=== PATIENT | female | born 1990 | race Caucasian/White ===

== ENCOUNTER 2020-01-17 14:32 | Outpatient (REF) | payer MEDICARE, MEDICAID, SELFPAY ==
[2020-01-18 09:10] LABS: CT PCR NOT DETECTED (Not Detect.); NG PCR NOT DETECTED (Not Detect.)
[2020-01-18 10:31] LABS: BV Int Neg Control Negative (Negative); BV Int Pos Control Positive (Positive)
== END 2020-01-17 14:33 | disposition home or self-care (01) ==
LOC: HO.LAB 14:32
PROVIDERS: PCP Internal Medicine; Visit Provider Obstetrics & Gynecology
DX: N91.2 Amenorrhea, unspecified (principal); N94.10 Unspecified dyspareunia
CPT/HCPCS: 87480; 87491; 87510; 87591; 87660; 99212

== ENCOUNTER → 2020-02-09 11:55 | Outpatient (BNVA) | payer MEDICARE, MEDICAID, SELFPAY | PROVIDERS: Visit Provider Obstetrics & Gynecology | DX: Z13.89 Encounter for screening for other disorder (principal) | CPT/HCPCS: 81025; 99212 ==

== ENCOUNTER 2020-09-21 13:05 | Outpatient (REF) | payer MEDICARE, MEDICAID, SELFPAY ==
[2020-09-21 14:06] LABS: MANUAL DIFF FLAG NO
[2020-09-21 14:11] LABS: Basophils Percent Auto 0.6 % (0-2); Eosinophils Absolute Auto 0.1 X10*3/uL (0.0-0.4); Eosinophils Percent Auto 1.9 % (0-4); Hematocrit 42.7 % (37-47); Hemoglobin 14.6 g/dl (12.0-16.0); Imm Gran Abs Auto 0.03 X10*3/uL (0.00-0.03); Imm Gran Pct Auto 0.4 % (0.0-0.4); Lymphocytes Absolute Auto 1.7 X10*3/uL (1.2-4.9); Lymphocytes Percent Auto 24.9 % (20-40); Mean Corpuscular HGB Conc 34.2 g/dl (31.0-35.0); Mean Corpuscular Volume 84.9 fL (80-98); Monocytes Absolute Auto 0.6 X10*3/uL (0.1-1.2); Neutrophils Absolute Auto 4.3 X10*3/uL (2.0-8.3); Neutrophils Percent Auto 63.2 % (45-73); Platelet Count 189 X10*3/uL (160-400); Red Blood Count 5.03 X10*6/uL (4.20-5.50); Red Cell Distribution Width 13.2 % (11.0-16.0); White Blood Count 6.8 X10*3/uL (4.8-10.8)
[2020-09-21 14:17] LABS: Glucose Urine UA NEG (NEG); Leukocyte Esterase Urine NEG (NEG); Nitrite Urine NEG (NEG); Specific Gravity - Urine >= 1.030 (1.005-1.025); Urine Blood NEG (NEG); Urine Ketones NEG (NEG); Urine Protein TRACE MG/DL (NEG-TRACE)
[2020-09-21 14:19] LABS: Appearance Urine HAZY; Color Urine YELLOW
[2020-09-21 14:33] LABS: Creatinine Urine 232.43 mg/dL; Microalbum/Creatinine Ratio Ur 13.3 ug/mg cr
[2020-09-21 14:37] LABS: Alanine Aminotransferase 19 U/L (0-31); Albumin Level 4.3 g/dL (3.5-5.0); Alkaline Phosphatase 93 U/L (39-117); Anion Gap 13 (12-20); Aspartate Amino Transferase 25 U/L (5-31); Bilirubin Total 1.1 mg/dL (0.0-1.0); Blood Urea Nitrogen 18 mg/dL (9-16); Calcium 9.6 mg/dL (8.4-10.2); Carbon Dioxide 25 mmol/L (22-29); Chloride 103 mmol/L (96-108); Estimated Glomerular Filt Rate > 60; Glucose Random 120 mg/dL (60-115); Iron 139 mcg/dL (30-160); Magnesium 1.8 mg/dL (1.6-2.6); Percent Iron Saturation 45 % (15-50); Potassium 4.2 mmol/L (3.3-5.1); Sodium 137 mmol/L (135-145); Total Iron Binding Capacity 310 mcg/dL (228-428); Unsaturated Iron Binding 171 ug/dL
[2020-09-21 14:52] LABS: Ferritin 176 ng/mL (10-122); Vitamin D 25-OH Total 36.4 ng/mL (>30)
[2020-09-22 08:29] LABS: HIV AB/AG Nonreactive (Nonreactive); HIV Num 1 0.11 S/CO (0.00-0.99)
== END 2020-09-21 13:06 | disposition home or self-care (01) ==
LOC: HO.LAB 13:05
PROVIDERS: PCP Internal Medicine; Referring Provider Internal Medicine; Visit Provider Internal Medicine
DX: Z00.00 Encounter for general adult medical examination without abnormal findings (principal); Z11.4 Encounter for screening for human immunodeficiency virus [HIV]
CPT/HCPCS: 36415; 80053; 81003; 82043; 82306; 82728; 83540; 83735; 84100; 85025; 87389

== ENCOUNTER 2021-01-18 15:32 | Outpatient (REF) | payer MEDICARE, MEDICAID, SELFPAY ==
[2021-01-20 13:13] LABS: CT PCR NOT DETECTED (Not Detect.); NG PCR NOT DETECTED (Not Detect.)
[2021-01-21 10:50] LABS: BV Int Neg Control Negative (Negative); BV Int Pos Control Positive (Positive)
[2021-01-25 10:01] LABS: HPV mRNA E6/E7 rflx Not Detected (Not Detected)
== END 2021-01-18 15:33 | disposition home or self-care (01) ==
LOC: HO.LAB 15:32
PROVIDERS: PCP Internal Medicine; Visit Provider Advanced Practice Midwife
DX: Z01.411 Encounter for gynecological examination (general) (routine) with abnormal findings (principal); Z11.3 Encounter for screening for infections with a predominantly sexual mode of transmission; N89.8 Other specified noninflammatory disorders of vagina; Z20.2 Contact with and (suspected) exposure to infections with a predominantly sexual mode of transmission
CPT/HCPCS: 87480; 87491; 87510; 87591; 87624; 87660; 88142; 99212

== ENCOUNTER 2021-11-13 17:15 | Outpatient (REF) | payer MEDICARE, MEDICAID, SELFPAY ==
--- NOTE | ~2021-11-13 | XR_ITS ---
EXAMINATION: XR CHEST CLINICAL INFORMATION: Shortness of breath. COMPARISON: None TECHNIQUE: 2 views of the chest were obtained. FINDINGS: Sternal wires and fixation plates are noted. Cardiac valve prosthesis seen. Abandoned pacer leads noted. Surgical clips project over the left lower lobe. Normal size of the cardiomediastinal silhouette for this limited technique. No focal airspace opacity, pleural effusion or pneumothorax. No acute osseous abnormalities. The imaged upper abdomen is within normal limits. XR/XR chest 2V IMPRESSION: No acute cardiopulmonary findings.
== END 2021-11-13 17:16 | disposition home or self-care (01) ==
LOC: HO.XRAY 17:15
PROVIDERS: PCP Internal Medicine; Visit Provider Internal Medicine
DX: J45.40 Moderate persistent asthma, uncomplicated (principal)
CPT/HCPCS: 71046

== ENCOUNTER 2023-02-28 09:51 | Emergency (ER) | payer MEDICARE, MEDICAID, SELFPAY ==
[2023-02-28 10:17] VITALS: BP 106/66; BP 134/86; PULSE 75; PULSE 76; RESP 16; TEMP 36.8; O2SAT 96; O2SAT 98; BMI 28.0
--- NOTE | 2023-02-28 10:33 | ED.GENADULT ---
HPI - General Adult General Chief complaint: General Medical Stated complaint: FOUND ASLEEP AT WHEEL Time Seen by Provider: 02/28/23 10:18 Source: patient Mode of arrival: ambulatory Limitations: no limitations History of Present Illness HPI narrative: 32-year-old female history of IV drug abuse, factor 5 Leiden, on apixaban presenting to the emergency department after being found dozing off in her car while parked, she was found by police who made her come into the emergency department for evaluation. She was not given Narcan. She reports she use drugs this morning however unwilling to disclose how much. She reports she was recently hospitalized and septic, and has had a wound ever since her hospitalization that seems to be getting worse and now draining yellow fluid. Patient did not want to come to the hospital but states she was forced to come in. Denies suicidal or homicidal ideation. Denies fevers, chills, chest pain, shortness of breath, nausea, vomiting, abdominal pain Related Data Home Medications Medication Instructions Recorded Confirmed dextroamphetamine-amphetamine 15 15 mg PO BID 01/17/20 mg tablet (Adderall) apixaban 5 mg tablet (Eliquis) 5 mg PO BID 01/18/21 methadone 10 mg/5 mL oral solution 80 mg PO DAILY 01/18/21 Previous Rx's Medication Instructions Recorded cephalexin 500 mg tablet 500 mg PO Q6H 10 days #40 tabs 02/28/23 doxycycline hyclate 100 mg capsule 100 mg PO BID 10 days #20 caps 02/28/23 Allergies Allergy/AdvReac Type Severity Reaction Status Date / Time No Known Allergies Allergy Verified 01/18/21 15:45 Review of Systems Review of Systems: Constitutional : No Weight loss, No Fever, No Chills, No Fatigue, No Malaise ENT/Mouth : No sore throat, No Rhinorrhea Eyes: No Eye Pain, No Swelling, No Redness Cardiovascular : No Chest Pain, No SOB, No Dyspnea on Exertion, No Orthopnea, No Edema, No Palpitations Respiratory : No Cough, No Sputum, No Wheezing Gastrointestinal : No Nausea, No Vomiting, No Diarrhea, No Constipation, No abdominal Pain, No Hematochezia, No Melena Genitourinary : No Dysuria, No Urinary Frequency, No Hematuria, Musculoskeletal : No joint pain, No Myalgias, No Joint Swelling Skin : No Skin Lesions, No rash, + wound Neuro : No Weakness, No Numbness, No Dizziness, No Headache Psych : No Anxiety/Panic, No Depression All other systems reviewed and are negative Yes all other systems are reviewed and are negative COUNT INCLUDES [facility] Past Medical History Attestation statement: The following information was validated with the patient. Source: old records reviewed and nursing notes reviewed Medical History IV drug abuse Factor V Leiden History of pulmonary embolism History of ADHD Surgical History History of loop electrical excision procedure (LEEP) Hx of heart surgery Hx of cholecystectomy Hx of tonsillectomy Family History Family History Mother Skin cancer Social History Social History Alcohol intake: never Cigarettes Per Day: 20 Years Smoked: 10 Advance Directives: No Advance Directives Information Provided: No Sexual orientation: Straight/Heterosexual Gender identity: Female Physical Exam ED Vital Signs: Vital Signs - 24 hr 02/28/23 10:17 Temperature 98.3 F Pulse Rate 75 Respiratory Rate 16 Blood Pressure 106/66 Pulse Oximetry 96 Oxygen Delivery Method Room Air BMI result Body Mass Index 28.0 vss Appearance: Alert.? Oriented X3.? No acute distress.? Head: Normocephalic, atraumatic, no step-offs or deformities Eyes: Pupils equal, round and reactive to light.? ENT: Pharynx normal.? Neck: Normal inspection.? Neck supple.? CVS: Normal heart rate and rhythm.? Pulses normal.? Respiratory: No respiratory distress.? Breath sounds normal.? Abdomen: Soft and nontender.? Skin: Skin warm and dry.? Normal skin color.? Normal skin turgor.? + there is a small 2 cm wound w/ dehisence with overlying erythema, warmth and purulence yellow/ green. No palpable fluctuance. This appears to be overlying the site where pacemaker was inserted Extremities: No lower extremity edema.? No calf ttp. 5/5 strength to bilateral upper and lower extremities Neuro: Oriented X 3.? No motor deficit.? No sensory deficit. CN 2-12 intact Course Reevaluation(s) Reevaluation #1: Patient does not want labs drawn she says she does not want to be here. Does not want to be seen by the care team or recovery. Patient requesting to leave she is awake alert and oriented denying suicidal and homicidal ideation. Will treat patient for cellulitis of wound to left anterior chest wall. Educated patient on diagnosis and treatment plan, answered all question, patient verbalizes understanding. At this time patient will be discharged home, advised to return with new or worsening symptoms. Educated on worrisome signs and symptoms and when to return. At this time I feel comfortable discharge home. Time: 10:40 Reevaluation #2: Patient did not sign form AMA however she verbally understood risks of leaving against medical advice with nazia present at bedside as keven Time: 11:54 Medical Decision Making Medical Decision Making [facility] Narrative: 32-year-old female presents status post suspected opiate overdose. Also complaining of wound to left anterior chest wall Physical exam significant for + there is a small 2 cm wound w/ dehisence with overlying erythema, warmth and purulence yellow/ green. No palpable fluctuance. This appears to be overlying the site where pacemaker was inserted This was likely opiate overdose versus opiate abuse. Unlikely suicidal ideation/intent. No associated trauma therefore unlikely traumatic injury to head, neck, chest, abdomen or pelvis NIH stroke scale 0, GCS 15. I do not suspect metabolic derangements. Wound concerning for infection/cellulitis with dehiscence unlikely systemic al illness/infection. Plan at this time patient requesting to leave states her mother will come get her. Does not want to speak to recovery or care team. Not suicidal or homicidal no indication for Section 12 I explained to her that she should be admitted for her wound however she is adamantly refusing. Refusing labs. Differential Diagnosis Differential Diagnoses: The differential diagnosis associated with the presentation includes This was likely opiate overdose versus opiate abuse. Unlikely suicidal ideation/intent. No associated trauma therefore unlikely traumatic injury to head, neck, chest, abdomen or pelvis NIH stroke scale 0, GCS 15. I do not suspect metabolic derangements. Wound concerning for infection/cellulitis unlikely systemic al illness/infection. Admission/Observation Consideration of admission/observation: Escalation of care including admission/observation considered Unlikely Lab Data Labs: Patient refusing lab Independent Historian Clinical information obtained from an independent historian. History obtained from or confirmed by: Parent (Mother) Prescription Management I considered prescription management with: Antibiotic and Other (Narcan) Chronic Conditions Patient?s care impacted by: Other (IV drug abuse) Discharge Plan Discharge Clinical Impression: Opiate overdose, Wound dehiscence, Left against medical advice Patient Disposition: Home, Self-Care Instructions: Against Medical Advice (ED) Additional Instructions: Take your medications as prescribed. If you were prescribed antibiotics today, it is important that you take your medication to their entirety, do not skip any doses, do not finish them early. Follow-up with your primary care provider this week. Return to the emergency department with new or worsening symptoms. Such as fevers, chills, chest pain, shortness of breath, nausea, vomiting, dizziness, headache, vision changes, lethargy In case of emergency call 911 You decided to leave against medical advice, I recommended staying in the hospital for IV antibiotics due to the wound under chest wall, your refusing. Refusing labs. Refusing to stand hospital. This could lead to worsening infection, systemic illness, , sepsis. Prescriptions: New doxycycline hyclate 100 mg capsule 100 mg PO BID 10 Days Qty: 20 0RF cephalexin 500 mg tablet 500 mg PO Q6H 10 Days Qty: 40 0RF No Action dextroamphetamine-amphetamine [Adderall] 15 mg tablet 15 mg PO BID Rx Instructions: administer doses at least 4-6 hours apart methadone 10 mg/5 mL solution 80 mg PO DAILY Eliquis 5 mg tablet 5 mg PO BID Referrals: ED Physician,Generic [Physician] - 2 days Interventions: ED Discharge Assessment Last Done: 02/28/23 11:11 Discharge Date/Time: 02/28/23 11:12
--- NOTE | 2023-02-28 10:42 | MHC.EDTECH ---
pt refusing labs, RN and PA made aware.
--- OUTSIDE RECORDS SUMMARY | 2023-02-28 10:46 | XMS_ITS | Continuity of Care Document ---
Author Name Unknown Organization [facility] Address [address] [place] [id number] Care Team Providers Care Produce Department Manager Name Role Phone Maddy PERALTA, Daniella Primary Care Physician Encounter [facility] [place] Date(s): 04/07/20 - 05/07/20 [facility] [address] [place] [id number] Attending Physician: Jocelynn Liang Admitting Physician: Jocelynn Liang Referring Physician: Jocelynn Liang Allergies, Adverse Reactions, Alerts Substance Reaction Severity Status NKA Active Immunizations Not Given Vaccine Date Status Refusal Reason pneumococcal 23-valent vaccine 10/16/19 Not Given Patient Refuses pneumococcal 23-valent vaccine 01/08/18 Not Given Patient Refuses pneumococcal 23-valent vaccine 12/09/16 Not Given Patient Refuses influenza virus vaccine, inactivated 01/08/18 Not Given Patient Refuses Medications acetaminophen 325 mg oral tablet 975 mg, 3, tablet, By Mouth, Every 6 hours, PRN, Refills 0, Maintenance, Pain , Mild, 10/27/19 9:20:00 EDT Start Date: 10/27/19 Status: Ordered apixaban = 5 mg, By Mouth, 2 times a day, 0 Refills, Maintenance, 03/28/20 14:42:00 EST, Tablet, Partial fill upon patient request if the prescription is for a schedule II opioid drug. Start Date: 03/28/20 Status: Ordered cephalexin monohydrate 500 mg oral capsule 1 capsule = 500 mg, By Mouth, Every 8 hours, for 4 week(s), # 84 capsule, 0 Refills, Acute 05/26/2114:16:00 EST, 04/28/20 15:16:00 EST, [id number], Partial fill upon patient requestif the prescription is for a schedule II opioid thea... Start Date: 04/28/20 Stop Date: 05/26/20 Status: Ordered gabapentin 100 mg oral capsule 100 mg, 1, capsule, By Mouth, 3 times a day, Refills 0, Maintenance, 03/28/20 14:41:00 EST, Partialfill upon patient request if the prescription is for a schedule II opioid drug. Start Date: 03/28/20 Status: Ordered methadone 10 mg oral tablet = 80 mg, By Mouth, Daily in AM, 0 Refills, Maintenance, 03/28/20 16:41:00 EST, Tablet, Partial fillupon patient request if the prescription is for a schedule II opioid drug. Start Date: 03/28/20 Status: Ordered Multivit Therapeutic/Minerals Tablet 1 tablet, By Mouth, Daily, 0 Refills, Maintenance, 03/28/20 14:41:00 EST, Tablet, Partial fill uponpatient request if the prescription is for a schedule II opioid drug. Start Date: 03/28/20 Status: Ordered oxyCODONE 5 mg oral tablet 5 mg, 1, tablet, By Mouth, Every 6 hours, PRN, Refills 0, Tot. Refills 0, Maintenance, Pain , Severe, 03/28/20 14:41:00 EST, Partial fill upon patient request if the prescription is for a schedule IIopioid drug. 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
--- OUTSIDE RECORDS SUMMARY | 2023-02-28 10:46 | XMS_ITS | Continuity of Care Document ---
Author Name Unknown Organization [facility] ter Address [address] [place] [id number]- Care Team Providers Care Car Wash Attendant Name Role Phone Daniella Castañeda MD Primary Care Physician Encounter [facility] [place] Date(s): 12/24/22 - 01/02/[address] [address]- Encounter Diagnosis Septic shock(Final) - 12/25/22 Pulmonary embolus(Final) - 12/25/22 Enterocolitis(Final) - 12/25/22 Discharge Disposition: A-D/C Home Attending Physician: Ayan Russell MD Admitting Physician: Tobias Carvalho MD Referring Physician: Not on Staff, Referring MD Allergies, Adverse Reactions, Alerts No Known Allergies Medications amoxicillin 500 mg oral tablet 2 tablet = 1,000 mg, By Mouth, 3 times a day, for 6 week(s), # 252 tablet, 0 Refills, Acute 02/13/23 11:49:00 EST, 01/02/23 11:49:00 EDT, Tablet, [facility], Partial fill upon patient request if the prescription is for a schedule II opio... Start Date: 01/02/23 Stop Date: 02/13/23 Status: Ordered apixaban 5 mg oral tablet = 5 mg, By Mouth, 2 times a day, # 60 tablet, 1 Refills, Maintenance, 01/02/23 11:46:00 EDT, Tablet, [facility], Partial fill upon patient request if the prescription is for a schedule II opioid drug., 162, cm, 01/02/23 3:30:00 EDT, Heig... Start Date: 01/02/23 Status: Ordered erythromycin 0.5% ophthalmic ointment 1 applicator, Eye, Left, Every 4 hours, # 3.5 Gm, 1 Refills, Maintenance, 01/02/23 11:47:00 EDT, Ophth Ointment, [facility], Partial fill upon patient request if the prescription is fora schedule II opioid drug., 1 applicator Eye, Left... Start Date: 01/02/23 Status: Ordered Methadone Tablet 90 mg, Tablet, By Mouth, 01/02/23 9:00:00 EDT Start Date: 01/02/23 Stop Date: 01/02/23 Status: Completed ofloxacin 0.3% ophthalmic solution See Instructions, 1 drop left eye every hour while awake for 1 week. Please follow up with ophthalmology, # 5 mL, 0 Refills, Acute, 01/02/23 12:45:00 EDT, [facility], Partial fill upon patient request if the prescription is for a schedu... Start Date: 01/02/23 Status: Ordered oxyCODONE 5 mg oral tablet 5 mg, Tablet, By Mouth, Every 6 hours, PRN for Pain , Severe, CRESENCIO, 12/27/22 14:06:00 EDT Start Date: 12/27/22 Stop Date: 01/02/23 Status: Discontinued Problem List Condition Confirmation Course Effective Dates Status H ealth Status Informant ARF - Acute renal failure Confirmed Active Pacemaker Confirmed Active Cholecystitis Confirmed Active Depression Confirmed Active Empyema Confirmed Active Factor 5 Leiden mutation Confirmed Active Tricuspid valve replaced Confirmed Active Hepatitis C antibody test positive Confirmed Active History of opioid abuse, currently on methadone Confirmed Active Infective endocarditis of tricuspid valve Confirmed Active Sacroiliitis Confirmed Active Opioid abuse Confirmed Active Opioid use disorder, severe, dependence Confirmed Active Pulmonary embolism Confirmed Active Results Orders for Microbiology Reports Name Date Blood Culture 12/31/22 Blood Culture #2 12/31/22 Blood Culture 12/24/22 Blood Culture 12/24/22 Blood Culture #2 12/24/22 Microbiology Reports TEST:Blood Culture STATUS:Unauthenticated BODY SITE: SOURCE:Blood COLLECTED DATE/TIME:12/31/22 1:50 PM Blood Culture SPECIMEN DESCRIPTION : BLOOD NO SITE SPECIAL REQUESTS : NONE CULTURE : NO GROWTH AFTER 48 HOURS REPORT STATUS : PRELIMINARY REPORT TEST:Blood Culture, Second Order STATUS:Unauthenticated BODY SITE: SOURCE:Blood COLLECTED DATE/TIME:12/31/22 1:50 PM Blood Culture, Second Order SPECIMEN DESCRIPTION : BLOOD NO SITE SPECIAL REQUESTS : NONE CULTURE : NO GROWTH AFTER 48 HOURS REPORT STATUS : PRELIMINARY REPORT TEST:Blood Culture STATUS:Auth (Verified) BODY SITE: SOURCE:Blood COLLECTED DATE/TIME:12/24/22 2:51 PM Blood Culture SPECIMEN DESCRIPTION : BLOOD NO SITE SPECIAL REQUESTS : NONE CULTURE : STREPTOCOCCUS PYOGENES Result reported to the [facility]. This isolate was identified using Maldi-TOF system FOR SUSCEPTIBILITY RESULT REFER TO BLOOD CULTURE CULTURE RESULTS PHONED TO: [facility] 12/26/22 1210 BY [employer] REPORT STATUS : FINAL 12/27/2022 TEST:Blood Culture, Second Order STATUS:Auth (Verified) BODY SITE: SOURCE:Blood COLLECTED DATE/TIME:12/24/22 2:51 PM Blood Culture, Second Order SPECIMEN DESCRIPTION : BLOOD NO SITE SPECIAL REQUESTS : NONE CULTURE : STREPTOCOCCUS PYOGENES Result reported to the [facility]. This isolate was identified using Maldi-TOF system FOR SUSCEPTIBILITY RESULT REFER TO BLOOD CULTURE CULTURE RESULTS PHONED TO: [facility] 12/26/22 1210 BY [employer] REPORT STATUS : FINAL 12/27/2022 TEST:Blood Culture STATUS:Auth (Verified) BODY SITE: SOURCE:Blood COLLECTED DATE/TIME:12/24/22 2:51 PM Blood Culture SPECIMEN DESCRIPTION : BLOOD NO SITE SPECIAL REQUESTS : CRITICAL VALUE CALLED AND VERIFIED BY READBACK FOR: GRAM POSITIVE COCCI AND PCR RESULT TO EVELYN GARCIA, 12/25/22 0230, BY TECH [id number] CULTURE : STREPTOCOCCUS PYOGENES Result reported to the [facility]. This isolate was identified using Maldi-TOF system These AST results were performed on the Pho[employer]entcan ID and AST system Group A beta Hemolytic Strep was identified by multiplex PCR. CULTURE RESULTS PHONED TO: [facility] 12/26/22 1210 BY [id number] REPORT STATUS : FINAL 12/27/2022 ORGANISM STREPTOCOCCUS PYOGENES Result reported to the [facility]. This isolate was identified using Maldi-TOF system These AST results were performed on the Microscan ID and AST system METHOD MIN. INHIB. CONC. (MCG/ML) ERYTHROMYCIN RESISTANT PENICILLIN SUSCEPTIBLE VANCOMYCIN SUSCEPTIBLE Radiology Reports * Exam Date Time Procedure Performing Provider Status 12/27/22 10:[address] Chest W/ Contrast Kristin Little; Auth (Verified) Notes: (CT Chest W/ Contrast) Reason For Exam: Assess for Abscess;Other: RESULT: CT Chest W/ Contrast CT Chest W/ Contrast INDICATION: Reason: Other:; Assess for Abscess; Clinical Question(s): Abscess Empyema; Order Comment: TECHNIQUE: Helical CT scan of the chest with IV contrast, formatted in 3 planes. 75 cc of [id number] was administered intravenously. Weight-based protocol was performed using automatic exposure control. CTDIvol Body: 5.80 mGy, DLP Body: 226 mGy*cm. COMPARISON: 12/24/2022. FINDINGS: Reservations Manager view findings, lines and tubes: Percutaneous pacer wires remain in place. Trachea and airways: Patent without evidence of tracheal or endobronchial lesion. Lungs and pleura: In addition to persistent pre-existing patchy opacities, there are new confluent airspace opacities bilaterally, most significant in the right upper lobe. There is interlobular septal thickening predominantly in the lower lung chatman. No effusion or pneumothorax. Mediastinum and loulou: There is fat stranding in the anterior mediastinum, likely postsurgical. No fluid collection is seen to suggest an abscess. Mildly prominent mediastinal and bilateral hilar lymph nodes with the largest measuring 1.1 cm in short axis, likely reactive. No esophageal abnormality. Heart: Heart is normal in size with mild right atrial enlargement. No pericardial effusion. Status post mitral valve replacement. Aorta: No aortic aneurysm. Pulmonary arteries: Redemonstration of a thrombus in right lower lobe segmental pulmonary arteries (image 45, series 201). There is a filling defect in left upper lobe lobar artery and possible subsegmental pulmonary emboli in left lower lobe. Comparison to the recent CT for these emboli is limiteddue to nonangiographic technique on both studies but these are likely unchanged. Main pulmonary artery is dilated with caliber measuring 3.6 cm, suggestive of pulmonary hypertension. Chest wall soft tissues: Diffuse subcutaneous edema. No fluid collection is seen. Diaphragm: Intact. Upper abdomen: Unchanged 2.5 cm left adrenal adenoma. Partially imaged spleen is enlarged measuringat least 13.2 cm AP. The liver is partially imaged but appears enlarged. Bones: No acute abnormality. Status post median sternotomy with no evidence of dehiscence. IMPRESSION: 1. Persistent pre-existing patchy opacities and new confluent airspace opacities throughout both lungs, suggestive of worsening multifocal pneumonia. 2. Persistent pulmonary embolism in right lower lobe segmental branches and pulmonary embolism in left upper lobar and left lower lobe subsegmental pulmonary artery branches, most likely present on recent CT. 3. Mild pulmonary edema and diffuse subcutaneous edema. Hepatosplenomegaly. An actionable message ([place]) has been communicated via the [employer] system on 12/27/2022 10:41 PM, Message ID [id number]. WSN: [id number] Ordering Physician: Shay De La Cruz Dictated By: Joce Rush MD Dictated Date/Time: 12/27/22 10:44 p Reviewed By: Joce Rush MD Signed By: Joce Rush MD Signed Date/Time: 12/27/22 10:44 pm Transcribed By: DANILO Transcribed Date/Time: 12/27/22 10:32 pm * Exam Date Time Procedure Performing Provider Status 12/27/22 9:59 AM Shoulder Min 2 Views Left Paige Taylor; Auth (Verified) Notes: (Shoulder Min 2 Views Left) Reason For Exam: Pain RESULT: Shoulder Min 2 Views Left Left shoulder, 2 views Reason: Pain; Clinical Question(s): osteomyelitis COMPARISON: None. FINDINGS: No fracture or dislocation. No arthritic change of the glenohumeral joint. Normal AC joint and portions of the clavicle included on the exam. No calcification of the rotator cuff. IMPRESSION: Normal. WSN: [id number] Ordering Physician: Sid Doan Dictated By: Josias Buchanan MD Dictated Date/Time: 12/27/22 10:16 a Reviewed By: Josias Buchanan MD Signed By: Josias Buchanan MD Signed Date/Time: 12/27/22 10:16 am Transcribed By: DANILO Transcribed Date/Time: 12/27/22 10:16 am * Exam Date Time Procedure Performing Provider Status 12/24/22 8:[address] Abd/Pelvis W/ IV Contrast Only Rosette Hatfield; Auth (Verified) Notes: (CT Abd/Pelvis W/ IV Contrast Only) Reason For Exam: AMS fever diarrhea;Other: RESULT: CT Abd/Pelvis W/ IV Contrast Only CT Chest W/ Contrast, CT Abd/Pelvis W/ IV Contrast Only INDICATION: pt NVD x2 days, lethargic, agressive to EMS when roused. Pt was recently admitted for abbess behind pacemaker and PE, left AMA.; Reason: Pulmonary Lesion; Clinical Question(s): Interstitial Alveolar Infiltration TECHNIQUE: Helical CT scan of the chest, abdomen, and pelvis with IV contrast, formatted in 3 planes. 100 cc of Omnipaque 300 was administered intravenously. This study was performed without oral contrast. Weight-based protocol was performed using automatic exposure control. CTDIvol Body: 8.20 mGy, DLP Body: 601 mGy*cm. COMPARISON: 12/18/2022 FINDINGS: Reservations Manager view findings, lines and tubes: None. Trachea and airways: Patent without evidence of tracheal or endobronchial lesion. Lungs and pleura: Persistent residual airspace opacities in the superior segment of the right lowerlobe (series 205; image 34). Hazy groundglass opacities in the perihilar and infrahilar regions with mild interlobular septal thickening. Mild dependent atelectasis. Areas of nodular scarring within the left upper lobe. Surgical clips are again seen in the left lower lobe. No effusion or pneumothora x. Mediastinum and loulou: No mass or hematoma. Unchanged 0.9 cm right lower paratracheal lymph node. Noesophageal abnormality. Partially imaged thyroid is unremarkable. Heart: Heart is normal in size. No pericardial effusion. Status post valve replacement. Aorta: No aortic aneurysm. Pulmonary arteries: Normal caliber. Again seen is a persistent embolus within the right lower lobe pulmonary artery branches (series 201 cm image 43), although, this study performed without angiographic technique. Chest wall soft tissues: Again seen is a battery pack in the left chest wall associated with surrounding streak artifact, limiting evaluation. Diaphragm: Intact. Liver: Heterogeneous appearance of the liver, likely secondary to streak artifact from the arms. The liver is enlarged measuring 20.8 cm. No focal lesion. Gallbladder: Absent consistent with prior cholecystectomy. Bile ducts: No biliary ductal dilation. Spleen: Splenomegaly measuring 17 cm. Pancreas: No suspicious lesion or ductal dilatation. Adrenal glands: No nodule. Kidneys and ureters: No hydronephrosis, stone, or suspicious lesion. Bladder: No wall thickening or surrounding stranding. Reproductive organs: Unremarkable. Stomach, small bowel, and large bowel: Stomach appears distended with an air- fluid level. Gastric diverticulum, unchanged (series 201; image 79). Normal caliber fluid-filled bowel loops. Liquid stoolwithin the rectum with small amount of inflammatory fat stranding in the descending and rectosigmoid colon. No evidence of acute obstruction. Appendix: No evidence of acute appendicitis. Peritoneum and retroperitoneum: No ascites or pneumoperitoneum. No omental or mesenteric lesions. Lymph nodes: A few scattered prominent left para-aortic lymph nodes measuring up to 0.6 cm (series 201 cm image 113), nonspecific. Blood vessels: No vascular calcifications or aneurysm. No evidence of venous thrombosis. Abdominal and pelvic wall soft tissues: No acute abnormality. Bones: No acute abnormality. IMPRESSION: 1. Persistent residual airspace opacities in the right lower lobe, likely related to resolving infectious/inflammatory etiology. 2. New hazy lung opacities in the bilateral perihilar and infrahilar lungs, with interlobular septal thickening. Findings may indicate mild pulmonary vascular congestion without overt interstitial edema. 3. Persistent embolus within the right lower lobe pulmonary artery. 4. Fluid-filled bowel loops with small amount of inflammatory fat stranding, suggestive of enterocolitis. 5. Hepatosplenomegaly. I have personally reviewed the images and I agree with this report. WSN: [id number] Ordering Physician: Marlen Jones Dictated By: Tawana Rhoades MD Dictated Date/Time: 12/24/22 9:03 pm Reviewed By: Arley Burgos MD Signed By: Arley Burgos MD Signed Date/Time: 12/24/22 9:08 pm Transcribed By: DANILO Transcribed Date/Time: 12/24/22 8:52 pm * Exam Date Time Procedure Performing Provider Status 12/24/22 8:[address] Chest W/ Contrast Krysta Hatfield; Auth (Verified) Notes: (CT Chest W/ Contrast) Reason For Exam: Pulmonary Lesion;Other: RESULT: CT Chest W/ Contrast CT Chest W/ Contrast, CT Abd/Pelvis W/ IV Contrast Only INDICATION: pt NVD x2 days, lethargic, agressive to EMS when roused. Pt was recently admitted for abbess behind pacemaker and PE, left AMA.; Reason: Pulmonary Lesion; Clinical Question(s): Interstitial Alveolar Infiltration TECHNIQUE: Helical CT scan of the chest, abdomen, and pelvis with IV contrast, formatted in 3 planes. 100 cc of Omnipaque 300 was administered intravenously. This study was performed without oral contrast. Weight-based protocol was performed using automatic exposure control. CTDIvol Body: 8.20 mGy, DLP Body: 601 mGy*cm. COMPARISON: 12/18/2022 FINDINGS: Reservations Manager view findings, lines and tubes: None. Trachea and airways: Patent without evidence of tracheal or endobronchial lesion. Lungs and pleura: Persistent residual airspace opacities in the superior segment of the right lowerlobe (series 205; image 34). Hazy groundglass opacities in the perihilar and infrahilar regions with mild interlobular septal thickening. Mild dependent atelectasis. Areas of nodular scarring within the left upper lobe. Surgical clips are again seen in the left lower lobe. No effusion or pneumothora x. Mediastinum and loulou: No mass or hematoma. Unchanged 0.9 cm right lower paratracheal lymph node. Noesophageal abnormality. Partially imaged thyroid is unremarkable. Heart: Heart is normal in size. No pericardial effusion. Status post valve replacement. Aorta: No aortic aneurysm. Pulmonary arteries: Normal caliber. Again seen is a persistent embolus within the right lower lobe pulmonary artery branches (series 201 cm image 43), although, this study performed without angiographic technique. Chest wall soft tissues: Again seen is a battery pack in the left chest wall associated with surrounding streak artifact, limiting evaluation. Diaphragm: Intact. Liver: Heterogeneous appearance of the liver, likely secondary to streak artifact from the arms. The liver is enlarged measuring 20.8 cm. No focal lesion. Gallbladder: Absent consistent with prior cholecystectomy. Bile ducts: No biliary ductal dilation. Spleen: Splenomegaly measuring 17 cm. Pancreas: No suspicious lesion or ductal dilatation. Adrenal glands: No nodule. Kidneys and ureters: No hydronephrosis, stone, or suspicious lesion. Bladder: No wall thickening or surrounding stranding. Reproductive organs: Unremarkable. Stomach, small bowel, and large bowel: Stomach appears distended with an air- fluid level. Gastric diverticulum, unchanged (series 201; image 79). Normal caliber fluid-filled bowel loops. Liquid stoolwithin the rectum with small amount of inflammatory fat stranding in the descending and rectosigmoid colon. No evidence of acute obstruction. Appendix: No evidence of acute appendicitis. Peritoneum and retroperitoneum: No ascites or pneumoperitoneum. No omental or mesenteric lesions. Lymph nodes: A few scattered prominent left para-aortic lymph nodes measuring up to 0.6 cm (series 201 cm image 113), nonspecific. Blood vessels: No vascular calcifications or aneurysm. No evidence of venous thrombosis. Abdominal and pelvic wall soft tissues: No acute abnormality. Bones: No acute abnormality. IMPRESSION: 1. Persistent residual airspace opacities in the right lower lobe, likely related to resolving infectious/inflammatory etiology. 2. New hazy lung opacities in the bilateral perihilar and infrahilar lungs, with interlobular septal thickening. Findings may indicate mild pulmonary vascular congestion without overt interstitial edema. 3. Persistent embolus within the right lower lobe pulmonary artery. 4. Fluid-filled bowel loops with small amount of inflammatory fat stranding, suggestive of enterocolitis. 5. Hepatosplenomegaly. I have personally reviewed the images and I agree with this report. WSN: [id number] Ordering Physician: Marlen Jones Dictated By: Tawana Rhoades MD Dictated Date/Time: 12/24/22 9:03 pm Reviewed By: Arley Burgos MD Signed By: Arley Burgos MD Signed Date/Time: 12/24/22 9:08 pm Transcribed By: DANILO Transcribed Date/Time: 12/24/22 8:52 pm * Exam Date Time Procedure Performing Provider Status 12/24/22 8:[address] Head/Brain W/O Contrast Rosette Hatfield; Auth (Verified) Notes: (CT Head/Brain W/O Contrast) Reason For Exam: ams;Other: RESULT: CT Head/Brain W/O Contrast CT Head/Brain W/O Contrast INDICATION: Hx of Present Illness: pt NVD x2 days, lethargic, agressive to EMS when roused. pt was recently admitted for abcess behind pacemaker and PE, left AMA.; Reason: Other:; ams; Clinical Question(s): Infection Abscess TECHNIQUE: Noncontrast head CT using axial technique and reconstructed in axial and coronal planes.Iterative reconstruction techniques are used to optimize dose and image quality. CTDIvol Head: 46.90 mGy, DLP Head: 773 mGy*cm. COMPARISON: March 14, 2020 FINDINGS: Reservations Manager view findings, lines and tubes: None. BRAIN AND EXTRA-AXIAL SPACES: No parenchymal hemorrhage, midline shift, or mass effect. Molina-white matter differentiation is wellpreserved. No acute infarct. Ventricles, sulci, and basilar cisterns are normal. No white matter lesions. No subarachnoid hemorrhage. No subdural or epidural collection. CALVARIUM, SKULL BASE, AND SOFT TISSUES: No fractures or suspicious bony lesions. The paranasal sinuses and mastoid air cells are clear. Visualized orbits and globes are intact. The extracranial soft tissues are unremarkable. IMPRESSION: No acute intracranial pathology. WSN: [id number] Ordering Physician: Marlen Jones Dictated By: Zachariah Infante MD Dictated Date/Time: 12/24/22 8:31 pm Reviewed By: Zachariah Infante MD Signed By: Zachariah Infante MD Signed Date/Time: 12/24/22 8:31 pm Transcribed By: DANILO Transcribed Date/Time: 12/24/22 8:29 pm * Exam Date Time Procedure Performing Provider Status 12/24/22 3:54 PM Chest Portable Forte , Freddy; Auth (Ve rified) Notes: (Chest Portable) Reason For Exam: Cough RESULT: Chest Portable Chest Portable INDICATION/CLINICAL QUESTION: Reason: Cough; Clinical Question(s): Pneumonia / prior cardiac surgery. TECHNIQUE: AP chest 1524 hours 12/24/2022.. COMPARISON: 10/30/2022.. FINDINGS: LINES AND TUBES: Absent. LUNGS AND PLEURA: RIGHT CHEST: The lung is clear and there is no effusion.. LEFT CHEST: The lung is clear and there is no effusion.. HEART AND MEDIASTINAL CONTOURS: Normal. BONES AND SOFT TISSUES: No acute abnormality.. IMPRESSION: 1. No active disease in chest. WSN: [id number] Ordering Physician: Marlen Jones Dictated By: Abdelrahman Knight MD Dictated Date/Time: 12/24/22 3:59 pm Reviewed By: Abdelrahman Knight MD Signed By: Abdelrahman Knight MD Signed Date/Time: 12/24/22 3:59 pm Transcribed By: DANILO Transcribed Date/Time: 12/24/22 3:58 pm Vital Signs Most recent to oldest [Reference Range]: 1 2 3 Height 162 cm (01/02/23 3:30 AM) 162 cm (01/01/23 3:27 PM) 162 cm (01/01/23 8:38 AM) Weight 62.7 kg (12/25/22 12:46 AM) Oxygen Saturation [94-100 %] 97 % (01/02/23 3:30 AM) 97 % (01/01/23 3:27 PM) 96 % (01/01/23 8:38 AM) Pulse Rate [55-90 bpm] 87 bpm (01/02/23 3:30 AM) 81 bpm (01/01/23 3:27 PM) 109 bpm *H* (01/01/23 8:38 AM) Body Mass Index [18.5-24.99 kg/m2] 23.89 kg/m2 (12/25/22 12:46 AM) Blood Pressure [90-138/55-84 mm Hg] 90/50mm Hg (01/02/23 3:30 AM) 95/55mm Hg (01/01/23 3: PM) 110/46mm Hg (01/01/23 8:38 AM) Respiratory Rate [16-30 br/min] 18 br/min (01/02/23 11:31 AM) 18 br/min (01/02/23 8:05 AM) 17 br/min (01/02/23 5:42 AM) Temperature [96.8-100.4 DegF] 98.5 DegF (01/02/23 3:30 AM) 98.0 DegF (01/01/23 3:27 PM) 98.0 DegF (01/01/23 8:38 AM) Liters per Minute 2 L/min (12/26/22 8:00 AM) 2 L/min (12/26/22 7:00 AM) 2 L/min (12/26/22 6:00 AM) Mode of Delivery (Oxygen) Room air (01/02/23 3:30 AM) Room air (01/01/23 3:27 PM) Room air (01/01/23 8:38 AM) Blood pressure sites Leg, left (01/02/23 3:30 AM) Leg, right (01/01/23 3:27 PM) Leg, right (01/01/23 8:38 AM) Temperature Route Oral (01/02/23 3:30 AM) Oral (01/01/23 3:27 PM) Oral (01/01/23 8:38 AM) Dry Weight 62.7 kg (12/25/22 12:46 AM) Social History Social History Type Response Smoking Status 10 or more cigarette s (1/2 pack or more)/day in last 30 days entered on: 07/12/18 Sex Admission evaluation note * Delores Leon MD: MODIFY, PERFORM, MODIFY, MODIFY, MODIFY, MODIFY Event Display: Admission Note Authored Date: [id number] Patient: ??BEBA BARNES ? Age:??32 Years?Sex:??Female?:??1990?? Chief Complaint/Reason for Consultation Pt having NVD x2 days, per EMS agressive and only answers some questions. History of Present Illness 32-year-old female patient??with a past medical history significant for??substance use disorder and, complex history of infective endocarditis status post tricuspid valve replacement,??bypass??ventricular??epicardial lead placement,??septic pulmonary embolism, factor V Leiden mutation (to be on eliq uis) presented to the ED due to altered mental status. ?? HPI: Limited HPI as patient??does not answer many questions. ??She??endorses she has not been??taking any medications since??his last hospital admission. The time of my evaluation patient is on??0.04 Levophed with blood pressure 137/78, satting??within normal limits on room air. ? ED Course: Patient was febrile to 104.5, HR of 130's, 107/79 with peripheral mottling with waxing status between agitation and lethargy. She got 5mg of versed and 5mg of haldol to facilate medical work-up. Got 3.5L of LR, vancomycin and zosyn, and was eventually started on levophed given persistent hypotension. ??Right IJ central line placed to facilitate this. ??Patient restarted on Lovenox 70 mg twice daily for her persistent PE. Her blood work this time was remarkable for leukocytosis to 18.2, hemoglobin of 17.2, hematocrit of54.7, with 12.4% bands and 16.2 metamyelocytes, creatinine 1.1 with BUN of 28, electrolytes within normal limits, does have chloride of 92 with bicarbonate of 21 and anion gap of 20 total bilirubin elevated 2.8 with lactate of 4, proBNP elevated 1200, high-sensitivity troponin normal at 13.?? TSH within normal limits, negative, blood culture obtained which is currently no growth, UA with 3+ hemoglobin and 182 red blood cells but no evidence of infection. ? Background History: Patient has history of??infective??endocarditis in September 2019 complicated with??renal failure requiring temporary??dialysis,??septic embolism causing empyema, septic arthritis and pulmonary embolism,??and tricuspid regurgitation. She ultimately underwent??tricuspid valve replacement, biventricular??epicardial lead placement, and evacuation of the left??hemothorax. ??Since??that time??she has multiple??counts of infective endocarditis??in the setting of??IV drug use.?? In August 2022 she was admitted to the hospital with??another episode of MSSA endocarditis??and large??tricuspid valve??vegetation??where she underwent AngioVac extraction of the??vegetation. ??She was discharged on September 17??with a plan to complete??course of oxacillin, ertapenem and rifampin. However she was admitted??to [facility]from 09/30-10/13 with CoNS bacteremia resistant to oxacillin and was started on vancomycin. Shewas discharged to rehab to continue course of vancomycin but was sent??later to the ED for evaluation of non- functioning PICC line and was found to have left anterior chest wall swelling suspicious for infected??pacemaker.??She was transferred to [facility] [place] and was evaluated by cardiac surgery who??did not think this was an active infection. She ended up leaving AMA and PICC line was removed prior to discharge??(did not complete course of antibiotics at the time), blood culture were negative that admission in October. Later she was seen by ID in the clinic who thought she has received enough course of antibiotic. She then presented on 12/18/22 due to swelling and pain around pacemaker area that had started 2 weeks prior, her CT chest showed pulmonary embolism within the lobar and segmental branch of the right lower lobe. She was also was found to have positive fluorescein uptake on eye exam suggestive of corneal ulcer. US of chest at that time showed heterogeneous collection surrounding the cardiac electrodes in the left chest wall measuring 4.6 x 2.1 x 4.0 cm is suspicious for abscess formation. Cardiac surgery evaluated patient and determined she was not a surgical candidate however wereconsidering options for I&D of pacemaker pocket and cutting leads. That same day on 12/20 unfortunately patient left AMA, it does not appear she was not discharge on antibiotics. Review of Systems Limited given patient's cooperation Objective ? Vital Signs?? Temperature:??102.1 DegF??High (12/24/22 18:48:00) Temperature Route: Rectal (12/24/22 18:48:00) Pulse Rate:??103 bpm??High (12/24/22 22:16:00) Respiratory Rate: 18 br/min (12/24/22 22:16:00) Systolic Blood Pressure: 108 mm Hg (12/24/22 22:16:00) Diastolic Blood Pressure: 68 mm Hg (12/24/22 22:16:00) Blood pressure sites: Arm, right (12/24/22 18:48:00) Mean Arterial Pressure: 78 mm Hg (12/24/22 18:48:00) Pulse Pressure: 44 mm Hg (12/24/22 18:48:00) Oxygen Saturation: 98 % (12/24/22 22:16:00) Mode of Delivery (Oxygen): Room air (12/24/22 18:48:00) End Tidal CO2: 20 mm Hg (12/24/22 18:17:00) ? Physical Exam General: covered her head under blankets HENT: unable to asses Respiratory: unable to assess Cardiovascular: Unable to assess GI: unable to assess Neuro: Does not answer questions, is seen curled up in bed moving?? Skin: Skin appears mottled Psych: Does not engage with examiner, does not answer questions,??does not allow examiner to examine ?? Assessment/Plan 32-year-old female patient??with a past medical history significant for??substance use disorder and, complex history of infective endocarditis status post tricuspid valve replacement,??bypass??ventricular??epicardial lead placement,??septic pulmonary embolism, factor V Leiden mutation (to be on Eliq uis) presented to the ED due to altered mental status, admitted to the ICU for management??of presumed septic shock in setting of known pacemaker abscess collection. ?? Neuro History of substance use Patient agitated and uncooperative on admission.? Patient has history of??opioid use disorder. Patient was last seen by addiction medicine service on09/09/2022 at that time she was on 20 mg twice daily.?? Patient at this time does not offer any information about methadone therefore I am unable to start however per progress note on 12/19 patient to be on methadone 70mg daily. ?? Plan -Can confirm methadone dose in AM - if patient able to provide information -Follow Utox? [facility] Septic shock Tricuspid Stenosis Pulmonary embolism of R lower lobe artery Patient??presented with blood pressure systolic in the 100??however??this worsened requiring 3.5 L of fluids to be administered, Levophed??had to be started given lack of improvement. Last ECHO on 12/2022 showed EF 55 to 60%,??functional tricuspid stenosis with severely elevated valve gradient of 10 mm??meters of mercury??with thickened bioprosthetic leaflet tissue. ?? Plan -Continue Levophed to maintain MAP over 65 -Obtain formal echo -Consider repeat cardiac surgery consultation for question of incision and drainage of??abscess??within??pacemaker leads ?? Pulmonary?? Multifocal airspace consolidation Patient has had multifocal airspace consolidations throughout the lungs for several months, much more improved on CT chest on this admission only showing in??the right lower lobe. Likely from healing??infarction. ? Plan -Continue to monitor oxygen saturation on room air ?? Renal KERI vs. CKD KERI Cr of 1.1 which may be new baseline vs. KERI??from 0.8 on September of this year. ?? Plan -Continue to monitor intake/output -Consider urine studies if worsening ?? GI Enterocolitis On admission patient noted to have dark green liquid/soft stool. CT A/P showing Fluid-filled bowel loops with small amount of inflammatory fat stranding, suggestive of enterocolitis. Likely viral however cannot rule out bacterial at this time. ?? Plan -Follow stool PCR -Monitor stool output ?? ID Septic shock History of IE Abscess of pacemaker leads Complicated history of IE, last had MSSA bacteremia on 09/04/22 with large??tricuspid valve??vegetation??where she underwent AngioVac extraction of the??vegetation which per ID note on 11/15/2022 has already been adequately treated. She then re-presented on 12/18 and at that time US of chest at that time showed heterogeneous collection surrounding the cardiac electrodes in the left chest wall measuring 4.6 x 2.1 x 4.0 cm is suspicious for abscess formation. Cardiac surgery evaluated patient and determined she was not a surgicalcandidate however were considering options for I&D of pacemaker pocket and cutting leads. That s indigo day on 12/20 unfortunately patient left AMA, it does not appear she was not discharge on antibiotics. ?? Plan -Continue vancomycin -Continue Zosyn -F/u 2 sets of blood cultures from ED -ECHO as above -Consider ID consult ?? Heme Pulmonary embolism of R lower lobe artery Factor V Leiden Pulmonary embolism within the lobar and segmental branches of the right lower lobe was visualized on 12/18/2022, repeat CT chest on admission showed persistent embolus within the right lower lobe pulmonary artery. ?? Plan -Patient was started on Lovenox therapeutically??during his presentation on 12/18 due to PE as??above. Since patient?is non-compliant on Eliquis therefore do not believe this represents true Eliquis failure. Can start Eliquis 10mg BID for 7 days then 5mg BID. -Monitor for signs of bleeding? Optho Corneal abrasion Patient diagnosed with corneal abrasion on 12/18, unable to assess today. However patient did not complete treatment as she left on 12/20. ?? Plan -Continue cipro drops to left eye for 5 days ?? ICU Quality Measures Feeding:??NPO pending improvement in mental status/shock ?? Analgesia:??N/a Sedation:??N/a Thrombo ppx:??On eliquis Ulcer ppx:??N/a Glycemic control:??N/a Spont breathing trial / wean O2:?? None Bowel: ICU bowel regimen PRN De-escalate antibiotics:?? Pending cultures Code status: ??Presumed full, patient did not confirm ?? Medication reconciliation documented as per patient input, patient endorses non-compliance with medications. Discussed with Dr. Carvalho ? Histories Allergies Allergies ?(Active and Proposed Allergies Only) NKA? (Severity: Unknown severity, Onset: Unknown) ? Past Medical History/Problem List Active Problems??(13) ARF - Acute renal failure Cholecystitis Depression Empyema Factor 5 Leiden mutation Hepatitis C antibody test positive History of opioid abuse, currently on methadone History of tubo-ovarian abscess Infective endocarditis of tricuspid valve Opioid abuse Pulmonary embolism Sacroiliitis Tricuspid valve replaced ? Past Surgical History Laparoscopic cholecystectomy ? Social History Alcohol Details:??Use: Current. ??Frequency: 1-2 times per month. Employment/School Details:??Status: Disabled. Exercise Details:??Self assessment: Fair condition. ??Regular exercise: Yes. Home/Environment Details:??Living situation: Home/Independent. Nutrition/Health Details:??Diet: Regular. Substance Abuse Details:??Use: Past. Tobacco Details:??Use: 10 or more cigarettes (1/2 pack or more)/day in last 30 days. Electronic Cigarette/Vaping Details:??Electronic Cigarette Use: Never. ? Family History No family history recorded. ? Medications Home Medications apixaban (apixaban 5 mg oral tablet)?5?Milligram?By Mouth?2 times a day Clonidine (cloNIDine 0.1 mg oral tablet)?0.1?Milligram?1?tablet?By Mouth?2 times a day?as needed?Anxiety ? Inpatient Medications Medications (3) Active SCHEDULED: (1) Enoxaparin 80 mg Inj (Enoxaparin Inj) ??70 mg 0.7 mL, Subcutaneous Injection, Every 12 hours CONTINUOUS: (1) NORepinephrine 4mg / 250mL D5W 4 mg (Levophed 4 mg / D5W 250 mL 4 mg) ??4 mg 250 mL, IV Infusion PRN: (1) Docusate Sodium 10 mg/mL Liquid UD (Colace Liquid) ??100 mg 10 mL, By Mouth, 2 times a day ? Results Recent Labs BLOOD COUNT & DIFF WBC 18.2 k/mm3 (High)?? 12/24/2022 14:51 RBC 6.67 m/mm3 (High)?? 12/24/2022 14:51 Hgb 17.2 Gm/dL (High)?? 12/24/2022 14:51 Hct 54.7 % (High)?? 12/24/2022 14:51 MCV 82.0 femtoliters ()?? 12/24/2022 14:51 MCH 25.8 pg (Low)?? 12/24/2022 14:51 MCHC 31.4 g/dL (Low)?? 12/24/2022 14:51 Platelet Count RESULT CANNOT BE REPORTED DUE TO PLATELET CLUMPING.SUGGEST REDRAW FOR k/mm3 ()?? 12/24/2022 14:51 RDW-SD 45.7 femtoliters ()?? 12/24/2022 14:51 MPV NOT MEASURED femtoliters ()?? 12/24/2022 14:51 Nucleated RBC (Automated) 0.0 #/100 WBC'S ()?? 12/24/2022 14:51 Abs. NRBC 0.0 k/mm3 ()?? 12/24/2022 14:51 Abs. Neut 14.5 k/mm3 (High)?? 12/24/2022 14:51 Abs. Lymph 0.2 k/mm3 (Low)?? 12/24/2022 14:51 Abs. Attala 0.0 k/mm3 (Low)?? 12/24/2022 14:51 Abs. Eo 0.0 k/mm3 ()?? 12/24/2022 14:51 Abs. Baso 0.0 k/mm3 ()?? 12/24/2022 14:51 Neut % 67.5 % ()?? 12/24/2022 14:51 Lymph % 1.0 % (Low)?? 12/24/2022 14:51 Attala % 0.0 % (Low)?? 12/24/2022 14:51 Eos % 0.0 % ()?? 12/24/2022 14:51 Baso % 0.0 % ()?? 12/24/2022 14:51 Myelocytes % 2.9 % ()?? 12/24/2022 14:51 Metamyelocyte % 16.2 % (High)?? 12/24/2022 14:51 Band % 12.4 % (High)?? 12/24/2022 14:51 Hemoglobin (POC) POC Cartridge 18.4 Gm/dL (High)?? 12/24/2022 14:57 Hematocrit (POC) POC Cartridge 54 % (High)?? 12/24/2022 14:57 ?? BLOOD GAS pH Venous (POC) POC Cartridge 7.43 ()?? 12/24/2022 14:57 pCO2 Venous (POC) POC Cartridge 39.5 mm Hg (Low)?? 12/24/2022 14:57 pO2 Venous (POC) POC Cartridge 21 mm Hg (Low)?? 12/24/2022 14:57 Est Bicarbonate (POC) POC Cartridge 25.9 mmol/L ()?? 12/24/2022 14:57 % O2 Sat Venous (POC) POC Cartridge 35 ()?? 12/24/2022 14:57 Base Excess (POC) POC Cartridge 2 ()?? 12/24/2022 14:57 pH 7.52 (High)?? 12/24/2022 14:48 pCO2 26 mm Hg (Low)?? 12/24/2022 14:48 pO2 72 mm Hg (Low)?? 12/24/2022 14:48 Bicarbonate, Estimated 22 mmol/L ()?? 12/24/2022 14:48 Specimen Type - Blood Gas VENOUS ()?? 12/24/2022 14:57 Percent O2 (FIO2) 21 ()?? 12/24/2022 14:48 ?? CARDIAC Nt-Probnp 35040 pg/mL (High)?? 12/24/2022 14:51 High Sensitivity Troponin (HSTnT) 11 ng/L ()?? 12/24/2022 18:20 ?? CHEM GENERAL Sodium 133 mmol/L ()?? 12/24/2022 14:51 Potassium 3.9 mmol/L ()?? 12/24/2022 14:51 Chloride 92 mmol/L (Low)?? 12/24/2022 14:51 Bicarbonate Level 21 mmol/L (Low)?? 12/24/2022 14:51 Anion Gap 20 (High)?? 12/24/2022 14:51 Sodium (POC) POC Cartridge 135 mmol/L ()?? 12/24/2022 14:57 Potassium (POC) POC Cartridge 3.9 mmol/L ()?? 12/24/2022 14:57 Glucose Level 109 mg/dL (High)?? 12/24/2022 14:51 Glucose (POC) POC Cartridge 113 (High)?? 12/24/2022 14:57 BUN 28 mg/dL (High)?? 12/24/2022 14:51 Creatinine-Blood 1.1 mg/dL (High)?? 12/24/2022 14:51 Estimated GFR Creatinine 68 ML/MIN/1.73 M2 ()?? 12/24/2022 14:51 Calcium 10.4 mg/dL ()?? 12/24/2022 14:51 Ionized Calcium (POC) POC Cartridge 1.15 mmol/L ()?? 12/24/2022 14:57 Magnesium 1.3 mg/dL (Low)?? 12/24/2022 14:51 Protein, Total 10.0 Gm/dL (High)?? 12/24/2022 14:51 Albumin 4.4 Gm/dL ()?? 12/24/2022 14:51 AG Ratio 0.8 ()?? 12/24/2022 14:51 Alkaline Phosphatase 120 units/L (High)?? 12/24/2022 14:51 Lipase 7 units/L (Low)?? 12/24/2022 14:51 AST (SGOT) 44 units/L (High)?? 12/24/2022 14:51 ALT (SGPT) 19 units/L ()?? 12/24/2022 14:51 Bilirubin, Total 2.8 mg/dL (High)?? 12/24/2022 14:51 Lactate 2.8 mmol/L (High)?? 12/24/2022 17:23 ?? ENDOCRINE/TUMOR MARKER TSH 0.99 uIU/mL ()?? 12/24/2022 14:51 Serum Qual NEGATIVE mIU/mL ()?? 12/24/2022 14:51 ?? HEME OTHER Hold Blue Top SPECIMEN DISCARDED AFTER 4 HOURS. ()?? 12/24/2022 14:51 ?? UA/URINALYSIS Appear/Color, Urine YELLOW ()?? 12/24/2022 17:04 Specific Echo, Urine 1.034 (High)?? 12/24/2022 17:04 pH, Urine 6.5 ()?? 12/24/2022 17:04 Albumin, Urine 2+ (Abnormal)?? 12/24/2022 17:04 Glucose, Urine NEGATIVE ()?? 12/24/2022 17:04 Ketones, Urine TRACE (Abnormal)?? 12/24/2022 17:04 Bilirubin, Urine NEGATIVE ()?? 12/24/2022 17:04 Hemoglobin, Urine 3+ (Abnormal)?? 12/24/2022 17:04 Nitrite, Urine NEGATIVE ()?? 12/24/2022 17:04 Leukocyte, Urine NEGATIVE ()?? 12/24/2022 17:04 Urobilinogen NORMAL mg/dL ()?? 12/24/2022 17:04 WBC's, Urine 1 /HPF ()?? 12/24/2022 17:04 RBC's, Urine >182 /HPF (High)?? 12/24/2022 17:04 Mucus SLIGHT /LPF ()?? 12/24/2022 17:04 Hold Urine Culture Testing available 48 hours from time of collection. ()?? 12/24/2022 17:04 ?? VIROLOGY COVID-19 by RT-PCR NEGATIVE ()?? 12/24/2022 15:19 ? CBC, CBC w/Diff?? CBC?? Differential?? WBC:??18.2 k/mm3??High (14:51) Abs. Neut:??14.5 k/mm3??High (14:51) RBC:??6.67 m/mm3??High (14:51) Abs. Lymph:??0.2 k/mm3??Low (14:51) Hct:??54.7 %??High (14:51) Abs. Attala:??0 k/mm3??Low (14:51) RDW-SD: 45.7 femtoliters (14:51) Abs. Eo: 0 k/mm3 (14:51) Nucleated RBC (Automated): 0 #/100 WBC'S (14:51) Abs. Baso: 0 k/mm3 (14:51) Abs. NRBC: 0 k/mm3 (14:51) Neut %: 67.5 % (14:51) ?? Lymph %:??1 %??Low (14:51) ?? Attala %:??0 %??Low (14:51) ?? Eos %: 0 % (14:51) ?? Baso %: 0 % (14:51) ?? Myelocytes %: 2.9 % (14:51) ?? Metamyelocyte %:??16.2 %??High (14:51) ?? Band %:??12.4 %??High (14:51) ?? Hemoglobin (POC) POC Cartridge:??18.4 Gm/dL??High (14:57) ?? Hematocrit (POC) POC Cartridge:??54 %??High (14:57) ? Coagulation Profile?? No qualifying data available. ?? Urinalysis Albumin, Urine: 2+ Abnormal (17:04) Appear/Color, Urine: YELLOW (17:04) Bilirubin, Urine: NEGATIVE (17:04) Glucose, Urine: NEGATIVE (17:04) Hemoglobin, Urine: 3+ Abnormal (17:04) Hold Urine Culture: Testing available 48 hours from time of collection. (17:04) Ketones, Urine: TRACE Abnormal (17:04) Leukocyte, Urine: NEGATIVE (17:04) Mucus: SLIGHT (17:04) Nitrite, Urine: NEGATIVE (17:04) pH, Urine: 6.5 (17:04) RBC's, Urine:??>182??High (17:04) Specific Echo, Urine:??1.034??High (17:04) Urobilinogen: NORMAL (17:04) WBC's, Urine: 1 /HPF (17:04) ?? Microbiology ?? COVID-19 (Novel Coronavirus), Rapid PCR?? Completed?? Source: Nasal Body Site: Nose Collected Dt/Tm: 12/24/2022 14:05 Last Updated Dt/Tm: 12/24/2022 16:15 ? * Tobias Carvalho MD: PERFORM Event Display: Admission Note Authored Date: [id number] MICU Attending Attestation: Patient seen, examined, investigative data reviewed, and plan of care discussed with ICU team.? Impression: Critically ill,?? 1. Septic shock 2. Epicardial lead pocket infection in chest wall 3. RLL PE, thromboembolic vs septic 4.??Tricuspid valve endocarditis??related to IVDU s/p bioprosthetic TVR in 2019 followed by repeat endocarditis of same valve in September 2022 s/p angiovac extraction and antibiotic treatment 5. IVDU 6. Tricuspid??valve stenosis 7. Agitation 8. Enterocolitis 9. Acute kidney injury on CKD ? Plan: 1. Continue levophed, goal MAP more than 65 2. Continue Vancomycin and Zosyn pending blood culture results 3.??Check echocardiogram 4. ID consult 5. Continue Lovenox??sc for now 6.??Restart methadone once dose confirmed ?? Patient seen and evaluated,??critical care interventions provided include??managment of septic shock. ?? At the time of service, this patient is critically ill due to the acute impairment of 1 or more vital organ systems such that there is a??probability of??life-threatening deterioration in the patient???s condition. ?? Critical Care Time: 40 minutes (This represents the total time I personally spent evaluating, managing, and providing critical??care exclusive of time spent for separately billable procedures.) Date of service: 12/25/2022 EKG study * Event Display: ECG 12-Lead Authored Date: Please click on pdf link to open report * Event Display: ECG 12-Lead Authored Date: [id number] Ventricular Rate: 81 BPM Atrial Rate: 81 BPM P-R Interval: 150 ms QRS Duration: 100 ms Q-T Interval: 414 ms QTC Calculation(Bazett): 480 ms P Clayton: 37 degrees R Clayton: 82 degrees T Clayton: 37 degrees Normal sinus rhythm Possible Left atrial enlargement Incomplete right bundle branch block Prolonged QT Abnormal ECG When compared with ECG of 30-DEC-2022 09:09, No significant change was found Confirmed by JASPAL MERIDA MD ([id number]) on 12/31/2022 9:50:08 AM [place]: JASPAL MERIDA MD * Event Display: ECG 12-Lead Authored Date: [id number] Please click on pdf link to open report * Event Display: ECG 12-Lead Authored Date: [id number] Ventricular Rate: 84 BPM Atrial Rate: 84 BPM P-R Interval: 150 ms QRS Duration: 96 ms Q-T Interval: 396 ms QTC Calculation(Bazett): 467 ms P Clayton: 28 degrees R Clayton: 97 degrees T Clayton: 24 degrees Normal sinus rhythm Possible Left atrial enlargement Rightward axis Incomplete right bundle branch block Borderline ECG When compared with ECG of 29-DEC-2022 09:14, Incomplete right bundle branch block is now Present Confirmed by JASPAL MERIDA MD () on 12/30/2022 12:44:54 PM [place]: JASPAL MERIDA MD * Event Display: ECG 12-Lead Authored Date: [id number] Please click on pdf link to open report * Event Display: ECG 12-Lead Authored Date: [id number] Ventricular Rate: 78 BPM Atrial Rate: 78 BPM P-R Interval: 156 ms QRS Duration: 102 ms Q-T Interval: 420 ms QTC Calculation(Bazett): 478 ms P Clayton: 28 degrees R Clayton: 96 degrees T Clayton: 36 degrees Normal sinus rhythm Rightward axis Poor R wave progression Abnormal ECG When compared with ECG of 28-DEC-2022 08:24, No significant change was found Confirmed by JASPAL MERIDA MD ([id number]) on 12/29/2022 2:50:45 PM [place]: JASPAL MERIDA MD * Event Display: EKG Authored Date: [id number] Heart * Event Display: Echocardiogram - Complete Authored Date: [id number] Transthoracic Echocardiography Report (TTE) Patient Demographics Patient Name BEBA BARNES Date of Study 12/25/2022 Corporate Gender Female Facility Race Ethnicity Date of 1990 Height: 63.78 inches Age 32 year(s) Weight: 136.7 pounds Accession Number [id number] BSA: 1.66 m2 Room Number D422 BMI: 23.63 kg/m2 Referring Physician Edward Estrella MD Interpreting Bennett Juarez MD Physician Cylinder Dyer Angie Hoover RCS Indications Endocarditis. Clinical History Infective endocarditis Hep C Previous tricuspid valve replacement, repair (33 mm Magna Ease Bioprosthetic Valve) IVDU Pulmonary embolus. Biventricular epicardial lead placement ARF Study Data Type of Study TTE procedure:Echo Complete-Doppler, Colorflow, M-Mode. Procedure Information:F/U history of IE Study Date12/25/2022 Start Time: 06:02 AM Study Location: [facility] [place] Adult Echo Study Status: ICU/CCU Patient Status: Routine Technical Quality: Adequate Blood Pressure:114/68 mmHg EKG: Sinus tachycardia HR: 114 bpm Allergies - No known allergies. 2D Measurements LV Diastolic Dimension: 4.5 cm LV Systolic Dimension: 2.9 cm LV Septum Diastolic: 1.3 cm LV PW Diastolic: 1 cm AO Root Dimension: 2.4 cm LA Dimension: 3.4 cm LVOT Stroke Volume: 28.99 ml LVOT: 1.8 cm Stroke Volume Index17.46 ml/m2 Ascending Aorta:2.2 cm Cardiac Index:1.99 l/min/m2 Doppler Measurements AV Peak Velocity: 94.1 cm/s MV Peak E-Wave: 45.5 cm/s AV Peak Gradient: 3.54 mmHg MV Peak A-Wave: 48.3 cm/s MV E/A Ratio: 0.94 LVOT Peak Velocity: 87.1 cm/s MV P1/2t: 46 msec LVOT VTI11.4 cm MV Deceleration Time: 158 msec TR Velocity:204 cm/s MV Area (PHT): 4.78 cm2 TR Gradient:16.65 mmHg PV Peak Velocity: 78.4 cm/s E' Septal Velocity: 4.46 cm/s PV Peak Gradient: 2.46 mmHg E' Lateral Velocity: 7.07 cm/s E/Med E':10.47005 E/Lat E':6.249960 Cardiac Anatomy Left Ventricle/Interventricular Septum The left ventricular size is normal. The LV systolic function is normal . The left ventricular ejection fraction is 60-65 %. No obvious wall motion abnormalities seen on limited views. Left Atrium/Interatrial Septum The left atrium is normal in size. Right to left shift of the interatrial septum noted. Aortic Valve The aortic valve is poorly visualized. The aortic valve leaflet opening is normal . There is no significant aortic regurgitation. Mitral Valve The mitral valve is grossly normal. There is trace mitral regurgitation. Aorta The aortic root is normal in size. Right Ventricle The right ventricle is dilated. Right ventricular systolic function is reduced. Right Atrium The right atrium is dilated. Right to left shift of the interatrial septum noted. Tricuspid Valve The tricuspid valve is not ideally visualized. There is a bioprosthetic valve in the tricuspid position. Thickening of the bioprosthetic valve leaflets suggestive of overlying vegetations. Functional prosthetic valve stenosis with a mean gradient across the valve of 11 mm Hg. Pericardium/Extracardiac There is no significant pericardial effusion. Summary Patient terminated exam. Only parasternal and partial apical views obtained. The left ventricular size is normal. The LV systolic function is normal . The left ventricular ejection fraction is 60-65 %. No obvious wall motion abnormalities seen on limited views. The right ventricle is dilated. Right ventricular systolic function is reduced. The right atrium is dilated. Right to left shift of the interatrial septum noted. The tricuspid valve is not ideally visualized. There is a bioprosthetic valve in the tricuspid position. Thickening of the bioprosthetic valve leaflets suggestive of overlying vegetations. Functional prosthetic valve stenosis with a mean gradient across the valve of 11 mm Hg. Comparison Comparison is made to the study of December 19, 2022. There is no significant change. Signature * Event Display: Echocardiogram - Complete Authored Date: Cardiology * Event Display: Cardiac Rhythm Strips Authored Date: * Event Display: Cardiac Rhythm Strips Authored Date: Hospital Progress note * Mak Baumann MD: PERFORM, MODIFY Event Display: Progress Note Hospital Authored Date: [id number] Patient: ??BEBA BARNES ? Age:??32 Years?Sex:??Female?:??1990?? Subjective ??? Afebrile and hemodynamically stable overnight ??? Repeat blood cultures from 12/31 with no growth to date. ??? Remains on penicillin G??IV, although with some intermittent missed dosages.?? No recent labs otherwise ??? Reports??left shoulder pain significantly improved since yesterday, although not yet fully resolved.?? Wishes to be discharged with oral antibiotics. Review of Systems GENERAL: No weight loss, fevers, chills, or malaise HEENT: No??double vision, or difficulty hearing NECK: No neck pain or tenderness, no cervical lymphadenopathy RESPIRATORY: No cough, wheezing, or shortness of breath CARDIOVASCULAR:??No chest pain, leg swelling??or palpitations GI: No abdominal discomfort, nausea, vomiting, diarrhea, constipation, blood in stools or black tarry stools : No dysuria, hematuria, urgency,??frequency, or incontinence MUSCULOSKELETAL: No joint??swelling, back pain or muscle pain SKIN: No lesions, rash, or itching PSYCH: No trouble sleeping or difficulties with mood HEMATOLOGY: No easy bruising or bleeding ENDOCRINOLOGY: No cold or heat intolerance, polyuria, polydipsia NEURO: No persistent headache, syncope, seizures, weakness, numbness, or tingling Objective Vitals & Measurements T:??98.5?F?? TMIN:??98.0?F?? TMAX:??98.5?F?? HR:??87??(Peripheral)?? RR:??18?? BP:??90/50?? SpO2:??97%?? Physical Exam APPEARANCE: Alert and in no acute distress HEENT:??atraumatic, normocephalic. EOMI, conjunctiva and sclera normal.??External ears normal. Nares normal.?? NECK: Neck supple HEART: RRR with normal S1 and S2, grade 3 systolic murmur LUNG: Bilateral lung chatman clear to auscultation throughout ABDOMEN: Soft, nontender, non-distended, normoactive bowel sounds noted throughout all four quadrants.?No hepatosplenomegaly, palpable masses, or bruits noted upon auscultation.?? BACK: No tenderness to palpation noted over cervical, thoracic, lumbar midline. No bony step-off topalpation; good spinal flexion and extension EXTREMITIES:??No obvious upper/lower extremity deformity. Bilateral upper/lower extremities warm and well perfused without edema. ??Now able to move??left shoulder moderately,??and only with pain with??extremes with range of motion. No shoulder erythema/swelling/warmth. NEURO: Awake, alert and oriented x 3. Moving bilateral upper/lower extremities independently.??Normal gait. SKIN: No rashes or lesions noted to areas of exposed skin. 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 She was admitted for septic shock and determined to have strep pyogenes bacteremia, with concern for recurrence of prosthetic??tricuspid valve endocarditis. ??There was initial concern for possible??pericardial??pacer lead abscess/fluid collection, although??repeat CT chest on 12/27??showed no fluid collection,??and cardiothoracic surgery reported low concern for epicardial lead infection. ?? Blood cultures positive for group A strep??on 12/24/2022, but repeat blood cultures not obtained until 12/31/2022 due to difficulties with??lab draws and??patient declining??lab work.?Ideally would use??penicillin G for 6 weeks ending on??02/10/2023??with transition to oral amoxicillin??for indefinite suppression given the prosthetic valve??endocarditis.?? Unfortunately,??outpatient parenteralantibiotics are not an option for this patient (see attending attestation from??01/01/2023).?? Would therefore treat with high-dose oral amoxicillin 1000 mg 3 times daily for 6 weeks from??12/31/2022through 02/10/2023 followed by??de-escalation of therapy to suppressive dosing??at 500 mg twice daily. ? #Strep Pyogenes Bacteremia #Hx of recurrent Prosthetic Valve Endocarditis suspected 2/2 MSSA #Hx of frequent MSSA bacteremia #Functional Tricuspid Valve Stenosis ? Thank you for the consultation. Infectious Disease will sign off at this time. Will arrange outpatient ID follow up. ??Ideally should have weekly??labs??with ESR/CRP, CBC with differential,??BMP, LFTs. Medications Inpatient Apixaban Tablet, 5 mg, By Mouth, 2 times a day cloNIDine 0.1 mg oral tablet, 0.1 mg, By Mouth, Every 8 hours, PRN Colace Liquid, 100 mg= 10 mL, By Mouth, 2 times a day, PRN Dextrose 50% Inj Syringe (25Gm), 12.5 Gm, IV Push Slowly, Every 20 minutes, PRN Dextrose 50% Inj Syringe (25Gm), 25 Gm, IV Push Slowly, Every 15 minutes, PRN erythromycin 0.5% ophthalmic ointment, 1 application, Eye, Left, Every 4 hours Flexeril 10 mg oral tablet, 10 mg, By Mouth, 3 times a day, PRN Glucagon Inj, 1 mg, Intramuscular, Once, PRN Glucose Gel, 15 Gm, By Mouth, Every 20 minutes, PRN Glucose Gel, 30 Gm, By Mouth, Every 20 minutes, PRN hydrOXYzine pamoate 25 mg oral capsule, 25 mg, By Mouth, Every 4 hours, PRN Methadone Tablet, 90 mg, By Mouth, Daily Methadone Tablet, 10 mg, By Mouth, Once Moxifloxacin 0.5% Ophth, 1 drops, Eye, Left, Every hour Multivit Therapeutic/Minerals Tablet, 1 tablet, By Mouth, Daily nalOXONE Inj, 0.2 mg= 0.5 mL, IV Push, Every 5 minutes, PRN oxyCODONE 5 mg oral tablet, 5 mg, By Mouth, Every 6 hours, PRN Penicillin G POT IVPB, 3 million_units= 50 mL, IVPB, Every 4 hours Tylenol 325 mg oral tablet, 650 mg, By Mouth, Every 4 hours, PRN Home amoxicillin 500 mg oral tablet, 1000 mg= 2 tablet, By Mouth, 3 times a day apixaban 5 mg oral tablet, 5 mg, By Mouth, 2 times a day, 1 refills erythromycin 0.5% ophthalmic ointment, 1 applicator, Eye, Left, Every 4 hours, 1 refills ofloxacin 0.3% ophthalmic solution, See Instructions * Emily Darling: PERFORM, SIGN, VERIFY Event Display: Progress Note Hospital Authored Date: [id number] Patient: BEBA BARNES Age: 32 years Sex: Female : 1990 Associated Diagnoses: None Author: Emily Darling Histories Pt received 90mg of methadone yesterday. Met with pt this morning. She does feel like the dose received yesterday still wore off prior to her going to sleep for the night. She would be agreeable to increasing, but says she is likely to leave today, and she would be fine with having her clinic continue dose adjustments. ROS: fatigue Assessment Mental Status Exam General appearance: casual. Eye contact: WNL. Musculoskeletal: muscle strength/tone normal, motor activity calm. Manner/behavior: cooperative. Speech: fluent, unimpaired. Mood: euthymic. Affect: congruent. Thought content: normal. Reliability: good historian. Judgment: intact. Insight: intact. Orientation: intact. Memory: intact. Attention: intact. Fund of knowledge: intact. Impression and Plan Opioid use disorder: Pt received 90mg of methadone yesterday, tolerated well. If pt does leave today - can remain on 90mg of methadone for now, will continue titration with clinic. If pt ends up staying til tomorrow - can increase dose to 100mg of methadone prior to d/c. Patient will need a last dose letter on discharge. This is typically a free text note printed with date of discharge and methadone dose received here. She should bring this + her D/C summary to her clinic ([facility] in [place]) the morning following d/c for ongoing dosing in the community. Sent update via??[facility] to Dr Russell. Addiction??Service will sign off at this time. Thank you for allowing us to participate in the careof this patient. Please contact me with any questions or concerns. * Sid Doan DO: PERFORM, MODIFY, MODIFY, MODIFY, MODIFY, MODIFY, MODIFY, MODIFY, MODIFY Event Display: Progress Note Hospital Authored Date: [id number] Patient: ??BEBA BARNES ? Age:??32 Years?Sex:??Female?:??1990?? Subjective No acute events overnight. Seen and examined at bedside in the morning. Patient denies nausea, vomiting, fever, chills, chest pain, shortness of breath, and abdominal pain. Patient??reports improved vision.?? Patient endorses left shoulder pain however she expresses that it is improving. ?? Discussion concerning antibiotic treatment and PICC line placement??is??below in the assessment andplan. Review of Systems Additional review of systems information:??All other systems reviewed and otherwise negative as mentioned above. Allergies Allergies ?(Active and Proposed Allergies Only) NKA? (Severity: Unknown severity, Onset: Unknown) ? Objective Vital Signs?? Temperature: 98 DegF (01/01/23 15:27:00) Temperature Route: Oral (01/01/23 15:27:00) Pulse Rate: 81 bpm (01/01/23 15:27:00) Respiratory Rate: 17 br/min (01/01/23 15:27:00) Systolic Blood Pressure: 95 mm Hg (01/01/23 15:27:00) Diastolic Blood Pressure: 55 mm Hg (01/01/23 15:27:00) Blood pressure sites: Leg, right (01/01/23 15:27:00) Mean Arterial Pressure: 68 mm Hg (01/01/23 15:27:00) Pulse Pressure: 40 mm Hg (01/01/23 15:27:00) Oxygen Saturation: 97 % (01/01/23 15:27:00) Mode of Delivery (Oxygen): Room air (01/01/23 15:27:00) Early Warning Score: 1 (01/01/23 16:57:27) ? Physical Exam General:??Young disheveled appearing female in no obvious distress HEENT:??EOMI, PERRLA,sclera anicteric??,??moist mucus membranes?? Respiratory:??Clear to auscultation bilaterally, no wheezes/crackles Cardiovascular:??regular rate,regular rhythm,??2/6 systolic murmur best heard left upper sternal border GI:??BS+, soft, non-distended, non-tender MSK:??warm extremities,??no lower extremity edema,??pulses 1+ and symmetric?? Neurologic:alert, follows commandsmoves all extremities?? Skin:??Warm and dry, cap refill < 2 seconds _ Inpatient Medications Medications (19) Active SCHEDULED: (7) Apixaban 5 mg Tablet (Apixaban Tablet) ??5 mg, By Mouth, 2 times a day Erythromycin 0.5% Ophthalmic Ointment (erythromycin 0.5% ophthalmic ointment) ??1 application, Eye,Left, Every 4 hours Methadone 10 mg Tablet (Methadone Tablet) ??90 mg, By Mouth, Daily Methadone 10 mg Tablet (Methadone Tablet) ??10 mg, By Mouth, Once Moxifloxacin 0.5% Ophthalmic Solution (3 mL) (Moxifloxacin 0.5% Ophth) ??1 drops, Eye, Left, Every hour Multivitamin Therapeutic / Minerals Tablet (Multivit Therapeutic/Minerals Tablet) ??1 tablet, By Mouth, Daily Penicillin G Potassium 3 Million Units / 50 mL D5%W (Penicillin G POT IVPB) ??3 million_units 50 mL, IVPB, Every 4 hours CONTINUOUS: (0) PRN: (12) Acetaminophen 325 mg Tablet (Tylenol 325 mg oral tablet) ??650 mg, By Mouth, Every 4 hours Clonidine 0.1 mg Tablet (cloNIDine 0.1 mg oral tablet) ??0.1 mg, By Mouth, Every 8 hours Cyclobenzaprine 10 mg Tablet (Flexeril 10 mg oral tablet) ??10 mg, By Mouth, 3 times a day Dextrose Inj Syringe (Dextrose 50% Inj Syringe (25Gm)) ??12.5 Gm, IV Push Slowly, Every 20 minutes Dextrose Inj Syringe (Dextrose 50% Inj Syringe (25Gm)) ??25 Gm, IV Push Slowly, Every 15 minutes Docusate Sodium 10 mg/mL Liquid UD (Colace Liquid) ??100 mg 10 mL, By Mouth, 2 times a day Glucagon 1 mg Inj (Glucagon Inj) ??1 mg, Intramuscular, Once Glucose 40% Gel (15 Gm) (Glucose Gel) ??15 Gm, By Mouth, Every 20 minutes Glucose 40% Gel (15 Gm) (Glucose Gel) ??30 Gm, By Mouth, Every 20 minutes HydrOXYzine Pamoate 25mg Capsule (hydrOXYzine pamoate 25 mg oral capsule) ??25 mg, By Mouth, Every 4 hours nalOXONE ??400mcg/mL Inj (nalOXONE Inj) ??0.2 mg 0.5 mL, IV Push, Every 5 minutes OxyCODONE 5 mg IR Tablet (oxyCODONE 5 mg oral tablet) ??5 mg, By Mouth, Every 6 hours ? Results Recent Labs No labs resulted between 12/31/2022 00:00 and 01/01/2023 18:55? Microbiology ?? COVID-19 (Novel Coronavirus), Rapid PCR?? Completed?? Source: Nasal Body Site: Nose Collected Dt/Tm: 12/24/2022 14:05 Last Updated Dt/Tm: 12/24/2022 16:15 Blood Culture?? Completed?? Source: Blood Body Site: ?? Collected Dt/Tm: 12/24/2022 14:05 Last Updated Dt/Tm: 12/24/2022 16:10 ?SPECIMEN DESCRIPTION : BLOOD ??NO SITESPECIAL REQUESTS : CRITICAL VALUE CALLED AND VERIFIED BY READBACK FOR: GRAM POSITIVE COCCI ? AND PCR RESULT TO [id number], 12/25/22 0230, BY [employer] 389CULTURE : STREPTOCOCCUS PYOGENES ??Result reported to the [facility]. ??This isolate was ?identified using Maldi-TOF system These AST results were performed on ? the Microscan ID and AST system ?Group A beta Hemolytic Strep was identified by multiplex PCR. ?CULTURE RESULTS PHONED TO: STATE WILDA ELENA 12/26/22 1210 BY [employer]armaREPORT STATUS : FINAL 12/27/2022ORGANISM ? STREPTOCOCCUS PYOGENES ??Result reported to the [facility]. ??This isolate was identified using Maldi-TOF system ?These AST results were performed on the Microscan ID and AST systemMETHOD ? MIN. INHIB. CONC. (MCG/ML)ERYTHROMYCIN ? RESISTANTPENICILLIN ? SUSCEPTIBLEVANCOMYCIN ? SUSCEPTIBLE Blood Culture #2?? Completed?? Source: Blood Body Site: ?? Collected Dt/Tm: 12/24/2022 14:05 Last Updated Dt/Tm: 12/24/2022 14:05 ?SPECIMEN DESCRIPTION : BLOOD NO SITESPECIAL REQUESTS : NONECULTURE : STREPTOCOCCUS PYOGENES ??Result reported to the [facility]. ??This isolate was ? identified using Maldi-TOF system FOR SUSCEPTIBILITY RESULT REFER TO ? BLOOD CULTURE ?CULTURE RESULTS PHONED TO: STATE WILDA ELENA 12/26/22 1210 BY [employer]armaREPORT STATUS : FINAL 12/27/2022 Blood Culture?? Completed?? Source: Blood Body Site: ?? Collected Dt/Tm: 12/24/2022 14:20 Last Updated Dt/Tm: 12/24/2022 14:20 ?SPECIMEN DESCRIPTION : BLOOD NO SITESPECIAL REQUESTS : NONECULTURE : STREPTOCOCCUS PYOGENES ??Result reported to the [facility]. ??This isolate was ? identified using Maldi-TOF system FOR SUSCEPTIBILITY RESULT REFER TO ? BLOOD CULTURE ?CULTURE RESULTS PHONED TO: STATE WILDA ELENA 12/26/22 1210 BY [employer]REPORT STATUS : FINAL 12/27/2022 ? Assessment/Plan 32-year-old female with history of polysubstance dependence, recurrent infective endocarditis with tricuspid valve regurgitation and bioprosthetic tricuspid valve replacement in 2019, pacemaker placement, factor V [place] with resultant pulmonary emboli, recurrent episodes of bacteremia in the setting of IV drug use who presented acutely in the setting of altered mental status, found to be in septic shock with group A strep bacteremia with concern for infective endocarditis versus pacemaker pocket infection. She has been evaluated by infectious disease, cardiac surgery, and addiction medicine.She was initially admitted to the MICU and has been triaged out of the ICU with course complicated by left corneal ulcer seen by ophthalmology. ?? 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 Patient has been intermittently refusing labs. Still waiting on blood culture to be obtained on 12/28. Cardiac surgery and infectious disease following, appreciate their input CT chest shows no signs of abscess Cardiac surgery are against repeat sternotomy and valve replacement due high mortality risk Therefore RADHA not warranted at this time Pt is also expressing hesitancy in obtaining PICC line. ??Blood cultures are pending to results. ?? Had further discussions with the patient today.?? Patient??refused antibiotics at 1 point this morning.?? Patient??does not want a PICC line placed. ??Patient does not want to be placed at rehab for this PICC line.?? Patient would??like to get the PICC line but go home.?? However unfortunately we are unable to??obtain VNA services/infusion team that would be able to accommodate??a patient with a P ICC line and??her??history of IV drug use.?? The only other option for IV antibiotic treatment would be??for her to stay??inpatient??for the duration of antibiotics.?? However patient would not like to stay in??the hospital for IV antibiotics.?? Patient does express??she would like to go home.?? Given this??she would likely be discharged tomorrow??with amoxicillin 1000 mg 3 times daily??for 6 weeks??and then??after 6 weeks of therapy will be??on amoxicillin 500 mg??twice daily.?? The 6 weeks will be from the date of 12/31 assuming those blood cultures return negative. ?? Plan: Continue penicillin 3,000,000 units every 4 hours Follow-up blood cultures, blood cultures obtained on 12/31 Follow-up infectious disease recommendations, appreciate their input No need for RADHA at this time ?? Left shoulder pain Patient does have history of osteomyelitis in the right clavicular/shoulder. Patient reports that her left shoulder pain is improving however there is low threshold??to obtain??imaging as patient does have history of osteomyelitis in the past. ?? Plan MRI??with and without contrast of the left shoulder. ?? Corneal ulcer of left eye (H16.002): Seen by ophthalmology the evening of 12/27 with recommendation changes as below. Left eye symptoms are improving ?? Plan: Start moxifloxacin drops every hour in the left eye Increase erythromycin ointment to left eye every 4 hours while awake and at night Ophthalmology follow-up outpatient ?? Opioid use disorder, severe, dependence (F11.20): Cocaine use disorder (F14.10): Polysubstance use disorder (F19.90): Addiction medicine has been following, she is on a stable dose of methadone at this time and seems to want help with sobriety after discharge. ?? Plan: Will Increase to methadone 90mg daily tomorrow in the AM Oxycodone and Tylenol as needed for pain Started clonidine, Flexeril, and hydralazine per addiction recommendations to help with symptom management ?? Factor 5 Leiden mutation (D68.51): Pulmonary embolism on right (I26.99): No hypoxia, not tachycardic or tachypneic likely no further pulmonary emboli at this time ?? Plan: Continue apixaban load then apixaban 5 mg twice a day ?? Quality Measures Code status: Full Resuscitation DVT prophylaxis: apixaban Diet: Regular Diet On Going medical necessity: IV antibiotics, clearance of bacteremia ? Pt seen and discussed with Attending Dr. Russell ?? Sid Doan, DO PGY-2 Internal Medicine Pager [phone]/ cortext * Ayan Russell MD: PERFORM Event Display: Progress Note Hospital Authored Date: [id number] 32-year-old woman with polysubstance use including IV opioids, factor V Leiden with recurrent pulmonary emboli, mutation, chronic hepatitis C, recurrent infective endocarditis of??tricuspid valve regurgitation status post bioprosthetic tricuspid valve replacement (2019) status post pacemaker placement who presented for altered mental status found to have of septic shock secondary to group A Streptococcus bacteremia and acute pulmonary embolism status post MICU course pending blood culture clearance.? Diagnoses: Group A streptococcus bacteremia Polysubstance use including opioids Factor V Leiden Metabolic encephalopathy Endocarditis of prosthetic tricuspid valve Left eye??corneal ulcer Methadone use Pulmonary embolism ?? Vitals reviewed and significant for Tachycardia (HR 81-109bpm) and otherwise unremarkable. I personally reviewed the Addiction and ID consult note with the recommendations summarized as follows: Repeat Blood??cultures, continue PCN, no RADHA, increase methadone to 90mg. ?? Assessment: Blood cultures drawn on 12/31 with no growth to date. ??She has been refusing penicillin through her peripheral IV. ?? Plan: ???Continue penicillin IV ?Continue to follow blood??cultures ?Blood cultures negative at 48 hours, can place PICC line ?Cannot be discharged with PICC line to home per VNA ?Methadone 90 mg ?MRI for shoulder pain but she declined further intervention if osteomyelitis is found ?? Ongoing Medical Necessity:?? IV antibiotics ?? Quality Measures: CODE STATUS: FULL CODE DVT Prophylaxis: Apixaban Disposition: Rehab ?? I evaluated the patient on date of service 01/01/2023. I saw and evaluated this patient with Dr. Doan and agree with the resident???s findings and plan of care as documented by the resident or edited by me. I spent 38 minutes on the following: preparing to see the patient (eg, review of tests), obtaining and/or reviewing separately obtained history, performing a medically appropriate examination and/or evaluation and counseling and educating the patient/family/caregiver ?? Level of Medical Decision Making (MDM):??Moderate Number and Complexity of Problems Addressed: 1 or more chronic illnesses with exacerbation, progression, or side effects of treatment Amount and/or Complexity of Data to be Reviewed and Analyzed Category 1: Tests and??documents Review of prior external note(s) from each unique source Review of the result(s) of each unique test ?I personally reviewed the external senior research consultant records. ?I personally reviewed the following tests: Blood culture Risk of??Complications and/or Morbidity or Mortality of Patient Management:??Moderate risk of morbidity from additional diagnostic testing or treatment Prescription drug management Consult note * Andrew Hutchison MD S: PERFORM Event Display: Consultation Note Authored Date: Reason for Visit: Follow-up corneal ulcer, left eye Subjective: Patient complains of improved pain and improved vision in the left eye. She has been getting her eye drops every hour while awakw as prescribed. The patient was alert and oriented x 3. Visual acuity at near for the right eye was 20/25 and for the left eye 20/100 with near card. Pupils were equal, round, and reactive 4 to 2 mm. Extraocular motions were full. The eyes were straight. Lids, lashes, and adnexa showed RUL scarring with lateral lash loss, trace conjunctival injection left eye, corneal epithelial defect 1.0 x 1.0 mm about 1 mm from the nasal limbus at 8:30 with associated mild stromal thickening and mild opacification on the left, anterior chambers were deep and quiet wihout hypopyon, irides were flat without rubeosis, there was 1+ NSC lens in the right eye and 1+ NSC lens in the left eye. Intraocular pressures were 11 mm Hg for the right eye and 8 mm Hg for the left eye by [facility]. Assessment: 1. mid-peripheral corneal ulcer, left eye, improved. 2. mild cataracts, not visually significant. Recommendations: 1. Continue moxifloxacin 0.5% 1 gtt q1hour while awake, left eye. 2. Continue erythromycin ophth ointment 0.5% 1 andrew [id number] while awake and QHS, left eye. 3. Follow-up in 1 week as an outpatient. 4. Call back for any additional questions or concerns. The patient was supposed to follow up with Dr. Marshall before she left [place] during her last hospital admission. She can follow-up with Dr. Marshall or myself in 1 week as an outpatient. She should call theappointment line below if she wishes to follow-up with me. Thank you for allowing me to participatein this very nice patient. Andrew Hutchison MD cell: [phone] appointments: [phone] office address: [address] , [place] [address]. * Kianna PERALTA, Andrew Lan: PERFORM, MODIFY, MODIFY Event Display: Consultation Note Authored Date: [id number] Reason for Consult: corneal ulcer, left eye History of Present Illness: 32-year-old female patient with a past medical history significant for substance use disorder and, complex history of infective endocarditis status post tricuspid valve replacement, bypass ventricular epicardial lead placement, septic pulmonary embolism, factor V Leiden mutation (to be on eliquis) presented to the ED due to altered mental status and left eye pain. The patient has a history of corneal ulcer left eye diaagnosed in the ED on 12/18/22 that has been managed with ciprofloxacin drops except for 12/20/22- 12/24/22 when patient signed out AMA and discontinued topical medications. The patient was readmitted on 12/24/22 with worsening sepsis and decreased vision, left eye. ED Course: Patient was febrile to 104.5, HR of 130's, 107/79 with peripheral mottling with waxing status between agitation and lethargy. She got 5mg of versed and 5mg of haldol to facilate medical work-up. Got 3.5L of LR, vancomycin and zosyn, and was eventually started on levophed given persistent hypotension. Right IJ central line placed to facilitate this. Patient restarted on Lovenox 70 mg twice daily for her persistent PE. Her blood work this time was remarkable for leukocytosis to 18.2, hemoglobin of 17.2, hematocrit of54.7, with 12.4% bands and 16.2 metamyelocytes, creatinine 1.1 with BUN of 28, electrolytes within normal limits, does have chloride of 92 with bicarbonate of 21 and anion gap of 20 total bilirubin elevated 2.8 with lactate of 4, proBNP elevated 1200, high-sensitivity troponin normal at 13. TSH within normal limits, negative, blood culture obtained which is currently no growth, UA with 3+ hemoglobin and 182 red blood cells but no evidence of infection. Background History: Patient has history of infective endocarditis in September 2019 complicated with renal failure requiringtemporary dialysis, septic embolism causing empyema, septic arthritis and pulmonary embolism, and tricuspid regurgitation. She ultimately underwent tricuspid valve replacement, biventricular epicardial lead placement, and evacuation of the left hemothorax. Since that time she has multiple counts ofinfective endocarditis in the setting of IV drug use. In August 2022 she was admitted to the hospitalwith another episode of MSSA endocarditis and large tricuspid valve vegetation where she underwent AngioVac extraction of the vegetation. She was discharged on September 17 with a plan to complete course of oxacillin, ertapenem and rifampin. However she was admitted to [facility] from 09/30-10/13 with CoNS bacteremia resistant to oxacillin and was started on vancomycin. She was discharged to rehab to continue course of vancomycin but was sent later to the ED for evaluation of non-functioning PICC lineand was found to have left anterior chest wall swelling suspicious for infected pacemaker. She was transferred to [facility] and was evaluated by cardiac surgery who did not think this was an active infection. She ended up leaving AMA and PICC line was removed prior to discharge (did not complete course of antibiotics at the time), blood culture were negative that admission in October. Later she was seenby ID in the clinic who thought she has received enough course of antibiotic. She then presented on12/18/22 due to swelling and pain around pacemaker area that had started 2 weeks prior, her CT chestshowed pulmonary embolism within the lobar and segmental branch of the right lower lobe. She was also was found to have positive fluorescein uptake on eye exam suggestive of corneal ulcer. US of chest at that time showed heterogeneous collection surrounding the cardiac electrodes in the left chest wall measuring 4.6 x 2.1 x 4.0 cm is suspicious for abscess formation. Cardiac surgery evaluated patient and determined she was not a surgical candidate however were considering options for I&D ofpacemaker pocket and cutting leads. That same day on 12/20 unfortunately patient left AMA, it does not appear she was not discharge on antibiotics. Past Medical History: substance use disorder and, complex history of infective endocarditis status post tricuspid valve replacement, bypass ventricular epicardial lead placement, septic pulmonary embolism, factor V Leiden mutation Family History: [place] Personal and Social History: N/C Recent changes to the patient's medications or medical status are found in the medical chart notes. Review of Systems: Except as otherwise noted, the patient reports no problems with other systems including constitutional; ears, nose, mouth, and throat; cardiovascular; respiratory; gastrointestinal; genitourinary; musculoskeletal; integumentary; neurologic; psychiatric; endocrine; hematologic and allergic. Major Findings: The patient was alert and oriented x 3. Visual acuity at near for the right eye was 20/20 and for the left eye 20/100 with near card. Pupils were equal, round, and reactive 4 to 2 mm. Extraocular motions were full. The eyes were straight. Lids, lashes, and adnexa showed RUL scarring with lateral lash loss, 1+ conjunctival injection left eye, corneal epithelial defect 2 x 3 mm about 1 mm from the nasal limbus at 9:00 with associated stromal thickening and opacification on the left, anterior chambers were deep and quiet, irides were flat without rubeosis, there was 1+ NSC lens in the right eye and 1+ NSC lens in the left eye. Intraocular pressures were 11 mm Hg for the right eye and 9 mm Hg for the left eye by [employer]. Pupils were dilated with one drop each of tropicamide 1% and phenylephrine 2.5% at 6:30 p.m. Pupillary dilation may last for more than 24 hours. Fundus examination showed sharp and healthy nerves with C:D 0.2 OU, Vessels were normal in course and caliber, Maculae were lat without edema or hemorrhage, and there was no retinal tear or detachment in the periphery. Vitreous was intact without PVD or significant floaters. Assessment: 1. mid-peripheral corneal ulcer, left eye, about 10 days duration treated intermittently with ciprofloxacin qid. 2. mild cataracts, not visually significant. Recommendations: 1. Switch ciprofloxacin to moxifloxacin 0.5% 1 gtt q1hour while awake, left eye. 2. Increase erythromycin ophth ointment 0.5% 1 andrew [id number] while awake and QHS, left eye. 3. Follow-up in 2 days. 4. Call back for any additional questions or concerns. Thank you for allowing me to participate in this very nice patient. Andrew Hutchison MD cell: [phone] appointments: [phone] office address: [address] [place], [place] [address] , [place] [address]. * Estevan PERALTA, Angela Moralez: PERFORM Event Display: Consultation Note Authored Date: Patient: ??BEBA BARNES ? Age:??32 Years?Sex:??Female?:??1990? Ms. Barnes is a 32 year old female who had: 1. 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 ??Biventricular epicardial lead placement (SN [id number] RV, ??[id number] LV),?3. ??Evacuation of left hemothorax and extensive application of hemostatic agents for raw surface bleeding on September 29, 2019. ?? Readmitted in February of the same year (2019) with recurrent drug use and endocarditis. (MSSA ON 02/29/2020).?? Pt had declined addictive services at that time. ?? RADHA back in February 2020 showed a RA thrombus? Readmitted 08/26/2022 after IVDA, endocarditis with fevers. ?? Barbiturate Screen, Urine?NONE DETECTED *? Cannabinoid Screen, Urine?NONE DETECTED *? Cocaine Metabolite Screen, Urine?POSITIVE * A? Methadone Screen, Urine?POSITIVE * A? Benzodiazepine Screen, Urine?NONE DETECTED *? Amphetamine Screen, Urine?NONE DETECTED *? Opiate Screen, Urine?NONE DETECTED *? Fentanyl Screen, Urine Result?POSITIVE * A? 09/04/22: blood cultures POSITIVE, GRAM + cocci ?? RADHA 09/05/2022 revealed: Large vegetation noted on prosthetic tricuspid valve. ??There is leaflet malcoaptation and severe tricuspid regurgitation. Also large (~5 cm) complex vegetation noted within the right ventricle, possibly attached to subvalvular apparatus.? Very high risk??redo sternotomy and surgical repair. ?? Her addiction isn't just about the need to get high, but quieting her anxiety. ?? She will need??addiction services/rehab/cessation from IVDA??in order to continue on a path withoutIV drugs and risking infecting another valve. I do??not think the solution is for a high-risk redo TVR given recurrent multiple readmissions due to recidivism. ?? Reoperation carries a very high mortality and morbidity (Risk of Mortality: 12.201%??Renal Failure:20.458% Permanent Stroke: 1.590% Prolonged Ventilation: 40.339% DSW Infection: 0.044% Reoperation: 6.725% Morbidity or Mortality: 55.949% Short Length of Stay: 6.802% Long Length of Stay: 46.592%)?in addition to placing stress on resources. ??Her underlying addiction and anxiety are barriga components in moving forward. ?? I reviewed??her recent findings at length and concerns about endocarditis of her prosthetic valve.?We discussed management options including the limitation of medical management, and given these findings the ultimate need for surgical intervention that would necessitate a??second time sternotomy, replacement of??tricuspid valve.?We reviewed the risks and benefits of an operation of this magnitude.? Ultimately underwent Angiovac extraction of TV vegetation on September 10, 2022, via bilateral femoral veins. Did well.? Returned December 18, 2022 with swollen/painful left pacer lead pocket.?? December 20, 2022: US of the pacer pocket: Heterogeneous collection surrounding the cardiac electrodes in the left chest wall measuring 4.6 x 2.1 x 4.0 cm is suspicious for abscess formation. She left AMA at that time. ?? Now comes back December 24, 2022: urine POSITIVE FOR COCAINE AND BENZOS ?? No leukocytosis, no fevers ?? CT chest does not reveal fluid collection over the wires.? Assessment/plan Factor V Leiden Endocarditis Severe tricuspid valve regurgitation history of Stage III Oliguric KERI in the setting of respiratory symptoms, fever, massive NSAID use,drug use (heroine and cocaine) MSSA sepsis. Tricuspid valve endocarditis with severe TR and enlarging vegetation history of Staph empyema with loculated effusion Septic Arthritis B/l ankles and R clavicle Hepatitis C prior IVDA; was on methadone apixaban 5 mg twice daily for nonvalvular thrombus ? pacer lead inflammation ?? PLAN: consult ID pacing leads are EPICARDIAL and cannot easily be removed; I doubt they are infected on the epicardium The lead pocket may need to opened and drained, possible wound VAC and we may need to just cut the wires at that level ?? For now, local pain control CT chest with contrast to assess for abscess consider aspiration of a collection if present and send for cultures blood cultures addiction medicine ?Angela Barreto MD ?[facility] Cardiac Surgery?[address], [address] ?[place] [address] ?Pager: [phone] ?Office: [phone] ? Note * Ayesha Mcmillan RN: PERFORM Event Display: Discharge/Transfer Note Hospital Authored Date: [id number] Nursing Discharge Note Entered On: 01/02/2023 12:53 EDT Performed On: 01/02/2023 12:51 EDT by Ayesha Mcmillan RN Nursing Discharge Note 2 Discharge Time : 01/02/2023 12:50 EDT Discharge Level of Care at Discharge : Home/Custodial/Foster Care Patient Left Unit Via : Ambulance Patient Accompanied Off Unit with : Significant other DC Instructions Provided & Signed by Pt : Yes Patient Understands D/C Instructions : Yes Patient Instructions Discharge Signed : Yes Did Pt have Specialty Bed or Wound Vac : No Ayesha Mcmillan RN - 01/02/2023 12:51 EDT * Sid Doan DO M: MODIFY, MODIFY, MODIFY, MODIFY, MODIFY, MODIFY, MODIFY, MODIFY, MODIFY, MODIFY, MODIFY, MODIFY, MODIFY, MODIFY, MODIFY, MODIFY, MODIFY, MODIFY, MODIFY, MODIFY, MODIFY, MODIFY, MODIFY, MODIFY, MODIFY, MODIFY, MODIFY, MODIFY, MODIFY, MODIFY, MODIFY, MODIFY, MODIFY, PERFORM, MODIFY, MODIFY, MODIFY, MODIFY, MODIFY, MODIFY, MODIFY, MODIFY, MODIFY, MODIFY, MODIFY, MODIFY, MODIFY, MODIFY, MODIFY, MODIFY, MODIFY, MODIFY, MODIFY, MODIFY, MODIFY, MODIFY, MODIFY, MODIFY, MODIFY, MODIFY, MODIFY, MODIFY Event Display: Discharge/Transfer Note Hospital Authored Date: [id number] Patient: ??BEBA BARNES ? Age:??32 Years?Sex:??Female?:??1990?? 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 _ Discharge Medications Amoxicillin (amoxicillin 500 mg oral tablet)?2?tab(s)?1,000?Milligram?By Mouth?3 times a day?for 6?week(s) apixaban (apixaban 5 mg oral tablet)?5?Milligram?By Mouth?2 times a day Erythromycin Ophthalmic (erythromycin 0.5% ophthalmic ointment)?1?applicator?Eye, Left?Every 4 hours moxifloxacin ophthalmic (moxifloxacin 0.5% ophthalmic solution)?1?Drops?Eye, Left?Everyhour ? Medications Started Amoxicillin (amoxicillin 500 mg oral tablet)?2?tab(s)?1,000?Milligram?By Mouth?3 times a day?for 6?week(s) apixaban (apixaban 5 mg oral tablet)?5?Milligram?By Mouth?2 times a day Erythromycin Ophthalmic (erythromycin 0.5% ophthalmic ointment)?1?applicator?Eye, Left?Every 4 hours moxifloxacin ophthalmic (moxifloxacin 0.5% ophthalmic solution)?1?Drops?Eye, Left?Everyhour Medications Discontinued none Doses Changed none Allergies Allergies ?(Active and Proposed Allergies Only) NKA? (Severity: Unknown severity, Onset: Unknown) ? PCP Follow-Up/Heads-Up - Since unable to obtain PICC line pt will be discharged on Amoxicillin 1000mg TID for 6 weeks (from 12/31(presuming BC are negative for 48 hours, they have been negative now for 24 hours) - after 6 weeks of Amoxicillin 1g she will need to be on lifelong suppressive therapy of Amoxicillin 500mg BID - Follow-up blood cultures, blood cultures obtained on 12/31 (negative for 24 hours now) - Follow-up outpatient with ID - follow up with PCP within 1 week - PCP follow up within 1 week for left shoulder pain, consider follow up with ortho outpatient - Started moxifloxacin drops every hour in the left eye and will continue outpatient - Increase erythromycin ointment to left eye every 4 hours while awake and at night - Ophthalmology follow-up outpatient in 1 week (call [phone]) - Last dose letter given to the patient - Pt was receiving Methadone 90mg daily, per addiction medicine can consider increasing to 100mg daily - Continue apixaban 5 mg twice a day upon??discharge unclear duration of treatment as pt has been on Eliquis in the past but non compliant. Also unclear if this was provoked vs unprovoked but this ismost likely a provoked PE. Hospital Course 32-year-old female with history of polysubstance dependence, recurrent infective endocarditis with tricuspid valve regurgitation and bioprosthetic tricuspid valve replacement in 2019, pacemaker placement, factor V Ley[place] with resultant pulmonary emboli, recurrent episodes of bacteremia in the setting of IV drug use who presented acutely in the setting of altered mental status, found to be in septic shock with group A strep bacteremia with concern for infective endocarditis versus pacemaker pocket infection and admitted to MICU. She has been evaluated by infectious disease, cardiac surgery, and addiction medicine. She was initially admitted to the MICU for septic shock and??and has been triag ed out of the ICU with course complicated by left corneal ulcer seen by ophthalmology. There was concern??for pocket infection??of the pacemaker vs infection of the pacemaker leads however CT??chest showed no signs of this. Therefore RADHA was not warranted and pt??is not a candidate??for repeat swift otomy and valve replacement due to high??risk??of mortality.??Goal was to place PICC line and discharge patient on IV penicillin and send to rehab however we have had further discussion with the patient throughout the hospitalization. Overall, pt will be discharged on amoxicillin 1000 mg 3 times daily??for 6 weeks (starting from jordin of 12/31)??and then??after 6 weeks of therapy will be??on amoxicillin 500 mg??twice daily for life long suppression.??This is assuming that the Blood cultures have been negative for 48 hours (they are negative for the past 24 hours). Pt will have outpatient f/u with ID. Pt will be discharged on PO abx although they are inadequate to treat the infection due to the fact that the patient refuses PICC line placement unless she goes home which not be able to be done as VNA/ infusion services will not accommodate. Also pt declines rehab placement with PICC line. The only option for adequate abx treatment was IV abx in the hospital however pt adamantly refuses this. Therefore only option at this time is discharge the patient with abx treatment as noted above. Course was also complicated by corneal ulcer for which Ophthalmology were consulted. Pt will be discharged on oxacillin eye drops and erythromycin ointment and pt will need to call for follow up with them outpatient. Course was also complicated by left shoulder pain. Due to bacteremia and history of right shoulder osteomyelitis there is concern for septic arthritis vs left shoulder osteomyelitis. Discussed the concern with the patient she stated that even if it does show concerns for infection she would not want a joint washout for this. MRI was ordered however not completed. Given this we willdischarge the patient without further imaging due to patient not wanting further treatment.On the day of discharge pt is hemodynamically stable and medically for discharge to home with no services. Objective Assessment and Plan ?? 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 Patient has been intermittently refusing labs. Cardiac surgery and infectious disease following, appreciate their input CT chest shows no signs of abscess in epicardial leads. Cardiac surgery are against repeat sternotomy and valve replacement due high mortality risk Therefore RADHA not warranted at this time as it would not post exchange manager. Echo on 12/25 showed Thickening of the bioprosthetic valve leaflets suggestive of overlying vegetations. ?? Had further discussions with the patient yesterday 01/01.??Patient??does not want a PICC line placed. ??Patient does not want to be placed at rehab for this PICC line.?? Patient would??like to get the PICC line but go home.?? However unfortunately we are unable to??obtain VNA services/infusion teamthat would be able to accommodate??a patient with a PICC line and??her??history of IV drug use.?? The only other option for IV antibiotic treatment would be??for her to stay??inpatient??for the duration of antibiotics.?? However patient would not like to stay in??the hospital for IV antibiotics.?? Patient does express??she would like to go home.?? Given the above, the only option??would be to discharge her home??with high??dose Amoxicillin for 6weeks of treatment starting from date of 12/31 presuming blood cultures are negative for??48 hours (they have been negative for 24 hours now).??These are per ID recommendations who will follow up with the patient??outpatient.??Pt is??aware that this may be adequate treatment to treat the??infectiveendocarditis and patient is aware that the most??effective treatment is IV abx. Therefore pt will be discharged??with amoxicillin 1000 mg 3 times daily??for 6 weeks (starting from jordin of 12/31)??and then??after 6 weeks of therapy will be??on amoxicillin 500 mg??twice daily for life long suppression.?? The 6 weeks will be from the date of 12/31 assuming those blood cultures return negative. ?? Recommendations - Since unable to obtain PICC line pt will be discharged on Amoxicillin 1000mg TID for 6 weeks (from 12/31(presuming BC are negative for 48 hours, they have been negative now for 24 hours) (Final date of Amoxicillin 1000mg TID to be determined by ID) - after 6 weeks of Amoxicillin 1g she will need to be on lifelong suppressive therapy of Amoxicillin 500mg BID - Follow-up blood cultures, blood cultures obtained on 12/31 (negative for 24 hours now) - Follow-up outpatient with ID - follow up with PCP within 1 week ?? Left shoulder pain Patient does have history of osteomyelitis in the right clavicular/shoulder. Patient reports that her left shoulder pain is improving however there is low threshold??to obtain??imaging as patient does have history of osteomyelitis in the past. MRI??with and without contrast of the left shoulder ordered however not completed given?? that patient would refuse treatment even if imaging shows signs of infection. ?? Recommendations - PCP follow up within 1 week, consider follow up with ortho outpatient ?? Corneal ulcer of left eye (H16.002): Seen by ophthalmology the evening of 12/27 with recommendation changes as below. Left eye symptoms are improving ?? Recommendations - Started moxifloxacin drops every hour in the left eye and will continue outpatient - Increase erythromycin ointment to left eye every 4 hours while awake and at night - Ophthalmology follow-up outpatient in 1 week (call [phone]) ?? Opioid use disorder, severe, dependence (F11.20): Cocaine use disorder (F14.10): Polysubstance use disorder (F19.90): Addiction medicine has been following, she is on a stable dose of methadone at this time and seems to want help with sobriety after discharge. Pt follows with [facility] in [place] ?? Recommendations - Last dose letter given to the patient - Pt was receiving Methadone 90mg daily, per addiction medicine can consider increasing to 100mg daily ?? Factor 5 Leiden mutation (D68.51): Pulmonary embolism on right (I26.99): No hypoxia, not tachycardic or tachypneic likely no further pulmonary emboli at this time PE seems to be in the setting of medication non compliance ?? Recommendations - Continue apixaban 5 mg twice a day upon??discharge unclear duration of treatment as pt has been on Eliquis in the past but non compliant. Also unclear if this was provoked vs unprovoked but this ismost likely a provoked PE. ?? Vital Signs?? Temperature: 98.5 DegF (01/02/23 03:30:00) Temperature Route: Oral (01/02/23 03:30:00) Pulse Rate: 87 bpm (01/02/23 03:30:00) Respiratory Rate: 18 br/min (01/02/23 08:05:00) Systolic Blood Pressure: 90 mm Hg (01/02/23 03:30:00) Diastolic Blood Pressure:??50 mm Hg??Low (01/02/23 03:30:00) Blood pressure sites: Leg, left (01/02/23 03:30:00) Mean Arterial Pressure: 63 mm Hg (01/02/23 03:30:00) Pulse Pressure: 40 mm Hg (01/02/23 03:30:00) Oxygen Saturation: 97 % (01/02/23 03:30:00) Mode of Delivery (Oxygen): Room air (01/02/23 03:30:00) Early Warning Score: 1 (01/02/23 08:09:23) ? . Physical Exam General: No acute distress HEENT: EOMI, mucous membranes moist,significant left eye redness, increased tear production CV: RRR S1 S2 present. No murmurs, gallops, rubs appreciated. No edema. Respiratory: All chatman clear to auscultation bilaterally. No wheezes, rales, rhonchi appreciated Abdominal: Soft, nontender. No rebound tenderness. Bowel sounds noted all four quadrants. : No suprapubic tenderness. Neuro: A&OX3. Moving upper and lower extremities. No gross neurological deficits Psych: Affect appropriate Skin: erythema above pacemaker, less tender to palpation on exam today, ??no drainage. Consultants Cardiac Surgery ID Addiction medicine MICU Pending Results Add On Lab Order ordered on 12/27/2022 BUN ordered on 12/29/2022 Basic Metabolic Panel ordered on 12/28/2022 Blood Culture ordered on 12/31/2022 Blood Culture #2 ordered on 12/31/2022 Blood Gas Arterial ordered on 12/24/2022 CBC ordered on 12/29/2022 Creatinine ordered on 12/29/2022 Electrolytes ordered on 12/29/2022 MRI Ext Upper W+W/O Contrast Left ordered on 01/01/2023 TSH with T4 Reflex (Adults Only) ordered on 12/31/2022 Patient Education Titles Discharge Instructions for??Infective Endocarditis (IE)?? Treatment for Infective Endocarditis?? Understanding Infective Endocarditis?? Follow-Up Appointments Added Follow Up ?Time Frame ?Comments Maddy PERALTA , Daniella?1-2 day: call to discuss follow up visit Patient Instructions You came to the hospital due to altered mental status you are found to have infective endocarditis which you already have history of.?? To the ICU and then transferred out of the ICU as your blood pressure was stable and your septic shock resolved.?? CAT scan reveals no abscess around the pacemakeror around the leads of the pacemaker. Your Echo is still concerning for infective endocarditis specifically an infection around your prosthetic tricuspid valve.??You will be discharged on [id number]??three times a day??for 6 weeks form 12/31 to 02/13 (final date will be determined by ID) and then 500mg twice a day for lifelong suppression. Infectious disease will set up outpatient follow up. You will be discharged with moxifloxacin eye drops for the left eye that should be used every hour when awake. We will also prescribe you erythromycin ointment??. You will need to call the eye doctor to set up a follow up appointment. Please bring your patient letter concerning??your last methadone dose to [facility] at [place]. We will also send you a prescription for Eliquis 5mg twice a day. Duration should likely be 3 to 6 months but this can be discussed with your PCP. Please follow up with your PCP within 1 week. Post Discharge Care Diet: ??Regular Diet ?? Code Status: ??Full Resuscitation ?? Condition: ??fair ?? Prognosis: ??Fair ?? Discharge ?01/02/23 11:55:00 EDT Discharge Prescriptions ?[facility], 01/02/23 11:55:00 EDT Results Discharge Labs BLOOD COUNT & DIFF WBC 6.9 k/mm3 ()?? 12/26/2022 03:58 RBC 4.34 m/mm3 ()?? 12/26/2022 03:58 Hgb 11.6 Gm/dL (Low)?? 12/26/2022 03:58 Hct 36.9 % ()?? 12/26/2022 03:58 MCV 85.0 femtoliters ()?? 12/26/2022 03:58 MCH 26.7 pg (Low)?? 12/26/2022 03:58 MCHC 31.4 g/dL (Low)?? 12/26/2022 03:58 Platelet Count RESULT CANNOT BE REPORTED DUE TO PLATELET CLUMPING.SUGGEST REDRAW FOR k/mm3 ()?? 12/26/2022 03:58 RDW-SD 48.1 femtoliters (High)?? 12/26/2022 03:58 MPV NOT MEASURED femtoliters ()?? 12/26/2022 03:58 Nucleated RBC (Automated) 0.0 #/100 WBC'S ()?? 12/26/2022 03:58 Abs. NRBC 0.0 k/mm3 ()?? 12/26/2022 03:58 Abs. Neut 14.5 k/mm3 (High)?? 12/24/2022 14:51 Abs. Lymph 0.2 k/mm3 (Low)?? 12/24/2022 14:51 Abs. [place] 0.0 k/mm3 (Low)?? 12/24/2022 14:51 Abs. Eo 0.0 k/mm3 ()?? 12/24/2022 14:51 Abs. Baso 0.0 k/mm3 ()?? 12/24/2022 14:51 Neut % 67.5 % ()?? 12/24/2022 14:51 Lymph % 1.0 % (Low)?? 12/24/2022 14:51 [place] % 0.0 % (Low)?? 12/24/2022 14:51 Eos % 0.0 % ()?? 12/24/2022 14:51 Baso % 0.0 % ()?? 12/24/2022 14:51 Myelocytes % 2.9 % ()?? 12/24/2022 14:51 Metamyelocyte % 16.2 % (High)?? 12/24/2022 14:51 Band % 12.4 % (High)?? 12/24/2022 14:51 Hemoglobin (POC) POC Cartridge 18.4 Gm/dL (High)?? 12/24/2022 14:57 Hematocrit (POC) POC Cartridge 54 % (High)?? 12/24/2022 14:57 ? BLOOD GAS pH Venous (POC) POC Cartridge 7.43 ()?? 12/24/2022 14:57 pCO2 Venous (POC) POC Cartridge 39.5 mm Hg (Low)?? 12/24/2022 14:57 pO2 Venous (POC) POC Cartridge 21 mm Hg (Low)?? 12/24/2022 14:57 Est Bicarbonate (POC) POC Cartridge 25.9 mmol/L ()?? 12/24/2022 14:57 % O2 Sat Venous (POC) POC Cartridge 35 ()?? 12/24/2022 14:57 Base Excess (POC) POC Cartridge 2 ()?? 12/24/2022 14:57 pH 7.52 (High)?? 12/24/2022 14:48 pCO2 26 mm Hg (Low)?? 12/24/2022 14:48 pO2 72 mm Hg (Low)?? 12/24/2022 14:48 Bicarbonate, Estimated 22 mmol/L ()?? 12/24/2022 14:48 Specimen Type - Blood Gas VENOUS ()?? 12/24/2022 14:57 Percent O2 (FIO2) 21 ()?? 12/24/2022 14:48 ?? CARDIAC Nt-Probnp 11689 pg/mL (High)?? 12/24/2022 14:51 High Sensitivity Troponin (HSTnT) 11 ng/L ()?? 12/24/2022 18:20 ?? CHEM GENERAL Sodium 136 mmol/L ()?? 12/26/2022 03:58 Potassium 4.4 mmol/L ()?? 12/26/2022 03:58 Chloride 104 mmol/L ()?? 12/26/2022 03:58 Bicarbonate Level 24 mmol/L ()?? 12/26/2022 03:58 Anion Gap 8 ()?? 12/26/2022 03:58 Sodium (POC) POC Cartridge 135 mmol/L ()?? 12/24/2022 14:57 Potassium (POC) POC Cartridge 3.9 mmol/L ()?? 12/24/2022 14:57 Glucose Level 95 mg/dL ()?? 12/26/2022 03:58 Glucose (POC) POC Cartridge 113 (High)?? 12/24/2022 14:57 Glucose, POC 140 mg/dL (High)?? 12/26/2022 00:45 BUN 25 mg/dL (High)?? 12/26/2022 03:58 Creatinine-Blood 0.8 mg/dL ()?? 12/26/2022 03:58 Estimated GFR Creatinine 99 ML/MIN/1.73 M2 ()?? 12/26/2022 03:58 Calcium 8.7 mg/dL ()?? 12/26/2022 03:58 Calcium, Ionized pH Corrected 1.24 mmol/L ()?? 12/26/2022 03:58 Ionized Calcium (POC) POC Cartridge 1.15 mmol/L ()?? 12/24/2022 14:57 Magnesium 2.0 mg/dL ()?? 12/26/2022 03:58 Protein, Total 7.0 Gm/dL ()?? 12/25/2022 03:22 Albumin 3.3 Gm/dL (Low)?? 12/25/2022 03:22 AG Ratio 0.9 ()?? 12/25/2022 03:22 Alkaline Phosphatase 77 units/L ()?? 12/25/2022 03:22 Lipase 7 units/L (Low)?? 12/24/2022 14:51 AST (SGOT) 26 units/L ()?? 12/25/2022 03:22 ALT (SGPT) 16 units/L ()?? 12/25/2022 03:22 Bilirubin, Total 1.5 mg/dL (High)?? 12/25/2022 03:22 Lactate 1.9 mmol/L ()?? 12/25/2022 03:22 ?? ENDOCRINE/TUMOR MARKER TSH 0.99 uIU/mL ()?? 12/24/2022 14:51 Serum Qual NEGATIVE mIU/mL ()?? 12/24/2022 14:51 ?? HEME OTHER Hold Blue Top SPECIMEN DISCARDED AFTER 4 HOURS. ()?? 12/24/2022 14:51 ? SEROLOGY INF DISEASE Hepatitis B Surface Antigen NEGATIVE (N)?? 12/26/2022 03:58 Hepatitis B Core Ab, Total NEGATIVE (N)?? 12/26/2022 03:58 Anti-HBS Quant 105.75 mIU/mL ()?? 12/26/2022 03:58 ? TOXICOLOGY/TDM Barbiturate Screen, Urine NONE DETECTED ()?? 12/25/2022 03:07 Cannabinoid Screen, Urine NONE DETECTED ()?? 12/25/2022 03:07 Cocaine Metabolite Screen, Urine POSITIVE (Abnormal)?? 12/25/2022 03:07 Benzodiazepine Screen, Urine POSITIVE (Abnormal)?? 12/25/2022 03:07 Amphetamine Screen, Urine NONE DETECTED ()?? 12/25/2022 03:07 Opiate Screen, Urine NONE DETECTED ()?? 12/25/2022 03:07 Buprenorphine, Urine Random NONE DETECTED ()?? 12/25/2022 03:07 ? UA/URINALYSIS Appear/Color, Urine YELLOW ()?? 12/24/2022 17:04 Specific Echo, Urine 1.034 (High)?? 12/24/2022 17:04 pH, Urine 6.5 ()?? 12/24/2022 17:04 Albumin, Urine 2+ (Abnormal)?? 12/24/2022 17:04 Glucose, Urine NEGATIVE ()?? 12/24/2022 17:04 Ketones, Urine TRACE (Abnormal)?? 12/24/2022 17:04 Bilirubin, Urine NEGATIVE ()?? 12/24/2022 17:04 Hemoglobin, Urine 3+ (Abnormal)?? 12/24/2022 17:04 Nitrite, Urine NEGATIVE ()?? 12/24/2022 17:04 Leukocyte, Urine NEGATIVE ()?? 12/24/2022 17:04 Urobilinogen NORMAL mg/dL ()?? 12/24/2022 17:04 WBC's, Urine 1 /HPF ()?? 12/24/2022 17:04 RBC's, Urine >182 /HPF (High)?? 12/24/2022 17:04 Mucus SLIGHT /LPF ()?? 12/24/2022 17:04 Hold Urine Culture Testing available 48 hours from time of collection. ()?? 12/24/2022 17:04 ? URINE OTHER Est Creatinine Clearance 86.37 mL/min ()?? 12/25/2022 04:08 ? VIROLOGY COVID-19 by RT-PCR NEGATIVE ()?? 12/24/2022 15:19 ? Microbiology ?? COVID-19 (Novel Coronavirus), Rapid PCR?? Completed?? Source: Nasal Body Site: Nose Collected Dt/Tm: 12/24/2022 14:05 Last Updated Dt/Tm: 12/24/2022 16:15 Blood Culture?? Completed?? Source: Blood Body Site: ?? Collected Dt/Tm: 12/24/2022 14:05 Last Updated Dt/Tm: 12/24/2022 16:10 ?SPECIMEN DESCRIPTION : BLOOD ??NO SITESPECIAL REQUESTS : CRITICAL VALUE CALLED AND VERIFIED BY READBACK FOR: GRAM POSITIVE COCCI ? AND PCR RESULT TO [address], 12/25/22 0230, BY TECH [id number] : STREPTOCOCCUS PYOGENES ??Result reported to the [facility]. ??This isolate was ?identified using Maldi-TOF system These AST results were performed on ? the Microscan ID and AST system ?Group A beta Hemolytic Strep was identified by multiplex PCR. ?CULTURE RESULTS PHONED TO: [facility] W[facility]LE[facility] 12/26/22 1210 BY TECH [id number] STATUS : FINAL 12/27/2022ORGANISM ? STREPTOCOCCUS PYOGENES ??Result reported to the [facility]. ??This isolate was identified using Maldi-TOF system ?These AST results were performed on the Microscan ID and AST systemMETHOD ? MIN. INHIB. CONC. (MCG/ML)ERYTHROMYCIN ? RESISTANTPENICILLIN ? SUSCEPTIBLEVANCOMYCIN ? SUSCEPTIBLE Blood Culture #2?? Completed?? Source: Blood Body Site: ?? Collected Dt/Tm: 12/24/2022 14:05 Last Updated Dt/Tm: 12/24/2022 14:05 ?SPECIMEN DESCRIPTION : BLOOD NO SITESPECIAL REQUESTS : NONECULTURE : STREPTOCOCCUS PYOGENES ??Result reported to the [facility]. ??This isolate was ? identified using Maldi-TOF system FOR SUSCEPTIBILITY RESULT REFER TO ? BLOOD CULTURE ?CULTURE RESULTS PHONED TO: [facility] 12/26/22 1210 BY [employer]REPORT STATUS : FINAL 12/27/2022 Blood Culture?? Completed?? Source: Blood Body Site: ?? Collected Dt/Tm: 12/24/2022 14:20 Last Updated Dt/Tm: 12/24/2022 14:20 ?SPECIMEN DESCRIPTION : BLOOD NO SITESPECIAL REQUESTS : NONECULTURE : STREPTOCOCCUS PYOGENES ??Result reported to the [facility]. ??This isolate was ? identified using Maldi-TOF system FOR SUSCEPTIBILITY RESULT REFER TO ? BLOOD CULTURE ?CULTURE RESULTS PHONED TO: [facility] 12/26/22 1210 BY [employer]armaREPORT STATUS : FINAL 12/27/2022 ? Imaging ? Reason For Exam Assess for Abscess;Other: ?? RESULT: CT Chest W/ Contrast CT Chest W/ Contrast? INDICATION: Reason: Other:; Assess for Abscess; Clinical Question(s): Abscess Empyema; Order Comment: ?? TECHNIQUE: Helical CT scan of the chest with IV contrast, formatted in 3 planes. 75 cc of [id number] was administered intravenously. Weight-based protocol was performed using automatic exposure control.? CTDIvol Body: 5.80 mGy, ??DLP Body: 226 mGy*cm. ? COMPARISON: 12/24/2022.? FINDINGS:? Reservations Manager view findings, lines and tubes: Percutaneous pacer wires remain in place.? Trachea and airways: Patent without evidence of tracheal or endobronchial lesion. ?? Lungs and pleura: ??In addition to persistent pre-existing patchy opacities, there are new confluent airspace opacities bilaterally, most significant in the right upper lobe. There is interlobular septal thickening predominantly in the lower lung chatman. No effusion or pneumothorax. ?? Mediastinum and loulou: There is fat stranding in the anterior mediastinum, likely postsurgical. No fluid collection is seen to suggest an abscess. ??Mildly prominent mediastinal and bilateral hilar lymph nodes with the largest measuring 1.1 cm in short axis, likely reactive. ??No esophageal abnormality. ?? Heart: Heart is normal in size with mild right atrial enlargement. No pericardial effusion. Status post mitral valve replacement. ?? Aorta: No aortic aneurysm. ?? Pulmonary arteries: Redemonstration of a thrombus in right lower lobe segmental pulmonary arteries (image 45, series 201). There is a filling defect in left upper lobe lobar artery and possible subsegmental pulmonary emboli in left lower lobe. Comparison to the recent CT for these emboli is limiteddue to nonangiographic technique on both studies but these are likely unchanged. Main pulmonary artery is dilated with caliber measuring 3.6 cm, suggestive of pulmonary hypertension. ? Chest wall soft tissues: Diffuse subcutaneous edema. No fluid collection is seen.? Diaphragm: Intact. ?? Upper abdomen: Unchanged 2.5 cm left adrenal adenoma. ??Partially imaged spleen is enlarged measuring at least 13.2 cm AP. The liver is partially imaged but appears enlarged. ?? Bones: No acute abnormality. Status post median sternotomy with no evidence of dehiscence. ?? IMPRESSION: 1. ??Persistent pre-existing patchy opacities and new confluent airspace opacities throughout both lungs, suggestive of worsening multifocal pneumonia. 2. ??Persistent pulmonary embolism in right lower lobe segmental branches and pulmonary embolism inleft upper lobar and left lower lobe subsegmental pulmonary artery branches, most likely present onrecent CT. 3. ??Mild pulmonary edema and diffuse subcutaneous edema. Hepatosplenomegaly. ? Reason For Exam Pain ?? RESULT: Shoulder Min 2 Views Left Left shoulder, 2 views ?? Reason: Pain; Clinical Question(s): osteomyelitis? COMPARISON: None. ?? FINDINGS: ?? No fracture or dislocation. ?? No arthritic change of the glenohumeral joint. ?? Normal AC joint and portions of the clavicle included on the exam. ?? No calcification of the rotator cuff. ?? IMPRESSION:? Normal.? Echo Complete-Doppler, Colorflow, M-Mode Transthoracic Echocardiography Report (TTE) ?Patient Demographics ?Patient Name ? SHEILA, BEBA ? Date of Study ? 12/25/2022 ?Corporate ? Gender ?Female ?Facility ? Race ?Ethnicity ?Date of ?1990 ?Height: ? 63.78 inches ?Age ?32 year(s) ?Weight: ? 136.7 pounds ?Accession Number ? [id number] ?BSA: ?1.66 m2 ?Room Number ?D422 ?BMI: ?23.63 kg/m2 ?Referring Physician ??Edward Estrella MD ??Interpreting ?Bennett Juarez MD ?Physician ?Cylinder Dyer ?Angie [facility]ien[facility] ?[facility] ?? Indications Endocarditis. ?? Clinical History Infective endocarditis Hep C Previous tricuspid valve replacement, repair (33 mm Magna Ease Bioprosthetic Valve) IVDU Pulmonary embolus. Biventricular epicardial lead placement ARF ?? Study Data ?? Type of Study ?TTE procedure:Echo Complete-Doppler, Colorflow, M-Mode. ?? Procedure Information:F/U history of IE ?? Study Date12/25/2022 Start Time: 06:02 AM Study Location: [facility] [place] [facility] Study Status: ICU/CCU Patient Status: Routine Technical Quality: Adequate Blood Pressure:114/68 mmHg EKG: Sinus tachycardia HR: 114 bpm ?? Allergies ?- No known allergies. ?? 2D Measurements ?LV Diastolic Dimension: 4.5 cm LV Systolic Dimension: 2.9 cm ??LV Septum Diastolic: 1.3 cm ??LV PW Diastolic: 1 cm ?AO Root Dimension: 2.4 cm ?LA Dimension: 3.4 cm ?LVOT Stroke Volume: 28.99 ml ?? LVOT: 1.8 cm ??Stroke Volume Index17.46 ml/m2 Ascending Aorta:2.2 cm ??Cardiac Index:1.99 l/min/m2 ?? Doppler Measurements ?AV Peak Velocity: 94.1 cm/s ?MV Peak E-Wave: 45.5 cm/s ??AV Peak Gradient: 3.54 mmHg ?MV Peak A-Wave: 48.3 cm/s ?MV E/A Ratio: 0.94 ??LVOT Peak Velocity: 87.1 cm/s ??MV P1/2t: 46 msec ??LVOT VTI11.4 cm ?MV Deceleration Time: 158 msec ??TR Velocity:204 cm/s ? MV Area (PHT): 4.78 cm2 ??TR Gradient:16.65 mmHg ?PV Peak Velocity: 78.4 cm/s ??E' Septal Velocity: 4.46 cm/s ??PV Peak Gradient: 2.46 mmHg ??E' Lateral Velocity: 7.07 cm/s ??E/Med E': ??E/Lat E':[id number] ?Cardiac Anatomy ?Left Ventricle/Interventricular Septum ??The left ventricular size is normal. The LV systolic function is normal . ??The left ventricular ejection fraction is 60-65 %. No obvious wall motion ??abnormalities seen on limited views. ?Left Atrium/Interatrial Septum ??The left atrium is normal in size. Right to left shift of the interatrial ??septum noted. ?Aortic Valve ??The aortic valve is poorly visualized. The aortic valve leaflet opening is ??normal . There is no significant aortic regurgitation. ?Mitral Valve ??The mitral valve is grossly normal. There is trace mitral regurgitation. ?Aorta ??The aortic root is normal in size. ?Right Ventricle ??The right ventricle is dilated. Right ventricular systolic function is ??reduced. ?Right Atrium ??The right atrium is dilated. Right to left shift of the interatrial septum ??noted. ?Tricuspid Valve ??The tricuspid valve is not ideally visualized. There is a bioprosthetic ??valve in the tricuspid position. Thickening of the bioprosthetic valve ??leaflets suggestive of overlying vegetations. 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 ?Pericardium/Extracardiac ??There is no significant pericardial effusion. ?Summary ??Patient terminated exam. Only parasternal and partial apical views obtained. ??The left ventricular size is normal. The LV systolic function is normal . ??The left ventricular ejection fraction is 60-65 %. No obvious wall motion ??abnormalities seen on limited views. ??The right ventricle is dilated. Right ventricular systolic function is ??reduced. ??The right atrium is dilated. Right to left shift of the interatrial septum ??noted. ??The tricuspid valve is not ideally visualized. There is a bioprosthetic ??valve in the tricuspid position. Thickening of the bioprosthetic valve ??leaflets suggestive of overlying vegetations. 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 ?Comparison ??Comparison is made to the study of December 19, 2022. ??There is no significant change. ?? Reason For Exam AMS fever diarrhea;Other: ?? RESULT: CT Abd/Pelvis W/ IV Contrast Only CT Chest W/ Contrast, CT Abd/Pelvis W/ IV Contrast Only? INDICATION: pt NVD x2 days, lethargic, agressive to EMS when roused. Pt was recently admitted for abbess behind pacemaker and PE, left AMA.; Reason: Pulmonary Lesion; Clinical Question(s): Interstitial Alveolar Infiltration ?? TECHNIQUE: Helical CT scan of the chest, abdomen, and pelvis with IV contrast, formatted in 3 planes. 100 cc of Omnipaque 300 was administered intravenously. This study was performed without oral contrast. Weight-based protocol was performed using automatic exposure control.? CTDIvol Body: 8.20 mGy, ??DLP Body: 601 mGy*cm. ? COMPARISON: 12/18/2022 ?? FINDINGS:? Reservations Manager view findings, lines and tubes: None. ?? Trachea and airways: Patent without evidence of tracheal or endobronchial lesion. ?? Lungs and pleura: Persistent residual airspace opacities in the superior segment of the right lowerlobe (series 205; image 34). Hazy groundglass opacities in the perihilar and infrahilar regions with mild interlobular septal thickening. Mild dependent atelectasis. Areas of nodular scarring within the left upper lobe. Surgical clips are again seen in the left lower lobe. No effusion or pneumothora x. ?? Mediastinum and loulou: No mass or hematoma. Unchanged 0.9 cm right lower paratracheal lymph node. Noesophageal abnormality. Partially imaged thyroid is unremarkable. ?? Heart: Heart is normal in size. No pericardial effusion. Status post valve replacement. ?? Aorta: No aortic aneurysm. ?? Pulmonary arteries: Normal caliber. Again seen is a persistent embolus within the right lower lobe pulmonary artery branches (series 201 cm image 43), although, this study performed without angiographic technique. ?? Chest wall soft tissues: Again seen is a battery pack in the left chest wall associated with surrounding streak artifact, limiting evaluation. ?? Diaphragm: Intact. ?? Liver: Heterogeneous appearance of the liver, likely secondary to streak artifact from the arms. The liver is enlarged measuring 20.8 cm. No focal lesion. ?? Gallbladder: Absent consistent with prior cholecystectomy. ?? Bile ducts: No biliary ductal dilation. ?? Spleen: Splenomegaly measuring 17 cm. ?? Pancreas: No suspicious lesion or ductal dilatation. ?? Adrenal glands: No nodule. ?? Kidneys and ureters: No hydronephrosis, stone, or suspicious lesion. ?? Bladder: No wall thickening or surrounding stranding. ?? Reproductive organs: Unremarkable. ?? Stomach, small bowel, and large bowel: Stomach appears distended with an air- fluid level. Gastric diverticulum, unchanged (series 201; image 79). Normal caliber fluid-filled bowel loops. Liquid stoolwithin the rectum with small amount of inflammatory fat stranding in the descending and rectosigmoid colon. No evidence of acute obstruction. ?? Appendix: No evidence of acute appendicitis. ?? Peritoneum and retroperitoneum: No ascites or pneumoperitoneum. No omental or mesenteric lesions. ?? Lymph nodes: A few scattered prominent left para-aortic lymph nodes measuring up to 0.6 cm (series 201 cm image 113), nonspecific. ?? Blood vessels: No vascular calcifications or aneurysm. No evidence of venous thrombosis. ?? Abdominal and pelvic wall soft tissues: No acute abnormality. ?? Bones: No acute abnormality. ?? IMPRESSION: ?? 1. ??Persistent residual airspace opacities in the right lower lobe, likely related to resolving infectious/inflammatory etiology. 2. ??New hazy lung opacities in the bilateral perihilar and infrahilar lungs, with interlobular septal thickening. Findings may indicate mild pulmonary vascular congestion without overt interstitial edema. 3. ??Persistent embolus within the right lower lobe pulmonary artery. 4. ??Fluid-filled bowel loops with small amount of inflammatory fat stranding, suggestive of enterocolitis. 5. ??Hepatosplenomegaly. ? Reason For Exam Pulmonary Lesion;Other: ?? RESULT: CT Chest W/ Contrast CT Chest W/ Contrast, CT Abd/Pelvis W/ IV Contrast Only? INDICATION: pt NVD x2 days, lethargic, agressive to EMS when roused. Pt was recently admitted for abbess behind pacemaker and PE, left AMA.; Reason: Pulmonary Lesion; Clinical Question(s): Interstitial Alveolar Infiltration ?? TECHNIQUE: Helical CT scan of the chest, abdomen, and pelvis with IV contrast, formatted in 3 planes. 100 cc of Omnipaque 300 was administered intravenously. This study was performed without oral contrast. Weight-based protocol was performed using automatic exposure control.? CTDIvol Body: 8.20 mGy, ??DLP Body: 601 mGy*cm. ? COMPARISON: 12/18/2022 ?? FINDINGS:? Reservations Manager view findings, lines and tubes: None. ?? Trachea and airways: Patent without evidence of tracheal or endobronchial lesion. ?? Lungs and pleura: Persistent residual airspace opacities in the superior segment of the right lowerlobe (series 205; image 34). Hazy groundglass opacities in the perihilar and infrahilar regions with mild interlobular septal thickening. Mild dependent atelectasis. Areas of nodular scarring within the left upper lobe. Surgical clips are again seen in the left lower lobe. No effusion or pneumothora x. ?? Mediastinum and loulou: No mass or hematoma. Unchanged 0.9 cm right lower paratracheal lymph node. Noesophageal abnormality. Partially imaged thyroid is unremarkable. ?? Heart: Heart is normal in size. No pericardial effusion. Status post valve replacement. ?? Aorta: No aortic aneurysm. ?? Pulmonary arteries: Normal caliber. Again seen is a persistent embolus within the right lower lobe pulmonary artery branches (series 201 cm image 43), although, this study performed without angiographic technique. ?? Chest wall soft tissues: Again seen is a battery pack in the left chest wall associated with surrounding streak artifact, limiting evaluation. ?? Diaphragm: Intact. ?? Liver: Heterogeneous appearance of the liver, likely secondary to streak artifact from the arms. The liver is enlarged measuring 20.8 cm. No focal lesion. ?? Gallbladder: Absent consistent with prior cholecystectomy. ?? Bile ducts: No biliary ductal dilation. ?? Spleen: Splenomegaly measuring 17 cm. ?? Pancreas: No suspicious lesion or ductal dilatation. ?? Adrenal glands: No nodule. ?? Kidneys and ureters: No hydronephrosis, stone, or suspicious lesion. ?? Bladder: No wall thickening or surrounding stranding. ?? Reproductive organs: Unremarkable. ?? Stomach, small bowel, and large bowel: Stomach appears distended with an air- fluid level. Gastric diverticulum, unchanged (series 201; image 79). Normal caliber fluid-filled bowel loops. Liquid stoolwithin the rectum with small amount of inflammatory fat stranding in the descending and rectosigmoid colon. No evidence of acute obstruction. ?? Appendix: No evidence of acute appendicitis. ?? Peritoneum and retroperitoneum: No ascites or pneumoperitoneum. No omental or mesenteric lesions. ?? Lymph nodes: A few scattered prominent left para-aortic lymph nodes measuring up to 0.6 cm (series 201 cm image 113), nonspecific. ?? Blood vessels: No vascular calcifications or aneurysm. No evidence of venous thrombosis. ?? Abdominal and pelvic wall soft tissues: No acute abnormality. ?? Bones: No acute abnormality. ?? IMPRESSION: ?? 1. ??Persistent residual airspace opacities in the right lower lobe, likely related to resolving infectious/inflammatory etiology. 2. ??New hazy lung opacities in the bilateral perihilar and infrahilar lungs, with interlobular septal thickening. Findings may indicate mild pulmonary vascular congestion without overt interstitial edema. 3. ??Persistent embolus within the right lower lobe pulmonary artery. 4. ??Fluid-filled bowel loops with small amount of inflammatory fat stranding, suggestive of enterocolitis. 5. ??Hepatosplenomegaly. ? Reason For Exam ams;Other: ?? RESULT: CT Head/Brain W/O Contrast CT Head/Brain W/O Contrast? INDICATION: Hx of Present Illness: pt NVD x2 days, lethargic, agressive to EMS when roused. pt was recently admitted for abcess behind pacemaker and PE, left AMA.; Reason: Other:; ams; Clinical Question(s): Infection Abscess ?? TECHNIQUE: Noncontrast head CT using axial technique and reconstructed in axial and coronal planes.Iterative reconstruction techniques are used to optimize dose and image quality.? CTDIvol Head: 46.90 mGy, DLP Head: 773 mGy*cm. ? COMPARISON: March 14, 2020 ?? FINDINGS:? Reservations Manager view findings, lines and tubes: None. ?? BRAIN AND EXTRA-AXIAL SPACES: No parenchymal hemorrhage, midline shift, or mass effect. Molina-white matter differentiation is wellpreserved. No acute infarct. ?? Ventricles, sulci, and basilar cisterns are normal.? No white matter lesions. ?? No subarachnoid hemorrhage. No subdural or epidural collection. ?? CALVARIUM, SKULL BASE, AND SOFT TISSUES: No fractures or suspicious bony lesions.? The paranasal sinuses and mastoid air cells are clear. ?? Visualized orbits and globes are intact.? The extracranial soft tissues are unremarkable. ?? IMPRESSION: ?? No acute intracranial pathology. ? Reason For Exam Cough ?? RESULT: Chest Portable Chest Portable ?? INDICATION/CLINICAL QUESTION: Reason: Cough; Clinical Question(s): Pneumonia / prior cardiac surgery.? TECHNIQUE: AP chest 1524 hours 12/24/2022.. ?? COMPARISON: 10/30/2022.. ?? FINDINGS: ?? LINES AND TUBES: Absent. ?? LUNGS AND PLEURA: ?? RIGHT CHEST: The lung is clear and there is no effusion.. ?? LEFT CHEST: The lung is clear and there is no effusion.. ?? HEART AND MEDIASTINAL CONTOURS: Normal. ?? BONES AND SOFT TISSUES:?? No acute abnormality.. ?? IMPRESSION: 1. No active disease in chest. ? Pt seen and discussed with Attending Dr. Russell ?? Sid Doan, DO PGY-2 Internal Medicine Pager [phone]/ cortext ?? 45??minutes spent on discharge * Ayesha Mcmillan RN: PERFORM Event Display: Patient Education/Instruction Authored Date: Inpatient Adult Discharge Instructions [address] [address] Name: BEBA BARNES : 1990 Visit: 12/24/2022 23:20:00 Current Date: 01/02/2023 12:00 Account: [id number] Inpatient Adult Discharge Instructions We would like to thank you for allowing us to assist you with your healthcare needs. The following includes patient education materials and information regarding your injury/illness. Our entire staffstrives to provide an excellent experience for our patients and their families. PLEASE ENSURE YOU FOLLOW-UP PER THE INSTRUCTIONS BELOW! ?? YOUR OPINION IS IMPORTANT TO US! Please complete the survey you may receive by mail or email. Your feedback will be used to make improvements to the healthcare experiences of our patients and their families. Surveys are administered by [employer]. ?? If further treatment with your primary care physician or another doctor is recommended, it is important for you to keep the appointment. Call your primary care physician or return to the Emergency Department immediately if your condition worsens, fails to improve, or new symptoms develop. If you need to find a doctor, you can call [facility] [employer] Link for a referral at [phone] or toll free at [phone] ([phone]) or log in to [email or web address].. ?? [facility], in keeping with [facility] guidance, no longer requires face masks for staff, patientsor visitors in most situations. Similiar to time spent indoors at other locations, there is the chance that you were exposed to repiratory viruses during your time with us (such as flu or COVID-19). If you develop symptoms concerning for a viral respiratory infection, please seek testing (and treatment if indicated) from your medical provider or home test kit. ?? You can view and manage your care through the patient portal or by using a health care andrew of your choosing. [employer] is a website that allows you to securely view your medical information including your hospital discharge summary, office visit summaries, medications and follow-up visits. You can also request appointments, renew medications, and request access to your medical information using a health care andrew of your choosing, or just ask a question. You can enroll at [email or web address] or register during your next office visit. You have been discharged from [facility], Patient Care Unit: W4. If you have any questions regarding these instructions after you leave, please call us and we will be happy to assist you. [facility] Your Care Team Attending Physician Drew PERALTA, Ayan Consulting Providers Sukhjinder PERALTA, Vivi Rodas; Pastor PERALTA, Mak Villanueva; Chuck Salinas; Kianna PERALTA, Andrew Lan; Jackie PERALTA, Demar Discharging Providers Sid Doan DO Reason for Admission Pt having NVD x2 days, per EMS agressive and only answers some questions. 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 You may have had other tests and procedures not included in this list. Please discuss all test results with your provider. Amphetamine Urine Screen ANTI HEP B CORE ANTI-HBS QUANT Barbiturate Urine Screen BASE EXCESS POC CARTRIDGE Benzodiazepine Urine Screen Blood Gas Arterial CALCIUM IONIZED POC CART Cannabinoid Urine Screen CBC w/ Differential Cocaine Urine Screen Comprehensive Metabolic Panel COVID-19 (Novel Coronavirus), Rapid PCR GLUCOSE POC GLUCOSE POC CARTRIDGE HEMATOCRIT POC CARTRIDGE HEMOGLOBIN POC CARTRIDGE HEP. B SURF. AG High??Sensitivity??Troponin T Hold Blue Top Tube Ionized Calcium Lactate Level Lactic Acid Level Lipase Magnesium Level Opiate Screen Urine POTASSIUM POC CARTRIDGE Serum Qualitative ProBNP SODIUM POC CARTRIDGE Urinalysis w/hold for Urine Culture Urine Buprenorphine VBG POC CARTRIDGE Chest CT W/ Contrast CT Abd/Pelvis W/ IV Contrast Only CT Chest W/ IV Contrast CT Head/Brain W/O Contrast CXR Portable Ext Upper MRI W+W/O Contrast Left?-- Results Pending -- XR Shoulder Min 2 Views Left You will be contacted within 72 hours with your results. Primary Care Provider Maddy PERALTA , Daniella Advance Directive Health Care Proxy on File Yes - Health Care Proxy Discharge Vitals Temperature: 98.5 DegF Height: 162 cm Pulse Rate: 87 bpm Weight: 62.7 kg Respiratory Rate: 18 br/min Body Mass Index: 23.89 kg/m2 Systolic Blood Pressure: 90 mm Hg Body surface area: 1.68 Diastolic Blood Pressure:??50 mm Hg??Low ?? Oxygen Saturation: 97 % ?? Studies Pending All tests and labs ordered during this hospital stay have been completed unless listed below. Please discuss all pending results with your provider listed above in these instructions. ?? Add On Lab Order BUN Basic Metabolic Panel Blood Culture Blood Culture #2 Blood Gas Arterial (ABG) CBC Creatinine Electrolytes MRI Ext Upper W+W/O Contrast Left (Ext Upper MRI W+W/O Contrast Left) TSH with T4 Reflex (Adults Only) What to do next Instructions From Your Doctor Discharge Orders Diet:??Regular Diet Code Status:?? Full Resuscitation Condition:??fair Prognosis:??Fair You Need to Schedule the Following Appointments Follow Up with??Maddy PERALTA , Daniella When:??Within 1-2 day: call to discuss follow up visit Where: [address] [place] [phone] Discharge Medications DOVBEBA ALVARADO :1990 Visit Date:12/24/2022 Medications: Please continue your medications until treatment is completed or stopped by your provider. Medications not listed below should be discontinued. Discuss any questions related to medications with your provider. What How Much When Instructions Next Dose New Amoxicillin (amoxicillin 500 mg oral tablet) 2 tab(s) Oral 3 times a day Duration: 6 week(s) Pickup at [facility] 3 Today 12pm New Erythromycin Ophthalmic (erythromycin 0.5% ophthalmic ointment) 1 applicator Left eye Every 4 hours Refills: 1 Pickup at [facility] 3 12pm New moxifloxacin ophthalmic (moxifloxacin 0.5% ophthalmic solution) 1 Drops Left eye Every hour Refills: 1 Pickup at [facility] 3 12pm Unchanged apixaban (apixaban 5 mg oral tablet) 5 Milligram Oral Twice a day Pickup at [facility] 3 Tonight 9pm Pharmacy Information [facility] 3: [address], [place] [phone] ?? What How Much When Comments Stop Taking Clonidine (cloNIDine 0.1 mg oral tablet) 1 tab(s) Oral Twice a day as needed for Anxiety Test Results Below is a partial list of the most recent Laboratory test results done prior to this discharge. You may have had other tests and procedures not included in this list. Please discuss all test resultswith your provider. Est Creatinine Clearance - 86.37 mL/min (12/25/2022) Amphetamine Urine Screen (12/25/2022) ???Amphetamine Screen, Urine - NONE DETECTED ANTI HEP B CORE (12/26/2022) ???Hepatitis B Core Ab, Total - NEGATIVE ANTI-HBS QUANT (12/26/2022) ???Anti-HBS Quant - 105.75 mIU/mL Barbiturate Urine Screen (12/25/2022) ???Barbiturate Screen, Urine - NONE DETECTED BASE EXCESS POC CARTRIDGE (12/24/2022) ???Base Excess (POC) POC Cartridge - 2 Benzodiazepine Urine Screen (12/25/2022) ???Benzodiazepine Screen, Urine - POSITIVE Blood Gas Arterial (12/24/2022) ???pH - 7.52???pCO2 - 26 mm Hg???pO2 - 72 mm Hg???Bicarbonate, Estimated - 22 mmol/L???Specimen Type - Blood Gas - ARTERIAL???Percent O2 (FIO2) - 21 CALCIUM IONIZED POC CART (12/24/2022) ???Ionized Calcium (POC) POC Cartridge - 1.15 mmol/L Cannabinoid Urine Screen (12/25/2022) ???Cannabinoid Screen, Urine - NONE DETECTED CBC w/ Differential (12/24/2022) ???WBC - 18.2 k/mm3???RBC - 6.67 m/mm3???Hgb - 17.2 Gm/dL???Hct - 54.7 %???MCV - 82.0 femtoliters???MCH - 25.8 pg???MCHC - 31.4 g/dL???Platelet Count - RESULT CANNOT BE REPORTED DUE TO PLATELET CLUMPING.SUGGEST REDRAW FOR???RDW-SD - 45.7 femtoliters???MPV - NOT MEASURED???Nucleated RBC (Automated) - 0.0 #/100 WBC'S???Abs. NRBC - 0.0 k/mm3???Abs. Neut - 14.5 k/mm3???Abs. Lymph - 0.2 k/mm3???Abs. [place] - 0.0 k/mm3???Abs. Eo - 0.0 k/mm3???Abs. Baso - 0.0 k/mm3???Neut % - 67.5 %???Lymph % - 1.0 %???[place] % - 0.0 %???Eos % - 0.0 %???Baso % - 0.0 %???Myelocytes % - 2.9 %???Metamyelocyte % - 16.2 %???Band % - 12.4 % Cocaine Urine Screen (12/25/2022) ???Cocaine Metabolite Screen, Urine - POSITIVE Comprehensive Metabolic Panel (12/25/2022) ???Sodium - 137 mmol/L???Potassium - 3.4 mmol/L???Chloride - 104 mmol/L???Bicarbonate Level - 23 mmol/L???Anion Gap - 10???Glucose Level - 141 mg/dL???BUN - 25 mg/dL???Creatinine-Blood - 0.8 mg/dL???Estimated GFR Creatinine - 96 ML/MIN/1.73 M2???Calcium - 8.5 mg/dL???Protein, Total - 7.0 Gm/dL???Albumin - 3.3 Gm/dL???AG Ratio - 0.9???Alkaline Phosphatase - 77 units/L???AST (SGOT) - 26 units/L???ALT (SGPT) - 16 units/L???Bilirubin, Total - 1.5 mg/dL COVID-19 (Novel Coronavirus), Rapid PCR (12/24/2022) ???COVID-19 by RT-PCR - NEGATIVE GLUCOSE POC (12/26/2022) ???Glucose, POC - 140 mg/dL GLUCOSE POC CARTRIDGE (12/24/2022) ???Glucose (POC) POC Cartridge - 113 HEMATOCRIT POC CARTRIDGE (12/24/2022) ???Hematocrit (POC) POC Cartridge - 54 % HEMOGLOBIN POC CARTRIDGE (12/24/2022) ???Hemoglobin (POC) POC Cartridge - 18.4 Gm/dL HEP. B SURF. AG (12/26/2022) ???Hepatitis B Surface Antigen - NEGATIVE High??Sensitivity??Troponin T (12/24/2022) ???High Sensitivity Troponin (HSTnT) - 11 ng/L Hold Blue Top Tube (12/24/2022) ???Hold Blue Top - SPECIMEN DISCARDED AFTER 4 HOURS. Ionized Calcium (12/26/2022) ???Calcium, Ionized pH Corrected - 1.24 mmol/L Lactate Level (12/25/2022) ???Lactate - 1.9 mmol/L Lactic Acid Level (12/24/2022) ???Lactate - 2.8 mmol/L Lipase (12/24/2022) ???Lipase - 7 units/L Magnesium Level (12/26/2022) ???Magnesium - 2.0 mg/dL Opiate Screen Urine (12/25/2022) ???Opiate Screen, Urine - NONE DETECTED POTASSIUM POC CARTRIDGE (12/24/2022) ???Potassium (POC) POC Cartridge - 3.9 mmol/L Serum Qualitative (12/24/2022) ??? Serum Qual - NEGATIVE ProBNP (12/24/2022) ???Nt-Probnp - 37664 pg/mL SODIUM POC CARTRIDGE (12/24/2022) ???Sodium (POC) POC Cartridge - 135 mmol/L Urinalysis w/hold for Urine Culture (12/24/2022) ???Appear/Color, Urine - YELLOW???Specific Echo, Urine - 1.034???pH, Urine - 6.5???Albumin, Urine - 2+???Glucose, Urine - NEGATIVE???Ketones, Urine - TRACE???Bilirubin, Urine - NEGATIVE???Hemoglobin, Urine - 3+???Nitrite, Urine - NEGATIVE???Leukocyte, Urine - NEGATIVE???Urobilinogen - NORMAL???WBC's, Urine - 1 /HPF? ?RBC's, Urine - >182 /HPF? ?Mucus - SLIGHT? ?Hold Urine Culture - Testing available 48 hours from time of collection. Urine Buprenorphine (12/25/2022) ???Buprenorphine, Urine Random - NONE DETECTED VBG POC CARTRIDGE (12/24/2022) ???pH Venous (POC) POC Cartridge - 7.43???pCO2 Venous (POC) POC Cartridge - 39.5 mm Hg???pO2 Venous(POC) POC Cartridge - 21 mm Hg???Est Bicarbonate (POC) POC Cartridge - 25.9 mmol/L???% O2 Sat Venous (POC) POC Cartridge - 35???Specimen Type - Blood Gas - VENOUS Allergies (NKA means No Known Allergies) NKA Problems Active Problems??(15) ARF - Acute renal failure?? Cholecystitis?? Depression?? Empyema?? Factor 5 Leiden mutation?? Hepatitis C antibody test positive?? History of opioid abuse, currently on methadone?? History of tubo-ovarian abscess?? Infective endocarditis of tricuspid valve?? Opioid abuse?? Opioid use disorder, severe, dependence?? Pacemaker?? Pulmonary embolism?? Sacroiliitis?? Tricuspid valve replaced?? Education Materials Below is the list of Educational Leaflet Providered with your Discharge Instructions. Discharge Instructions for??Infective Endocarditis (IE)?? Treatment for Infective Endocarditis?? Understanding Infective Endocarditis?? Valuables and Belongings I fully understand and agree that [facility] accepts no responsibility for all my personal property including clothing, toilet articles, radios, jewelry, dentures, hearing aids, rings, money, or any other property that is in my possession or is brought to me after admission. I understand certain valuables may be placed in a hospital safe for a short period of time. I understand that the hospital is not liable for loss or damage due to accident, fire, or other natural occurrence while said property is in the safe. I accept full responsibility for any personal property that I keep with me, and will not hold the hospital responsible in case of loss or disappearance. I acknowledge that i have been encouraged to send valuables and belongings home. ?? No Valuables/Belongings: No valuables/belongings present Review of Valuable and Belonging List: With patient Date for Pt to Sign Valuables/Belongings: 12/27/22 06:27:00 ?? Other Discharge Information ?? Wound Assessment?? Wound Assessment?? Wound Location I: Buttocks, Right Wound Type I: Skin Tear ? Pulmonary Rehab Status?? Pulmonary Rehab Discharge Status?? Respiratory Rate: 18 br/min ? Common Emergency Awareness Tips IS IT A STROKE? Act FAST and Check for these signs: FACE Does the face look uneven? ARM Does one arm drift down? SPEECH Does their speech sound strange? TIME Call at any sign of stroke ?? Heart Attack Signs Chest discomfort: Most heart attacks involve discomfort in the center of the chest and lasts more than a few minutes, or goes away and comes back. It can feel like uncomfortable pressure, squeezing, fullness or pain. Discomfort in upper body: Symptoms can include pain or discomfort in one or both arms, back, neck, jaw or stomach. Shortness of breath: With or without discomfort. Other signs: Breaking out in a cold sweat, nausea, or lightheaded. Remember, MINUTES DO MATTER. If you experience any of these heart attack warning signs, call to get immediate medical attention! ?? Smoking can increase your chances of developing chronic health problems and can cause harmful effects to other family members in your house. If you smoke, you are strongly encouraged to quit. Please call [facility] [employer] Link at [phone] or [phone] ([phone]) or log in to [email or web address] for referrals to smoking cessation programs. ?? 873 Suicide & Crisis Lifeline is available 07/10 if you or someone you know needs to find a reason to keep living. By calling 775 you'll be connected to a skilled, trained counselor at a crisis center in your area. INPATIENT DISCHARGE INSTRUCTIONS SIGNATURE PAGE BEBA BARNES Location:[facility] Registration Date and Time:12/24/2022 23:20 EDT Primary Care Physician: Maddy PERALTA , Daniella, Attending Physician: Ayan Russell MD, Jessica BEBA BARNES, have received the above patient education materials/instructions and have verbalized understanding. If ambulance or transport services are being used I further acknowledge being given a choice of service. ?? If you need to contact me, please call me at this number: . Patient/Sound Engineer Name: Patient/Sound Engineer Signature: Relationship to Patient: Witness Name/Signature: Date: * Sid Doan DO: PERFORM Event Display: Patient Education Leaflets Authored Date: [id number] Discharge Instructions for??Infective Endocarditis (IE) ?? [address] Discharge Instructions for??Infective Endocarditis (IE) You have been diagnosed with infective endocarditis (IE). This is an infection of the lining of theheart or of the heart valves.??It happens??when bacteria or other germs enter the bloodstream and go to the heart. The germs then cause infection in the heart. The germs can enter your bloodstream concepción number of ways. It may happen during a dental procedure. It can happen through a cut. Or the germs can come from an infection elsewhere in the body. Your infection was treated in the hospital with strong antibiotics or other medicines through an IV (intravenous) line. This is a very serious infection and can be life-threatening if not properly managed and cared for. At home ??? You may need to continue IV therapy for up to 6 weeks at home. A long-term IV line is often put in before you leave the hospital. You will be given more instructions before you leave the hospital. Make sure to ask any questions you have. Your healthcare team will determine how long you should be on antibiotics (or other medicines) and how often you should have follow-up testing. ??? Take the antibiotics until they are all gone. Take them even if you feel better. They treat the infection and prevent it from returning. ??? Don't drive until your healthcare provider says it???s OK. ??? Take good care of your teeth and mouth. [place] your teeth after meals. Floss as directed. ??? Visit your dentist every?? 6??months. Dental infection is a risk factor for bacterial endocarditis. See your dentist immediately if you have a toothache or abscess. ??? You might need to take an antibiotic before dental visits. Ask your healthcare provider for more information. ??? Tell your healthcare provider about all infections you have, even small ones. ??? Take good care of yourself. Get regularexercise and eat a healthy diet. Ask your healthcare provider for help as needed. ??? Stop smoking.??? If you use IV drugs, stop using them right away and tell your provider. ??? Be careful to get correct treatment of any open cuts that develop. ?? Follow-up care Make a follow-up appointment as directed. You will need to follow up with an infectious disease doctor as well as a overhead cleaner and possibly a heart surgeon. ?? When to call your healthcare provider Call your healthcare provider right away if you have any of the following: ??? Fever of?? 100.4??F ( 38.0??C) or higher, or as directed by your provider ??? Sweats ??? Bloody urine? Return of symptoms such as loss of appetite, weight loss, paleness, headache, or weakness ??? Lightheadedness that comes back again and again ??? Spots on your fingernails, fingertips, whites of the eyes, or other parts of your skin ?? Call 911 Call 911 if you have: ??? Chest pain or shortness of breath ??? Severe belly (abdominal) or side pain ??? Fainting ??? Fluttering heartbeat (palpitations) ??? Symptoms of a stroke, such as trouble speaking or the inability to move one side of your body or your face ?? Last Reviewed Date: 2021 ?? [employer]. All rights reserved. This information is not intended as a substitute for professional medical care. Always follow your healthcare professional's instructions. ?? * Sid Doan DO: PERFORM Event Display: Patient Education Leaflets Authored Date: [id number] Treatment for Infective Endocarditis ?? 91494 Treatment for Infective Endocarditis Infective endocarditis is an infection of the lining of the heart (endocardium) or the valves of the heart. The infection is most often from some type of bacteria. But other germs can also cause it. It???s most common in men over age 60 who have heart problems. Types of treatment You may be treated by a specialist, such as: ??? A heart doctor (overhead cleaner) ??? A heart surgeon (cardiovascular or thoracic surgeon) ??? An infectious disease specialist Treatment may include: ??? A hospital stay. You may be in the hospital for a week or more. You willget IV (intravenous) medicine and other care as needed. ??? Antibiotic medicine. This is given in avein. It's used to treat an infection caused by bacteria. You may need to get IV antibiotic medicine at home since treatment may last from 2 to 6 weeks. The length of the antibiotic course will depend on how your body responds to the treatment and will be determined by your healthcare team. ??? Other medicines. Other medicines may be used for an infection from a virus, fungus, or other germs. ???Surgery. Infected tissue may need to be removed. Or a damaged heart valve may need to be replaced. ?? Possible complications of infective endocarditis Infective endocarditis is very serious. It can lead to many problems and even . Possible complications include: ??? Heart valve damage ??? Inability of the heart to pump well (heart failure) ??? Kidney failure ??? Spreading of the infection to other areas of the heart, or other parts of the body such as the lungs or brain Blood vessel blockages from pieces of abnormal tissue growth (vegetation) may travel to other areasof the body. These blockages are called emboli. They can cause serious problems wherever they travel. For example: ??? In the brain, they cause a stroke. ??? In the lungs, they cause pulmonary embolism. ??? In the arteries of the heart, they cause a heart attack. They can also travel to the spleen, bowel, arms, or legs and cause severe problems. ?? Preventing infective endocarditis Infective endocarditis can???t always be prevented. But there are some things you can do to lessen your risk. These include: ??? Take very good care of your teeth and gums. ??? See your dentist often for checkups and cleanings. ??? Don't use IV drugs. ??? Practice good body hygiene. ??? Take all antibiotics as prescribed for strep throat or other infections. You may need to take antibiotic medicine before some medical and dental procedures. This is to helpprevent endocarditis if you have: ??? An artificial heart valve ??? A congenital heart defect ??? Had infectious endocarditis in the past Make sure to tell all of your healthcare providers and dentists about your heart health history. ?? When to call your healthcare provider Call your healthcare provider right away if you have any of these: ??? Fever of 100.4??F (38??C) orhigher, or as advised by your provider ??? Night sweats or chills ??? Unexplained weight loss ??? Swelling of your feet, legs, or belly (abdomen) ??? Skin changes ?? Call 911 Call 911 if any of these occur: ??? Trouble breathing ??? Fast, slow, or irregular heart rate ??? Chest pain or pressure, nausea orvomiting, profuse sweating, dizziness, or fainting ??? Sudden numbness or weakness in arms, legs, or face, or difficulty speaking ?? Last Reviewed Date: 2021 ?? 9270-0621 [employer]. All rights reserved. This information is not intended as a substitute for professional medical care. Always follow your healthcare professional's instructions. ?? * Sid Doan DO: PERFORM Event Display: Patient Education Leaflets Authored Date: [id number] Understanding Infective Endocarditis ?? 80099 Understanding Infective Endocarditis Infective endocarditis is an infection of the lining of the heart (endocardium) or the valves of the heart. The infection is most often from some type of bacteria. But other germs such as fungi can also cause it. Viruses are not known to cause endocarditis. How does infective endocarditis cause problems? Infective endocarditis starts when bacteria or another type of germ is introduced into the bloodstream. As the bacteria circulate in the bloodstream, structures within the heart are exposed. There are 4 valves in your heart. These valves keep blood flowing through the heart in the right direction. Bacteria have a tendency to attach to these valves or their surrounding support structure and cause damage. This may lead to valve failure and heart failure. Furthermore, as the bacteria continues to grow within the heart, they may become large enough to form clumps of bacteria called vegetations. These serve as a reservoir of bacteria and can continue to release bacteria into the bloodstream. Sometimes these vegetations may break off and travel to another part of the body. This can block blood flow and seed another body part with bacteria. ?? What causes infective endocarditis? Bacteria normally live on and in your body. For example, they live on your skin or in your mouth. But sometimes the bacteria can get into your bloodstream. This can happen after a medical or dental test or procedure. The bacteria may travel to your heart. They may settle in the lining of the heart or on the valves. This occurs more often in people who have certain heart or heart valve problems. It rarely occurs in people who don't have heart problems. You are more likely to be at risk for infective endocarditis if you have or had any of these: ??? Heart defects such as those present at (congenital) ??? Valve disease such as mitral valve prolapse, or damage from an infection (rheumatic heart disease) ??? Surgery to replace a damaged heart valve ??? History of endocarditis ??? IV (intravenous) drug use ??? Problems with teeth or mouth infections ??? Hemodialysis for kidney failure ??? Catheter in a vein (IV) or blood vessel (intravascular) for a medical procedure ??? Weak immune system due to HIV or chemotherapy for example ?? Symptoms of infective endocarditis The infection can start suddenly with severe symptoms (acute endocarditis). Or it can start more slowly and be less severe (subacute endocarditis). Symptoms may include: ??? Flu-like symptoms, such as fever, chills, night sweats, tiredness, muscle and joint aches, and headache ??? Chronic fatigue ??? Weight loss ??? Loss of appetite ??? Trouble breathing ??? Cough ??? Nausea and vomiting ??? Skinchanges such as paleness and sores on the fingers or toes ??? Tiny red spots on the skin, under thefingernails, in the whites of the eyes, and inside the mouth ??? Blood in the urine ??? Swelling ofthe feet, legs, or belly (abdomen) ??? A fever of 100.4??F (38??C) or higher ?? Diagnosing infective endocarditis Your healthcare provider will review your symptoms and your health history. They will give you a physical exam. They e will listen to your heart and may hear an abnormal sound (heart murmur). You mayalso have the tests such as: ??? Blood or urine cultures. This test checks for infection in samplesof blood or urine. ??? Other blood tests. Many other blood tests may be done. For example, you may have a complete blood count (CBC). ??? Echocardiography (echo). This test uses ultrasound waves to see your heart valves and blood moving through your heart. This can be done by either using a probe that is pressed against the chest wall or by inserting the probe through the mouth into the esophagus. ??? Electrocardiography (ECG). This test checks your heart rhythm. ??? Chest X-ray. This is done to look for problems in your lungs. ?? Last Reviewed Date: 2021 ?? [id number] [employer]. All rights reserved. This information is not intended as a substitute for professional medical care. Always follow your healthcare professional's instructions. ?? Patient Care team information Care Team Personnel Name: Rula Patel RN Position: [facility] RN Member Role: Primary Care Nurse Name: Daniella Castañeda MD Position: [facility] Outreach Member Role: PCP Address: Address: [address] [place] [id number] Name: Lori Smiley RN Position: S RN Member Role: Primary Care Nurse Name: Miri Altman RN Position: S RN Member Role: Primary Care Nurse Name: Rajani Dowell RN Position: S RN Member Role: Primary Care Nurse Name: Karina Rodriguez RN Position: [facility] RN Supv Member Role: Primary Care Nurse Name: Rula Nunez RN Position: S RN Member Role: Primary Care Nurse Name: Roxane Jang RN Position: [facility] RN Member Role: Primary Care Nurse Name: Jordi Garcia RN Position: [facility] RN Member Role: Primary Care Nurse Name: Sylvain Sherwood Position: [facility] RN Member Role: Primary Care Nurse Name: Emily Mack RN Position: [facility] RN Member Role: Primary Care Nurse Name: Ayesha Cannon RN Position: [facility] RN Member Role: Primary Care Nurse Name: Carlene Gastelum RN Position: [facility] RN Member Role: Primary Care Nurse Name: Olivia Hannon RN Position: [facility] RN Member Role: Primary Care Nurse Name: Kathia Moe RN Position: [facility] RN Member Role: Primary Care Nurse Name: Rohith Skinner RN Position: [facility] RN Member Role: Primary Care Nurse Name: Helena De La Paz RN Position: [facility] RN Member Role: Primary Care Nurse Name: Cheryl Rob RN Position: [facility] RN Member Role: Primary Care Nurse Name: Tyler Oliveros Jr, RN Position: [facility] RN Member Role: Primary Care Nurse Name: Kelley Velazquez RN Position: [facility] RN Member Role: Primary Care Nurse Name: Re Mckeon RN Position: [facility] RN Member Role: Primary Care Nurse Name: Paddy Rowe RN Position: [facility] RN Member Role: Primary Care Nurse Name: Shweta Ahmadi NP Position: [facility] Associate Professional Member Role: Lifetime Consulting Provider Address: Address: [address] [place], [place] [address] [address] Name: Reece William MD Position: [facility] Renal MD Member Role: Lifetime Consulting Physician Address: Address: [address] [place], [place] [address] [address] Name: Courtney Clemente RN Position: [facility] RN Member Role: Primary Care Nurse Name: Tiffany Macias RN Position: [facility] RN Member Role: Primary Care Nurse Name: Hever Jones DO Position: [facility] Renal MD Member Role: Lifetime Consulting Physician Address: Address: [address] [place] [address] [address] [facility] [address] Name: Dary Sewell RN Position: [facility] RN Member Role: Primary Care Nurse Name: Miri Do RN Position: [facility] RN Member Role: Primary Care Nurse Name: Tiffany Chen Position: [facility] RN Member Role: Primary Care Nurse Name: Brandon Johnson RN Position: [facility] RN Member Role: Primary Care Nurse Name: Shruthi Zhou RN Position: [facility] RN Member Role: Primary Care Nurse Name: Angie Sahu RN Position: [facility] RN Supv Member Role: Primary Care Nurse Name: Jessica Gonzales RN Position: [facility] RN Member Role: Primary Care Nurse Name: Abdias Jo RN Position: [facility] RN Member Role: Primary Care Nurse Name: Delma Hall RN Position: [facility] RN Member Role: Primary Care Nurse Name: Jazmin Hercules RN Position: [facility] RN Member Role: Primary Care Nurse Name: Caprice Robles Position: [facility] AMB Nurse Member Role: Primary Care Nurse Name: Nadia White RN Position: [facility] RN Member Role: Primary Care Nurse Name: Lavinia Anderson RN Position: [facility] RN Member Role: Primary Care Nurse Name: Minal Gonzalez RN Position: [facility] RN Member Role: Primary Care Nurse Name: Rosa Gardner RN Position: [facility] RN Member Role: Primary Care Nurse Name: Courtney Son RN Position: [facility] RN Member Role: Primary Care Nurse Name: Beba Cornejo RN Position: [facility] RN Member Role: Primary Care Nurse Name: Sangita Richardson RN Position: [facility] SN RN Member Role: Primary Care Nurse Name: Velma Thorpe RN Position: [facility] RN Member Role: Primary Care Nurse Name: Cheryl Gordillo NP Position: [facility] Associate Professional Member Role: Primary Care Nurse Address: Address: [address] [place] [address] [facility] [place], [place] [address] Name: Shelbie Lopez RN Position: [facility] RN Member Role: Primary Care Nurse Name: Shanell Pierce RN Position: [facility] RN Member Role: Primary Care Nurse Name: Chayito Mcdnoough LPN Position: [facility] RN Member Role: Primary Care Nurse Name: Rhona Barron RN Position: [facility] RN Member Role: Primary Care Nurse Name: Amber Garcia RN Position: [facility] RN Member Role: Primary Care Nurse Name: Jessica Aleman RN Position: [facility] RN Member Role: Primary Care Nurse Name: Raquel DUQUE, Romi Ham Position: [facility] Onco RN Member Role: Primary Care Nurse Name: Laverne MONGE Attending Position: [facility] ED Medicine MD Name: Allison Jones Position: [facility] ED OA Charge Member Role: ED Associate Name: Mika Romero DO Position: [facility] Resident Member Role: ED Resident Address: Address: [address] [place] [address] Emergency Medicine [place], [place] [address] Name: Mickey Rooney RN Position: [facility] ED RN W/OE and Tasks Member Role: Patient Care Provider Name: Frances Mcbride Position: [facility] ED TA [facility] Member Role: Watch And Clock Repairer Care Team Related Persons Name: DARYL FAIR Address: home [address] [place] [address] Name: CECE BARNES Address: [place] [address] Name: CECE BARNES Address: home [address] [address]
--- OUTSIDE RECORDS SUMMARY | 2023-02-28 10:46 | XMS_ITS | Continuity of Care Document ---
Author Name Unknown Organization [facility] Address [address] [address]- Care Team Providers Care [employer] Director Name Role Phone Maddy PERALTA, Daniella Primary Care Physician [phone] Encounter [facility] [place] Date(s): 11/05/19 - 12/05/19 [facility] [address] [address]- [facility] Allergies, Adverse Reactions, Alerts Substance Reaction Severity [...] 9:20:00 EDT Start Date: 10/27/19 Status: Ordered amphetamine-dextroamphetamine 15 mg oral tablet 1 tablet = 15 mg, By Mouth, 2 times a day, 0 Refills, Maintenance, 09/14/19 10:56:00 EDT, Tablet Start Date: 09/14/19 Status: Ordered aspirin 81 mg oral tablet, chewable 81 mg, 1, tablet, By Mouth, Daily, # 90 tablet, Refills 3, Tot. Refills 3, Maintenance, 11/24/19 15:28:00 EDT, Route to Pharmacy Electronically, [email or web address] #[id number], 165, cm, 11/16/19 9:48:00EDT, Height, 82.9, kg, 09/30/19 16:29:00 EDT, Dry W... Start Date: 11/24/19 Status: Ordered cloNIDine 0.1 mg oral tablet 0.1 mg, 1, tablet, By Mouth, Daily, # 60 tablet, Refills 0, Tot. Refills 0, Maintenance, 10/27/19 9:20:00 EDT, Route to Pharmacy Electronically, [facility] #[id number], 165, cm, 10/27/19 4:15:00EDT, Height, 82.9, kg, 09/30/19 16:29:00 EDT, Dry W... Start Date: 10/27/19 Status: Ordered furosemide 80 mg oral tablet 1, tablet, By Mouth, Daily, # 90 tablet, Refills 0, Tot. Refills 0, Maintenance, 11/11/19 16:29:00 EDT, Route to Pharmacy Electronically, [facility] #[id number], 165, cm, 11/08/19 8:55:00 EDT, Height, 82.9, kg, 09/30/19 16:29:00 EDT, Dry Weight Start Date: 11/11/19 Status: Ordered methadone 10 mg oral tablet = 60 mg, By Mouth, Daily in AM, 0 Refills, Maintenance, 07/11/18 20:50:25 EDT Start Date: 07/11/18 Status: Ordered metoprolol 25 mg oral tablet 25 mg, 1, tablet, By Mouth, Every 12 hours, # 60 tablet, Refills 0, Tot. Refills 0, Maintenance, 10/27/19 9:24:00 EDT, Route to Pharmacy Electronically, [email or web address] #[id number], 165, cm, :15:00 EDT, Height, 82.9, kg, 09/30/19 16:29:00 ED... Start Date: 10/27/19 Status: Ordered SEROquel 25 mg oral tablet 25 mg, 1, tablet, By Mouth, Daily at bedtime, DO NOT TAKE TRAZODONE, # 30 tablet, Refills 0, Tot. Refills 0, Maintenance, 10/28/19 15:46:00 EDT, Route to Pharmacy Electronically, [facility]#[id number], 165, cm, 10/27/19 9:31:00 EDT, Height, 82.9... Start Date: 10/28/19 Status: Ordered Problem List Condition Effective Dates Status Health Status Inform ant Cholecystitis(Confirmed) Active History of opioid abuse, cur rently on methadone(Confirmed) Active Opioid abuse(Confirmed) Active Social History Social History Type Response Smoking Status 10 or more cigarette s (1/2 pack or more)/day in last 30 days entered on: 07/12/18 Sex
--- OUTSIDE RECORDS SUMMARY | 2023-02-28 10:46 | XMS_ITS | Continuity of Care Document ---
Author Name Unknown Organization [facility] Address [address] [place] [address]- Care Team Providers Care [employer] Teacher Name Role Phone Daniella Castañeda MD Primary Care Physician [phone] Encounter [facility] [place] Date(s): 10/14/22 - 11/13/22 [facility] [address] [place] [address]- Allergies, Adverse Reactions, Alerts No Known Allergies Medications apixaban 5 mg oral tablet = 5 mg, By Mouth, 2 times a day, # 60 tablet, 0 Refills, Maintenance, 11/02/22 9:44:00 EDT, Tablet,[facility] #[id number], Partial fill upon patient request if the prescription is for a schedule II opioid drug., 168, cm, 11/01/22 16:56:00 EDT, H... 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 Sacroiliitis Confirmed Active Opioid abuse Confirmed Active Pulmonary embolism Confirmed Active Social History Social History Type Response Smoking Status 10 or more cigarette s (1/2 pack or more)/day in last 30 days entered on: 07/12/18 Sex Patient Care team information Care Team Personnel Name: Rula Patel RN Position: S RN Member Role: Primary Care Nurse Name: Daniella Castañeda MD Position: S Outreach Member Role: PCP Address: Address: [address] [place] [address]- Name: Lori Smiley RN Position: [facility] RN Member Role: Primary Care Nurse Name: Karina Rodriguez RN Position: [facility] RN Robert Member Role: Primary Care Nurse Name: Jordi Garcia RN Position: [facility] RN Member Role: Primary Care Nurse Name: Ayesha Cannon RN Position: [facility] RN Member Role: Primary Care Nurse Name: Olivia Hannon RN Position: [facility] RN Member Role: Primary Care Nurse Name: Kathia Moe RN Position: [facility] RN Member Role: Primary Care Nurse Name: Rohith Skinner RN Position: [facility] RN Member Role: Primary Care Nurse Name: Helena De La Paz RN Position: [facility] RN Member Role: Primary Care Nurse Name: Cheryl Rob RN Position: [facility] RN Member Role: Primary Care Nurse Name: Kelley Velazquez RN Position: [facility] RN Member Role: Primary Care Nurse Name: Re Mckeon RN Position: [facility] RN Member Role: Primary Care Nurse Name: Paddy Rowe RN Position: [facility] RN Member Role: Primary Care Nurse Name: Shweta Ahmadi NP Position: [facility] Associate Professional Member Role: Lifetime Consulting Provider Address: Address: [facility] [place] [place] [address]- Name: Reece William MD Position: [facility] Renal MD Member Role: Lifetime Consulting Physician Address: Address: [facility] [place] [address]- Name: Courtney Clemente RN Position: [facility] RN Member Role: Primary Care Nurse Name: Tiffany Macias RN Position: [facility] RN Member Role: Primary Care Nurse Name: Hever Jones DO Position: [facility] Renal MD Member Role: Lifetime Consulting Physician Address: Address: [facility] [place] [address]- Name: Leana Rivera RN Position: [facility] RN Member Role: Primary Care Nurse Name: Dary Sewell RN Position: [facility] RN Member Role: Primary Care Nurse Name: Miri Do RN Position: [facility] RN Member Role: Primary Care Nurse Name: Tiffany Chen Position: [facility] RN Member Role: Primary Care Nurse Name: Brandon Johnson RN Position: [facility] RN Member Role: Primary Care Nurse Name: Shruthi Zhou RN Position: [facility] RN Member Role: Primary Care Nurse Name: Angie Sahu RN Position: [facility] RN Robert Member Role: Primary Care Nurse Name: Jessica Gonzales RN Position: [facility] RN Member Role: Primary Care Nurse Name: Miri Gutiérrez RN Position: [facility] RN Member Role: Primary Care Nurse Name: Caprice Robles Position: [facility] AMB Nurse Member Role: Primary Care Nurse Name: Nadia White RN Position: [facility] RN Member Role: Primary Care Nurse Name: Lavinia Anderson RN Position: [facility] RN Member Role: Primary Care Nurse Name: Minal Gonzalez RN Position: [facility] RN Member Role: Primary Care Nurse Name: Lizzy Cornejo RN Position: [facility] RN Member Role: Primary Care Nurse Name: Sangita Richardson RN Position: [facility] SN RN Member Role: Primary Care Nurse Name: Cheryl Gordillo NP Position: [facility] Associate Professional Member Role: Primary Care Nurse Address: Address: [address] [place] [address] Trauma and Surgery [place], [place] [address] Name: Shelbie Lopez RN Position: [facility] RN Member Role: Primary Care Nurse Name: Shanell Pierce RN Position: [facility] RN Member Role: Primary Care Nurse Name: Rhona Barron RN Position: [facility] RN Member Role: Primary Care Nurse Name: Amber Garcia RN Position: [facility] RN Member Role: Primary Care Nurse Name: Jessica Aleman RN Position: [facility] RN Member Role: Primary Care Nurse Name: Romi García RN Position: [facility] Onco RN Member Role: Primary Care Nurse Care Team Related Persons Name: MANJULA DARYL Address: home [address] [place] [address] Name: DOVCECE ALVARADO Address: [place] [address] Name: CECE SOSA Address: home [address] [place] [address] [address] [place] [address]
--- OUTSIDE RECORDS SUMMARY | 2023-02-28 10:46 | XMS_ITS | Continuity of Care Document ---
Author Name Unknown Organization [facility] ter Address [address] [place] [address]- Care Team Providers Care Biologist Name Role Phone Maddy PERALTA, Daniella Primary Care Physician [place] [facility] [place]11/20 - 05/20/[address] [address]- Attending Physician: Arnulfo Galarza MD Admitting Physician: Arnulfo Galarza MD Referring Physician: Dominic Galarza DO Allergies, Adverse Reactions, Alerts Substance Reaction Severity [...] Refills, Acute 05/26/2114:16:00 EST, 04/28/20 15:16:00 EST, [facility] #[id number], Partial fill upon patient requestif the prescription [...]
--- OUTSIDE RECORDS SUMMARY | 2023-02-28 10:46 | XMS_ITS | Continuity of Care Document ---
Author Name Unknown Organization [facility] Address [address] [place] [address] [address], [address] [place] [address]- Care Team Providers Care Button Riveter Name Role Phone Maddy PERALTA, Daniella Primary Care Physician [phone] Encounter [facility] [place] [facility] R [id number] Date(s): 02/11/20 - 04/22/20 [facility] Thoracic Surgery [address] [place] [address] Drive, [address] [place] [address]- Attending Physician: Carlene Bueno NP Allergies, Adverse Reactions, Alerts Substance Reaction Severity [...] opioid drug. Start Date: 03/28/20 Status: Ordered gabapentin 100 mg oral capsule [...]
--- OUTSIDE RECORDS SUMMARY | 2023-02-28 10:46 | XMS_ITS | Continuity of Care Document ---
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 Refills 0, Maintenance, 10/27/19 9:20:00 EDT, Route to Pharmacy Electronically, [facility] #[id number], 165, cm, 10/27/19 4:15:00 EDT, Height, 82.9, kg, 09/30/19 16:29:00 EDT, Dry We... Start Date: 10/27/19 Status: Ordered cloNIDine 0.1 mg oral tablet 0.1 mg, 1, tablet, By Mouth, 2 times a day, # 60 tablet, Refills 0, Tot. Refills 0, Maintenance, 10/27/19 9:20:00 EDT, Route to Pharmacy Electronically, [facility] #[id number], 165, cm, 204:15:00 EDT, Height, 82.9, kg, 09/30/19 16:29:00 ED... Start Date: 10/27/19 Status: Ordered furosemide 80 mg oral tablet 80 mg, 1, tablet, By Mouth, Daily, # 14 tablet, Refills 0, Tot. Refills 0, Maintenance, 10/27/19 9:23:00 EDT, Route to Pharmacy Electronically, [facility] #[id number], 165, cm, 10/27/19 4:15:00 EDT, Height, 82.9, kg, 09/30/19 16:29:00 EDT, Dry We... Start Date: 10/27/19 Stop Date: 11/10/19 Status: Ordered magnesium oxide 400 mg (240 mg elemental magnesium) oral tablet 1 tablet = 400 mg, By Mouth, 2 times a day, for 14 days, # 28 tablet, 0 Refills, Acute 11/10/19 9:23:00 EDT, 10/27/19 9:23:00 EDT, Tablet, [facility] #[id number], 1 tablet By Mouth 2 times a day,x14 days, 165, cm, 10/27/19 4:15:00 EDT, Height, 82... Start Date: 10/27/19 Stop Date: 11/10/19 Status: Ordered Melatonin 3 mg oral tablet TK 1 - 2 TS PO QHS Start Date: 09/14/19 Status: Ordered methadone 10 mg oral tablet = 60 mg, By Mouth, Daily in AM, 0 Refills, Maintenance, 07/11/18 20:50:25 EDT Start Date: 07/11/18 Status: Ordered metoprolol 25 mg oral tablet 25 mg, 1, tablet, By Mouth, Every 12 hours, # 60 tablet, Refills 0, Tot. Refills 0, Maintenance, 10/27/19 9:24:00 EDT, [id number], 165, cm, :15:00 EDT, Height, 82.9, kg, 09/30/19 16:29:00 ED... Start Date: 10/27/19 Status: Ordered traZODone 50 mg oral tablet 50 mg, 1, tablet, By Mouth, Daily at bedtime, # 30 tablet, Refills 0, Maintenance, 09/14/19 10:56:00 EDT Start Date: 09/14/19 Status: Ordered Problem List Condition Effective Dates Status Health Status Inform ant Cholecystitis(Confirmed) Active History of opioid abuse, cur rently on methadone(Confirmed) Active Opioid abuse(Confirmed) Active Results Orders for Microbiology Reports Name Date Sputum Culture w/ Gram Smear 10/01/19 AFB Culture w/ AFB Smear, Nonrespiratory (ACID FAST CULT,NON-RESP) 09/29/19 Anaerobic Culture (ANAEROBIC CULTURE) Fungal Culture, Nonrespiratory (FUNGAL C ULT,NON-RESPIRATORY) 09/29/19 Tissue Culture w/ Gram Smear (TISSUE/BIO PSY CULT.) 09/29/19 Anaerobic Culture (Culture Anaerobic) 02/03 Anaerobic Culture (Culture Anaerobic) 02/03 Sterile Body Fluid Culture W / Gram Smear (Culture Sterile Body Fluid w/ Gram Smear) 09/25/19 Sterile Body Fluid Culture W / Gram Smear (Culture Sterile Body Fluid w/ Gram Smear) 09/25/19 Sterile Body Fluid Culture W / Gram Smear (Culture Sterile Body Fluid w/ Gram Smear) 09/25/19 Microbiology Reports (Most Recent Ten) TEST:Sputum Culture STATUS:Auth (Verified) BODY SITE: SOURCE:AICHATIO COLLECTED DATE/TIME:10/01/19 11:15 AM Sputum Culture SPECIMEN DESCRIPTION : SUCTIONED SPUTUM SPECIAL REQUESTS : NONE GRAM STAIN : 2+ POLYMORPHONUCLEAR LEUKOCYTES NO ORGANISMS SEEN CULTURE : NO GROWTH 2 DAYS REPORT STATUS : FINAL 10/03/2019 TEST:Anaerobic Culture STATUS:Auth (Verified) BODY SITE: SOURCE:OTHER COLLECTED DATE/TIME:09/29/19 5:45 PM Anaerobic Culture SPECIMEN DESCRIPTION : OTHER TRILUSPID VALVE SPECIAL REQUESTS : NONE CULTURE : NO ANAEROBES ISOLATED REPORT STATUS : FINAL 10/04/2019 TEST:AFB Culture w/AFB Smear, Non-Respiratory STATUS:Unauthenticated BODY SITE: SOURCE:OTHER COLLECTED DATE/TIME:09/29/19 5:45 PM AFB Culture w/AFB Smear, Non-Respiratory SPECIMEN DESCRIPTION : OTHER TRILUSPID VALVE SPECIAL REQUESTS : NONE DIRECT EXAM : NO ACID FAST BACILLI SEEN ON DIRECT SMEAR, TEST PERFORMED AT [facility] No acid fast bacilli seen on concentrated smear. Per [facility] protocol, this specimen was concentrated prior to smear preparation. [facility], [address] [place] [id number]. CULTURE : SPECIMEN SENT TO DEPT OF PUBLIC HEALTH, [place], [place] REPORT STATUS : PRELIMINARY REPORT TEST:Fungal Culture, Non-Respiratory STATUS:Unauthenticated BODY SITE: SOURCE:OTHER COLLECTED DATE/TIME:09/29/19 5:45 PM Fungal Culture, Non-Respiratory SPECIMEN DESCRIPTION : OTHER TRILUSPID VALVE SPECIAL REQUESTS : NONE DIRECT EXAM : NO FUNGAL ELEMENTS OBSERVED CULTURE : NO FUNGI ISOLATED AFTER 26 DAYS REPORT STATUS : PRELIMINARY REPORT TEST:Tissue/Biopsy Culture STATUS:Auth (Verified) BODY SITE: SOURCE:OTHER COLLECTED DATE/TIME:09/29/19 5:45 PM Tissue/Biopsy Culture SPECIMEN DESCRIPTION : OTHER TRILUSPID VALVE SPECIAL REQUESTS : NONE GRAM STAIN : NO CELLS OR ORGANISMS SEEN CULTURE : NO GROWTH 2 DAYS REPORT STATUS : FINAL 10/02/2019 TEST:Anaerobic Culture STATUS:Auth (Verified) BODY SITE: SOURCE:JOINT COLLECTED DATE/TIME:09/25/19 4:15 PM Anaerobic Culture SPECIMEN DESCRIPTION : JOINT FLUID LEFT ANKLE SPECIAL REQUESTS : LIMVOL CULTURE : NO ANAEROBES ISOLATED AFTER 14 DAYS REPORT STATUS : FINAL 10/09/2019 TEST:Sterile Fluid Culture STATUS:Auth (Verified) BODY SITE: SOURCE:JOINT COLLECTED DATE/TIME:09/25/19 4:15 PM Sterile Fluid Culture SPECIMEN DESCRIPTION : JOINT FLUID RT ANKLE SPECIAL REQUESTS : LIMVOL GRAM STAIN : NO CELLS OR ORGANISMS SEEN CULTURE : NO GROWTH 2 DAYS REPORT STATUS : FINAL 09/28/2019 TEST:Sterile Fluid Culture STATUS:Auth (Verified) BODY SITE: SOURCE:JOINT COLLECTED DATE/TIME:09/25/19 4:15 PM Sterile Fluid Culture SPECIMEN DESCRIPTION : JOINT FLUID AC RIGHT SHOULDER SPECIAL REQUESTS : LIMVOL GRAM STAIN : 2+ POLYMORPHONUCLEAR LEUKOCYTES 3+ RBC'S NO ORGANISMS SEEN CULTURE : NO GROWTH 2 DAYS REPORT STATUS : FINAL 09/28/2019 TEST:Sterile Fluid Culture STATUS:Auth (Verified) BODY SITE: SOURCE:JOINT COLLECTED DATE/TIME:09/25/19 4:15 PM Sterile Fluid Culture SPECIMEN DESCRIPTION : JOINT FLUID L ANKLE SPECIAL REQUESTS : LIMVOL GRAM STAIN : 2+ POLYMORPHONUCLEAR LEUKOCYTES NO ORGANISMS SEEN CULTURE : NO GROWTH 2 DAYS REPORT STATUS : FINAL 09/28/2019 TEST:Anaerobic Culture STATUS:Auth (Verified) BODY SITE: SOURCE:JOINT COLLECTED DATE/TIME:09/25/19 4:15 PM Anaerobic Culture SPECIMEN DESCRIPTION : JOINT FLUID R ANKLE SPECIAL REQUESTS : LIMVOL CULTURE : NO ANAEROBES ISOLATED AFTER 14 DAYS REPORT STATUS : FINAL 10/09/2019 Radiology Reports (Most Recent Ten) * Exam Date Time Procedure Performing Provider Status 10/19/19 1:35 PM Chest 2 Views Frontal and Lat Cynthia Calvin; Auth (Verified) Notes: (Chest 2 Views Frontal and Lat) Reason For Exam: Follow-Up Pleural Effusion RESULT: Chest 2 Views Frontal and Lat Chest 2 Views Frontal and Lat Reason: Follow-Up Pleural Effusion; Clinical Question(s): Pleural Effusion; COMPARISON: Multiple prior examinations, the most recent 10/18/2019. FINDINGS: LINES AND TUBES: Right IJ tunneled dialysis catheter. Median sternal wires intact. Monitoring leads over the lower chest. Coiled lead of the left mid chest. Tricuspid valve replacement. LUNGS AND PLEURA: No significant change in large, consolidative airspace opacity in the left upper and lateral lung. Possibly small air-fluid level in the central portion of this opacity. Unchanged patchy opacities inthe left lung base and to a lesser extent the right lung base. The right upper lung remains relatively clear. No definitive pleural effusion. No pneumothorax. HEART, MEDIASTINUM AND REJI: The cardiac silhouette is partially obscured, but grossly unchanged. Mediastinal contours unchanged. BONES AND SOFT TISSUES: No acute abnormality. IMPRESSION: No significant change from yesterday's examination. WSN: [id number] Ordering Physician: Madelin Santana Dictated By: Andrew Carrasquillo MD Dictated Date/Time: 10/19/19 2:02 pm Reviewed By: Andrew Carrasquillo MD Signed By: Andrew Carrasquillo MD Signed Date/Time: 10/19/19 2:02 pm Transcribed By: DANILO Transcribed Date/Time: 10/19/19 1:54 pm * Exam Date Time Procedure Performing Provider Status 10/18/19 10:49 PM Chest Portable Terra Zhu; Auth (Verified) Notes: (Chest Portable) Reason For Exam: post pull at 2200;Other: RESULT: Chest Portable Chest Portable AP upright at 2146 hours Reason: Other:; post pull at 2200; Clinical Question(s): Pneumothorax; Hx of Present Illness: ACTIVELY USING HEROIN THE DAY BEFORE CAME IN WITH [facility] SEPSIS COMPARISON: 10/18/2019 at 0519 hours FINDINGS: LINES AND TUBES: Left chest tube has been removed. Unchanged position of right permacath. Unchanged abandoned leads in the left hemithorax. LUNGS AND PLEURA: No change in the hazy and patchy opacities of the right mid to lower lung. No change in consolidation in the left upper hemithorax with patchy airspace opacity throughout theleft lower hemithorax. No left-sided pneumothorax identified. HEART, MEDIASTINUM AND REJI: Moderate prominence of the cardiac silhouette, unchanged. Status post valvular repair and median sternotomy. BONES AND SOFT TISSUES: No acute abnormality. IMPRESSION: 1. No pneumothorax identified status post chest tube removal. 2. Otherwise no significant change. WSN: [id number] Ordering Physician: Madelin Santana Dictated By: Angelito Dyer DO Dictated Date/Time: 10/18/19 11:51 p Reviewed By: Angelito Dyer DO Signed By: Angelito Dyer DO Signed Date/Time: 10/18/19 11:51 pm Transcribed By: DANILO Transcribed Date/Time: 10/18/19 11:49 pm * Exam Date Time Procedure Performing Provider Status 10/18/19 5:42 AM Chest Portable Rich Gonzalez; Auth (Verified) Notes: (Chest Portable) Reason For Exam: Postop RESULT: Chest Portable Chest Portable Reason: Postop; Clinical Question(s): Pleural Effusion; Hx of Present Illness: ACTIVELY USING HEROIN THE DAY GURJIT CAME IN WITH MSSA SEPSIS COMPARISON: 10/17/2019 FINDINGS: LINES AND TUBES: Right-sided central venous line terminates in the right atrium. Left apical chest tube is present. Epicardial pacer leads are present. Tricuspid valve replacement. LUNGS AND PLEURA: Scattered areas of consolidation in both lungs, similar to prior. Loculated left effusion is unchanged in size. Trace layering effusions. No apical pneumothorax is appreciated. HEART, MEDIASTINUM AND REJI: Heart appears enlarged but this is likely exaggerated by technique. Normal mediastinal and hilar contour. BONES AND SOFT TISSUES: Midline sternotomy IMPRESSION: No change. WSN: [id number] Ordering Physician: Yvon Steen Dictated By: Inessa Traore MD Dictated Date/Time: 10/18/19 8:50 am Reviewed By: Inessa Traore MD Signed By: Inessa Traore MD Signed Date/Time: 10/18/19 8:50 am Transcribed By: DANILO Transcribed Date/Time: 10/18/19 8:44 am * Exam Date Time Procedure Performing Provider Status 10/17/19 6:20 AM Chest Portable Starla Gonzalez (Verified) Notes: (Chest Portable) Reason For Exam: Tube Placement RESULT: Chest Portable AP upright portable chest dated October 17, 2019 at 0532 hours. Comparison films are from October 15 and October 14, 2019. HISTORY: Tube placement. FINDINGS: The cardiac silhouette is at the upper limits of normal for size. A central venous line is noted from the right. Using a jugular approach, the tip of the catheter overlies right atrium. A left-sided chest tube is present coursing superiorly with its tip just inferior to the apex. Cardiac pacing leads are noted overlying the heart. The patient is status post median sternotomy and valvular replacement. There are stable pleural and to a lesser extent parenchymal infiltrates left much greater than right. IMPRESSION: No significant interval change. Examination [id number]. Thank you for allowing me to participate in the care of this patient. WSN: [id number] Ordering Physician: William (Surgery)Doris Dictated By: Garry Saldana MD Dictated Date/Time: 10/17/19 9:37 am Reviewed By: Garry Saldana MD Signed By: Garry Saldana MD Signed Date/Time: 10/17/19 9:37 am Transcribed By: DANILO Transcribed Date/Time: 10/17/19 9:37 am * Exam Date Time Procedure Performing Provider Status 10/16/19 6:30 AM Chest Portable Starla Gonzalez (Verified) Notes: (Chest Portable) Reason For Exam: Tube Placement RESULT: Chest Portable AP upright portable chest dated October 16, 2019 at 0540 hours. Comparison films are from October 14, 2019 and October 13, 2019. HISTORY: Tube placement. FINDINGS: The cardiac silhouette is within normal limits for size. A left-sided chest tube remains in place unchanged. Cardiac pacing wires are noted on the left. Central venous line is present on the right. Using a jugular approach, the tip of the catheter overlies the right atrium. Pleural-based density in the left upper and midlung is slightly improved. There is now more air demonstrated within it. A left pleural effusion is stable. The study is slightly overexposed and right-sided infiltrates are not significantly changed from the prior study although the examination is suboptimal. Patient is status post median sternotomy and valvular replacement. IMPRESSION: Slight interval improvement in aeration in the left upper lobe. Examination 56302. Thank you for allowing me to participate in the care of this patient. WSN: [id number] Ordering Physician: Madelin Santana Dictated By: Garry Saldana MD Dictated Date/Time: 10/16/19 11:12 a Reviewed By: Garry Saldana MD Signed By: Garry Saldana MD Signed Date/Time: 10/16/19 11:12 am Transcribed By: DANILO Transcribed Date/Time: 10/16/19 11:12 am * Exam Date Time Procedure Performing Provider Status 10/14/19 6:07 AM Chest Portable Morgan Xavier; James ( Verified) Notes: (Chest Portable) Reason For Exam: S/P Cardiac Surgery RESULT: Chest Portable AP semiupright portable chest dated October 14, 2019 at 0503 hours. Comparison films are from September. HISTORY: Status post cardiac surgery. FINDINGS: The cardiac silhouette is within normal limits for size. Cardiac pacing leads are in place. No pacing module is identified. A double-lumen central venous line is present on the right. Usinga jugular approach, the tip of the catheter overlies right atrium. A left-sided chest tube is present. The tip of the tube extends to overlie the left clavicle. The patient is status post median sternotomy and valvular replacement. Once again in the left upper lung and mid lung laterally there is a large oval area of increased density measuring up to 13 cm in length. There is opacity at the left lung base consistent with effusion. An area of airspace opacity in the right lower lung is noted there is evidence of a small right pleural effusion. Increased interstitial thickening is present bilaterally. IMPRESSION: Slight interval improvement in aeration bilaterally. Central venous line and left-sided chest tube remain in place unchanged. Examination [id number]. Thank you for allowing me to participate in the care of this patient. WSN: [id number] Ordering Physician: Amber Aj Dictated By: Garry Saldana MD Dictated Date/Time: 10/14/19 8:35 am Reviewed By: Garry Saldana MD Signed By: Garry Saldana MD Signed Date/Time: 10/14/19 8:35 am Transcribed By: DANILO Transcribed Date/Time: 10/14/19 8:33 am * Exam Date Time Procedure Performing Provider Status 10/13/19 5:16 AM Chest Portable Malu Pillai (Verified) Notes: (Chest Portable) Reason For Exam: S/P Cardiac Surgery RESULT: Chest Portable Chest Portable AP semiupright at 10/13/2019 Reason: Status post cardiac surgery. Line placement. COMPARISON: Multiple priors, most recent 10/12/2019. CT chest 10/10/2019. FINDINGS: LINES AND TUBES: Interval removal of endotracheal tube and enteric tube. Unchanged position of right jugular venous dialysis catheter with the distal tip in the right atrium. Unchanged position of left subclavian approach venous catheter with the distal tip in the upper SVC. Unchanged position of left pleural catheter with the distal tip in the apex. LUNGS AND PLEURA: Diffuse patchy opacities throughout the lungs are once again noted, somewhat more consolidative on the left. Overall this hasn't significantly changed since prior study. Small to moderate sized bilateral pleural effusions, which appears to be partially loculated on theleft. No pneumothorax. HEART, MEDIASTINUM AND REJI: Moderate prominence of the cardiac silhouette, unchanged. Patient is status post median sternotomy with tricuspid valve replacement.. BONES AND SOFT TISSUES: No acute abnormality. IMPRESSION: 1. Interval removal of endotracheal and enteric tube. Unchanged position of left subclavian venous catheter and right jugular venous catheter. Unchanged position of left pleural catheter. 2. Diffuse patchy opacities and small to moderate size bilateral pleural effusions have not significantly changed since prior study. I have personally reviewed the images and I agree with this report. WSN: [id number] Ordering Physician: Amber Aj Dictated By: Omari Anguiano DO Dictated Date/Time: 10/13/19 9:26 am Reviewed By: Mariel Kaur MD, V Signed By: Mariel Kaur MD, V Signed Date/Time: 10/13/19 9:31 am Transcribed By: DANILO Transcribed Date/Time: 10/13/19 9:21 am * Exam Date Time Procedure Performing Provider Status 10/12/19 5:04 AM Chest Portable Dara Pillai; James (Verified) Notes: (Chest Portable) Reason For Exam: S/P Cardiac Surgery RESULT: Chest Portable AP semiupright portable chest dated October 12, 2019 at 0427 hours. Comparison films are from October 10 and October 10, 2019. HISTORY: Status post cardiac surgery. FINDINGS: The cardiac silhouette is mildly increased in size and increased slightly from the prior study. An endotracheal tube remains in place with its tip 3.6 cm proximal to the stiven. A nasogastric tube remains in place with its tip and sidehole in the left upper quadrant distal to the EG junction region. A central venous line remains in place from the right. Using a jugular approach, the tipof the catheter overlies the proximal right atrium. A left-sided chest tube remains in place with its tip just below the left apex. A central venous line is present on the left. Using a subclavian approach, the tip of the catheter overlies the proximal SVC. There is increased opacity in the left hemithorax which is significantly pleural in the upper to mid hemithorax and more airspace in the mid and lower hemithorax. This is slightly improved when compared with the previous study. Some minimal opacity in the right mid and lower lung which is both airspace, pleural, and interstitial in appearance is also slightly improved. The patient is status post median sternotomy and valvular replacement. Visualized osseous structures are otherwise unremarkable. IMPRESSION: Slight interval increase in cardiac size. Slight interval improvement in aeration bilaterally. Otherwise, no significant interval change. Examination [id number]. Thank you for allowing me to participate in the care of this patient. WSN: [id number] Ordering Physician: Amber Aj Dictated By: Garry Saldana MD Dictated Date/Time: 10/12/19 9:08 am Reviewed By: Garry Saldana MD Signed By: Garry Saldana MD Signed Date/Time: 10/12/19 9:08 am Transcribed By: DANILO Transcribed Date/Time: 10/12/19 9:08 am * Exam Date Time Procedure Performing Provider Status 10/11/19 3:12 PM Chest Portable Thomas Ness (Verified) Notes: (Chest Portable) Reason For Exam: s/p L VATS w/ chest tube;Tube Placement RESULT: Chest Portable Chest Portable Reason: Tube Placement; s p L VATS w chest tube; Hx of Present Illness: ACTIVELY USING HEROIN THE DAY BEVORE CAME IN WITH [facility]A SEPSIS COMPARISON: 10/11/2019 at 0443 FINDINGS: Endotracheal tube tip is approximately 3 cm above the stiven. Enteric tube tip and side-port project over the stomach. Right IJ central venous catheter tip is unchanged Stable apically directed left thoracostomy tube. Stable left subclavian central venous catheter. Slight improvement in the degree of left lung aeration. No change in the overall degree of right lung aeration. Right basilar consolidation and patchy airspace disease is stable. IMPRESSION: Slight improvement in the degree of left lung aeration. No change in right lung aeration. WSN: [id number] Ordering Physician: Arnoldo Gregg Dictated By: Pan Hardwick MD Dictated Date/Time: 10/11/19 3:23 pm Reviewed By: Pan Hardwick MD Signed By: Pan Hardwick MD Signed Date/Time: 10/11/19 3:23 pm Transcribed By: DANILO Transcribed Date/Time: 10/11/19 3:20 pm * Exam Date Time Procedure Performing Provider Status 10/11/19 5:31 AM Chest Portable Patricia Xavier ( Verified) Notes: (Chest Portable) Reason For Exam: S/P Cardiac Surgery RESULT: Chest Portable Chest Portable Reason: S P Cardiac Surgery; Clinical Question(s): Postop; Hx of Present Illness: ACTIVELY USING HEROIN THE DAY BEVORE CAME IN WITH MSSA SEPSIS COMPARISON: 10/10/2019 FINDINGS: LINES AND TUBES: Right-sided Groshong catheter terminates in the right atrium. Endotracheal tube terminates 2.4 cm above stiven. Nasogastric tube terminates below the diaphragm and below the lower margin of radiograph. Left apical chest tube. External pacer leads. LUNGS AND PLEURA: Partial collapse of the left lung secondary to large complex pleural collections, unchanged. The collection overlying the left upper lobe contains air. Partial atelectasis right lower lobe. Scattered patchy opacities in the aerated portions of both lungs. No right pneumothorax. Small right loculated effusion. HEART, MEDIASTINUM AND REJI: Heart appears enlarged but this is likely exaggerated by technique. Normal mediastinal and hilar contour. BONES AND SOFT TISSUES: No acute abnormality. IMPRESSION: Lines and tubes remain in satisfactory position. No significant change compared to 10/09/2019. WSN: [id number] Ordering Physician: Morgan Hull Dictated By: Inessa Traore MD Dictated Date/Time: 10/11/19 8:49 am Reviewed By: Inessa Traore MD Signed By: Inessa Traore MD Signed Date/Time: 10/11/19 8:49 am Transcribed By: DANILO Transcribed Date/Time: 10/11/19 8:43 am Vital Signs Most recent to oldest [Reference Range]: 1 2 3 Height 165 cm (10/27/19 9:31 AM) 165 cm (10/27/19 4:15 AM) 165 cm (10/27/19 12:04 AM) Weight 78.1 kg (10/26/19 5:01 AM) 78.5 kg (10/25/19 3:41 AM) 82.8 kg (10/22/19 8:00 AM) Oxygen Saturation [94-100 %] 95 % (10/27/19 9:31 AM) 93 % *L* (10/27/19 4:15 AM) 93 % *L* (10/27/19 12:04 AM) Pulse Rate [55-90 bpm] 88 bpm (10/27/19 9:31 AM) 90 bpm (10/27/19 4:15 AM) 103 bpm *H* (10/27/19 12:04 AM) Body Mass Index [18.5-24.99] 30.41 *>HHI* (10/22/19 8:00 AM) 31.15 *>HHI* (10/20/19 5:10 AM) 33.31 *>HHI* (10/08/19 1:26 PM) Blood Pressure [90-138/55-84 mm Hg] 103/90mm Hg (10/27/19 9:31 AM) 116/55mm Hg (10/27/19 4:15 AM) 120/67mm Hg (10/27/19 12:04 AM) Respiratory Rate [16-30 br/min] 18 br/min (10/27/19 4:28 PM) 18 br/min (10/27/19 12:16 PM) 18 br/min (10/27/19 11:24 AM) Temperature [96.8-100.4 DegF] 98.2 DegF (10/27/19 9:31 AM) 98.8 DegF (10/27/19 4:15 AM) 98.5 DegF (10/27/19 12:04 AM) Liters per Minute 2 L/min (10/21/19 12:45 AM) 2 L/min (10/14/19 7:00 PM) 2 L/min (10/14/19 6:00 PM) Mode of Delivery (Oxygen) Room air (10/27/19 9:31 AM) Room air (10/27/19 4:15 AM) Room air (10/27/19 12:04 AM) Blood pressure sites Arm, right (10/27/19 9:31 AM) Arm, right (10/27/19 4:15 AM) Arm, left (10/27/19 12:04 AM) Temperature Route Oral (10/27/19 9:31 AM) Oral (10/27/19 4:15 AM) Oral (10/27/19 12:04 AM) Dry Weight 82.9 kg (09/30/19 4:29 PM) 73 kg (09/14/19 10:19 AM) Weight Obtained Via Bed scale (10/26/19 5:01 AM) Bed scale (10/25/19 3:41 AM) Bed scale (10/17/19 4:29 AM) Dry Weight Obtained Via Bed scale (09/14/19 10:19 AM) Mobility assistance Transfer, assist of 2 (10/14/19 2:00 PM) Total assistance (10/13/19 8:00 PM) Transfer, assist of 2 (10/13/19 12:00 PM) Social History Social History Type Response Smoking Status 10 or more cigarette s (1/2 pack or more)/day in last 30 days entered on: 07/12/18 Sex
--- OUTSIDE RECORDS SUMMARY | 2023-02-28 10:46 | XMS_ITS | Continuity of Care Document ---
Author Name Unknown Organization [facility] Address [address] [address]- Care Team Providers Care Specialty Department Supervisor Name Role Phone Maddy PERALTA, Daniella Primary Care Physician [phone] [id number] - 11/11/19 [facility] [address] [address]- [facility] Attending Physician: Angela Barreto MD Referring Physician: Daniella Castañeda MD Allergies, Adverse Reactions, Alerts Substance Reaction [...] 10/27/19 9:20:00 EDT, Route to Pharmacy Electronically, [facility] #[id number], 165, cm, 10/27/19 4:15:00 EDT, Height, 82.9, kg, 09/30/19 16:29:00 EDT, Dry We... Start Date: 10/27/19 Status: Ordered cloNIDine 0.1 mg oral tablet 0.1 mg, 1, tablet, By Mouth, 2 times a day, # 60 tablet, Refills 0, Tot. Refills 0, Maintenance, 10/27/19 9:20:00 EDT, [id number], 165, cm, :15:00 EDT, Height, 82.9, kg, 09/30/19 16:29:00 ED... Start Date: 10/27/19 Status: Ordered furosemide 80 mg oral tablet 1, tablet, By Mouth, Daily, # 90 tablet, Refills 0, Tot. Refills 0, Maintenance, 11/11/19 16:29:00 EDT, Route to Pharmacy Electronically, [facility] #[id number], 165, cm, 11/08/19 8:55:00 EDT, Height, 82.9, kg, 09/30/19 16:29:00 EDT, Dry Weight Start Date: 11/11/19 Status: Ordered Melatonin 3 mg oral tablet [...] 10/27/19 9:24:00 EDT, Route to Pharmacy Electronically, [facility] #[id number], 165, cm, :15:00 EDT, Height, 82.9, kg, 09/30/19 16:29:00 ED... Start Date: 10/27/19 Status: Ordered SEROquel 25 mg oral tablet 25 mg, 1, tablet, By Mouth, Daily at bedtime, DO NOT TAKE TRAZODONE, # 30 tablet, Refills 0, Tot. Refills 0, Maintenance, 10/28/19 15:46:00 EDT, Route to Pharmacy Electronically, [facility][id number], 165, cm, 10/27/19 9:31:00 EDT, Height, 82.9... Start Date: 10/28/19 Status: Ordered Problem List Condition Effective Dates Status Health Status Inform ant Cholecystitis(Confirmed) Active History of opioid abuse, cur rently on methadone(Confirmed) Active Opioid abuse(Confirmed) Active Vital Signs Most recent to oldest [Reference Range]: 1 Height 165 cm (11/04/19 10:52 AM) Weight 72.5 kg (11/04/19 10:52 AM) Oxygen Saturation [94-100 %] 92 % *L* (11/04/19 10:52 AM) Pulse Rate [55-90 bpm] 120 bpm *H* (11/04/19 10:52 AM) Body Mass Index [18.5-24.99] 26.63 *H* (11/04/19 10:52 AM) Blood Pressure [90-138/55-84 mm Hg] 120/ 70mm Hg (11/04/19 10:52 AM) Respiratory Rate [16-30 br/min] 18 br/mi n (11/04/19 10:52 AM) Temperature [96.8-100.4 DegF] 98.9 DegF (11/04/19 10:52 AM) Mode of Delivery (Oxygen) Room air (11/04/19 10:52 AM) Blood pressure sites Arm, left (11/04/19 10:52 AM) Temperature Route Oral (11/04/19 10:52 AM) Weight Obtained Via Patient/family state d (11/04/19 10:52 AM) Social History Social History Type Response Smoking Status 10 or more cigarette s (1/2 pack or more)/day in last 30 days entered on: 07/12/18 Sex
--- OUTSIDE RECORDS SUMMARY | 2023-02-28 10:46 | XMS_ITS | Continuity of Care Document ---
Author Name Unknown Organization [facility] Address [address] [place] [address] sabas, [address] [place] [address]- Care Team Providers Care Channel Marketing Coordinator Name Role Phone Maddy PERALTA, Daniella Primary Care Physician Encounter [facility] [place] Date(s): 03/13/20 - 04/12/20 [facility] Thoracic Surgery [address] [place] [address] Drive, [address] [place], [place] [address] Allergies, Adverse Reactions, Alerts Substance Reaction Severity [...] opioid drug. Start Date: 03/28/20 Status: Ordered ceFAZolin 2 g intravenous injection = 2 Gm, IV Infusion, Every 8 hours, for 16 days, # 48 each, 0 Refills, Acute 04/16/20 10:45:12 EST,03/28/20 14:41:00 EST, Partial fill upon patient request if the prescription is for a schedule II opioid drug. Start Date: 03/28/20 Stop Date: 04/16/20 Status: Ordered gabapentin 100 mg oral capsule [...]
--- OUTSIDE RECORDS SUMMARY | 2023-02-28 10:46 | XMS_ITS | Continuity of Care Document ---
Author Name Unknown Organization [facility] Address [address] [place] [address]- Care Team Providers Care Feed Grinder Name Role Phone Maddy PERALTA, Daniella Primary Care Physician Encounter [facility] [place] Date(s): 03/28/20 - 03/31/[address] [address]- [phone] Discharge Disposition: A-Transfer SNF Attending Physician: Lillian Vazquez MD, Jonathan Admitting Physician: Mansi Sosa MD Referring Physician: Not on Staff, Referring MD Allergies, Adverse Reactions, Alerts Substance Reaction [...] Date: 03/28/20 Stop Date: 04/16/20 Status: Ordered Flexeril 10 mg oral tablet 5 mg, Tablet, By Mouth, 3 times a day, PRN for Spasm, Routine, 03/30/20 9:21:00 EST Start Date: 03/30/20 Stop Date: 04/01/20 Status: Discontinued gabapentin 100 mg oral capsule 100 mg, Capsule, By Mouth, 03/31/20 9:00:00 EST Start Date: 03/31/20 Stop Date: 03/31/20 Status: Completed gabapentin 100 mg oral capsule 100 mg, [...] IIopioid drug. 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 Opioid abuse(Confirmed) Active Pulmonary embolism(Confirmed) Active Vital Signs Most recent to oldest [Reference Range]: 1 2 3 4 Height 165 cm (03/31/20 7:21 AM) 165 cm (03/30/20 11:53 PM) 165 cm (03/30/20 7:28 PM) Weight 73.9 kg (03/28/20 6:45 PM) Oxygen Saturation [94-100 %] 99 % (03/31/20 7:21 AM) 98 % (03/30/20 11:53 PM) 98 % (03/30/20 7:28 PM) Pulse Rate [55-90 bpm] 98 bpm *H* (03/31/20 7:21 AM) 94 bpm *H* (03/30/20 11:53 PM) 89 bpm (03/30/20 7:28 PM) Body Mass Index [18.5-24.99] 27.14 *H* (03/28/20 6:45 PM) Blood Pressure [90-138/55-84 mm Hg] 98/61mm Hg (03/31/20 7:21 AM) 109/62mm Hg (03/30/20 11:53 PM) 102/69mm Hg (03/30/20 7:28 PM) Respiratory Rate [16-30 br/min] 18 br/min (03/31/20 1:10 PM) 18 br/min (03/31/20 11:51 AM) 16 br/min (03/31/20 8:38 AM) 16 br/min (03/31/20 8:38 AM) Temperature [96.8-100.4 DegF] 98.8 DegF (03/31/20 7:21 AM) 98.4 DegF (03/30/20 11:53 PM) 97.6 DegF (03/30/20 7:28 PM) Liters per Minute 1 L/min (03/30/20 7:24 AM) Mode of Delivery (Oxygen) Room air (03/31/20 7:21 AM) Room air (03/30/20 11:53 PM) Room air (03/30/20 7:28 PM) Blood pressure sites Arm, right (03/31/20 7:21 AM) Arm, right (03/30/20 11:53 PM) Arm, right (03/30/20 7:28 PM) Temperature Route Oral (03/31/20 7:21 AM) Oral (03/30/20 11:53 PM) Oral (03/30/20 7:28 PM) Dry Weight 78.1 kg (03/28/20 6:45 PM) Weight Obtained Via Bed scale (03/28/20 6:45 PM) Social History Social History Type Response Smoking Status 10 or more cigarette s (1/2 pack or more)/day in last 30 days entered on: 07/12/18 Sex
--- OUTSIDE RECORDS SUMMARY | 2023-02-28 10:46 | XMS_ITS | Continuity of Care Document ---
Author Name Unknown Organization [facility] Address [address] [place] [address] sab[address], [address] [place] [address]- Care Team Providers Care Cant Gang Sawyer Name Role Phone Maddy PERALTA, Daniella Primary Care Physician Encounter [facility] [place] Date(s): 05/25/20 - 06/24/20 [facility] Thoracic Surgery [address] [place] [address], [address] [place], [place] [address] Attending Physician: AdmJocelynn trent Admitting Physician: AdmJocelynn trent Referring Physician: [id number] Allergies, Adverse Reactions, Alerts Substance Reaction Severity Status NKA Active Immunizations Not Given Vaccine Date Status Refusal Reason pneumococcal 23-valent vaccine 10/16/19 Not Given Patient Refuses pneumococcal 23-valent vaccine 01/08/18 Not Given Patient Refuses pneumococcal 23-valent vaccine 12/09/16 Not Given Patient Refuses influenza virus vaccine, inactivated 01/08/18 Not Given Patient Refuses Medications apixaban = 5 mg, By Mouth, 2 [...] opioid drug. Start Date: 03/28/20 Status: Ordered Problem [...]
--- OUTSIDE RECORDS SUMMARY | 2023-02-28 10:46 | XMS_ITS | Continuity of Care Document ---
Author Name Unknown Organization [facility] Thoracic [facility] Address [address] [place] [address] [address], [address] [place] [address]- Care Team Providers Care Fish Liver Sorter Name Role Phone Maddy PERALTA, Daniella Primary Care [id number]): [facility]08[facility] - 11/15/19 [facility] Thoracic Surgery [address] [place] [address] Drive, [address] [place] [address]- [facility] Attending Physician: Alka Cyr MD Allergies, Adverse Reactions, Alerts Substance Reaction [...] 10/27/19 9:20:00 EDT, Route to Pharmacy Electronically, [facility] #[id number], 165, cm, 10/27/19 4:15:00 EDT, Height, 82.9, kg, 09/30/19 16:29:00 EDT, Dry We... Start Date: 10/27/19 Status: Ordered cloNIDine 0.1 mg oral tablet 0.1 mg, 1, tablet, By Mouth, 2 times a day, # 60 tablet, Refills 0, Tot. Refills 0, Maintenance, 10/27/19 9:20:00 EDT, Route to Pharmacy Electronically, [facility] #[id number], 165, cm, :15:00 EDT, Height, 82.9, kg, 09/30/19 16:29:00 ED... Start Date: 10/27/19 Status: Ordered furosemide 80 mg oral tablet 1, tablet, By Mouth, Daily, # 90 tablet, Refills 0, Tot. Refills 0, Maintenance, 11/11/19 16:29:00 EDT, Route to Pharmacy Electronically, [facility] #[id number], 165, cm, 11/08/19 8:55:00 EDT, Height, 82.9, [...] 10/27/19 9:24:00 EDT, Route to Pharmacy Electronically, [facility] #[id number], 165, cm, :15:00 EDT, Height, 82.9, kg, 09/30/19 16:29:00 ED... Start Date: 10/27/19 Status: Ordered SEROquel 25 mg oral tablet 25 mg, 1, tablet, By Mouth, Daily at bedtime, DO NOT TAKE TRAZODONE, # 30 tablet, Refills 0, Tot. Refills 0, Maintenance, 10/28/19 15:46:00 EDT, Route to Pharmacy Electronically, [facility][id number], 165, cm, 10/27/19 9:31:00 EDT, Height, 82.9... Start Date: 10/28/19 Status: Ordered Problem List Condition Effective Dates Status Health Status Inform ant Cholecystitis(Confirmed) Active History of opioid abuse, cur rently on methadone(Confirmed) Active Opioid abuse(Confirmed) Active Vital Signs Most recent to oldest [Reference Range]: 1 Height 165 cm (11/08/19 8:55 AM) Weight 73.7 kg (11/08/19 8:55 AM) Oxygen Saturation [94-100 %] 97 % (11/08/19 8:55 AM) Pulse Rate [55-90 bpm] 97 bpm *H* (11/08/19 8:55 AM) Body Mass Index [18.5-24.99] 27.07 *H* (11/08/19 8:55 AM) Blood Pressure [90-138/55-84 mm Hg] 108/ 60mm Hg (11/08/19 8:55 AM) Temperature [96.8-100.4 DegF] 97.8 DegF (11/08/19 8:55 AM) Mode of Delivery (Oxygen) Room air (11/08/19 8:55 AM) Blood pressure sites Arm, right (11/08/19 8:55 AM) Temperature Route Temporal (11/08/19 8:55 AM) Weight Obtained Via Standing scale (11/08/19 8:55 AM) Social History Social History Type Response Smoking Status 10 or more cigarette s (1/2 pack or more)/day in last 30 days entered on: 07/12/18 Sex
--- OUTSIDE RECORDS SUMMARY | 2023-02-28 10:46 | XMS_ITS | Continuity of Care Document ---
Author Name Unknown Organization [facility] Infectious Disease Address [address] [place] [address]- Care Team Providers Care Safe Deposit Attendant Name Role Phone Daniella Castañeda MD Primary Care Physician [phone] [place] [facility] [place]22 - 11/21/22 [facility] Infect[facility] Disease [address] [place] [address]- Allergies, Adverse Reactions, Alerts No Known Allergies Medications apixaban 5 mg oral tablet = 5 mg, By Mouth, 2 times a day, # 60 tablet, 0 Refills, Maintenance, 11/02/22 9:44:00 EDT, [id number], Partial fill upon patient request if the [...] Team Personnel Name: Rula Patel RN Position: [facility] RN Member Role: Primary Care Nurse Name: Daniella Castañeda MD Position: [facility] Outreach Member Role: PCP Address: Address: [address] [place] [address] - Name: Lori Smiley RN Position: [facility] RN Member Role: Primary Care Nurse Name: Karnia Rodriguez RN Position: [facility] RN Supv Member Role: Primary Care Nurse Name: Jordi Garcia RN Position: [facility] RN Member Role: Primary Care Nurse Name: Ayesha Cannon RN Position: [facility] RN Member Role: Primary Care Nurse Name: Olivia Hannon RN Position: [facility] RN Member Role: Primary Care Nurse Name: Kathia Moe RN Position: [facility] RN Member Role: Primary Care Nurse Name: Rohith Skinner RN Position: [facility] RN Member Role: Primary Care Nurse Name: Helena De La Paz RN Position: [facility] RN Member Role: Primary Care Nurse Name: Cheryl Rob RN Position: [facility] RN Member Role: Primary Care Nurse Name: Kelley Velazquez RN Position: [facility] RN Member Role: Primary Care Nurse Name: Re Mckeon RN Position: [facility] RN Member Role: Primary Care Nurse Name: Paddy Rowe RN Position: [facility] RN Member Role: Primary Care Nurse Name: Shweta Ahmadi NP Position: [facility] Associate Professional Member Role: Lifetime Consulting Provider Address: Address: [address] [place] [address] [address] [facility] [place] [address]- Name: Reece William MD Position: [facility] Renal MD Member Role: Lifetime Consulting Physician Address: Address: [facility] [address] [facility] [place] [address]- Name: Courtney Clemente RN Position: [facility] RN Member Role: Primary Care Nurse Name: Tiffany Macias RN Position: [facility] RN Member Role: Primary Care Nurse Name: Hever Jones DO Position: [facility] Renal MD Member Role: Lifetime Consulting Physician Address: Address: [facility] [address] [facility] [address] [facility] [place] [address]- Name: Leana Rivera RN Position: [facility] RN Member Role: Primary Care Nurse Name: Dary Sewell RN Position: [facility] RN Member Role: Primary Care Nurse Name: Miri Do RN Position: [facility] RN Member Role: Primary Care Nurse Name: Tiffany Chen Position: [facility] RN Member Role: Primary Care Nurse Name: Brandon Johnson RN Position: [facility] RN Member Role: Primary Care Nurse Name: Shruthi Zhou RN Position: [facility] RN Member Role: Primary Care Nurse Name: Angie Sahu RN Position: [facility] RN Robert Member Role: Primary Care Nurse Name: Jessica Gonzales RN Position: [facility] RN Member Role: Primary Care Nurse Name: Miri Gutiérrez RN Position: [facility] RN Member Role: Primary Care Nurse Name: Caprice Robles Position: [facility] AMB Nurse Member Role: Primary Care Nurse Name: Nadia White RN Position: [facility] RN Member Role: Primary Care Nurse Name: Lavinia Anderson RN Position: [facility] RN Member Role: Primary Care Nurse Name: Minal Gonzalez RN Position: [facility] RN Member Role: Primary Care Nurse Name: Lizzy Cornejo RN Position: [facility] RN Member Role: Primary Care Nurse Name: Sangita Richardson RN Position: [facility] SN RN Member Role: Primary Care Nurse Name: Cheryl Gordillo NP Position: [facility] Associate Professional Member Role: Primary Care Nurse Address: Address: [address] [place] [address] [facility] [place], [place] [address] Name: Shelbie Lopez RN Position: [facility] RN Member Role: Primary Care Nurse Name: Shanell Pierce RN Position: [facility] RN Member Role: Primary Care Nurse Name: Rhona Barron RN Position: [facility] RN Member Role: Primary Care Nurse Name: Amber Garcia RN Position: [facility] RN Member Role: Primary Care Nurse Name: Jessica Aleman RN Position: [facility] RN Member Role: Primary Care Nurse Name: Romi García RN Position: [facility] Onco RN Member Role: Primary Care Nurse Care Team Related Persons Name: DARYL FAIR Address: home [address] [place] [address] Name: CECE SOSA Address: [place] [address] Name: CECE SOSA Address: home [address] [facility] [address] [place] [address]
--- OUTSIDE RECORDS SUMMARY | 2023-02-28 10:46 | XMS_ITS | Continuity of Care Document ---
Author Name Unknown Organization [facility] Address [address] [address]- Care Team Providers Care Teacher Visually Impaired Name Role Phone Maddy PERALTA, Daniella Primary Care Physician [phone] Encounter [facility] [place] Date(s): 11/04/19 - 12/04/19 [facility] Cardiac Surgery [address] [address] [facility] Attending Physician: Jocelynn Liang Admitting Physician: AdmJocelynn trent Referring Physician: AdmtrJocelynn Allergies, Adverse Reactions, Alerts Substance Reaction Severity [...] 11/24/19 15:28:00 EDT, Route to Pharmacy Electronically, [facility][id number], 165, cm, 11/16/19 9:48:00EDT, Height, 82.9, kg, 09/30/19 16:29:00 EDT, Dry W... Start Date: 11/24/19 Status: Ordered cloNIDine 0.1 mg oral tablet 0.1 mg, 1, tablet, By Mouth, Daily, # 60 tablet, Refills 0, Tot. Refills 0, Maintenance, 10/27/19 9:20:00 EDT, Route to Pharmacy Electronically, [facility] #[id number], 165, cm, 10/27/19 4:15:00EDT, Height, 82.9, kg, 09/30/19 16:29:00 EDT, Dry W... Start Date: 10/27/19 Status: Ordered furosemide 80 mg oral tablet 1, tablet, By Mouth, Daily, # 90 tablet, Refills 0, Tot. Refills 0, Maintenance, 11/11/19 16:29:00 EDT, Route to Pharmacy Electronically, [facility] #[id number], 165, cm, 11/08/19 8:55:00 EDT, Height, 82.9, [...] 10/27/19 9:24:00 EDT, Route to Pharmacy Electronically, [facility][id number], 165, cm, 204:15:00 EDT, Height, 82.9, kg, 09/30/19 16:29:00 ED... Start Date: 10/27/19 Status: Ordered SEROquel 25 mg oral tablet 25 mg, 1, tablet, By Mouth, Daily at bedtime, DO NOT TAKE TRAZODONE, # 30 tablet, Refills 0, Tot. Refills 0, Maintenance, 10/28/19 15:46:00 EDT, [id number], 900, cm, 10/27/19 9:31:00 EDT, Height, 82.9... Start [...]
--- OUTSIDE RECORDS SUMMARY | 2023-02-28 10:46 | XMS_ITS | Continuity of Care Document ---
Author Name Unknown Organization [facility] Thoracic [facility] Address [address] [place] [address] [address], [address] [place] [address]- Care Team Providers Care Emergency Vehicle Operations Instructor Name Role Phone Maddy PERALTA, Daniella Primary Care Physician [place] [facility] [place] - 01/19/20 [facility] Thoracic Surgery [address] [place] [address] Drive, [address] [place] [address]- [facility] Attending Physician: Jocelynn Liang Admitting Physician: AdmJocelynn trent Referring Physician: [id number] [...] 11/24/19 15:28:00 EDT, Route to Pharmacy Electronically, [facility] #[id number], 165, cm, 11/16/19 9:48:00EDT, Height, 82.9, kg, 09/30/19 16:29:00 EDT, Dry W... Start Date: 11/24/19 Status: Ordered cloNIDine 0.1 mg oral tablet 0.1 mg, 1, tablet, By Mouth, Daily, # 60 tablet, Refills 0, Tot. Refills 0, Maintenance, 10/27/19 9:20:00 EDT, Route to Pharmacy Electronically, [facility] #[id number], 165, cm, 10/27/19 4:15:00EDT, Height, 82.9, kg, 09/30/19 16:29:00 EDT, Dry W... Start Date: 10/27/19 Status: Ordered furosemide 80 mg oral tablet 1, tablet, By Mouth, Daily, # 90 tablet, Refills 0, Tot. Refills 0, Maintenance, 11/11/19 16:29:00 EDT, Route to Pharmacy Electronically, [facility] #[id number], 165, cm, 11/08/19 8:55:00 EDT, Height, 82.9, [...] 10/27/19 9:24:00 EDT, Route to Pharmacy Electronically, [facility] #[id number], 165, cm, 204:15:00 EDT, Height, 82.9, kg, 09/30/19 16:29:00 ED... Start Date: 10/27/19 Status: Ordered SEROquel 25 mg oral tablet 25 mg, 1, tablet, By Mouth, Daily at bedtime, DO NOT TAKE TRAZODONE, # 30 tablet, Refills 0, Tot. Refills 0, Maintenance, 10/28/19 15:46:00 EDT, [id number], 919, cm, 10/27/19 9:31:00 EDT, Height, 82.9... Start [...]
--- OUTSIDE RECORDS SUMMARY | 2023-02-28 10:46 | XMS_ITS | Continuity of Care Document ---
Author Name Unknown Organization [facility] Infectious Disease Address [address] [place] [address]- Care Team Providers Care Marketing Content Coordinator Name Role Phone Maddy PERALTA, Daniella Primary Care Physician [phone] Encounter [facility] [place] Date(s): 11/30/19 - 12/30/19 [facility] Infectious Disease [address] [place] [address] [facility] Attending Physician: Jocelynn Liang Admitting Physician: Jocelynn Liang Referring Physician: AdmtrJocelynn Allergies, Adverse Reactions, Alerts [...] 11/24/19 15:28:00 EDT, Route to Pharmacy Electronically, [facility] #[id number], 169, cm, 11/16/19 9:48:00EDT, Height, 82.9, kg, 09/30/19 16:29:00 EDT, Dry W... Start Date: 11/24/19 Status: Ordered cloNIDine 0.1 mg oral tablet 0.1 mg, 1, tablet, By Mouth, Daily, # 60 tablet, Refills 0, Tot. Refills 0, Maintenance, 10/27/19 9:20:00 EDT, Route to Pharmacy Electronically, [facility] #[id number], 165, cm, 10/27/19 4:15:00EDT, Height, 82.9, kg, 09/30/19 16:29:00 EDT, Dry W... Start Date: 10/27/19 Status: Ordered furosemide 80 mg oral tablet 1, tablet, By Mouth, Daily, # 90 tablet, Refills 0, Tot. Refills 0, Maintenance, 11/11/19 16:29:00 EDT, Route to Pharmacy Electronically, [facility] #[id number], 165, cm, 11/08/19 8:55:00 EDT, Height, 82.9, [...] 10/27/19 9:24:00 EDT, Route to Pharmacy Electronically, [facility] #[id number], 165, cm, :15:00 EDT, Height, 82.9, kg, 09/30/19 16:29:00 ED... Start Date: 10/27/19 Status: Ordered SEROquel 25 mg oral tablet 25 mg, 1, tablet, By Mouth, Daily at bedtime, DO NOT TAKE TRAZODONE, # 30 tablet, Refills 0, Tot. Refills 0, Maintenance, 10/28/19 15:46:00 EDT, Route to Pharmacy Electronically, [facility][id number], 165, cm, 10/27/19 9:31:00 EDT, Height, 82.9... [...]
--- OUTSIDE RECORDS SUMMARY | 2023-02-28 10:46 | XMS_ITS | Continuity of Care Document ---
Author Name Unknown Organization [facility] Address [address] [address]- Care Team Providers Care House Carpenter Name Role Phone Maddy PERALTA, Daniella Primary Care Physician En[place] [facility] [place] Date(s): 04/19/20 - 05/19/20 [facility] [address] [address]- Attending Physician: Jocelynn Liang Admitting Physician: Jocelynn [...] EST, 04/28/20 15:16:00 EST, [facility] #[id number], Partial fill upon patient requestif the prescription [...]
--- OUTSIDE RECORDS SUMMARY | 2023-02-28 10:46 | XMS_ITS | Continuity of Care Document ---
Author Name Unknown Organization [facility] Address [address] [place] [address]- Care Team Providers Care Furnace Stock Inspector Name Role Phone Maddy PERALTA, Daniella Primary Care Physician En[place] [facility] [place](s): 04/28/20 - 05/28/20 [facility] [address] [place] [address]- Allergies, Adverse Reactions, Alerts Substance Reaction Severity [...]
--- OUTSIDE RECORDS SUMMARY | 2023-02-28 10:46 | XMS_ITS | Continuity of Care Document ---
Author Name Unknown Organization [facility] Address [address] [address]- Care Team Providers Care Donor Services Manager Name Role Phone Maddy PERALTA, Daniella Primary Care Physician Encounter [facility] [place] Date(s): 04/19/20 - 05/19/20 [facility] [address] [id number] Allergies, Adverse Reactions, Alerts Substance Reaction Severity [...] Refills, Acute 05/26/2114:16:00 EST, 04/28/20 15:16:00 EST, [facility] #[id number], Partial fill upon patient requestif the prescription [...]
--- OUTSIDE RECORDS SUMMARY | 2023-02-28 10:46 | XMS_ITS | Continuity of Care Document ---
Author Name Unknown Organization [facility] Address [address] [place] [address] [address], [address] [place] [address]- Care Team Providers Care Hose Tester Name Role Phone Maddy PERALTA, Daniella Primary [id number]20[facility] - 12/27/19 [facility] [address] [place] [address] Drive, [address] [place] [address]- [facility] Attending Physician: Alka Cyr MD Allergies, Adverse [...] 11/24/19 15:28:00 EDT, Route to Pharmacy Electronically, [facility] #[id number], 975, cm, 11/16/19 9:48:00EDT, Height, 82.9, kg, 09/30/19 16:29:00 EDT, Dry W... Start Date: 11/24/19 Status: Ordered cloNIDine 0.1 mg oral tablet 0.1 mg, 1, tablet, By Mouth, Daily, # 60 tablet, Refills 0, Tot. Refills 0, Maintenance, 10/27/19 9:20:00 EDT, Route to Pharmacy Electronically, [facility] #[id number], 165, cm, 10/27/19 4:15:00EDT, Height, 82.9, kg, 09/30/19 16:29:00 EDT, Dry W... Start Date: 10/27/19 Status: Ordered furosemide 80 mg oral tablet 1, tablet, By Mouth, Daily, # 90 tablet, Refills 0, Tot. Refills 0, Maintenance, 11/11/19 16:29:00 EDT, Route to Pharmacy Electronically, [facility] #[id number], 165, cm, 11/08/19 8:55:00 EDT, Height, 82.9, [...] 10/27/19 9:24:00 EDT, Route to Pharmacy Electronically, [facility] #[id number], 165, cm, 204:15:00 EDT, Height, 82.9, kg, 09/30/19 16:29:00 ED... Start Date: 10/27/19 Status: Ordered SEROquel 25 mg oral tablet 25 mg, 1, tablet, By Mouth, Daily at bedtime, DO NOT TAKE TRAZODONE, # 30 tablet, Refills 0, Tot. Refills 0, Maintenance, 10/28/19 15:46:00 EDT, Route to Pharmacy Electronically, [facility]#[id number], 165, cm, 10/27/19 9:31:00 EDT, Height, 82.9... [...]
--- OUTSIDE RECORDS SUMMARY | 2023-02-28 10:46 | XMS_ITS | Continuity of Care Document ---
Author Name Unknown Organization [facility] Address [address] [address]- Care Team Providers Care Playground Supervisor Name Role Phone Maddy PERALTA, Daniella Primary Care Physician Encounter [facility] [place] [facility] [id number] Date(s): 04/11/20 - 05/19/20 [facility] [address] [address]- Attending Physician: Angela Barreto MD Admitting Physician: Angela Barreto MD Referring Physician: Angela Barreto MD Allergies, Adverse Reactions, Alerts Substance Reaction [...] Refills, Acute 05/26/2114:16:00 EST, 04/28/20 15:16:00 EST, [facility] #[id number], Partial fill upon patient requestif the prescription [...]
--- OUTSIDE RECORDS SUMMARY | 2023-02-28 10:46 | XMS_ITS | Continuity of Care Document ---
Author Name Unknown Organization [facility] Address [address] [place] [address] [address], [address] [place] [address]- Care Team Providers Care Location Manager Name Role Phone Maddy PERALTA, Daniella Primary Care Physician Encounter [facility] [place] Date(s): 03/27/20 - 04/26/20 [facility] [address] [place] [address] Drive, [address] [place] [address]- Allergies, Adverse Reactions, Alerts Substance Reaction Severity [...]
--- OUTSIDE RECORDS SUMMARY | 2023-02-28 10:46 | XMS_ITS | Continuity of Care Document ---
Author Name Unknown Organization [facility] Address [address] [place] [address]- Care Team Providers Care Deliverer Merchandise Name Role Phone Maddy PERALTA, Daniella Primary Care Physician [phone] Encounter [facility] [place] Date(s): 04/17/20 - 05/17/20 [facility] [address] [place], [place] [address] Attending Physician: Jocelynn Liang Admitting Physician: [...] Refills, Acute 05/26/2114:16:00 EST, 04/28/20 15:16:00 EST, [facility][id number], Partial fill upon patient requestif the prescription [...]
--- OUTSIDE RECORDS SUMMARY | 2023-02-28 10:47 | XMS_ITS | Continuity of Care Document ---
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 Start Date: 03/28/20 Status: Ordered cloNIDine 0.1 mg oral tablet 0.1 mg, By Mouth, 4 times a day, Refills 0, Maintenance, 09/17/22 12:08:00 EDT, Partial fill upon patient request if the prescription is for a schedule II opioid drug. Start Date: 09/17/22 Status: Ordered diphenhydrAMINE 25 mg oral tablet = 50 mg, By Mouth, Every 4 hours, PRN Nausea & Vomiting, + restlessness, 0 Refills, Maintenance, 09/17/22 9:36:00 EDT, Tablet, Partial fill upon patient request if the prescription is for a schedule II opioid drug. Start Date: 09/17/22 Status: Ordered ertapenem 1 gm injectable powder for injection = 1 Gm, IVPB, Every 24 hours, 0 Refills, Maintenance, 09/17/22 9:35:00 EDT, Injection, Partial fillupon patient request if the prescription is for a schedule II opioid drug. Start Date: 09/17/22 Status: Ordered melatonin 3 mg oral tablet = 3 mg, By Mouth, Daily at bedtime, PRN Insomnia, 0 Refills, Maintenance, 09/17/22 9:36:00 EDT, Tablet, Partial fill upon patient request if the prescription is for a schedule II opioid drug. Start Date: 09/17/22 Status: Ordered methadone 10 mg/5 mL oral solution 10 mL = 20 mg, By Mouth, 2 times a day, 0 Refills, Maintenance, 09/17/22 12:08:00 EDT, Solution, Partial fill upon patient request if the prescription is for a schedule II opioid drug. Start Date: 09/17/22 Status: Ordered Methadone Liquid 20 mg, Solution, By Mouth, Hold for: RR< 10, oversedation, 09/17/22 9:00:00 EDT Start Date: 09/17/22 Stop Date: 09/17/22 Status: Completed Multivit Therapeutic/Minerals Tablet 1 tablet, By Mouth, Daily, 0 Refills, Maintenance, 03/28/20 14:41:00 EST, Tablet, Partial fill uponpatient request if the prescription is for a schedule II opioid drug. Start Date: 03/28/20 Status: Ordered OXacillin 2 Gm IVPB 2 Gm, IVPB, Every 4 hours, Maintenance, 09/17/22 9:35:00 EDT Start Date: 09/17/22 Status: Ordered potassium chloride 10 mEq oral tablet, extended release = 40 mEq, By Mouth, Daily, 0 Refills, Maintenance, 09/17/22 9:35:00 EDT, ER Tablet, Partial fill upon patient request if the prescription is for a schedule II opioid drug. Start Date: 09/17/22 Status: Ordered rifabutin 150 mg oral capsule = 300 mg, By Mouth, Daily, 0 Refills, Maintenance, 09/17/22 9:35:00 EDT, Capsule, Partial fill uponpatient request if the prescription is for a schedule II opioid drug. Start Date: 09/17/22 Status: Ordered thiamine 100 mg oral tablet 100 mg, By Mouth, Daily, Refills 0, Maintenance, 09/17/22 9:35:00 EDT, Partial fill upon patient request if the prescription is for a schedule II opioid drug. Start Date: 09/17/22 Status: Ordered Tylenol 325 mg oral tablet 650 mg, Tablet, By Mouth, Every 4 hours, PRN for Temperature, Routine, 09/03/22 4:18:00 EDT Start Date: 09/03/22 Stop Date: 10/03/22 Status: Ordered venlafaxine 37.5 mg oral capsule, extended release 37.5 mg, By Mouth, Daily, Refills 0, Maintenance, 09/17/22 9:36:00 EDT, Partial fill upon patient request if the prescription is for a schedule II opioid drug. Start Date: 09/17/22 Status: Ordered Problem List Condition Confirmation Course [...] abuse Confirmed Active Pulmonary embolism Confirmed Active Results Orders for Microbiology Reports Name Date Anaerobic Culture (ANAEROBIC CULTURE) Tissue Culture w/ Gram Smear (TISSUE/BIO PSY CULT.) 09/10/22 Blood Culture 09/07/22 Blood Culture #2 09/07/22 Blood Culture 09/04/22 Blood Culture #2 09/04/22 Blood Culture 09/01/22 Blood Culture #2 09/01/22 Blood Culture #2 (BLOOD CULTURE 2) Blood Culture 08/28/22 Microbiology Reports (Most Recent Ten) TEST:Anaerobic Culture STATUS:Auth (Verified) BODY SITE: SOURCE:TISSUE1 COLLECTED DATE/TIME:09/10/22 3:56 PM Anaerobic Culture SPECIMEN DESCRIPTION : TISSUE TRICUSPID VALVE SPECIAL REQUESTS : NONE CULTURE : NO ANAEROBES ISOLATED REPORT STATUS : FINAL 09/15/2022 TEST:Tissue/Biopsy Culture STATUS:Auth (Verified) BODY SITE: SOURCE:TISSUE1 COLLECTED DATE/TIME:09/10/22 3:56 PM Tissue/Biopsy Culture SPECIMEN DESCRIPTION : TISSUE TRICUSPID VALVE SPECIAL REQUESTS : NONE GRAM STAIN : 3+ POLYMORPHONUCLEAR LEUKOCYTES 3+ GRAM POSITIVE COCCI CRITICAL VALUE CALLED AND VERIFIED BY READBACK FOR: GRAM STAIN TO [id number] FROM AT 2225 ON 09/10/22 BY TECH [id number] CULTURE : NO GROWTH 2 DAYS REPORT STATUS : FINAL 09/13/2022 TEST:Blood Culture STATUS:Auth (Verified) BODY SITE: SOURCE:Blood COLLECTED DATE/TIME:09/07/22 1:32 AM Blood Culture SPECIMEN DESCRIPTION : BLOOD RIGHT SPECIAL REQUESTS : NONE CULTURE : NO GROWTH 5 DAYS. REPORT STATUS : FINAL 09/12/2022 TEST:Blood Culture, Second Order STATUS:Auth (Verified) BODY SITE: SOURCE:Blood COLLECTED DATE/TIME:09/07/22 1:32 AM Blood Culture, Second Order SPECIMEN DESCRIPTION : BLOOD LEFT SPECIAL REQUESTS : NONE CULTURE : NO GROWTH 5 DAYS. REPORT STATUS : FINAL 09/12/2022 TEST:Blood Culture, Second Order STATUS:Auth (Verified) BODY SITE: SOURCE:Blood COLLECTED DATE/TIME:09/04/22 11:11 AM Blood Culture, Second Order SPECIMEN DESCRIPTION : BLOOD L SPECIAL REQUESTS : CRITICAL VALUE CALLED AND VERIFIED BY READBACK FOR: GRAM POSITIVE COCCI CALLED TO [id number] BY TECH [id number] CULTURE : STAPHYLOCOCCUS AUREUS. This isolate was identified using Maldi-TOF system These AST results were performed on the Vitek 2 ID and AST system REPORT STATUS : FINAL 09/08/2022 ORGANISM STAPHYLOCOCCUS AUREUS. This isolate was identified using Maldi-TOF system These AST results were performed on the Vitek 2 ID and AST system METHOD MIN. INHIB. CONC. (MCG/ML) CIPROFLOXACIN SUSCEPTIBLE CLINDAMYCIN SUSCEPTIBLE ERYTHROMYCIN RESISTANT INDUCIBLE CLINDAMYCI NEGATIVE LEVOFLOXACIN SUSCEPTIBLE OXACILLIN SUSCEPTIBLE RIFAMPIN SUSCEPTIBLE RIFAMPIN RIFAMPIN SHOULD NOT BE USED ALONE FOR ANTIMICROBIAL RIFAMPIN THERAPY. TETRACYCLINE RESISTANT TRIMETH/SULFAMETHOX SUSCEPTIBLE VANCOMYCIN SUSCEPTIBLE TEST:Blood Culture STATUS:Auth (Verified) BODY SITE: SOURCE:Blood COLLECTED DATE/TIME:09/04/22 9:26 AM Blood Culture SPECIMEN DESCRIPTION : BLOOD LAC SPECIAL REQUESTS : NONE CULTURE : NO GROWTH 5 DAYS. REPORT STATUS : FINAL 09/09/2022 TEST:Blood Culture, Second Order STATUS:Auth (Verified) BODY SITE: SOURCE:Blood COLLECTED DATE/TIME:09/01/22 10:57 PM Blood Culture, Second Order SPECIMEN DESCRIPTION : BLOOD R AC SPECIAL REQUESTS : NONE CULTURE : NO GROWTH 5 DAYS. REPORT STATUS : FINAL 09/07/2022 TEST:Blood Culture STATUS:Auth (Verified) BODY SITE: SOURCE:Blood COLLECTED DATE/TIME:09/01/22 2:43 PM Blood Culture SPECIMEN DESCRIPTION : BLOOD L HAND SPECIAL REQUESTS : CRITICAL VALUE CALLED AND VERIFIED BY READBACK FOR: POSITIVE BLOOD CULTURE W/GRAM POSITIVE COCCI TO MERE EMP ID [id number], M5, 09/03/22 AT 0713 BY TECH 701. CULTURE : STAPHYLOCOCCUS AUREUS. This isolate was identified using Maldi-TOF system These AST results were performed on the Vitek 2 ID and AST system REPORT STATUS : FINAL 09/05/2022 ORGANISM STAPHYLOCOCCUS AUREUS. This isolate was identified using Maldi-TOF system These AST results were performed on the Vitek 2 ID and AST system METHOD MIN. INHIB. CONC. (MCG/ML) CIPROFLOXACIN SUSCEPTIBLE CLINDAMYCIN SUSCEPTIBLE ERYTHROMYCIN RESISTANT INDUCIBLE CLINDAMYCI NEGATIVE LEVOFLOXACIN SUSCEPTIBLE OXACILLIN SUSCEPTIBLE RIFAMPIN SUSCEPTIBLE RIFAMPIN RIFAMPIN SHOULD NOT BE USED ALONE FOR ANTIMICROBIAL RIFAMPIN THERAPY. TETRACYCLINE RESISTANT TRIMETH/SULFAMETHOX SUSCEPTIBLE VANCOMYCIN SUSCEPTIBLE TEST:Blood Culture, Second Order STATUS:Auth (Verified) BODY SITE: SOURCE:Blood COLLECTED DATE/TIME:08/29/22 6:15 AM Blood Culture, Second Order SPECIMEN DESCRIPTION : BLOOD NOSITE SPECIAL REQUESTS : CRITICAL VALUE CALLED AND VERIFIED BY READBACK FOR: POS GPC BLDC TO [id number], M5, 1108, 08/30/22, TECH 906 CULTURE : STAPHYLOCOCCUS AUREUS. This isolate was identified using Maldi-TOF system These AST results were performed on the Vitek 2 ID and AST system REPORT STATUS : FINAL 09/01/2022 ORGANISM STAPHYLOCOCCUS AUREUS. This isolate was identified using Maldi-TOF system These AST results were performed on the Vitek 2 ID and AST system METHOD MIN. INHIB. CONC. (MCG/ML) CIPROFLOXACIN SUSCEPTIBLE CLINDAMYCIN SUSCEPTIBLE ERYTHROMYCIN RESISTANT INDUCIBLE CLINDAMYCI NEGATIVE LEVOFLOXACIN SUSCEPTIBLE OXACILLIN SUSCEPTIBLE RIFAMPIN SUSCEPTIBLE RIFAMPIN RIFAMPIN SHOULD NOT BE USED ALONE FOR ANTIMICROBIAL RIFAMPIN THERAPY. TETRACYCLINE RESISTANT TRIMETH/SULFAMETHOX SUSCEPTIBLE VANCOMYCIN SUSCEPTIBLE TEST:Blood Culture STATUS:Auth (Verified) BODY SITE: SOURCE:Blood COLLECTED DATE/TIME:08/28/22 10:05 PM Blood Culture SPECIMEN DESCRIPTION : BLOOD L HAND SPECIAL REQUESTS : CRITICAL VALUE CALLED AND VERIFIED BY READBACK FOR: GRAM POSITIVE COCCI TO [id number], M5, 08/29 AT 1643, BY 6859. CULTURE : STAPHYLOCOCCUS AUREUS. This isolate was identified using Maldi-TOF system These AST results were performed on the Vitek 2 ID and AST system REPORT STATUS : FINAL 08/31/2022 ORGANISM STAPHYLOCOCCUS AUREUS. This isolate was identified using Maldi-TOF system These AST results were performed on the Vitek 2 ID and AST system METHOD MIN. INHIB. CONC. (MCG/ML) CIPROFLOXACIN SUSCEPTIBLE CLINDAMYCIN SUSCEPTIBLE ERYTHROMYCIN RESISTANT INDUCIBLE CLINDAMYCI NEGATIVE LEVOFLOXACIN SUSCEPTIBLE OXACILLIN SUSCEPTIBLE RIFAMPIN SUSCEPTIBLE RIFAMPIN RIFAMPIN SHOULD NOT BE USED ALONE FOR ANTIMICROBIAL RIFAMPIN THERAPY. TETRACYCLINE RESISTANT TRIMETH/SULFAMETHOX SUSCEPTIBLE VANCOMYCIN SUSCEPTIBLE Radiology Reports * Exam Date Time Procedure Performing Provider Status 09/16/22 5:19 PM Chest Portable Nathaniel Mason ed Notes: (Chest Portable) Reason For Exam: Other: RESULT: Chest Portable Chest Portable Reason: Other:; Clinical Question(s): Other:; Special Instructions: post IJ line removal COMPARISON: 09/02/2022 at 6:33 AM. FINDINGS: LINES AND TUBES: Right upper extremity PICC tip and right atrium. External lead wires overlying the chest. LUNGS AND PLEURA: Low lung volumes with mild basilar atelectasis. Central vascular congestion accentuated by supine positioning unchanged. Small right effusion, unchanged. No pneumothorax. HEART, MEDIASTINUM AND LOULOU: Post median sternotomy. Heart is normal in size. Normal mediastinal and hilar contour. BONES AND SOFT TISSUES: No acute abnormality. IMPRESSION: Post median sternotomy. Right upper extremity PICC with tip extending into the right atrium. Low lung volumes with mild basilar atelectasis. Central vascular congestion accentuated by supine positioning unchanged. Small right effusion, unchanged WSN: [id number] Ordering Physician: Trevor Mccarthy Dictated By: Alcon Potter MD Dictated Date/Time: 09/16/22 5:17 pm Reviewed By: Alcon Potter MD Signed By: Alcon Potter MD Signed Date/Time: 09/16/22 5:17 pm Transcribed By: DANILO Transcribed Date/Time: 09/16/22 5:15 pm * Exam Date Time Procedure Performing Provider Status 09/13/22 2:44 PM IR PICC Insert Double Lumen Auth (Verified) Notes: (IR PICC Insert Double Lumen) Reason For Exam: details in IV team note: attempted by IV team twice w meds, pt too anxious and agitated and needs some sedation for procedure;Other: IR PICC Insert Double Lumen Patient: BEBA BARNES Study Date: 09/13/2022 Performing: Fly Villela MD Referring: : 1990 Age: 31 Gender: FEMALE Pre-procedure diagnosis and Indication: 31-year-old female with a medical history of IV drug abuse, on methadone therapy, endocarditis with bioprosthetic tricuspid valve replacement in 2019, recurrent endocarditis, factor V Leiden mutation on chronic anticoagulation for pulmonary embolism who presented as a transfer from [facility] emergency department where the patient presented with feeling overall unwell. Patient now found to have positive blood cultures for gram-positive cocci with likely recurrent endocarditis. Additionally likely having some opiate withdrawal. She is an active IV drug user and the patient's TTE is concerning for prosthetic valve endocarditis. Request DL PICC and request removal left TLC Exam: Prior to the procedure, the patient was seen and the nature of the procedure explained along with its attendant risks and benefits to the patient . Informed consent was obtained from, the patient . The patient underwent a pre-anesthesia assessment. On completion of this it was determined the patient is not appropriate for moderate sedation, mild anxiolysis only. The patient arrived in IR room 1 for a PICC insertion PROCEDURE: The patient was positioned supine and secured with arm boards. The access site was evaluated with ultrasound and images archived. The site was prepped with chloraprep and draped in the usual sterile fashion. . Local anesthetic was given and The vessel was identified using, ultrasound access was gained into the right upper extremity vein using needle and wire from the kit. The catheter was cut down to 44 cm and inserted .. The catheter was tested with good flow and return. No leaks were noted. The Catheter was flushed with heparin 10u/ml 5 ml's in each lumen The catheter was Secured with a statlock and . The sterile field was maintained throughout the procedure and patient tolerated the procedure well with no complications of the procedure Catheter used: Bard POWER PICC BARD DL 5F - Qty: 1 Each Part #: [id number] GTIN: [id number] Lot #: [id number] Exp Date: 2026-05-14 estimated blood loss was minimal Specimens/samples: no specimens or samples were sent for this [place] [address] Post procedure instructions sent in envelope with the patient Impression: Satisfactory ultrasound and fluoroscopically guided placement of a Right upper arm DL PICC Procedure was not well-tolerated. The patient was very upset from the procedure despite having a very clear explanation of the procedure and extensive injection of local anesthesia. As requested we then attempted to remove the left-sided triple-lumen catheter. I took down the dressings. At that stage the patient stated that she did not want me to remove the triple-lumen catheter. She withdrew consent for that part of the procedure therefore new dressings and a new Biopatch were applied and the patient returned to her room with the left triple-lumen catheter still sutured in position. Should catheter malfunction develop please contact this service directly rather than having a diagnostic study performed elsewhere. This is not necessary. Fluoroscopy time and dose No contrast was used for this procedure Local Anesthetic Lidocaine 1% w/ 4.2% sodium bicarbonate 6 ml's SQ Agent Dose Route Time By Versed 1 mg IV 15:12:55 CB Versed 1 mg IV 15:18:05 Signed By Fly Villela MD On 09/13/2022 15:43:08 Fly Villela MD Dictated By: Fly Villela MD Dictated Date/Time: 09/13/22 2:44 pm Reviewed By: Fly Villela MD Signed By: Fly Villela MD Signed Date/Time: 09/13/22 2:44 pm Transcribed By: SURYA Transcribed Date/Time: 09/13/22 2:44 pm * Exam Date Time Procedure Performing Provider Status 09/13/22 2:44 PM IR End of Case Report Aut h (Verified) IR End of Case Report * Exam Date Time Procedure Performing Provider Status 09/09/22 12:[address] Abdomen and Pelvi s W/O Contrast Nikky Shah; James (Verified) Notes: (CT Abdomen and Pelvis W/O Contrast) Reason For Exam: vague upper abdo pain;Pain RESULT: CT Abdomen and Pelvis W/O Contrast CT Chest W/O Contrast, CT Abdomen and Pelvis W/O Contrast INDICATION: MSSA bacteremia; Clinical Question(s): Interstitial Alveolar Infiltration TECHNIQUE: Helical CT scan of the chest, abdomen, and pelvis without IV contrast, formatted in 3 planes. This study was performed without oral contrast. Weight-based protocol was performed using automatic exposure control. CTDIvol Body: 11.70 mGy, DLP Body: 862 mGy*cm. COMPARISON: CT chest 05/18/2020, CT Chest Abd Pelvis 09/23/2019. FINDINGS: Typewriter Tester view findings, lines and tubes: Biventricular epicardial leads in place with the apparatus inthe left anterior chest wall. Fernandes catheter in place. Trachea and airways: Patent without evidence of tracheal or endobronchial lesion. Lungs and pleura: Small bilateral layering pleural effusions. Multifocal consolidations are presentbilaterally, predominantly in the lower lobes and lingula. Septal thickening noted in the upper lobes. Surgical clips in the left lower lobe. No pneumothorax. Mediastinum and loulou: Mildly enlarged paratracheal and subcarinal lymph nodes. No esophageal abnormality. Hyperdense material within the lumen of the distal esophagus likely ingested contents. Normalthyroid. Heart: Heart is normal in size. No pericardial effusion. No coronary arterial calcifications. Status post tricuspid valve replacement. Aorta: No aortic aneurysm. Pulmonary arteries: Dilated main pulmonary artery measuring up to 3.4 cm in caliber, which may be seen with pulmonary hypertension. Chest wall soft tissues: Diffuse subcutaneous edema. Diaphragm: Intact. Liver: Normal in attenuation and morphology. No suspicious lesion. Gallbladder: Absent consistent with prior cholecystectomy. Bile ducts: No biliary ductal dilation. Spleen: Mildly enlarged measuring 16.2 cm in craniocaudal diameter, similar to prior. Pancreas: No suspicious lesion or ductal dilatation. Adrenal glands: No nodule. Kidneys and ureters: No hydronephrosis, stone, or suspicious lesion. Bladder: Decompressed, with a Fernandes catheter in place. Intraluminal gas is most likely related to instrumentation. Diffuse wall thickening. Reproductive organs: Unremarkable. Stomach, small bowel, and large bowel: Hyperdense contents within the stomach, likely representing ingested medication, with mild reflux into the distal esophagus. Small fundal gastric diverticulum with contrast pooling. The small and large bowel are normal in caliber without evidence of obstruction. Appendix: No evidence of acute appendicitis. Peritoneum and retroperitoneum: Small volume pelvic ascites. No pneumoperitoneum. No omental or mesenteric lesions. Lymph nodes: No enlarged lymph nodes. Blood vessels: No vascular calcifications or aneurysm. Abdominal and pelvic wall soft tissues: Diffuse subcutaneous edema. Bones: No acute abnormality. Median sternotomy. IMPRESSION: Multifocal consolidations in the lungs, consistent with multifocal pneumonia. Small bilateral pleural effusions. Mild nonspecific thickening of the bladder wall, which may be artifactually accentuated by non-distended state but cannot exclude cystitis. Correlate clinically for urinary tract infection. Small volume ascites. Anasarca. I have personally reviewed the images and I agree with this report. WSN: [id number] Ordering Physician: Hoa Gilliland Dictated By: Jerrell Bernal MD Dictated Date/Time: 09/09/22 2:27 pm Reviewed By: Alcon Mariee MD Signed By: Alcon Mariee MD Signed Date/Time: 09/09/22 2:32 pm Transcribed By: DANILO Transcribed Date/Time: 09/09/22 1:42 pm * Exam Date Time Procedure Performing Provider Status 09/09/22 12:[address] Chest W/O Contrast Nikky Shah (Verified) Notes: (CT Chest W/O Contrast) Reason For Exam: Infection RESULT: CT Chest W/O Contrast CT Chest W/O Contrast, CT Abdomen and Pelvis W/O Contrast INDICATION: MSSA bacteremia; Clinical Question(s): Interstitial Alveolar Infiltration TECHNIQUE: Helical CT scan of the chest, abdomen, and pelvis without IV contrast, formatted in 3 planes. This study was performed without oral contrast. Weight-based protocol was performed using automatic exposure control. CTDIvol Body: 11.70 mGy, DLP Body: 862 mGy*cm. COMPARISON: CT chest 05/18/2020, CT Chest Abd Pelvis 09/23/2019. FINDINGS: Typewriter Tester view findings, lines and tubes: Biventricular epicardial leads in place with the apparatus inthe left anterior chest wall. Fernandes catheter in place. Trachea and airways: Patent without evidence of tracheal or endobronchial lesion. Lungs and pleura: Small bilateral layering pleural effusions. Multifocal consolidations are presentbilaterally, predominantly in the lower lobes and lingula. Septal thickening noted in the upper lobes. Surgical clips in the left lower lobe. No pneumothorax. Mediastinum and loulou: Mildly enlarged paratracheal and subcarinal lymph nodes. No esophageal abnormality. Hyperdense material within the lumen of the distal esophagus likely ingested contents. Normalthyroid. Heart: Heart is normal in size. No pericardial effusion. No coronary arterial calcifications. Status post tricuspid valve replacement. Aorta: No aortic aneurysm. Pulmonary arteries: Dilated main pulmonary artery measuring up to 3.4 cm in caliber, which may be seen with pulmonary hypertension. Chest wall soft tissues: Diffuse subcutaneous edema. Diaphragm: Intact. Liver: Normal in attenuation and morphology. No suspicious lesion. Gallbladder: Absent consistent with prior cholecystectomy. Bile ducts: No biliary ductal dilation. Spleen: Mildly enlarged measuring 16.2 cm in craniocaudal diameter, similar to prior. Pancreas: No suspicious lesion or ductal dilatation. Adrenal glands: No nodule. Kidneys and ureters: No hydronephrosis, stone, or suspicious lesion. Bladder: Decompressed, with a Fernandes catheter in place. Intraluminal gas is most likely related to instrumentation. Diffuse wall thickening. Reproductive organs: Unremarkable. Stomach, small bowel, and large bowel: Hyperdense contents within the stomach, likely representing ingested medication, with mild reflux into the distal esophagus. Small fundal gastric diverticulum with contrast pooling. The small and large bowel are normal in caliber without evidence of obstruction. Appendix: No evidence of acute appendicitis. Peritoneum and retroperitoneum: Small volume pelvic ascites. No pneumoperitoneum. No omental or mesenteric lesions. Lymph nodes: No enlarged lymph nodes. Blood vessels: No vascular calcifications or aneurysm. Abdominal and pelvic wall soft tissues: Diffuse subcutaneous edema. Bones: No acute abnormality. Median sternotomy. IMPRESSION: Multifocal consolidations in the lungs, consistent with multifocal pneumonia. Small bilateral pleural effusions. Mild nonspecific thickening of the bladder wall, which may be artifactually accentuated by non-distended state but cannot exclude cystitis. Correlate clinically for urinary tract infection. Small volume ascites. Anasarca. I have personally reviewed the images and I agree with this report. WSN: [id number] Ordering Physician: Hoa Gilliland Dictated By: Jerrell Bernal MD Dictated Date/Time: 09/09/22 2:27 pm Reviewed By: Alcon Mariee MD Signed By: Alcon Mariee MD Signed Date/Time: 09/09/22 2:32 pm Transcribed By: DANILO Transcribed Date/Time: 09/09/22 1:42 pm * Exam Date Time Procedure Performing Provider Status 09/02/22 6:44 AM Chest Portable Neha Enrique (Yusef ified) Notes: (Chest Portable) Reason For Exam: Shortness of Breath RESULT: Chest Portable AP upright portable chest dated September 02, 2022 at 0633 hours. Comparison films are from September 01 and August 30, 2022. HISTORY: Shortness of breath. FINDINGS: The cardiac silhouette is increased in size and unchanged. Patient is status post median sternotomy and valvular replacement. There are leads from a previous cardiac pacemaker on the left. Bilateral opacification is noted. Some of this is pleural. Some of this is interstitial and some of this is airspace. It is much more prominent on the left than the right. Visualized osseous structures are unremarkable. IMPRESSION: Interval worsening of aeration bilaterally. Findings are consistent with a combination of atelectasis or pneumonia and associated pleural effusion left worse than right. Examination [id number]. Thank you for allowing me to participate in the care of this patient. WSN: [id number] Ordering Physician: Ade Rivera Dictated By: Garry Saldana MD Dictated Date/Time: 09/02/22 10:34 a Reviewed By: Garry Saldana MD Signed By: Garry Saldana MD Signed Date/Time: 09/02/22 10:34 am Transcribed By: DANILO Transcribed Date/Time: 09/02/22 10:34 am * Exam Date Time Procedure Performing Provider Status 09/01/22 12:36 AM Chest Portable Talia Vaughan; James (Verified) Notes: (Chest Portable) Reason For Exam: work of breathing;Other: RESULT: Chest Portable Chest Portable Reason: Other:; work of breathing; Clinical Question(s): Pulmonary Edema COMPARISON: 08/30/2022. FINDINGS: LINES AND TUBES: None. LUNGS AND PLEURA: There is improved air aeration. There are extensive persistent bilateral airspace lung opacities. There is blunting of the costophrenic angles compatible with pleural effusions which is less prominent on the right compared to the prior exam. There is no evidence of a pneumothorax. HEART, MEDIASTINUM AND LOULOU: Stable prominence of the cardiomediastinal silhouette. BONES AND SOFT TISSUES: No acute abnormality. IMPRESSION: 1. There is improved air aeration. There are extensive persistent bilateral airspace lung opacities. 2. There is blunting of the costophrenic angles compatible with pleural effusions which is less prominent on the right compared to the prior exam. WSN: [id number] Ordering Physician: Codie Pressley Dictated By: Coni Puga MD Dictated Date/Time: 09/01/22 4:25 am Reviewed By: Coni Puga MD Signed By: Coni Puga MD Signed Date/Time: 09/01/22 4:25 am Transcribed By: DANILO Transcribed Date/Time: 09/01/22 4:23 am * Exam Date Time Procedure Performing Provider Status 08/30/22 11:42 PM Chest Portable Starla Gonzalez (Verified) Notes: (Chest Portable) Reason For Exam: Shortness of Breath RESULT: Chest Portable Chest Portable Reason: Shortness of Breath; Clinical Question(s): Pulmonary Edema COMPARISON: X-ray 08/28/2022. FINDINGS: LINES AND TUBES: Electrodes overlying the heart unchanged. LUNGS AND PLEURA: Diffuse interstitial opacity in both lungs compatible with pulmonary edema with bilateral pleural effusions, right larger than left. No pneumothorax. HEART, MEDIASTINUM AND LOULOU: Status post median sternotomy. Mild prominence of the cardiac silhouette, unchanged. Normal mediastinal and hilar contour. BONES AND SOFT TISSUES: No acute abnormality. IMPRESSION: Cardiac enlargement with pulmonary edema and bilateral effusions compatible with CHF. WSN: [id number] Ordering Physician: Mely Aguillon Dictated By: Alcon Potter MD Dictated Date/Time: 08/30/22 11:49 p Reviewed By: Alcon Potter MD Signed By: Alcon Potter MD Signed Date/Time: 08/30/22 11:49 pm Transcribed By: DANILO Transcribed Date/Time: 08/30/22 11:45 pm * Exam Date Time Procedure Performing Provider Status 08/28/22 6:51 AM Chest Portable Roxane Mckinney; Auth (Ve rified) Notes: (Chest Portable) Reason For Exam: fever, increased WOB, hypoxia;Other: RESULT: Chest Portable Chest Portable Reason: Other:; fever, increased WOB, hypoxia; Clinical Question(s): Pneumonia COMPARISON: 08/26/2022 FINDINGS: LINES AND TUBES: Unchanged right jugular central line. LUNGS AND PLEURA: Partial opacification right lung base behind the liver. No edema. No significant effusion. No pneumothorax. HEART, MEDIASTINUM AND LOULOU: Heart is normal in size. Normal mediastinal and hilar contour. BONES AND SOFT TISSUES: No acute abnormality. IMPRESSION: Partial opacification right lung base consistent with atelectasis or pneumonia. WSN: [id number] Ordering Physician: Codie Pressley Dictated By: Josias Buchanan MD Dictated Date/Time: 08/28/22 8:26 am Reviewed By: Josias Buchanan MD Signed By: Josias Buchanan MD Signed Date/Time: 08/28/22 8:26 am Transcribed By: DANILO Transcribed Date/Time: 08/28/22 8:22 am Vital Signs Most recent to oldest [Reference Range]: 1 2 3 Height 165.1 cm (09/17/22 1:43 PM) 165.1 cm (09/17/22 7:42 AM) 165.1 cm (09/17/22 1:47 AM) Weight 79.8 kg (09/16/22 6:00 AM) 83.3 kg (09/14/22 6:58 AM) 84.3 kg (09/13/22 6:09 AM) Oxygen Saturation [94-100 %] 91 % *L* (09/17/22 1:43 PM) 93 % *L* (09/17/22 7:42 AM) 95 % (09/17/22 1:47 AM) Pulse Rate [55-90 bpm] 77 bpm (09/17/22 1:43 PM) 83 bpm (09/17/22 7:42 AM) 92 bpm *H* (09/17/22 1:47 AM) Body Mass Index [18.5-24.99 kg/m2] 27.04 kg/m2 *H* (09/10/22 1:07 PM) 27.04 kg/m2 *H* (08/26/22 12:42 PM) Blood Pressure [90-138/55-84 mm Hg] 97/61mm Hg (09/17/22 1:43 PM) 95/57mm Hg (09/17/22 7:42 AM) 100/54mm Hg (09/17/22 1:47 AM) Respiratory Rate [16-30 br/min] 18 br/min (09/17/22 1:43 PM) 16 br/min (09/17/22 9:06 AM) 16 br/min (09/17/22 9:06 AM) Temperature [96.8-100.4 DegF] 98.1 DegF (09/17/22 1:43 PM) 98.0 DegF (09/17/22 7:42 AM) 98.2 DegF (09/17/22 1:47 AM) Liters per Minute 5 L/min (09/17/22 7:42 AM) 5 L/min (09/17/22 1:47 AM) 5 L/min (09/16/22 7:18 PM) Mode of Delivery (Oxygen) Room air (09/17/22 1:43 PM) Nasal cannula (09/17/22 7:42 AM) Nasal cannula (09/17/22 1:47 AM) Blood pressure sites Arm, left (09/17/22 1:43 PM) Arm, left (09/17/22 7:42 AM) Arm, left (09/17/22 1:47 AM) Temperature Route Temporal (09/17/22 1:43 PM) Temporal (09/17/22 7:42 AM) Temporal (09/17/22 1:47 AM) Dry Weight 73.7 kg (09/10/22 1:07 PM) 73.7 kg (08/26/22 12:42 PM) Weight Obtained Via Bed scale (09/16/22 6:00 AM) Bed scale (09/14/22 6:58 AM) Bed scale (09/13/22 6:09 AM) Dry Weight Obtained Via Bed scale (08/26/22 12:42 PM) Social History Social History Type Response Smoking Status 10 or more cigarette s (1/2 pack or more)/day in last 30 days entered on: 07/12/18 Sex History and physical note * Event Display: History and Physical Hospital Authored Date: * Event Display: History and Physical Hospital Authored Date: Admission evaluation note * Charisma Escalera MD: MODIFY Amari DO, Alexsander: MODIFY, PERFORM Amari DO, Alexsander: PERFORM, MODIFY Amari DO, Alexsander: MODIFY Event Display: Admission Note Authored Date: Patient: ??BEBA BARNES ? Age:??31 Years?Sex:??Female?:??1990?? Chief Complaint/Reason for Consultation Likely Endocarditis History of Present Illness The patient is a 31-year-old female with a past medical history of IV drug abuse, on methadone therapy, endocarditis with bioprosthetic tricuspid valve replacement in 2019, recurrent endocarditis, factor V Leiden mutation on chronic anticoagulation for pulmonary embolism who presented as a transferfrom [facility] emergency department where the patient presented with feeling overall unwell. ED history was very limited due to patient not answering questions for them at that time.?? On my exam the patient tells me that she stopped using her methadone at least 4 days ago, last used heroin by snorting it 4 days ago and has last used IV heroin 4 to 6 months ago.?? Patient was unsure of these dates however.?? In the [place] ED a central line was placed due to poor IV access.?? The patient tells me that she has been having significant amounts of vomiting and diarrhea. Labs notable for a lactate of 4.9, BUN/creatinine of 95 and 1.7, anion gap of 19, H&H of 17.2 and 48.8 with a platelet count of 12.?? Sodium of 124.?? White count of 34.3. Repeat labs here show a white count of 39.3, platelet count of 17, sodium 132, anion gap now 15 with a bicarb of 17, creatinine of 1.6, lactate 3.2, total bili of 2.4. Last echocardiogram was completed in June 2021 which showed bioprosthetic valve in tricuspid position, moderate central regurgitation, mean gradient of 4 mmHg at a heart rate of 77, LV size normal, LV systolic function normal, EF 55 to 60%. Chest x-ray 08/26/2022 shows no evidence of acute abnormality. Blood cultures were taken at the [place] ED and are pending.?? Noted to already be positive for gram-positive cocci. ??At bedside patient tells me that she is having some back pain.?? She is extremely thirsty.?? She denies chest pain and shortness of breath.?? She denies lightheadedness and dizziness??although she was having this earlier. ?? In the emergency department patient was given 2000 mg of cefepime at 8:19 AM, 3.375 g of Zosyn at 5:27 AM and 1250 mg of vancomycin at 7 AM.?? Patient was treated with ketamine, lorazepam and 4 L of fluids. Blood cultures are pending 2 of them obtained 08/26/2022 at 5:02 AM. Review of Systems Please refer to those mentioned in HPI, all other systems reviewed and are negative Objective Measurements?? Height: 165.1 cm (08/26/22) Weight: 73.7 kg (08/26/22) Dry Weight: 73.7 kg (08/26/22) Body Mass Index:??27.04 kg/m2??High (08/26/22) ?? Vital Signs?? Temperature: 97.9 DegF (08/26/22 16:00:00) Temperature Route: Oral (08/26/22 16:00:00) Pulse Rate:??114 bpm??High (08/26/22 16:00:00) Respiratory Rate:??51 br/min??High (08/26/22 12:42:00) Systolic Blood Pressure: 105 mm Hg (08/26/22 16:00:00) Diastolic Blood Pressure: 67 mm Hg (08/26/22 16:00:00) Blood pressure sites: Arm, right (08/26/22 16:00:00) Mean Arterial Pressure: 77 mm Hg (08/26/22 12:42:00) Pulse Pressure: 38 mm Hg (08/26/22 16:00:00) Oxygen Saturation:??93 %??Low (08/26/22 16:00:00) Mode of Delivery (Oxygen): Room air (08/26/22 16:00:00) Early Warning Score:??19??Critical (08/26/22 16:30:09) ?? Physical Exam General:??Patient in no acute distress?? HEENT:??normocephalic, atraumatic. No lymphadenopathy or thyromegaly appreciated. Respiratory:??Adequate respiratory rate and effort on room air. CVS:??tachycardic. + JVD likely from TR.?? Abdomen:??soft, non tender, non distended, no organomegaly. Extremities:??no cyanosis, pulses present and equal bilaterally. No edema noted b/l.??Multiple skinexcoriations, some findings concerning for dermatological manifestations of endocarditis Neuro:??alert and oriented x3. Moving all extremities spontaneously.?? Derm:??No signs of infection, surrounding skin is intact with no evidence of erythema, no purulent discharge, no tenderness Psych:??Normal mood and normal affect Assessment/Plan The patient is a 31-year-old female with a past medical history of IV drug abuse, on methadone therapy, endocarditis with bioprosthetic tricuspid valve replacement in 2019, recurrent endocarditis, factor V Leiden mutation on chronic anticoagulation for pulmonary embolism who presented as a transferfrom [facility] emergency department where the patient presented with feeling overall unwell.??Patient now found to have positive blood cultures for gram-positive cocci??with likely recurrent endocarditis.?? Additionally likely having some opiate withdrawal. ?? Presumed endocarditis with gram-positive bacteremia History of endocarditis with??tricuspid valve bioprosthetic??valve replacement IV drug use??on methadone therapy Opiate withdrawal Patient presents with??severe??sepsis with elevated lactate,??dehydration, significantly elevated white count, tachypnea and tachycardia.?? Patient with gram-positive bacteremia likely with recurrentendocarditis. Plan: ?We will continue broad-spectrum coverage with Zosyn and vancomycin ?Repeat echocardiogram ?We will repeat??blood cultures tomorrow 08/27/2022 ?We will continue fluid resuscitation with 2 more liters of LR ?Infectious disease consult ?Addiction consult to help with withdrawal symptoms, will??use adjunct medications including lorazepam, loperamide, diphenhydramine ?Patient reports having not taken her methadone in at least 4 days, was unable to confirm dose today,??can start her on methadone 30 mg daily??and wait for addiction consult recommendations ??? If needed will use??oxycodone??as adjunct ?Depending on echocardiogram reading, will consider??CT surgery consult, however??with recurrence of??drug use??in the setting of already having a tricuspid valve replacement, patient may not be a candidate for repeat surgery ?? Factor V Leiden??mutation with??history of PE ??? Patient has not been taking her Eliquis at home,??I will hold??for right now given her severe??thrombocytopenia??likely due to her severe infection ??? When platelet count??improves would plan to reinitiate Eliquis ?? Patient case and plan discussed with Dr. Jw Fitzpatrick, DO ?? The patient seen and examined on this date. The case reviewed in detail with admitting resident on this date. I reviewed and agree as above. Dvt, high risk. Charisma Escalera MD Histories Allergies Allergies ?(Active and Proposed Allergies Only) NKA? (Severity: Unknown severity, Onset: Unknown) ?? Past Medical History/Problem List Active Problems??(13) ARF - Acute renal failure Cholecystitis Depression Empyema Factor 5 Leiden mutation Hepatitis C antibody test positive History of opioid abuse, currently on methadone History of tubo-ovarian abscess Infective endocarditis of tricuspid valve Opioid abuse Pulmonary embolism Sacroiliitis Tricuspid valve replaced ?? Past Surgical History Laparoscopic cholecystectomy ?? Social History Alcohol Details:??Use: Current. ??Frequency: 1-2 times per month. Employment/School Details:??Status: Disabled. Exercise Details:??Self assessment: Fair condition. ??Regular exercise: Yes. Home/Environment Details:??Living situation: Home/Independent. Nutrition/Health Details:??Diet: Regular. Substance Abuse Details:??Use: Past. Tobacco Details:??Use: 10 or more cigarettes (1/2 pack or more)/day in last 30 days. Electronic Cigarette/Vaping Details:??Electronic Cigarette Use: Never. ?? Family History No family history recorded. ?? Travel History Travel Outside [facility]: No Medications Home Medications apixaban?5?Milligram?By Mouth?2 times a day Citalopram (CeleXA 20 mg oral tablet)?20?Milligram?1?tablet?By Mouth?Daily Gabapentin (gabapentin 100 mg oral capsule)?100?Milligram?1?capsule?By Mouth?3 times a day Methadone (methadone 10 mg oral tablet)?80?Milligram?By Mouth?Daily in AM Multivitamin With Minerals (Multivit Therapeutic/Minerals Tablet)?1?tab(s)?By Mouth?Daily ?? Inpatient Medications Medications (15) Active SCHEDULED: (3) NaCl 0.9% Flush 3ml (NaCL 0.9% Flush) ??3 mL, IV Push, Every 8 hours Piperacillin/Tazobactam 3.375 Gm Inj (Zosyn Extended IVPB) ??3.375 Gm, IVPB, Every 8 hours Vancomycin 1 Gm / D5%W 200 mL (Vancomycin IVPB) ??1,000 mg 200 mL, IVPB, Every 36 hours CONTINUOUS: (2) Lactated Ringers (1000 mL) Cont IV 1,000 mL (LR Bolus 1,000 mL) ??1,000 mL, IV Infusion Lactated Ringers (1000 mL) Cont IV 1,000 mL (LR Bolus 1,000 mL) ??1,000 mL, IV Infusion PRN: (10) Acetaminophen 325 mg Tablet (Acetaminophen Tablet) ??650 mg, By Mouth, Every 4 hours Dextromethorphan-Guaifenesin 20 mg-200 mg/10 mL Liqu UD (Robitussin DM Liquid) ??10 mL, By Mouth, Every 4 hours diphenhydrAMINE 25 mg Tablet (diphenhydrAMINE 25 mg oral tablet) ??50 mg, By Mouth, Every 4 hours Loperamide 2 mg Capsule (loperamide 2 mg oral capsule) ??2 mg, By Mouth, Every 3 hours Lorazepam 2 mg Inj Syringe (Ativan Inj) ??1 mg, IV Push Slowly, Every hour Melatonin 3 mg Tablet (Melatonin Tablet) ??3 mg, By Mouth, Daily at bedtime NaCl 0.9% Flush 3ml (NaCL 0.9% Flush) ??3 mL, IV Push, Every 8 hours Polyethylene Glycol 17 Gm Powder (MiraLax Powder) ??17 Gm 1 pack/packet, By Mouth, Daily Senna 8.6 mg / Docusate 50 mg tablet (Docusate/Senna Tablet) ??1 tablet, By Mouth, 2 times a day Simethicone 80 mg Chewable Tablet (Simethicone Tablet) ??80 mg, Chew, 3 times a day Results ?Noted US Heart * Event Display: Echocardiogram - Complete Authored Date: [id number] Transthoracic Echocardiography Report (TTE) Patient Demographics Patient Name BEBA BARNES Date of Study 08/27/2022 Corporate Gender Female Facility Race Ethnicity Date of 1990 Height: 65 inches Age 31 year(s) Weight: 160.94 pounds Accession Number [id number] BSA: 1.8 m2 Room Number M511 BMI: 26.78 kg/m2 Referring Physician Amari Beltre DO Interpreting Physician Bennett Juarez MD Ccie Grover [place] Indications Endocarditis. Clinical History TV Replacement Study Data Type of Study TTE procedure:Echo Complete-Doppler, Colorflow, M-Mode. Study Date08/27/2022 Start Time: 07:50 AM Study Location: [facility] – [place] Adult Echo Study Status: Bedside Patient Status: Routine Technical Quality: Technically difficult due to patient supine. EKG: Within normal limits HR: 31 bpm Allergies - No known allergies. 2D Measurements LV Diastolic Dimension: 3.9 cm LV Systolic Dimension: 2.5 cm LV Septum Diastolic: 1.2 cm LV PW Diastolic: 1.2 cm AO Root Dimension: 2.9 cm LA Dimension: 2.8 cm LA ESV (BP):25.8 ml LVOT Stroke Volume: 34.85 ml LA ESV Index: 14 ml/m2 Stroke Volume Index19.36 ml/m2 LVOT: 2 cm Cardiac Index:0.6 l/min/m2 Ascending Aorta:3.1 cm Doppler Measurements AV Peak Velocity: 146 cm/s MV Peak E-Wave: 57.2 cm/s AV Peak Gradient: 8.53 mmHg MV Peak A-Wave: 73.4 cm/s AV Mean Gradient: 4 mmHg MV E/A Ratio: 0.78 AV VTI:16.8 cm MV P1/2t: 69 msec LVOT Peak Velocity: 92 cm/s LVOT VTI11.1 cm MV Deceleration Time: 236 msec AV Area (Continuity):2.07 cm2 MV Area (PHT): 3.19 cm2 TR Velocity:210 cm/s TR Gradient:17.64 mmHg E' Septal Velocity: 7.29 cm/s E' Lateral Velocity: 12.8 cm/s E/Med E':[id number] E/Lat E':4.43331 Cardiac Anatomy Left Ventricle/Interventricular Septum The left ventricular size is normal. The left ventricular wall thickness is mildly increased. The LV systolic function is normal . Left Atrium/Interatrial Septum The left atrium is normal in size. Suggestion of right to left atrial septal shift on somewhat off axis views. Aortic Valve The aortic valve leaflet opening is normal . There is no aortic stenosis. There is no significant aortic regurgitation. Mitral Valve The mitral valve is grossly normal. There is trace mitral regurgitation. Aorta The aortic root is normal in size. Right Ventricle The right ventricle is poorly visualized. Right ventricular systolic function appears preserved. Right Atrium The right atrium is dilated. Pulmonic Valve The pulmonic valve velocity is normal. There is trace pulmonic regurgitation. Tricuspid Valve A bioprosthesis is noted in the tricuspid position. Severely thickened tricuspid valve leaflets with probable overlying vegetations. Reduced excursion of the bioprosthetic valve leaflets with significant tricuspid stenosis. Mean gradient across the tricuspid valve of 12 mm Hg indicative of severe tricuspid stenosis. Regurgitation is difficult to assess; no obvious regurgitation noted. Pumonary Artery An accurate pulmonary artery pressure could not be obtained. Venous Structures The inferior vena cava appears dilated. Inferior vena cava inspiratory collapse is blunted . Pericardium/Extracardiac There is no significant pericardial effusion. Summary The left ventricular size is normal. The left ventricular wall thickness is mildly increased. The LV systolic function is normal . The right ventricle is poorly visualized. Right ventricular systolic function appears preserved. The right atrium is dilated. A bioprosthesis is noted in the tricuspid position. Severely thickened tricuspid valve leaflets with probable overlying vegetations. Reduced excursion of the bioprosthetic valve leaflets with significant tricuspid stenosis. Mean gradient across the tricuspid valve of 12 mm Hg indicative of severe tricuspid stenosis. Regurgitation is difficult to assess; no obvious regurgitation noted. An accurate pulmonary artery pressure could not be obtained. The inferior vena cava appears dilated. Inferior vena cava inspiratory collapse is blunted . Comparison Comparison is made to the study of July 03, 2021. Limited prior study making direct comparison difficult. Tricuspid bioprosthetic valve leaflets are significantly more thickened with probable overlying vegetations and tricuspid stenosis as detailed above. Signature * Event Display: Echocardiogram - Complete Authored Date: [id number] Heart Transesophageal * Event Display: Trans-esophageal Echocardiogram Authored Date: [id number] Transesophageal Echocardiography Report (RADHA) Patient Demographics Patient Name BEBA BARNES Date of Study 09/05/2022 Corporate Gender Female Facility Race Ethnicity Date of 1990 Height: 65 inches Age 31 year(s) Weight: 160.94 pounds Accession Number [id number] BSA: 1.8 m2 Room Number M511 BMI: 26.78 kg/m2 Referring Physician Not on Staff Interpreting Jesus Carlson MD Referring MD Physician Toan Cadena DO Ccie Madison Walker [facility] Indications Endocarditis. Study Data Type of Study RADHA procedure:RADHA with Doppler and Colorflow, 3D Rendering without post processing. Procedure Information:The procedure, including risks and benefits, was explained to the patient and informed consent was obtained. Time out was performed pre-procedure. The transesophageal probe was inserted by the attending cmm programmer. There were no complications. Study Date09/05/2022 Start Time: 12:16 PM Study Location: [facility] Study Status: RADHA Suite Patient Status: Routine Technical Quality: Adequate Blood Pressure:107/75 mmHg EKG: Normal sinus rhythm HR: 80 bpm RADHA Performed By: Jesus Carlson MD Type of Anesthesia: Anesthesia administered by anesthesiologist. Allergies - No known allergies. Doppler Measurements TR Velocity:265 cm/s TR Gradient:28.09 mmHg Cardiac Anatomy Left Ventricle/Interventricular Septum The LV systolic function is normal. The left ventricular ejection fraction is 55-60%. There are no definite regional wall motion abnormalities. Left Atrium/Interatrial Septum The left atrium is normal in size. There is no thrombus in the left atrial appendage. Aortic Valve The aortic valve is trileaflet. There is no significant aortic regurgitation. Mitral Valve The mitral valve appears normal. There is trace mitral regurgitation. Aorta The aortic root is normal in size. Right Ventricle There is a large (up to 4.9 cm), complex, multi-lobar echodensity noted in the right ventricle most consistent with a vegetation. The attachment point is difficult to visualize; possibly attached to the subvalvular apparatus (best visualized images 78-83). The right ventricle is mildly dilated. Right ventricular systolic function appears preserved. Right Atrium The right atrium is dilated. Pulmonic Valve The pulmonic valve appears grossly normal. Tricuspid Valve There is a bioprosthetic valve in the tricuspid position. There are multiple, large (up to 4 x 1 cm) echodensities on the valve consistent with vegetation. There is resultant leaflet destruction, malcoaptation, and severe tricuspid regurgitation. The mean gradient across the valve is 6 mmHg. Venous Structures There is systolic blunting of pulmonary venous flow. Pericardium/Extracardiac There is a small pericardial effusion near the right atrium. Summary 1) The LV systolic function is normal. The left ventricular ejection fraction is 55-60%. There are no definite regional wall motion abnormalities. 2) There is a large (up to 4.9 cm), complex, multi-lobar echodensity noted in the right ventricle most consistent with a vegetation. The attachment point is difficult to visualize; possibly attached to the subvalvular apparatus (best visualized images 78-83). 3) There is a bioprosthetic valve in the tricuspid position. There are multiple, large (up to 4 x 1 cm) echodensities on the valve consistent with vegetation. There is resultant leaflet destruction, malcoaptation, and severe tricuspid regurgitation. The mean gradient across the valve is 6 mmHg. Signature * Event Display: Trans-esophageal Echocardiogram Authored Date: Cardiology * Event Display: Cardiac Rhythm Strips Authored Date: * Event Display: Cardiac Rhythm Strips Authored Date: * Event Display: Cardiac Rhythm Strips Authored Date: Hospital Progress note * Olivia Hannon RN: PERFORM, SIGN, VERIFY, MODIFY, SIGN Event Display: Progress Note Hospital Authored Date: Patient: BEBA BARNES Age: 31 years Sex: Female : 1990 Associated Diagnoses: None Author: Olivia Hannon RN Findings Nursing Data Vital Signs : VITAL SIGNS SECTION 09/17/2022 7:42 EDT Temperature 98.0 DegF Temperature Route Temporal Pulse Rate 83 bpm Respiratory Rate 18 br/min Systolic Blood Pressure 95 mm Hg Diastolic Blood Pressure 57 mm Hg Blood pressure sites Arm, left Mean Arterial Pressure 70 mm Hg Pulse Pressure 38 mm Hg Oxygen Saturation 93 % L Liters per Minute 5 L/min Mode of Delivery (Oxygen) Nasal cannula . Evaluation pt a&o x3. sr on tele, remains on 5l o2 n/c satting low 90s. pt found to have removed cannula, desat to high 70s-low 80s, improvement noted after reapplying. cont on oxacillin/ ertapenem for endocarditis. right arm picc line access in place, flushing well without issue. h/h recheck obtained as critical levels had been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 Bicarbonate Level 28 mmol/L ()?? 09/17/2022 01:57 Anion Gap 6 ()?? 09/17/2022 01:57 Sodium (POC) POC Cartridge 137 mmol/L ()?? 09/10/2022 15:49 Potassium (POC) POC Cartridge 3.4 mmol/L (Low)?? 09/10/2022 15:49 Glucose Level 134 mg/dL (High)?? 09/17/2022 01:57 Glucose (POC) POC Cartridge 109 (High)?? 09/10/2022 15:49 Glucose, POC 122 mg/dL (High)?? 09/10/2022 11:36 BUN 9 mg/dL ()?? 09/17/2022 01:57 Creatinine-Blood 0.8 mg/dL ()?? 09/17/2022 01:57 Estimated GFR Creatinine 95 ML/MIN/1.73 M2 ()?? 09/17/2022 01:57 Calcium 8.3 mg/dL (Low)?? 09/17/2022 01:57 Calcium, Ionized pH Corrected 1.16 mmol/L ()?? 09/06/2022 03:57 Ionized Calcium (POC) POC Cartridge 1.13 mmol/L ()?? 09/10/2022 15:49 Phosphorus 4.4 mg/dL ()?? 09/06/2022 13:30 Magnesium 1.8 mg/dL ()?? 09/07/2022 01:32 Protein, Total 6.8 Gm/dL ()?? 09/05/2022 06:22 Albumin 2.0 Gm/dL (Low)?? 09/05/2022 06:22 LDH 562 units/L (High)?? 09/09/2022 05:16 Alkaline Phosphatase 153 units/L (High)?? 09/05/2022 06:22 AST (SGOT) 23 units/L ()?? 09/05/2022 06:22 ALT (SGPT) 6 units/L ()?? 09/05/2022 06:22 Bilirubin, Total 0.7 mg/dL ()?? 09/05/2022 06:22 Bilirubin, Direct 0.4 mg/dL (High)?? 09/05/2022 06:22 Bilirubin, Indirect 0.3 mg/dL ()?? 09/05/2022 06:22 Lactate 1.1 mmol/L ()?? 08/31/2022 07:22 Iron Level 25 mcg/dL (Low)?? 09/06/2022 12:43 Iron Binding Capacity, Unsaturated 130 mcg/dL ()?? 09/06/2022 12:43 Iron Binding Capacity, Estimated Total 155 mcg/dL ()?? 09/06/2022 12:43 % Iron Saturation 16 % (Low)?? 09/06/2022 12:43 Ferritin Level 616 ng/mL (High)?? 09/06/2022 12:43 ? COAG INR 1.3 (High)?? 09/09/2022 05:16 Protime (PT) 13.5 seconds (High)?? 09/09/2022 05:16 APTT 31.7 seconds ()?? 09/09/2022 05:16 Fibrinogen 195 mg/dL ()?? 09/09/2022 05:16 POC ACT-Plus 105.0 seconds ()?? 09/10/2022 15:46 ? ENDOCRINE/TUMOR MARKER Blood <1 mIU/mL ()?? 08/26/2022 15:00 ? HEME OTHER Hold Lavender Top SPECIMEN DISCARDED AFTER 24 HOURS. ()?? 09/07/2022 01:32 ? IMMUNOLOGY GENERAL Transferrin 123 mg/dL (Low)?? 09/06/2022 12:43 ? MISC. CHEMISTRY Cystatin C 1.16 (High)?? 09/08/2022 09:07 ? TOXICOLOGY/TDM Barbiturate Screen, Urine NONE DETECTED ()?? 08/26/2022 18:15 Cannabinoid Screen, Urine NONE DETECTED ()?? 08/26/2022 18:15 Cocaine Metabolite Screen, Urine POSITIVE (Abnormal)?? 08/26/2022 18:15 Methadone Screen, Urine POSITIVE (Abnormal)?? 08/26/2022 18:15 Benzodiazepine Screen, Urine NONE DETECTED ()?? 08/26/2022 18:15 Amphetamine Screen, Urine NONE DETECTED ()?? 08/26/2022 18:15 Opiate Screen, Urine NONE DETECTED ()?? 08/26/2022 18:15 Fentanyl Screen, Urine Result POSITIVE (Abnormal)?? 08/26/2022 18:15 ?? URINE OTHER Est Creatinine Clearance 91.68 mL/min ()?? 09/17/2022 03:19 ? Blood Glucose Trend Glucose Level:??134 mg/dL??High (09/17/22 01:57:00) ? Microbiology ?? Blood Culture #2?? Completed?? Source: Blood Body Site: ?? Collected Dt/Tm: 09/01/2022 08:22 Last Updated Dt/Tm: 09/01/2022 08:22 ?SPECIMEN DESCRIPTION : BLOOD R ACSPECIAL REQUESTS : NONECULTURE : NO GROWTH 5 DAYS.REPORT STATUS : FINAL 09/07/2022 Blood Culture?? Completed?? Source: Blood Body Site: ?? Collected Dt/Tm: 09/04/2022 08:24 Last Updated Dt/Tm: 09/04/2022 08:24 ?SPECIMEN DESCRIPTION : BLOOD LACSPECIAL REQUESTS : NONECULTURE : NO GROWTH 5 DAYS.REPORT STATUS: FINAL 09/09/2022 Blood Culture #2?? Completed?? Source: Blood Body Site: ?? Collected Dt/Tm: 09/04/2022 08:24 Last Updated Dt/Tm: 09/04/2022 08:24 ?SPECIMEN DESCRIPTION : BLOOD ??LSPECIAL REQUESTS : CRITICAL VALUE CALLED AND VERIFIED BY READBACK FOR: GRAM POSITIVE COCCI ? CALLED TO [id number] BY [employer] [id number] : STAPHYLOCOCCUS AUREUS. ??This isolate was identified using Maldi-TOF ? system These AST results were performed on the Vitek 2 ID and AST ? systemREPORT STATUS : FINAL 09/08/2022ORGANISM ? STAPHYLOCOCCUS AUREUS. ??This isolate was identified ? using Maldi-TOF system These AST results were performed on the Vitek 2 ID and AST systemMETHOD ? MIN. INHIB. CONC. (MCG/ML)CIPROFLOXACIN ?SUSCEPTIBLECLINDAMYCIN ?SUSCEPTIBLEERYTHROMYCIN ? RESISTANTINDUCIBLE CLINDAMYCI NEGATIVELEVOFLOXACIN ? SUSCEPTIBLEOXACILLIN ?SUSCEPTIBLERIFAMPIN ? SUSCEPTIBLERIFAMPIN ? RIFAMPIN SHOULD NOT BE USED ALONE FOR ANTIMICROBIALRIFAMPIN ?THERAPY.TETRACYCLINE ? RESISTANTTRIMETH/SULFAMETHOX ??SUSCEPTIBLEVANCOMYCIN ?SUSCEPTIBLE Blood Culture?? Completed?? Source: Blood Body Site: ?? Collected Dt/Tm: 09/07/2022 07:00 Last Updated Dt/Tm: 09/06/2022 07:04 ?SPECIMEN DESCRIPTION : BLOOD RIGHTSPECIAL REQUESTS : NONECULTURE : NO GROWTH 5 DAYS.REPORT STATUS : FINAL 09/12/2022 Blood Culture #2?? Completed?? Source: Blood Body Site: ?? Collected Dt/Tm: 09/07/2022 07:00 Last Updated Dt/Tm: 09/06/2022 07:04 ?SPECIMEN DESCRIPTION : BLOOD LEFTSPECIAL REQUESTS : NONECULTURE : NO GROWTH 5 DAYS.REPORT STATUS : FINAL 09/12/2022 ? 40??minutes spent on discharge * Doreen Delarosa RN: PERFORM Event Display: Patient Education/Instruction Authored Date: [id number] Inpatient Adult Discharge Instructions [address] [address] Name: BEBA BARNES : 1990 Visit: 08/26/2022 13:29:00 Current Date: 09/17/2022 12:26 Account: [id number] Inpatient Adult Discharge Instructions We would like [...] and their families. Surveys are administered by [employer] ?? If further treatment with your primary care physician or another doctor is recommended, it is important for you to keep the appointment. Call your primary care physician or return to the Emergency Department immediately if your condition worsens, fails to improve, or new symptoms develop. If you need to find a doctor, you can call [facility] for a referral at [phone] or toll free at [phone]) or log in to [email or web address].. ?? You can view and manage your care through the patient portal or by using a health care andrew of your choosing. [employer] is a website that allows you to securely view your medical information including your hospital discharge summary, office visit summaries, medications and follow-up visits. You can also request appointments, renew medications, and request access to your medical information using a health care andrew of your choosing, or just ask a question. You can enroll at [email or web address] or register during your next office visit. You have been discharged from [facility], Patient Care Unit: M7. If you have any questions regarding these instructions after you leave, please call us and we will be happy to assist you. [facility] Your Care Team Attending Physician Shari PERALTA, Trevor Consulting Providers Duncan PERALTA, Richelle; Radha PERALTA, Garry Harris; Wilder PERALTA, Agata; Beatrice PERALTA, Carlos Petty MD, Josias Dyer Discharging Providers Shari PERALTA, Trevor Reason for Admission SEPSIS Your Diagnosis Endocarditis Tests Performed Below is a partial list of the tests performed during your hospitalization. You may have had other tests and procedures not included in this list. Please discuss all test results with your provider. ABG ABG POC CARTRIDGE ALT Amphetamine Urine Screen AST Barbiturate Urine Screen BASE EXCESS POC CARTRIDGE Basic Metabolic Panel Benzodiazepine Urine Screen Beta HCG Serum (Females Only) Bilirubin Total + Direct BUN CALCIUM IONIZED POC CART Cannabinoid Urine Screen CBC CBC w/ Differential Citrated Platelet Count Cocaine Urine Screen Creatinine Cystatin C Level Electrolytes Fentanyl Screen, Urine Ferritin Fibrinogen GLUCOSE POC GLUCOSE POC CARTRIDGE H + H HEMATOCRIT POC CARTRIDGE HEMOCHRON ACT-PLUS HEMOGLOBIN POC CARTRIDGE HOLD LAVENDER TUBE INR Ionized Calcium Iron + Iron Binding Capacity Lactate Level LDH LFT's Lytes MAGNESIUM Methadone Urine Opiate Screen Urine Phosphorus Level POTASSIUM POC CARTRIDGE PT (INR) PTT SODIUM POC CARTRIDGE Transferrin Type and Screen Chest CT W/O Contrast CT Abdomen and Pelvis W/O Contrast CXR Portable IR Generic Order?-- Results Pending -- Portable Chest You will be contacted within 72 hours with your results. Primary Care Provider Maddy PERALTA , Daniella Advance Directive Health Care Proxy on File Yes - Health Care Proxy Discharge Vitals Temperature: 98 DegF Height: 165.1 cm Pulse Rate: 83 bpm Weight: 79.8 kg Respiratory Rate: 16 br/min Body Mass Index:??27.04 kg/m2??High Respiratory Rate: 16 br/min Body surface area: 1.84 Systolic Blood Pressure: 95 mm Hg ?? Diastolic Blood Pressure: 57 mm Hg ?? Oxygen Saturation:??93 %??Low ?? Studies Pending All tests and labs ordered during this hospital stay have been completed unless listed below. Please discuss all pending results with your provider listed above in these instructions. ?? Add On Lab Order Basic Metabolic Panel CBC w/ Differential Hold Gel Top Tube (HOLD GEL TUBE) IR Generic Order Magnesium Level Phosphorus Level RBCs for Surgery Transfuse Platelets Transfuse RBCs Type and Screen, Use Hold Lavender What to do next Instructions From Your Doctor Discharge Orders Discharge Medications BEBA BARNES :1990 Visit Date:08/26/2022 Medications: Please continue your medications until treatment is completed or stopped by your provider. Medications not listed below should be discontinued. Discuss any questions related to medications with your provider. What How Much When Instructions Next Dose New Clonidine (cloNIDine 0.1 mg oral tablet) 0.1 Milligram Oral 4 times a day last dose at 1212 next dose 6pm New DiphenhydrAMINE (diphenhydrAMINE 25 mg oral tablet) 50 Milligram Oral Every 4 hours as needed for Nausea & Vomiting + restlessness ?? as needed New ERTApenem (ertapenem 1 gm injectable powder for injection) 1 gram IV Piggyback Every 24 hours at bedtime New Melatonin (melatonin 3 mg oral tablet) 3 Milligram Oral Daily at Bedtime as needed for Insomnia at bedtime New OXacillin (OXacillin 2 Gm IVPB) 2 gram IV Piggyback Every 4 hours 09/17 at 4pm New Potassium Chloride (potassium chloride 10 mEq oral tablet, extended release) 40 Milliequivalent Oral Daily 09/18 tomorrow at 8am New RifABUTIN (rifabutin 150 mg oral capsule) 300 Milligram Oral Daily 09/18 tomorrow at 8am New Thiamine (thiamine 100 mg oral tablet) 100 Milligram Oral Daily tomorrow at 8am 09/18 New Venlafaxine (venlafaxine 37.5 mg oral capsule, extended release) 37.5 Milligram Oral Daily tomorrow at 09/18 at 8am Changed Methadone (methadone 10 mg/ 5 mL oral solution) 10 Milliliter Oral Twice a day tonight at 8pm 09/17 Changed apixaban 5 Milligram Oral Twice a day tonight at 8pm 09/17 Unchanged Multivitamin With Minerals (Multivit Therapeutic/ Minerals Tablet) 1 tab(s) Oral Daily tomorrow at 09/18 at 8am ?? What How Much When Comments Stop Taking Citalopram (CeleXA 20 mg oral tablet) 1 tab(s) Oral Daily Stop Taking Gabapentin (gabapentin 100 mg oral capsule) 1 capsule Oral 3 times a day Test Results Below is a partial list of the most recent Laboratory test results done prior to this discharge. You may have had other tests and procedures not included in this list. Please discuss all test resultswith your provider. Est Creatinine Clearance - 91.68 mL/min (09/17/2022) PLT Available - PT (09/10/2022) PLT Unit ID - [id number] (09/10/2022) RBC Available - IS (09/16/2022) RBC Unit ID - [id number] (09/16/2022) ABG (08/30/2022) ???pH - 7.36???pCO2 - 34 mm Hg???pO2 - 96 mm Hg???Bicarbonate, Estimated - 19 mmol/L???Specimen Type - Blood Gas - ARTERIAL???Percent O2 (FIO2) - 44 ABG POC CARTRIDGE (09/10/2022) ???pH (POC) POC Cartridge - 7.48???pCO2 (POC) POC Cartridge - 45.5 mm Hg???pO2 (POC) POC Cartridge - 91 mm Hg???Estimated Bicarbonate (POC) POC Cart - 33.6 mmol/L???% O2 Sat Arterial (POC) POC Cartridge - 98 %???Specimen Type - Blood Gas - ARTERIAL ALT (08/26/2022) ???ALT (SGPT) - 14 units/L Amphetamine Urine Screen (08/26/2022) ???Amphetamine Screen, Urine - NONE DETECTED AST (08/26/2022) ???AST (SGOT) - 35 units/L Barbiturate Urine Screen (08/26/2022) ???Barbiturate Screen, Urine - NONE DETECTED BASE EXCESS POC CARTRIDGE (09/10/2022) ???Base Excess (POC) POC Cartridge - 10 Basic Metabolic Panel (09/17/2022) ???Sodium - 136 mmol/L???Potassium - 4.6 mmol/L???Chloride - 102 mmol/L???Bicarbonate Level - 28 mmol/L???Anion Gap - 6???Glucose Level - 134 mg/dL???BUN - 9 mg/dL???Creatinine-Blood - 0.8 mg/dL???Estimated GFR Creatinine - 95 ML/MIN/1.73 M2???Calcium - 8.3 mg/dL Benzodiazepine Urine Screen (08/26/2022) ???Benzodiazepine Screen, Urine - NONE DETECTED Beta HCG Serum (Females Only) (08/26/2022) ? ?Blood - <1 mIU/mL Bilirubin Total + Direct (08/26/2022) ???Bilirubin, Total - 2.4 mg/dL???Bilirubin, Direct - 2.0 mg/dL???Bilirubin, Indirect - 0.4 mg/dL BUN (08/26/2022) ???BUN - 87 mg/dL CALCIUM IONIZED POC CART (09/10/2022) ???Ionized Calcium (POC) POC Cartridge - 1.13 mmol/L Cannabinoid Urine Screen (08/26/2022) ???Cannabinoid Screen, Urine - NONE DETECTED CBC (09/06/2022) ???WBC - 15.9 k/mm3???RBC - 2.58 m/mm3???Hgb - 7.2 Gm/dL???Hct - 23.1 %???MCV - 89.5 femtoliters???MCH - 27.9 pg???MCHC - 31.2 g/dL???Platelet Count - 39 k/mm3???RDW-SD - 56.7 femtoliters???MPV - NOTMEASURED???Nucleated RBC (Automated) - 0.0 #/100 WBC'S???Abs. NRBC - 0.0 k/mm3 CBC w/ Differential (09/17/2022) ???WBC - 12.8 k/mm3???RBC - 2.69 m/mm3???Hgb - 7.5 Gm/dL???Hct - 24.4 %???MCV - 90.7 femtoliters???MCH - 27.9 pg???MCHC - 30.7 g/dL???Platelet Count - 105 k/mm3???RDW-SD - 51.5 femtoliters???MPV - 10.9 femtoliters???Nucleated RBC (Automated) - 0.0 #/100 WBC'S???Abs. NRBC - 0.0 k/mm3???Abs. Neut - 10.4 k/mm3???Abs. Lymph - 1.2 k/mm3???Abs. Kemper - 0.8 k/mm3???Abs. Eo - 0.2 k/mm3???Abs. Baso - 0.1 k/mm3???Neut % - 81.7 %???Lymph % - 9.2 %???Kemper % - 6.0 %???Eos % - 1.3 %???Baso % - 0.4 %???Imm Gran - 1.4 %???Abs. Imm Gran - 0.2 k/mm3 Citrated Platelet Count (09/10/2022) ???Citrated Platelet Count - 39 k/mm3 Cocaine Urine Screen (08/26/2022) ???Cocaine Metabolite Screen, Urine - POSITIVE Creatinine (08/26/2022) ???Creatinine-Blood - 1.6 mg/dL???Estimated GFR Creatinine - 43 ML/MIN/1.73 M2 Cystatin C Level (09/08/2022) ???Cystatin C - 1.16 Electrolytes (08/26/2022) ???Sodium - 132 mmol/L???Potassium - 4.1 mmol/L???Chloride - 100 mmol/L???Bicarbonate Level - 17 mmol/L???Anion Gap - 15 Fentanyl Screen, Urine (08/26/2022) ???Fentanyl Screen, Urine Result - POSITIVE Ferritin (09/06/2022) ???Ferritin Level - 616 ng/mL Fibrinogen (09/09/2022) ???Fibrinogen - 195 mg/dL GLUCOSE POC (09/10/2022) ???Glucose, POC - 122 mg/dL GLUCOSE POC CARTRIDGE (09/10/2022) ???Glucose (POC) POC Cartridge - 109 H + H (09/17/2022) ???Hgb - 6.4 Gm/dL???Hct - 21.3 % HEMATOCRIT POC CARTRIDGE (09/10/2022) ???Hematocrit (POC) POC Cartridge - 27 % HEMOCHRON ACT-PLUS (09/10/2022) ???POC ACT-Plus - 105.0 seconds HEMOGLOBIN POC CARTRIDGE (09/10/2022) ???Hemoglobin (POC) POC Cartridge - 9.2 Gm/dL HOLD LAVENDER TUBE (09/07/2022) ???Hold Lavender Top - SPECIMEN DISCARDED AFTER 24 HOURS. INR (08/26/2022) ???INR - 1.6???Protime (PT) - 16.3 seconds Ionized Calcium (09/06/2022) ???Calcium, Ionized pH Corrected - 1.16 mmol/L Iron + Iron Binding Capacity (09/06/2022) ???Iron Level - 25 mcg/dL???Iron Binding Capacity, Unsaturated - 130 mcg/dL???Iron Binding Capacity, Estimated Total - 155 mcg/dL???% Iron Saturation - 16 % Lactate Level (08/31/2022) ???Lactate - 1.1 mmol/L LDH (09/09/2022) ???LDH - 562 units/L LFT's (09/05/2022) ???Protein, Total - 6.8 Gm/dL???Albumin - 2.0 Gm/dL???Alkaline Phosphatase - 153 units/L???AST (SGOT) - 23 units/L???ALT (SGPT) - 6 units/L???Bilirubin, Total - 0.7 mg/dL???Bilirubin, Direct - 0.4 mg/dL???Bilirubin, Indirect - 0.3 mg/dL Lytes (09/06/2022) ???Sodium - 136 mmol/L???Potassium - 3.3 mmol/L???Chloride - 98 mmol/L???Bicarbonate Level - 29 mmol/L???Anion Gap - 9 MAGNESIUM (09/07/2022) ???Magnesium - 1.8 mg/dL Methadone Urine (08/26/2022) ???Methadone Screen, Urine - POSITIVE Opiate Screen Urine (08/26/2022) ???Opiate Screen, Urine - NONE DETECTED Phosphorus Level (09/06/2022) ???Phosphorus - 4.4 mg/dL POTASSIUM POC CARTRIDGE (09/10/2022) ???Potassium (POC) POC Cartridge - 3.4 mmol/L PT (INR) (09/09/2022) ???INR - 1.3???Protime (PT) - 13.5 seconds PTT (09/09/2022) ???APTT - 31.7 seconds SODIUM POC CARTRIDGE (09/10/2022) ???Sodium (POC) POC Cartridge - 137 mmol/L Transferrin (09/06/2022) ???Transferrin - 123 mg/dL Type and Screen (09/16/2022) ???Blood Type - O Positive???Antibody Screen - Negative Allergies (NKA means No Known Allergies) NKA Problems Active Problems??(13) ARF - Acute renal failure?? Cholecystitis?? Depression?? Empyema?? Factor 5 Leiden mutation?? Hepatitis C antibody test positive?? History of opioid abuse, currently on methadone?? History of tubo-ovarian abscess?? Infective endocarditis of tricuspid valve?? Opioid abuse?? Pulmonary embolism?? Sacroiliitis?? Tricuspid valve replaced?? Education Materials Below is the list of Educational Leaflet Providered with your Discharge Instructions. Venlafaxine Extended Release Oral Tablet?? Rifabutin Oral Capsule?? Methadone Oral Solution?? Ertapenem Injection?? Clonidine Oral Tablet?? Apixaban Oral Tablet?? Medicines for Heart Valve Problems?? Diagnosing Heart Valve Problems?? Heart Valve Problems?? Valuables and Belongings I fully understand and agree that [facility] accepts no responsibility for all my [...] to send valuables and belongings home. ?? Date for Pt to Sign Valuables/Belongings: 08/26/22 12:55:00 ?? Other Discharge Information ?? Wound Assessment?? Wound Assessment?? Wound Location I: Coccyx Wound Type I: Other: excoriated Wound I, Present on Admission: No ?? Case Management Discharge Plan?? Discharge Plan?? Discharge Agency Information?? Discharge Level of Care at Discharge: alf facility Agency Mouthpiece Maker #1: Intake Discharge Transportation Arranged: [facility] [address] [facility] [phone] Service Categories #1: Occupational Therapy, Oxygen Therapy, Physical Therapy, Halfway, Other: Iv antibiotics Mode of Transportation Arranged: Ambulance Service Comments #1: You are being discharged to rehab. Discharge Arranged Transport Date/Time: 09/17/22 13:00:00 Name of Person Notified of Transfer: Beba Barnes, Marychuy Barnes Discharge Nursing Homes/Rehab Facilities: [facility] ? Pulmonary Rehab Status?? Pulmonary Rehab Discharge Status?? CPAP/BiPAP Mask Type: Full CPAP/BiPAP Mask Size: Small Respiratory Rate: 16 br/min Respiratory Rate: 16 br/min ? Common Emergency Awareness Tips IS [...] are strongly encouraged to quit. Please call [facility] at [phone] or [phone] or log in to [email or web address] for referrals to smoking cessation programs. ?? 580 Suicide & Crisis Lifeline is available 07/10 if you or someone you know needs to find a reason to keep living. By calling 298 you'll be connected to a skilled, trained counselor at a crisis center in your area. INPATIENT DISCHARGE INSTRUCTIONS SIGNATURE TONI BARNESBEBA Location:[facility] Registration Date and Time:08/26/2022 13:29 EDT Primary Care Physician: Maddy PERALTA [facility], Attending Physician: Shari PERALTA, Trevor, I BEBA BARNES, have received the above patient education materials/instructions and have verbalized understanding. If ambulance or transport services are being used I further acknowledge being given a choice of service. ?? If you need to contact me, please call me at this number: . Patient/Armature Winder Name: Patient/Armature Winder Signature: Relationship to Patient: Witness Name/Signature: Date: * Doreen Delarosa RN: PERFORM Event Display: Patient Education/Instruction Authored Date: [id number] Inpatient Adult Discharge Instructions [address] [address] Name: BEBA BARNES : 1990 Visit: 08/26/2022 13:29:00 Current Date: 09/17/2022 12:20 Account: [id number] Inpatient Adult Discharge Instructions We would like [...] and their families. Surveys are administered by [employer] ?? If further treatment with your primary care physician or another doctor is recommended, it is important for you to keep the appointment. Call your primary care physician or return to the Emergency Department immediately if your condition worsens, fails to improve, or new symptoms develop. If you need to find a doctor, you can call [facility] for a referral at [phone] or toll free at [phone] or log in to [email or web address].. ?? You can view and manage your care through the patient portal or by using a health care andrew of your choosing. [employer] is a website that allows you to securely view your medical information including your hospital discharge summary, office visit summaries, medications and follow-up visits. You can also request appointments, renew medications, and request access to your medical information using a health care andrew of your choosing, or just ask a question. You can enroll at [email or web address] or register during your next office visit. You have been discharged from [facility], Patient Care Unit: M7. If you have any questions regarding these instructions after you leave, please call us and we will be happy to assist you. [facility] Your Care Team Attending Physician Shari PERALTA, Trevor Consulting Providers Duncan PERALTA, Richelle; Radha PERALTA, Garry Hdz MD, Agata; Beatrice PERALTA, Carlos Petty MD, Josias Dyer Discharging Providers Shari PERALTA, Trevor Reason for Admission SEPSIS Your Diagnosis Endocarditis Tests Performed Below is a partial list of the tests performed during your hospitalization. You may have had other tests and procedures not included in this list. Please discuss all test results with your provider. ABG ABG POC CARTRIDGE ALT Amphetamine Urine Screen AST Barbiturate Urine Screen BASE EXCESS POC CARTRIDGE Basic Metabolic Panel Benzodiazepine Urine Screen Beta HCG Serum (Females Only) Bilirubin Total + Direct BUN CALCIUM IONIZED POC CART Cannabinoid Urine Screen CBC CBC w/ Differential Citrated Platelet Count Cocaine Urine Screen Creatinine Cystatin C Level Electrolytes Fentanyl Screen, Urine Ferritin Fibrinogen GLUCOSE POC GLUCOSE POC CARTRIDGE H + H HEMATOCRIT POC CARTRIDGE HEMOCHRON ACT-PLUS HEMOGLOBIN POC CARTRIDGE HOLD LAVENDER TUBE INR Ionized Calcium Iron + Iron Binding Capacity Lactate Level LDH LFT's Lytes MAGNESIUM Methadone Urine Opiate Screen Urine Phosphorus Level POTASSIUM POC CARTRIDGE PT (INR) PTT SODIUM POC CARTRIDGE Transferrin Type and Screen Chest CT W/O Contrast CT Abdomen and Pelvis W/O Contrast CXR Portable IR Generic Order?-- Results Pending -- Portable Chest You will be contacted within 72 hours with your results. Primary Care Provider Maddy PERALTA , Daniella Advance Directive Health Care Proxy on File Yes - Health Care Proxy Discharge Vitals Temperature: 98 DegF Height: 165.1 cm Pulse Rate: 83 bpm Weight: 79.8 kg Respiratory Rate: 16 br/min Body Mass Index:??27.04 kg/m2??High Respiratory Rate: 16 br/min Body surface area: 1.84 Systolic Blood Pressure: 95 mm Hg ?? Diastolic Blood Pressure: 57 mm Hg ?? Oxygen Saturation:??93 %??Low ?? Studies Pending All tests and labs ordered during this hospital stay have been completed unless listed below. Please discuss all pending results with your provider listed above in these instructions. ?? Add On Lab Order Basic Metabolic Panel CBC w/ Differential Hold Gel Top Tube (HOLD GEL TUBE) IR Generic Order Magnesium Level Phosphorus Level RBCs for Surgery Transfuse Platelets Transfuse RBCs Type and Screen, Use Hold Lavender What to do next Instructions From Your Doctor Discharge Orders Discharge Medications BEBA BARNES :1990 Visit Date:08/26/2022 Medications: Please continue your medications until treatment is completed or stopped by your provider. Medications not listed below should be discontinued. Discuss any questions related to medications with your provider. What How Much When Instructions Next Dose New Clonidine (cloNIDine 0.1 mg oral tablet) 0.1 Milligram Oral 4 times a day New DiphenhydrAMINE (diphenhydrAMINE 25 mg oral tablet) 50 Milligram Oral Every 4 hours as needed for Nausea & Vomiting + restlessness ?? New ERTApenem (ertapenem 1 gm injectable powder for injection) 1 gram IV Piggyback Every 24 hours New Melatonin (melatonin 3 mg oral tablet) 3 Milligram Oral Daily at Bedtime as needed for Insomnia New OXacillin (OXacillin 2 Gm IVPB) 2 gram IV Piggyback Every 4 hours New Potassium Chloride (potassium chloride 10 mEq oral tablet, extended release) 40 Milliequivalent Oral Daily New RifABUTIN (rifabutin 150 mg oral capsule) 300 Milligram Oral Daily New Thiamine (thiamine 100 mg oral tablet) 100 Milligram Oral Daily New Venlafaxine (venlafaxine 37.5 mg oral capsule, extended release) 37.5 Milligram Oral Daily Changed Methadone (methadone 10 mg/ 5 mL oral solution) 10 Milliliter Oral Twice a day Changed apixaban 5 Milligram Oral Twice a day Unchanged Multivitamin With Minerals (Multivit Therapeutic/ Minerals Tablet) 1 tab(s) Oral Daily ?? What How Much When Comments Stop Taking Citalopram (CeleXA 20 mg oral tablet) 1 tab(s) Oral Daily Stop Taking Gabapentin (gabapentin 100 mg oral capsule) 1 capsule Oral 3 times a day Test Results Below is a partial list of the most recent Laboratory test results done prior to this discharge. You may have had other tests and procedures not included in this list. Please discuss all test resultswith your provider. Est Creatinine Clearance - 91.68 mL/min (09/17/2022) PLT Available - PT (09/10/2022) PLT Unit ID - [id number] (09/10/2022) RBC Available - IS (09/16/2022) RBC Unit ID - [id number] (09/16/2022) ABG (08/30/2022) ???pH - 7.36???pCO2 - 34 mm Hg???pO2 - 96 mm Hg???Bicarbonate, Estimated - 19 mmol/L???Specimen Type - Blood Gas - ARTERIAL???Percent O2 (FIO2) - 44 ABG POC CARTRIDGE (09/10/2022) ???pH (POC) POC Cartridge - 7.48???pCO2 (POC) POC Cartridge - 45.5 mm Hg???pO2 (POC) POC Cartridge - 91 mm Hg???Estimated Bicarbonate (POC) POC Cart - 33.6 mmol/L???% O2 Sat Arterial (POC) POC Cartridge - 98 %???Specimen Type - Blood Gas - ARTERIAL ALT (08/26/2022) ???ALT (SGPT) - 14 units/L Amphetamine Urine Screen (08/26/2022) ???Amphetamine Screen, Urine - NONE DETECTED AST (08/26/2022) ???AST (SGOT) - 35 units/L Barbiturate Urine Screen (08/26/2022) ???Barbiturate Screen, Urine - NONE DETECTED BASE EXCESS POC CARTRIDGE (09/10/2022) ???Base Excess (POC) POC Cartridge - 10 Basic Metabolic Panel (09/17/2022) ???Sodium - 136 mmol/L???Potassium - 4.6 mmol/L???Chloride - 102 mmol/L???Bicarbonate Level - 28 mmol/L???Anion Gap - 6???Glucose Level - 134 mg/dL???BUN - 9 mg/dL???Creatinine-Blood - 0.8 mg/dL???Estimated GFR Creatinine - 95 ML/MIN/1.73 M2???Calcium - 8.3 mg/dL Benzodiazepine Urine Screen (08/26/2022) ???Benzodiazepine Screen, Urine - NONE DETECTED Beta HCG Serum (Females Only) (08/26/2022) ? ?Blood - <1 mIU/mL Bilirubin Total + Direct (08/26/2022) ???Bilirubin, Total - 2.4 mg/dL???Bilirubin, Direct - 2.0 mg/dL???Bilirubin, Indirect - 0.4 mg/dL BUN (08/26/2022) ???BUN - 87 mg/dL CALCIUM IONIZED POC CART (09/10/2022) ???Ionized Calcium (POC) POC Cartridge - 1.13 mmol/L Cannabinoid Urine Screen (08/26/2022) ???Cannabinoid Screen, Urine - NONE DETECTED CBC (09/06/2022) ???WBC - 15.9 k/mm3???RBC - 2.58 m/mm3???Hgb - 7.2 Gm/dL???Hct - 23.1 %???MCV - 89.5 femtoliters???MCH - 27.9 pg???MCHC - 31.2 g/dL???Platelet Count - 39 k/mm3???RDW-SD - 56.7 femtoliters???MPV - NOTMEASURED???Nucleated RBC (Automated) - 0.0 #/100 WBC'S???Abs. NRBC - 0.0 k/mm3 CBC w/ Differential (09/17/2022) ???WBC - 12.8 k/mm3???RBC - 2.69 m/mm3???Hgb - 7.5 Gm/dL???Hct - 24.4 %???MCV - 90.7 femtoliters???MCH - 27.9 pg???MCHC - 30.7 g/dL???Platelet Count - 105 k/mm3???RDW-SD - 51.5 femtoliters???MPV - 10.9 femtoliters???Nucleated RBC (Automated) - 0.0 #/100 WBC'S???Abs. NRBC - 0.0 k/mm3???Abs. Neut - 10.4 k/mm3???Abs. Lymph - 1.2 k/mm3???Abs. Kemper - 0.8 k/mm3???Abs. Eo - 0.2 k/mm3???Abs. Baso - 0.1 k/mm3???Neut % - 81.7 %???Lymph % - 9.2 %???Kemper % - 6.0 %???Eos % - 1.3 %???Baso % - 0.4 %???Imm Gran - 1.4 %???Abs. Imm Gran - 0.2 k/mm3 Citrated Platelet Count (09/10/2022) ???Citrated Platelet Count - 39 k/mm3 Cocaine Urine Screen (08/26/2022) ???Cocaine Metabolite Screen, Urine - POSITIVE Creatinine (08/26/2022) ???Creatinine-Blood - 1.6 mg/dL???Estimated GFR Creatinine - 43 ML/MIN/1.73 M2 Cystatin C Level (09/08/2022) ???Cystatin C - 1.16 Electrolytes (08/26/2022) ???Sodium - 132 mmol/L???Potassium - 4.1 mmol/L???Chloride - 100 mmol/L???Bicarbonate Level - 17 mmol/L???Anion Gap - 15 Fentanyl Screen, Urine (08/26/2022) ???Fentanyl Screen, Urine Result - POSITIVE Ferritin (09/06/2022) ???Ferritin Level - 616 ng/mL Fibrinogen (09/09/2022) ???Fibrinogen - 195 mg/dL GLUCOSE POC (09/10/2022) ???Glucose, POC - 122 mg/dL GLUCOSE POC CARTRIDGE (09/10/2022) ???Glucose (POC) POC Cartridge - 109 H + H (09/17/2022) ???Hgb - 6.4 Gm/dL???Hct - 21.3 % HEMATOCRIT POC CARTRIDGE (09/10/2022) ???Hematocrit (POC) POC Cartridge - 27 % HEMOCHRON ACT-PLUS (09/10/2022) ???POC ACT-Plus - 105.0 seconds HEMOGLOBIN POC CARTRIDGE (09/10/2022) ???Hemoglobin (POC) POC Cartridge - 9.2 Gm/dL HOLD LAVENDER TUBE (09/07/2022) ???Hold Lavender Top - SPECIMEN DISCARDED AFTER 24 HOURS. INR (08/26/2022) ???INR - 1.6???Protime (PT) - 16.3 seconds Ionized Calcium (09/06/2022) ???Calcium, Ionized pH Corrected - 1.16 mmol/L Iron + Iron Binding Capacity (09/06/2022) ???Iron Level - 25 mcg/dL???Iron Binding Capacity, Unsaturated - 130 mcg/dL???Iron Binding Capacity, Estimated Total - 155 mcg/dL???% Iron Saturation - 16 % Lactate Level (08/31/2022) ???Lactate - 1.1 mmol/L LDH (09/09/2022) ???LDH - 562 units/L LFT's (09/05/2022) ???Protein, Total - 6.8 Gm/dL???Albumin - 2.0 Gm/dL???Alkaline Phosphatase - 153 units/L???AST (SGOT) - 23 units/L???ALT (SGPT) - 6 units/L???Bilirubin, Total - 0.7 mg/dL???Bilirubin, Direct - 0.4 mg/dL???Bilirubin, Indirect - 0.3 mg/dL Lytes (09/06/2022) ???Sodium - 136 mmol/L???Potassium - 3.3 mmol/L???Chloride - 98 mmol/L???Bicarbonate Level - 29 mmol/L???Anion Gap - 9 MAGNESIUM (09/07/2022) ???Magnesium - 1.8 mg/dL Methadone Urine (08/26/2022) ???Methadone Screen, Urine - POSITIVE Opiate Screen Urine (08/26/2022) ???Opiate Screen, Urine - NONE DETECTED Phosphorus Level (09/06/2022) ???Phosphorus - 4.4 mg/dL POTASSIUM POC CARTRIDGE (09/10/2022) ???Potassium (POC) POC Cartridge - 3.4 mmol/L PT (INR) (09/09/2022) ???INR - 1.3???Protime (PT) - 13.5 seconds PTT (09/09/2022) ???APTT - 31.7 seconds SODIUM POC CARTRIDGE (09/10/2022) ???Sodium (POC) POC Cartridge - 137 mmol/L Transferrin (09/06/2022) ???Transferrin - 123 mg/dL Type and Screen (09/16/2022) ???Blood Type - O Positive???Antibody Screen - Negative Allergies (NKA means No Known Allergies) NKA Problems Active Problems??(13) ARF - Acute renal failure?? Cholecystitis?? Depression?? Empyema?? Factor 5 Leiden mutation?? Hepatitis C antibody test positive?? History of opioid abuse, currently on methadone?? History of tubo-ovarian abscess?? Infective endocarditis of tricuspid valve?? Opioid abuse?? Pulmonary embolism?? Sacroiliitis?? Tricuspid valve replaced?? Education Materials Below is the list of Educational Leaflet Providered with your Discharge Instructions. Valuables and Belongings I fully understand and agree that [facility] accepts no responsibility for all my [...] to send valuables and belongings home. ?? Date for Pt to Sign Valuables/Belongings: 08/26/22 12:55:00 ?? Other Discharge Information ?? Wound Assessment?? Wound Assessment?? Wound Location I: Coccyx Wound Type I: Other: excoriated Wound I, Present on Admission: No ?? Case Management Discharge Plan?? Discharge Plan?? Discharge Agency Information?? Discharge Level of Care at Discharge: alf facility Agency Mouthpiece Maker #1: Intake Discharge Transportation Arranged: [facility] Elida Borges [facility] [id number] [phone] Service Categories #1: Occupational Therapy, Oxygen Therapy, Physical Therapy, [place], Other: Iv antibiotics Mode of Transportation Arranged: Ambulance Service Comments #1: You are being discharged to rehab. Discharge Arranged Transport Date/Time: 09/17/22 13:00:00 Name of Person Notified of Transfer: Beba Barnes, Marychuy Barnes Discharge Nursing Homes/Rehab Facilities: [facility] & [facility] ? Pulmonary Rehab Status?? Pulmonary Rehab Discharge Status?? CPAP/BiPAP Mask Type: Full CPAP/BiPAP Mask Size: Small Respiratory Rate: 16 br/min Respiratory Rate: 16 br/min ? Common Emergency Awareness Tips IS [...] are strongly encouraged to quit. Please call [facility] at [phone] or [phone] ([phone]) or log in to [email or web address] for referrals to smoking cessation programs. ?? 547 Suicide & Crisis Lifeline is available 07/10 if you or someone you know needs to find a reason to keep living. By calling 494 you'll be connected to a skilled, trained counselor at a crisis center in your area. INPATIENT DISCHARGE INSTRUCTIONS SIGNATURE PAGE BEBA BARNES Location:[facility] Registration Date and Time:08/26/2022 13:29 EDT [facility] Phys[facility] , [facility] Attending Physician: [facility], [facility], I BEBA BARNES, have received the above patient education materials/instructions and have verbalized understanding. If ambulance or transport services are being used I further acknowledge being given a choice of service. ?? If you need to contact me, please call me at this number: . Patient/Armature Winder Name: Patient/Armature Winder Signature: Relationship to Patient: Witness Name/Signature: Date: * Doreen Delarosa RN: PERFORM Event Display: Patient Education Leaflets Authored Date: [id number] Venlafaxine Extended Release Oral Tablet ?? [id number] Venlafaxine Extended Release Oral Tablet Uses This medicine is used for the following purposes: ??? anxiety ??? depression ??? menopausal symptoms ??? narcolepsy ??? pain ??? post-traumatic stress disorder ?? Instructions Swallow the medicine without crushing or chewing it. Take the medicine with food. This medicine will work best if you take it at about the same time every day. Keep the medicine at room temperature. Avoid heat and direct light. It may take several weeks for this medicine to fully work. It is important that you keep taking each dose of this medicine on time even if you are feeling well. If you forget to take a dose on time, take it as soon as you remember. If it is almost time for thenext dose, do not take the missed dose. Return to your normal schedule. Do not take 2 doses at one time. Tell your doctor and pharmacist about all your medicines. Include prescription and mbzj-bpq-zpzaqovmxmqkojne, vitamins, and herbal medicines. Do not suddenly stop taking this medicine. Check with your doctor before stopping. ?? Cautions Tell your doctor and pharmacist if you ever had an allergic reaction to a medicine. Do not use the medication any more than instructed. Your ability to stay alert or to react quickly may be impaired by this medicine. Do not drive or operate machinery until you know how this medicine will affect you. Do not drink beverages with alcohol while on this medicine. Family should check on the patient often. Call the doctor if patient becomes more depressed, has thoughts of suicide, or shows changes in behavior. Call the doctor if there are any signs of confusion or unusual changes in behavior. Tell the doctor or pharmacist if you are , planning to be , or . Do not start or stop any other medicines without first speaking to your doctor or pharmacist. Call your doctor right away if you notice any unusual bleeding or bruising. Do not share this medicine with anyone who has not been prescribed this medicine. Some patients have serious side effects from this medicine. Ask your pharmacist to show you the information from the Food and Drug Administration (FDA) and discuss it with you. ?? Side Effects The following is a list of some common side effects from this medicine. Please speak with your doctor about what you should do if you experience these or other side effects. ??? agitated feeling or trouble sleeping ??? decreased appetite ??? constipation ??? dizziness or drowsiness ??? dry mouth ??? high blood pressure ??? nausea ??? nervousness ??? sweating Call your doctor or get medical help right away if you notice any of these more serious side effects: ??? bleeding or bruising ??? chest pain ??? cough that does not go away ??? pain in the eye ??? hallucinations (unusual thoughts, seeing or hearing things that are not real) ??? fast or irregular heart beats ??? muscle cramps or weakness ??? dilation of the pupils ??? restlessness ??? problems withsexual functions or desire ??? shakiness ??? shortness of breath ??? dark, tarry stool ??? blurring or changes of vision ??? severe or persistent vomiting A few people may have an allergic reaction to this medicine. Symptoms can include difficulty breathing, skin rash, itching, swelling, or severe dizziness. If you notice any of these symptoms, seek medical help quickly. ?? Extra Please speak with your doctor, nurse, or pharmacist if you have any questions about this medicine. ?? [email or web address] IMPORTANT NOTE: This document tells you briefly how to take your medicine, but it does not tell youall there is to know about it. Your doctor or pharmacist may give you other documents about your medicine. Please talk to them if you have any questions. Always follow their advice. There is a more complete description of this medicine available in Gabonese. Scan this code on your smartphone or tablet or use the web address below. You can also ask your pharmacist for a printout. If you have any questions, please ask your pharmacist. The display and use of this drug information is subject to Terms of Use. Copyright(c) 2022 [employer]. ?? [employer]. All rights reserved. This information is not intended as a substitute for professional medical care. Always follow your healthcare professional's instructions. ?? * Doreen Delarosa RN: PERFORM Event Display: Patient Education Leaflets Authored Date: [id number] Rifabutin Oral Capsule ?? [id number] Rifabutin Oral Capsule Brands: Mycobutin Uses For treating bacterial infection. ?? Instructions You may take with food to prevent stomach upset. This medicine will work best if you take it at about the same time every day. Store at room temperature away from heat, light, and moisture. Do not keep in the bathroom. If you wear contact lenses, talk to your doctor. This medicine can stain some contacts. If you forget to take a dose on time, take it as soon as you remember. If it is almost time for thenext dose, do not take the missed dose. Return to your normal schedule. Do not take 2 doses at one time. Drug interactions can change how medicines work or increase risk for side effects. Tell your healthcare providers about all medicines taken. Include prescription and kdve-pfn-wiuvuht medicines, vitamins, and herbal medicines. Speak with your doctor or pharmacist before starting or stopping any medicine. Keep using this medicine for the full number of days that it is prescribed. Do not stop the medicine even if you start to feel better. This medicine may decrease the effectiveness of some controls which use hormones (such as control pills and patches). Use an extra form of control, such as condoms, while on this medicine. Keep all appointments for medical exams and tests while on this medicine. Do not take the medicine more than once during 24 hours. ?? Cautions Tell your doctor and pharmacist if you ever had an allergic reaction to a medicine. Some patients taking this medicine have experienced serious side effects. Please speak with your doctor to understand the risks and benefits associated with this medicine. Do not use the medication any more than instructed. Please check with your doctor before drinking alcohol while on this medicine. Speak with your health care provider before receiving any vaccinations. Please tell your doctor if you have moderate to severe diarrhea while on this medicine. Do not treat the diarrhea with lqgk-jhz-cujqsin diarrhea medicine. Tell the doctor or pharmacist if you are , planning to be , or . Contact your doctor immediately if you experience any swelling of your hands, face, lips, eyes, throat or tongue. Do not share this medicine with anyone who has not been prescribed this medicine. Always refill this medicine before it runs out. ?? Side Effects The following is a list of some common side effects from this medicine. Please speak with your doctor about what you should do if you experience these or other side effects. ??? changes in color of urine, sweat, saliva or tears ??? nausea and vomiting ??? stomach upset or abdominal pain ??? changes in taste or unpleasant taste Call your doctor or get medical help right away if you notice any of these more serious side effects: ??? bleeding or bruising ??? chest pain ??? severe, watery or bloody diarrhea ??? pain in the eye ??? fever ??? swelling in the neck or throat ??? signs of liver damage (such as yellowing of eye or skin, dark urine, or unusual tiredness) ??? joint or muscle pain ??? blurring or changes of vision A few people may have an allergic reaction to this medicine. Symptoms can include difficulty breathing, skin rash, itching, swelling, or severe dizziness. If you notice any of these symptoms, seek medical help quickly. ?? Extra Please speak with your doctor, nurse, or pharmacist if you have any questions about this medicine. ?? [email or web address] IMPORTANT NOTE: This document tells you briefly how to take your medicine, but it does not tell youall there is to know about it. Your doctor or pharmacist may give you other documents about your medicine. Please talk to them if you have any questions. Always follow their advice. There is a more complete description of this medicine available in Gabonese. Scan this code on your smartphone or tablet or use the web address below. You can also ask your pharmacist for a printout. If you have any questions, please ask your pharmacist. The display and use of this drug information is subject to Terms of Use. Copyright(c) 2022 [employer]. ?? [employer]. All rights reserved. This information is not intended as a substitute for professional medical care. Always follow your healthcare professional's instructions. ?? * Doreen Delarosa RN: PERFORM Event Display: Patient Education Leaflets Authored Date: [id number] Methadone Oral Solution ?? [id number] Methadone Oral Solution Uses This medicine is used for the following purposes: ??? drug addiction ??? pain ?? Instructions Measure the dose of liquid medicine carefully. Use the measuring device that comes with the medicine. If you do not have one, please ask your pharmacist for help. You may take with food to prevent stomach upset. Store at room temperature away from heat, light, and moisture. Do not keep in the bathroom. Please ask your doctor, nurse, or pharmacist how to discard unused medicines safely. To reduce constipation, eat high fiber foods, drink plenty of water and exercise. Tell your doctor if you have severe or persistent sweating, diarrhea or vomiting. These can increase your risk of a serious side effect. If you forget to take a dose on time, take it as soon as you remember. If it is almost time for thenext dose, do not take the missed dose. Return to your normal schedule. Do not take 2 doses at one time. Drug interactions can change how medicines work or increase risk for side effects. Tell your healthcare providers about all medicines taken. Include prescription and xkkm-xov-hmvfzio medicines, vitamins, and herbal medicines. Speak with your doctor or pharmacist before starting or stopping any medicine. Tell your doctor if symptoms do not get better or if they get worse. ?? Cautions This medicine has an opioid. Opioids help many people but may cause addiction, especially if used for a long time. The addiction risk is higher if you have a substance use disorder (overuse of or addiction to drugs or alcohol). Ask your doctor about the benefits and risks. Ask your doctor or pharmacist if you should have naloxone on hand to treat opioid overdose. Teach your family or household members about the signs of an opioid overdose and how to treat it. If you stop this medicine suddenly after using it for a long time, you may have withdrawal. Your doctor may slowly lower your dose before stopping it. Tell your doctor right away if you have symptoms, such as unusual sweating, watering eyes, runny nose, chills, diarrhea, yawning, muscle aches, restlessness, anxiety, trouble sleeping, or thoughts of suicide. Tell your doctor and pharmacist if you ever had an allergic reaction to a medicine. It is very important that you carefully measure the amount of medicine you take. Your healthcare provider or pharmacist should show you the correct way to measure this medicine. Do not use the medication any more than instructed. This medicine may cause dizziness or fainting, especially after exercising or in hot weather. Be very careful when standing or sitting up quickly. If possible, avoid using with alcohol, marijuana, or other medicines that can cause dizziness or drowsiness. These include allergy/cold products, muscle relaxers, sleep aids, and pain relievers. Your ability to stay alert or to react quickly may be impaired by this medicine. Do not drive or operate machinery until you know how this medicine will affect you. This medicine passes into breast milk. Ask your doctor before . This medicine can hurt a new baby in the womb. If you become while on this medicine, tell your doctor immediately. Your doctor may switch you to a different medicine. This medicine should be used with caution in patients with breathing difficulties. Call your doctor right away if you notice slow or shallow breathing. Do not share this medicine with anyone who has not been prescribed this medicine. Some patients have serious side effects from this medicine. Ask your pharmacist to show you the information from the Food and Drug Administration (FDA) and discuss it with you. ?? Side Effects The following is a list of some common side effects from this medicine. Please speak with your doctor about what you should do if you experience these or other side effects. ??? constipation ??? dizziness or drowsiness ??? dry mouth ??? lightheadedness ??? nausea and vomiting ??? sweating Call your doctor or get medical help right away if you notice any of these more serious side effects: ??? decreased appetite ??? decreased awareness or responsiveness ??? breathing interruption during sleep ??? shallow, irregular breathing ??? changes in memory, mood, or thinking ??? fainting ??? hallucinations (unusual thoughts, seeing or hearing things that are not real) ??? fast or irregular heart beats ??? seizures ??? severe stomach or bowel pain ??? unusual or unexplained tiredness or weakness ??? difficulty or discomfort urinating ??? weight loss A few people may have an allergic reaction to this medicine. Symptoms can include difficulty breathing, skin rash, itching, swelling, or severe dizziness. If you notice any of these symptoms, seek medical help quickly. ?? Extra Please speak with your doctor, nurse, or pharmacist if you have any questions about this medicine. ?? [email or web address] IMPORTANT NOTE: This document tells you briefly how to take your medicine, but it does not tell youall there is to know about it. Your doctor or pharmacist may give you other documents about your medicine. Please talk to them if you have any questions. Always follow their advice. There is a more complete description of this medicine available in Gabonese. Scan this code on your smartphone or tablet or use the web address below. You can also ask your pharmacist for a printout. If you have any questions, please ask your pharmacist. The display and use of this drug information is subject to Terms of Use. Copyright(c) 2022 [employer]. ?? [employer]. All rights reserved. This information is not intended as a substitute for professional medical care. Always follow your healthcare professional's instructions. ?? * Ethel Smart RN: PERFORM, SIGN, VERIFY Event Display: Case Management Discharge Plan Authored Date: Patient: BEBA BARNES Age: 31 years Sex: Female : 1990 Associated Diagnoses: None Author: Ethel Smart RN Discharge Plan Case Management Discharge Plan : Case Management Discharge Plan Data 09/16/2022 16:11 EDT Discharge Level of Care at Discharge alf facility Discharge Nursing Homes/Rehab Facilities [facility] Discharge Transportation Arranged [facility] [address] [facility] [phone] Discharge Arranged Transport Date/Time 09/17/2022 13:00 Mode of Transportation Arranged Ambulance Agency [facility] #1 Intake Service Categories #1 Occupational Therapy, Oxygen Therapy, Physical Therapy, Halfway, Other: Iv antibiotics Service Comments #1 You are being discharged to rehab. Name of Person Notified of Transfer Beba Barnes, Marychuy Barnes * Event Display: Discharge/Transfer Note Hospital Authored Date: * Event Display: Discharge/Transfer Note Hospital Authored Date: Patient Care team information Care Team Personnel Name: Rula Patel RN Position: [facility] RN Member Role: Primary Care Nurse Name: Daniella Castañeda MD Position: [facility] Outreach Member Role: PCP Address: Address: [address] [place] [id number] [place] Name: Lori Smiley RN Position: [facility] RN Member Role: Primary Care Nurse Name: Karina Rodriguez RN Position: [facility] RN Supv Member Role: Primary Care Nurse Name: Jordi Garcia RN Position: [facility] RN Member Role: Primary Care Nurse Name: Olivia Hannon RN Position: [facility] RN Member Role: Primary Care Nurse Name: Kathia Moe RN Position: [facility] RN Member Role: Primary Care Nurse Name: Rohith Skinner RN Position: [facility] RN Member Role: Primary Care Nurse Name: Helena De La Paz RN Position: [facility] RN Member Role: Primary Care Nurse Name: Nannette Euceda RN Position: [facility] RN Member Role: Primary Care Nurse Name: Manjeet Hurt RN Position: [facility] RN Member Role: Primary Care Nurse Name: Cheryl Rob RN Position: [facility] RN Member Role: Primary Care Nurse Name: Kelley Velazquez RN Position: [facility] RN Member Role: Primary Care Nurse Name: Chayito Bill RN Position: [facility] RN Member Role: Primary Care Nurse Name: Re Mckeon RN Position: [facility] RN Member Role: Primary Care Nurse Name: Paddy Rowe RN Position: [facility] RN Member Role: Primary Care Nurse Name: Shweta Ahmadi NP Position: [facility] Associate Professional Member Role: Lifetime Consulting Provider Address: Address: [address] [place], [place] [address] [address] Name: Reece William MD Position: [facility] Renal MD Member Role: Lifetime Consulting Physician Address: Address: [address] [place], [place] [address]E [facility] [address] Name: Courtney Clemente RN Position: [facility] RN Member Role: Primary Care Nurse Name: Tiffany Macias RN Position: [facility] RN Member Role: Primary Care Nurse Name: Gino Eisenberg RN Position: [facility] RN Member Role: Primary Care Nurse Name: Hever Jones DO Position: [facility] Renal MD Member Role: Lifetime Consulting Physician Address: Address: [address] [place], [place] [address]E [facility] [address] Name: Leana Rivera RN Position: [facility] RN Member Role: Primary Care Nurse Name: Dary Sewell RN Position: [facility] RN Member Role: Primary Care Nurse Name: Miri Do RN Position: [facility] RN Member Role: Primary Care Nurse Name: Brandon Johnson RN Position: [facility] RN Member Role: Primary Care Nurse Name: Shruthi Zhou RN Position: [facility] RN Member Role: Primary Care Nurse Name: Angie Sahu RN Position: [facility] RN Robert Member Role: Primary Care Nurse Name: Jessica Gonzales RN Position: [facility] RN Member Role: Primary Care Nurse Name: Miri Gutiérrez RN Position: [facility] RN Member Role: Primary Care Nurse Name: Caprice Robles Position: [facility] AMB Nurse Member Role: Primary Care Nurse Name: Nadia White RN Position: [facility] RN Member Role: Primary Care Nurse Name: Lavinia Anderson RN Position: [facility] RN Member Role: Primary Care Nurse Name: Minal Gonzalez RN Position: [facility] RN Member Role: Primary Care Nurse Name: Beba Cornejo RN Position: [facility] RN Member Role: Primary Care Nurse Name: Sangita Richardson RN Position: [facility] SN RN Member Role: Primary Care Nurse Name: Velma Thorpe Position: [facility] RN Member Role: Primary Care Nurse Name: Wellington Ferrera RN Position: [facility] RN Member Role: Primary Care Nurse Name: Cheryl Gordillo NP Position: [facility] Associate Professional Member Role: Primary Care Nurse Address: Address: [address] [place] [address] [facility] [place], [place] [address] Name: Shelbie Lopez RN Position: [facility] RN Member Role: Primary Care Nurse Name: Shanell Pierce RN Position: [facility] RN Member Role: Primary Care Nurse Name: Amber Garcia RN Position: [facility] RN Member Role: Primary Care Nurse Name: Jessica Aleman RN Position: [facility] RN Member Role: Primary Care Nurse Name: Romi García RN Position: [facility] Onco RN Member Role: Primary Care Nurse Care Team Related Persons Name: DARYL FAIR Address: [address] [place] [address] Name: MARYCHUY BARNES Address: home [address] [place] [address] Name: MARYCHUY BARNES Address: [place] [address]
--- OUTSIDE RECORDS SUMMARY | 2023-02-28 10:47 | XMS_ITS | Continuity of Care Document ---
Author Name Unknown Organization [facility] Address [address] [place] [id number] Care Team Providers Care Cleaning Professional Name Role Phone Maddy PERALTA, Daniella Primary Care Physician Encounter [facility] R [id number] Date(s): 04/17/20 - 04/24/20 [facility] [address] [place] [address]- Attending Physician: Fly Villela MD Admitting Physician: Fly Villela MD Referring Physician: Quoc Obrien MD Allergies, Adverse Reactions, Alerts Substance Reaction [...]
--- OUTSIDE RECORDS SUMMARY | 2023-02-28 10:47 | XMS_ITS | Continuity of Care Document ---
Author Name Unknown Organization [facility] ter Address [address] [place] [id number]- Care Team Providers Care Emissions Engineer Name Role Phone Maddy PERALTA, Daniella Primary Care Physician [phone] [id number] Date(s): 12/20/22 - 12/20/[address] [address]- Discharge Disposition: A-D/C AMA Attending Physician: Viviana Chung MD Admitting Physician: Molly Molina MD Referring Physician: Not on Staff, Referring MD Allergies, Adverse Reactions, Alerts No Known Allergies Medications apixaban 5 mg oral tablet = 5 mg, By Mouth, 2 times a day, # 60 tablet, 0 Refills, Maintenance, 11/02/22 9:44:00 EDT, Tablet,[id number], Partial fill upon patient request if the prescription is for a schedule II opioid drug., 168, cm, 11/01/22 16:56:00 EDT, H... Start Date: 11/02/22 Status: Ordered cloNIDine 0.1 mg oral tablet 0.1 mg, 1, tablet, By Mouth, 2 times a day, PRN, # 60 tablet, Refills 0, Maintenance, Anxiety, 12/18/22 15:23:00 EDT, Partial fill upon patient request if the prescription is for a schedule II opioiddrug. Start Date: 12/18/22 Status: Ordered Methadone Tablet 70 mg, Tablet, By Mouth, 12/20/22 9:00:00 EDT, Stop date 12/20/22 9:00:00 EDT Start Date: 12/20/22 Stop Date: 12/20/22 Status: Completed Problem List Condition Confirmation Course Effective Dates [...] Confirmed Active Pulmonary embolism Confirmed Active Results Radiology Reports * Exam Date Time Procedure Performing Provider Status 12/20/22 12:06 PM US Chest Erich Meyers; Auth (Verified) Notes: (US Chest) Reason For Exam: pacemaker area swelling and tenderness, CT scan inconclusive;Other: RESULT: US Chest US Chest Reason: Other:; pacemaker area swelling and tenderness, CT scan inconclusive; Clinical Question(s):Other:; Special Instructions: US for fluid collection around pacemaker area; Order Comment: 12 19 2022 09:23:47 EDT pt refusing. COMPARISON: Ultrasound chest 11/01/2022. CT chest with contrast 12/18/2022. FINDINGS: High-resolution, linear array imaging of the superficial soft tissues of the left chest wall was performed in the area of the patient's symptoms. Surrounding the coiled pacer electrodes in the left chest wall there is a heterogeneous collection measuring approximately 4.6 x 2.1 x 4.0 cm with a volume of 21 cc. There is internal septations withincreased vascularity. Interspersed areas of hypoechoic fluid. Mild surrounding increased echogenicity of the adipose tissue. The appearance is suspicious for phlegmon and abscess formation. IMPRESSION: Heterogeneous collection surrounding the cardiac electrodes in the left chest wall measuring 4.6 x 2.1 x 4.0 cm is suspicious for abscess formation. An actionable message ([employer]) has been communicated via the [employer] system on 12/20/2022 12:23 PM, Message ID [id number]. WSN: [id number] Ordering Physician: Elmer Brenner Dictated By: Hever Garica MD Dictated Date/Time: 12/20/22 12:24 p Reviewed By: Hever Garcia MD Signed By: Hever Garcia MD Signed Date/Time: 12/20/22 12:24 pm Transcribed By: DANILO Transcribed Date/Time: 12/20/22 12:20 pm * Exam Date Time Procedure Performing Provider Status 12/18/22 10:[address] Chest W/ Contrast Reyes Babb son; Modified Notes: (CT Chest W/ Contrast) Reason For Exam: ?Abscess over pacer site L chest;Other: ADDENDUM: CT Chest W/ Contrast Findings were communicated to Dr. Jackman at 11:55 on 12/18/2022 via phone who had been aware of the critical findings from the report. WSN: [id number] Ordering Physician: Marlen Jones Dictated By: Alcon Mariee MD Dictated Date/Time: 12/18/22 11:56 a Reviewed By: Alcon Mariee MD Signed By: Alcon Mariee MD Signed Date/Time: 12/18/22 11:56 am Transcribed By: DANILO Transcribed Date/Time: 12/18/22 11:50 am RESULT: CT Chest W/ Contrast CT Chest W/ Contrast INDICATION: Hx of Present Illness: swellingnear pacemaker site for 2wks, s p endocarditis hospital visit 2 months prior with all clear; Reason: Other:; ?Abscess over pacer site L chest; Clinical Question(s): Abscess Empyema; Order Comment:. History of MSSA bacteremia and prosthetic tricuspid valve e ndocarditis. TECHNIQUE: Helical CT scan of the chest with IV contrast, formatted in 3 planes. 75 cc of [id number] was administered intravenously. Weight-based protocol was performed using automatic exposure control. COMPARISON: CT chest from 09/09/2022 Ultrasound chest from 11/01/2022 FINDINGS: Shell Machine Operator view findings, lines and tubes: None. Trachea and airways: Patent without evidence of tracheal or endobronchial lesion. Lungs and pleura: Compared to 09/09/2022, decreased consolidative opacities throughout the lungs with particular improvement in airspace consolidation within the lower lobes. Minimal residual opacity in the superior segment right lower lobe (601:33). Mild dependent atelectasis. Surgical clips in theleft lower lobe. No effusion or pneumothorax. Mediastinum and loulou: No mass or hematoma. No mediastinal or hilar lymphadenopathy. Right lower paratracheal node measuring 9 mm (602:33). No esophageal abnormality. Partially imaged thyroid is unremarkable. Heart: Heart is normal in size. No pericardial effusion. Status post tricuspid valve replacement. Aorta: No aortic aneurysm. Pulmonary arteries: Exam not targeted for evaluation of pulmonary embolism. Clot is apparent in thelobar, segmental branches of the right lower lobe pulmonary artery (602:45). Main pulmonary artery is borderline enlarged measuring 3.1 cm. Chest wall soft tissues: Pacemaker leads are seen looping within the subcutaneous tissues of the left chest wall. There is associated streak artifact which degrades evaluation of the adjacent soft tissues. Possible 19 mm area of low attenuation central to the looped pacemaker leads (602:22, 603:40). Diaphragm: Intact. Upper abdomen: Diffuse mottled hypoattenuation of the hepatic parenchyma. Gastric fundal diverticulum. Bones: No acute abnormality. Median sternotomy hardware. IMPRESSION: Pulmonary embolism within the lobar and segmental branches of right lower lobe. Evaluation for other pulmonary embolus is suboptimal on non-PE protocol CT chest with contrast. Compared to 09/09/2022, marked improvement in multifocal airspace consolidations throughout the lungs, with minimal residual opacity in the superior segment right lower lobe. Resolution of bilateral pleural effusions. Pacemaker leads make a loop in the subcutaneous tissues of the left upper chest. The adjacent soft tissues are heavily degraded by streak artifact. An area of low attenuation within the subcutaneous tissues central to the pacemaker leads is noted, possibly artifactual, although a small fluid collection, abscess, or hematoma are possible considerations. If there is clinical concern for abscess, soft tissue ultrasound may be considered. Mild hypoattenuation of the hepatic parenchyma could be secondary to hepatic congestion secondary to right heart dysfunction in a patient with tricuspid valve replacement. Findings were communicated to Dr. Jones via [employer] connect at 11:18 on 12/18/2022. WSN: [id number] Ordering Physician: Marlen Jones Dictated By: Alcon Mariee MD Dictated Date/Time: 12/18/22 11:20 a Reviewed By: Alcon Mariee MD Signed By: Alcon Mariee MD Signed Date/Time: 12/18/22 11:20 am Transcribed By: DANILO Transcribed Date/Time: 12/18/22 11:04 am Vital Signs Most recent to oldest [Reference Range]: 1 2 3 Height 165 cm (12/20/22 4:33 AM) 165 cm (12/19/22 8:55 PM) 165 cm (12/19/22 9:40 AM) Weight 65 kg (12/18/22 3:20 PM) 65 kg (12/18/22 3:56 AM) Oxygen Saturation [94-100 %] 100 % (12/20/22 5:03 PM) 99 % (12/20/22 4:33 AM) 98 % (12/19/22 8:55 PM) Pulse Rate [55-90 bpm] 94 bpm *H* (12/20/22 5:03 PM) 66 bpm (12/20/22 4:33 AM) 87 bpm (12/19/22 8:55 PM) Body Mass Index [18.5-24.99 kg/m2] 23.88 kg/m2 (12/18/22 3:20 PM) Blood Pressure [90-138/55-84 mm Hg] 122/88mm Hg (12/20/22 5:03 PM) 122/69mm Hg (12/20/22 4:33 AM) 120/78mm Hg (12/19/22 8:55 PM) Respiratory Rate [16-30 br/min] 18 br/min (12/20/22 5:03 PM) 18 br/min (12/20/22 11:31 AM) 18 br/min (12/20/22 10:31 AM) Temperature [96.8-100.4 DegF] 98.3 DegF (12/20/22 5:03 PM) 98.3 DegF (12/20/22 4:33 AM) 98.2 DegF (12/19/22 8:55 PM) Mode of Delivery (Oxygen) Room air (12/20/22 5:03 PM) Room air (12/20/22 4:33 AM) Room air (12/19/22 8:55 PM) Blood pressure sites Arm, right (12/20/22 5:03 PM) Arm, left (12/20/22 4:33 AM) Arm, left (12/19/22 8:55 PM) Temperature Route Oral (12/20/22 5:03 PM) Oral (12/20/22 4:33 AM) Oral (12/19/22 8:55 PM) Dry Weight 65 kg (12/18/22 3:20 PM) 65 kg (12/18/22 3:56 AM) Weight Obtained Via Patient/family state d (12/18/22 3:56 AM) Dry Weight Obtained Via Patient/family s tated (12/18/22 3:56 AM) Social History Social History Type Response Smoking Status 10 or more cigarette s (1/2 pack or more)/day in last 30 days entered on: 07/12/18 Sex Admission evaluation note * Elidia PERALTA, Elmer Yusuf: PERFORM, MODIFY Event Display: Admission Note Authored Date: [id number] Patient: ??LIZZY SOSA ? Age:??32 Years?Sex:??Female?:??1990?? Chief Complaint/Reason for Consultation lump next to pacemaker incision. pacemaker placed 3 years ago and has had no issues since. no pain,no SBO, no CP, no palpiations. 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 ?? Patient has history of??infective??endocarditis in September 2019 [...] ertapenem and rifampin. However she was admitted??to [facility]??from 09/30-10/13 with CoNS bacteremia resistant to oxacillin and was started on vancomycin. Shewas discharged to rehab to continue course of vancomycin but was sent??later to the ED for evaluation of non- functioning PICC line and was found to have left anterior chest wall swelling suspicious for infected??pacemaker.??She was transferred to [facility] and was evaluated by cardiac surgery who??did not think this was an active infection. She ended up leaving AMA and PICC line was removed prior to discharge??(did not complete course of antibiotics at the time), blood culture were negative that admission in October. Later she was seen by ID in the clinic who thought she has received enough course of antibiotic. ?? She now present with swelling and pain around pacemaker area started 2 weeks ago, no discharge, fever, chills, nausea, vomiting, shortness or abdominal pain. She also developed left eye pain for 2 days, no recent trauma, no contact lenses, no discharge from the eye. She is non complaint to her Eliquis and usually missed the morning dose. She denies current recreational drug use. ?? In the ED she was afebrile and hemodynamically stable, on room air with good O2 saturation. Lab including complete blood cell count, basic metabolic panel and liver function test were largely unremarkable except for stable elevated creatinine of 1.1 mg/dL.?? CT chest with IV contrast showed pulmonary embolism within the lobar and segmental branch of the right lower lobe.?? Status post alteplase medical needs making urine over the subcutaneous tissue of the left upper chest with adjacent softtissue heavily degraded by artifact. She was also was found to have positive fluorescein uptake on eye exam suggestive of corneal ulcer. ?? Review of Systems as mentioned in HPI. Objective Vital Signs?? Temperature: 97.5 DegF (12/18/22 23:31:00) Temperature Route: Oral (12/18/22 23:31:00) Pulse Rate:??96 bpm??High (12/18/22 23:31:00) Respiratory Rate: 19 br/min (12/18/22 23:31:00) Systolic Blood Pressure: 115 mm Hg (12/18/22 23:31:00) Diastolic Blood Pressure: 63 mm Hg (12/18/22 23:31:00) Blood pressure sites: Arm, right (12/18/22 23:31:00) Mean Arterial Pressure: 80 mm Hg (12/18/22 23:31:00) Pulse Pressure: 52 mm Hg (12/18/22 23:31:00) Oxygen Saturation: 99 % (12/18/22 23:31:00) Mode of Delivery (Oxygen): Room air (12/18/22 23:31:00) Early Warning Score: 6 (12/18/22 23:33:22) ? Physical Exam Constitutional: Alert, in no acute distress. Head: Normocephalic. Eyes:??left sclea??redness.??Extraocular muscles intact. No pallor or scleral icterus Ear, Nose and Throat: mucous membranes moist. Ears and nose - no obvious deformities. Trachea midline. Neck: Supple, Full range of motion.No JVD or bruits. Respiratory:??Clear to auscultation. No wheezing or rhonchi.??No use of accessory muscles. No tactile fremitus.?? Cardiovascular:?? S1 S2 regular. No murmurs, rubs or gallops. Gastrointestinal:??Abdomen soft, non-tender, non-distended. Genitourinary:??No costovertebral angle tenderness. Extremities: No lower extremity pitting edema. No cyanosis or clubbing. Neurologic:??AAOx3, Cranial nerves II-XII grossly intact. Speech normal, no facial droop. No focal neurological deficits. Moves all extremities spontaneously. Sensation intact bilaterally.??Flexor plantar response Skin:??No rash.?? Musculoskeletal:??No gross deformities on inspection. Muscle strength within normal limits Psychiatric: Normal mood and affect. 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 ?? Diagnoses Active Problem list:?? Diagnoses 1. ??Corneal abrasion ??(S05.00XA) - ophthalmology consult in AM. - ciprofloxacin drop every 4 hours. - diclofenac drops. ?? 2. ??Pulmonary embolism ??(I26.99): in setting of??medications non-compliance - also hx TVR with septic emblic. 3. ??Factor 5 Leiden mutation ??(D68.51) - lovoneox 70 BID (patient refused morning dose) - echocardiogram. - blood culture if patient agrees (she refused) ?? 4. Question of ??Pacemaker infection ??(T82.7XXA) 5. ??Infective endocarditis of tricuspid valve ??(I33.0) - Blood culture - Chest US - Cardiac surgery consult. - hold of antibiotic for now. ? 6. ??History of opioid abuse, currently on methadone ??(Z87.898): methadone dose confirmed by ED- 70 mg daily. - resume home methadone. - check EKG in AM. ?? Prophylaxis: VTE: lovenox GI: no indications ?? Goal of care: Code Status: full code (confirmed with the patient) Histories Allergies Allergies ?(Active and Proposed Allergies [...] tablet)?0.1?Milligram?1?tablet?By Mouth?2 times a day?as needed?Anxiety ? Results Recent Labs BLOOD COUNT & DIFF WBC 8.4 k/mm3 ()?? 12/18/2022 09:45 RBC 5.02 m/mm3 ()?? 12/18/2022 09:45 Hgb 13.3 Gm/dL ()?? 12/18/2022 09:45 Hct 43.0 % ()?? 12/18/2022 09:45 MCV 85.7 femtoliters ()?? 12/18/2022 09:45 MCH 26.5 pg (Low)?? 12/18/2022 09:45 MCHC 30.9 g/dL (Low)?? 12/18/2022 09:45 Platelet Count 78 k/mm3 (Low)?? 12/18/2022 09:45 RDW-SD 47.6 femtoliters (High)?? 12/18/2022 09:45 MPV 11.1 femtoliters ()?? 12/18/2022 09:45 Nucleated RBC (Automated) 0.0 #/100 WBC'S ()?? 12/18/2022 09:45 Abs. NRBC 0.0 k/mm3 ()?? 12/18/2022 09:45 Abs. Neut 4.7 k/mm3 ()?? 12/18/2022 09:45 Abs. Lymph 2.7 k/mm3 ()?? 12/18/2022 09:45 Abs. Pettis 0.7 k/mm3 ()?? 12/18/2022 09:45 Abs. Eo 0.2 k/mm3 ()?? 12/18/2022 09:45 Abs. Baso 0.1 k/mm3 ()?? 12/18/2022 09:45 Neut % 55.9 % ()?? 12/18/2022 09:45 Lymph % 32.7 % ()?? 12/18/2022 09:45 Pettis % 8.2 % ()?? 12/18/2022 09:45 Eos % 2.1 % ()?? 12/18/2022 09:45 Baso % 0.7 % ()?? 12/18/2022 09:45 Platelet Comment MANY ()?? 12/18/2022 09:45 Imm Gran 0.4 % ()?? 12/18/2022 09:45 Abs. Imm Gran 0.0 k/mm3 ()?? 12/18/2022 09:45 ?? CARDIAC Nt-Probnp 461 pg/mL (High)?? 12/18/2022 09:45 ?? CHEM GENERAL Sodium 135 mmol/L ()?? 12/18/2022 09:45 Potassium 4.1 mmol/L ()?? 12/18/2022 09:45 Chloride 96 mmol/L (Low)?? 12/18/2022 09:45 Bicarbonate Level 24 mmol/L ()?? 12/18/2022 09:45 Anion Gap 15 ()?? 12/18/2022 09:45 Glucose Level 113 mg/dL (High)?? 12/18/2022 09:45 Glucose, POC 203 mg/dL (High)?? 12/18/2022 06:59 BUN 23 mg/dL (High)?? 12/18/2022 09:45 Creatinine-Blood 1.1 mg/dL (High)?? 12/18/2022 09:45 Estimated GFR Creatinine 66 ML/MIN/1.73 M2 ()?? 12/18/2022 09:45 Calcium 10.5 mg/dL ()?? 12/18/2022 09:45 Protein, Total 8.6 Gm/dL (High)?? 12/18/2022 09:45 Albumin 4.2 Gm/dL ()?? 12/18/2022 09:45 AG Ratio 1.0 ()?? 12/18/2022 09:45 Alkaline Phosphatase 142 units/L (High)?? 12/18/2022 09:45 AST (SGOT) 15 units/L ()?? 12/18/2022 09:45 ALT (SGPT) 8 units/L ()?? 12/18/2022 09:45 Bilirubin, Total 0.5 mg/dL ()?? 12/18/2022 09:45 ?? ENDOCRINE/TUMOR MARKER Serum Qual NEGATIVE mIU/mL ()?? 12/18/2022 09:45 ?? URINE OTHER Est Creatinine Clearance 65.96 mL/min ()?? 12/18/2022 12:16 ?? VIROLOGY COVID-19 by RT-PCR NEGATIVE ()?? 12/18/2022 14:18 ? US Heart * Event Display: Echocardiogram - Complete Authored Date: [id number] Transthoracic Echocardiography Report (TTE) Patient Demographics Patient Name LIZZY SOSA Date of Study 12/19/2022 Corporate Gender Female Facility Race Ethnicity Date of 1990 Height: 64.96 inches Age 32 year(s) Weight: 143.3 pounds Accession Number [id number] BSA: 1.72 m2 Room Number [id number] BMI: 23.88 kg/m2 Referring Physician Elidia ROTH MD Physician Air Filler Ej Elizabeth [facility] Indications Endocarditis. Clinical History H/O ENDOCARDITIS DRUG ABUSE S/P TRICUSPID VALVE REPLACEMENT CORNEAL ABRASION Study Data Type of Study TTE procedure:Echo 2D Limited or Follow-up. Study Date12/19/2022 Start Time: 02:36 PM Study Location: [facility] Adult Echo Study Status: Bedside Patient Status: Routine Technical Quality: Adequate Blood Pressure:115/63 mmHg EKG: Normal sinus rhythm HR: 58 bpm Allergies - No known allergies. 2D Measurements LV Diastolic Dimension: 5.1 cm LV Systolic Dimension: 3.1 cm LV Septum Diastolic: 0.9 cm LV PW Diastolic: 0.9 cm Doppler Measurements AV Peak Velocity: 153 cm/s AV Peak Gradient: 9.36 mmHg AV Mean Gradient: 5 mmHg AV VTI:30.5 cm LVOT Peak Velocity: 123 cm/s LVOT VTI24.7 cm Cardiac Anatomy Left Ventricle/Interventricular Septum The LV systolic function is normal. The left ventricular ejection fraction is 55-60%. There are no definite regional wall motion abnormalities. Left Atrium/Interatrial Septum The left atrium is normal in size. The atrial septum is shifted R to L suggestive of elevated RA pressure. Aortic Valve The aortic valve is trileaflet. There is no significant aortic regurgitation or stenosis. Mitral Valve The mitral valve appears normal. There is trace mitral regurgitation. Aorta The aortic root is normal in size. Right Ventricle The right ventricle is mildly dilated. Right ventricular systolic function appears preserved. Right Atrium The right atrium is dilated. Pulmonic Valve The pulmonic valve appears grossly normal. There is trace pulmonic regurgitation. Tricuspid Valve There is a bioprosthetic valve in the tricuspid position. There is functional tricuspid stenosis across the valve with a severely elevated tricuspid valve gradient of 10mmHg. The bioprosthetic leaflet tissues are thickened. There is trace tricuspid regurgitation. Pumonary Artery An accurate pulmonary artery pressure could not be obtained. Venous Structures The inferior vena cava appears grossly normal. Inferior vena cava inspiratory collapse is absent . Pericardium/Extracardiac There is a small pericardial effusion near the right atrium. Summary The LV systolic function is normal. The left ventricular ejection fraction is 55-60%. There are no definite regional wall motion abnormalities. The right ventricle is mildly dilated. Right ventricular systolic function appears preserved. There is a bioprosthetic valve in the tricuspid position. There is functional tricuspid stenosis across the valve with a severely elevated tricuspid valve gradient of 10mmHg. The bioprosthetic leaflet tissues are thickened. There is trace tricuspid regurgitation. Impressions Elevated tricuspid valve gradients w functional tricuspid stenosis. Thickening of the tricuspid valve leaflets (bioprosthetic). Recommendation No valvular vegetations were visualized on this study however this study is inadequate to exclude endocarditis and thus if clinically suspicious, suggest RADHA imaging to assess bioprosthetic valve. Signature * Event Display: Echocardiogram - Complete Authored Date: [id number] Hospital Progress note * Lucio Louie RN: PERFORM, SIGN, VERIFY, MODIFY, SIGN, SIGN, MODIFY Event Display: Progress Note Hospital Authored Date: Patient: LIZZY SOSA Age: 32 years Sex: Female : 1990 Associated Diagnoses: None Author: Lucio Louie RN Findings Problem Related to Alteration in Cardiac Function (new) : Alteration in Cardiac Function/new 12/20/2022 17:17 EDT Alteration in Cardiac Status Related to Other: pacemaker site abcess Goals & Outcomes, Cardiac Status Pt will resume/maintain adequate cardiac output, Pt will resume/maintain adequate hemodynamic status, Pt/caregiver will state strategies to reduce risk factors Cardiac Interventions Implemented Assess/monitor cardiac status, Assess/monitor neuro status, Monitor anticoagulation values, Prep pt for treatments & procedures BH Goals/Interventions, Cardiac Yes Cardiac, Problem Start 12/20/2022 17:18 Reviewed Plan with, Cardiac Status Patient Patient Progression, Cardiac Status Plan Initiation . Nursing Data Vital Signs : VITAL SIGNS SECTION 12/20/2022 17:03 EDT Temperature 98.3 DegF Temperature Route Oral Pulse Rate 94 bpm H Respiratory Rate 18 br/min Systolic Blood Pressure 122 mm Hg Diastolic Blood Pressure 88 mm Hg H Blood pressure sites Arm, right Pulse Pressure 34 mm Hg Oxygen Saturation 100 % Mode of Delivery (Oxygen) Room air . Evaluation Patient transferred to 4. Presents awake, alert & oriented. Immediately asking to leave the hospital, explained to patient the plan of care, requiring frequent reassurance. Denies pain, restingcomfortably. Eating and eliminating. OOB ambulating with steady gait. Vitals stable on room air. Nosigns of distress. ID bands in place. Bed locked & lowered. Call smiley within reach.. * Lucio Louie RN: PERFORM Event Display: Progress Note Hospital Authored Date: Patient asked to leave room and walk around, explained she could walk around the hallway but not leave the unit with IV in place, pt continued to leave unit against instruction from staff. Security called and pt brought back to unit. Patient frequently states she wants to leave AMA. Explained risksof leaving AMA numerous times and attempted to persuade pt to stay, pt not agreeable. Covering MD notified. IV access removed. Patient signed AMA form. Left unit ambulatory with belongings. * Shay De La Cruz DO: PERFORM, MODIFY, MODIFY Event Display: Progress Note Hospital Authored Date: Patient: ??LIZZY SOSA ? Age:??32 Years?Sex:??Female?:??1990?? Subjective Patient was seen at bedside this morning sleeping??upon waking up??she complained of??left eye painthinks??it has not changed much since yesterday after using the bacitracin eye ointment and ciprofloxacin eyedrops.?? She understands that we are waiting for the??ultrasound of her chest depending what that shows she will be able to go home.?? She denies any??headache, dizziness, nausea, vomiting, chest pain, palpitations, shortness of breath, abdominal pain, extremity pain. Review of Systems A full review of systems was completed and is otherwise negative except as mentioned in history of present illness. Allergies Allergies ?(Active and Proposed Allergies Only) NKA? (Severity: Unknown severity, Onset: Unknown) ? Objective Vital Signs?? Temperature: 98.3 DegF (12/20/22 04:33:00) Temperature Route: Oral (12/20/22 04:33:00) Pulse Rate: 66 bpm (12/20/22 04:33:00) Respiratory Rate: 18 br/min (12/20/22 11:31:00) Systolic Blood Pressure: 122 mm Hg (12/20/22 04:33:00) Diastolic Blood Pressure: 69 mm Hg (12/20/22 04:33:00) Blood pressure sites: Arm, left (12/20/22 04:33:00) Mean Arterial Pressure: 87 mm Hg (12/20/22 04:33:00) Pulse Pressure: 53 mm Hg (12/20/22 04:33:00) Oxygen Saturation: 99 % (12/20/22 04:33:00) Mode of Delivery (Oxygen): Room air (12/20/22 04:33:00) Early Warning Score: 0 (12/20/22 13:57:32) ? Intake/Output? 12/18 03:38 12/20 07:00 12/19 07:00 12/18 07:00 12/17 07:00 ?? 12/20 14:28 12/20 14:28 12/20 06:59 12/19 06:59 12/18 06:59 Intake ?0 ?0 ?0 ?0 ?0 Output ?0 ?0 ?0 ?0 ?0 Net Total ?0 ?0 ?0 ?0 ?0 ? Urine Count ?1 ?0 ?1 ?0 ?0 ? Physical Exam General: No acute distress HEENT: [...] to palpation on exam today, ??no drainage. _ Inpatient Medications Medications (13) Active SCHEDULED: (6) Apixaban 5 mg Tablet (apixaban 5 mg oral tablet) ??5 mg, By Mouth, 2 times a day Bacitracin/Polymyxin B Ophthalmic Ointment (Bacitracin/Polymyxin B Ophth) ??1 application, Eye, Left, Daily at bedtime Ciprofloxacin 0.3% Ophthalmic Solution (Ciprofloxacin 0.3% Ophth) ??1 drops, Eye, Left, Every 4 hours Diclofenac 0.1% Ophthalmic Solution (Diclofenac 0.1% Ophth) ??1 drops, Eye, Left, 4 times a day Methadone 10 mg Tablet (Methadone Tablet) ??70 mg, By Mouth, Daily NaCl 0.9% Flush 3ml (NaCL 0.9% Flush) ??3 mL, IV Push, Every 8 hours CONTINUOUS: (0) PRN: (7) Acetaminophen 325 mg Tablet (Acetaminophen Tablet) ??650 mg, By Mouth, Every 4 hours Docusate Sodium 100 mg Capsule (Docusate Sodium Capsule) ??100 mg 1 capsule, By Mouth, 2 times a day Melatonin 3 mg Tablet (Melatonin Tablet) ??3 mg, By Mouth, Daily at bedtime NaCl 0.9% Flush 3ml (NaCL 0.9% Flush) ??3 mL, IV Push, Every 8 hours nalOXONE ??400mcg/mL Inj (nalOXONE Inj) ??0.2 mg 0.5 mL, IV Push, Every 5 minutes nalOXONE ??400mcg/mL Inj (nalOXONE Inj) ??0.2 mg 0.5 mL, IV Push, Every 5 minutes Senna Tablet ??8.6 mg 1 tablet, By Mouth, 2 times a day ? Results Recent Labs No labs resulted between 12/19/2022 00:00 and 12/20/2022 14:28? 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 ?? Diagnoses Corneal abrasion ??(S05.00XA) - ciprofloxacin drop every 4 hours. ??? Bacitracin eye ointment??at night - diclofenac drops prn pain ??? We will follow-up with Dr. Marshall outpatient ?? Pulmonary embolism ??(I26.99): in setting of??medications non-compliance - also hx TVR with septic emboli. Factor 5 Leiden mutation ??(D68.51) -Started Eliquis 5 mg twice daily -Echo:LVEF 55 to 60%, no definite regional wall motion abnormalities, elevated tricuspid valve gradients with functional tricuspid stenosis. ?? 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 -Chest ultrasound:?? Showed??collection surrounding the cardiac electrodes in the left chest wall suspicious for abscess formation. ??? Reached out to??IR??recommended??patient be seen first by??cardiac surgery. ??Consult was placed with thoracic surgery. ??Appreciate recommendations ?? History of opioid abuse Plan: currently on methadone ??(Z87.898): methadone dose confirmed by ED - 70 mg daily. - resume methadone dose ?? Quality Measures Code Status: full Diet: regular DVT prophylaxis: Eliquis ?? Patient seen and discussed with Dr. Sheldon De La Cruz, DO Internal Medicine PGY1 Pager?[phone] * Sheldon PERALTA, [facility] [place]: PERFORM Event Display: Progress Note Hospital Authored Date: Patient seen and examined??on the date of service. ??Discussed with the resident as well.?? Had chest ultrasound done with concern for possible??abscess collection.?? Given the pacemaker leads,??willget cardiac surgery evaluation,??await their recommendations??at this time. * Shay De La Cruz DO: PERFORM Event Display: Progress Note Hospital Authored Date: Patient: ??LIZZY SOSA ? Age:??32 Years?Sex:??Female?:??1990?? Subjective Patient was seen at bedside this morning laying in bed.?? She has minimal complaints this morning other than??the pain in her left eye. ??She says she has had some increased tear production but that the eye is painful to open.?? She was also denied any antibiotic eyedrops this morning??but I discussed the importance of the eyedrops with her??and she was open to allowing the nurse get them. She denies any headache, dizziness, nausea, vomiting, chest pain, palpitation, shortness of breath,abdominal pain.?? She does say she has some pain in her arm at the IV site. Before I arrived in the room she had denied??the visual merchandising manager??as she did not want the echo at this time due to being tired. Review of Systems A full review of systems was completed and is otherwise negative except as mentioned in history of present illness. Allergies Allergies ?(Active and Proposed Allergies Only) NKA? (Severity: Unknown severity, Onset: Unknown) ? Objective Vital Signs?? Temperature: 97.5 DegF (12/18/22 23:31:00) Temperature Route: Oral (12/18/22 23:31:00) Pulse Rate: 60 bpm (12/19/22 09:40:00) Respiratory Rate: 16 br/min (12/19/22 09:40:00) Systolic Blood Pressure: 121 mm Hg (12/19/22 09:40:00) Diastolic Blood Pressure: 77 mm Hg (12/19/22 09:40:00) Blood pressure sites: Arm, right (12/19/22 09:40:00) Mean Arterial Pressure: 92 mm Hg (12/19/22 09:40:00) Pulse Pressure: 44 mm Hg (12/19/22 09:40:00) Oxygen Saturation: 100 % (12/19/22 09:40:00) Mode of Delivery (Oxygen): Room air (12/19/22 09:40:00) Early Warning Score: 6 (12/19/22 09:40:47) ? Intake/Output? 12/18 03:38 12/19 07:00 12/18 07:00 12/17 07:00 12/16 07:00 ?? 12/19 12:16 12/19 12:16 12/19 06:59 12/18 06:59 12/17 06:59 Intake ?0 ?0 ?0 ?0 ?0 Output ?0 ?0 ?0 ?0 ?0 Net Total ?0 ?0 ?0 ?0 ?0 ? Urine Count ?1 ?1 ?0 ?0 ?0 ? Physical Exam General: No acute distress HEENT: EOMI, mucous membranes moist, unwilling to open eye, had tears running down her face mostly on the left side. CV: RRR S1 S2 present. No murmurs, gallops, rubs appreciated. No edema. Respiratory: All chatman clear to auscultation bilaterally. No wheezes, rales, rhonchi appreciated Abdominal: Soft, nontender. No rebound tenderness. Bowel sounds noted all four quadrants. : No suprapubic tenderness. Neuro: A&OX3. Moving upper and lower extremities. No gross neurological deficits Psych: Affect appropriate Skin: erythema and possible fluid above pacemaker, tender on palpation, no drainage _ Inpatient Medications Medications (12) Active SCHEDULED: (5) Ciprofloxacin 0.3% Ophthalmic Solution (Ciprofloxacin 0.3% Ophth) ??1 drops, Eye, Left, Every 4 hours Diclofenac 0.1% Ophthalmic Solution (Diclofenac 0.1% Ophth) ??1 drops, Eye, Left, 4 times a day Enoxaparin 80 mg Inj (Enoxaparin Inj) ??70 mg 0.7 mL, Subcutaneous Injection, Every 12 hours Methadone 10 mg Tablet (Methadone Tablet) ??70 mg, By Mouth, Daily NaCl 0.9% Flush 3ml (NaCL 0.9% Flush) ??3 mL, IV Push, Every 8 hours CONTINUOUS: (0) PRN: (7) Acetaminophen 325 mg Tablet (Acetaminophen Tablet) ??650 mg, By Mouth, Every 4 hours Docusate Sodium 100 mg Capsule (Docusate Sodium Capsule) ??100 mg 1 capsule, By Mouth, 2 times a day Melatonin 3 mg Tablet (Melatonin Tablet) ??3 mg, By Mouth, Daily at bedtime NaCl 0.9% Flush 3ml (NaCL 0.9% Flush) ??3 mL, IV Push, Every 8 hours nalOXONE ??400mcg/mL Inj (nalOXONE Inj) ??0.2 mg 0.5 mL, IV Push, Every 5 minutes nalOXONE ??400mcg/mL Inj (nalOXONE Inj) ??0.2 mg 0.5 mL, IV Push, Every 5 minutes Senna Tablet ??8.6 mg 1 tablet, By Mouth, 2 times a day ? Results Recent Labs BLOOD COUNT & DIFF WBC 8.4 k/mm3 ()?? 12/18/2022 09:45 RBC 5.02 m/mm3 ()?? 12/18/2022 09:45 Hgb 13.3 Gm/dL ()?? 12/18/2022 09:45 Hct 43.0 % ()?? 12/18/2022 09:45 MCV 85.7 femtoliters ()?? 12/18/2022 09:45 MCH 26.5 pg (Low)?? 12/18/2022 09:45 MCHC 30.9 g/dL (Low)?? 12/18/2022 09:45 Platelet Count 78 k/mm3 (Low)?? 12/18/2022 09:45 RDW-SD 47.6 femtoliters (High)?? 12/18/2022 09:45 MPV 11.1 femtoliters ()?? 12/18/2022 09:45 Nucleated RBC (Automated) 0.0 #/100 WBC'S ()?? 12/18/2022 09:45 Abs. NRBC 0.0 k/mm3 ()?? 12/18/2022 09:45 Abs. Neut 4.7 k/mm3 ()?? 12/18/2022 09:45 Abs. Lymph 2.7 k/mm3 ()?? 12/18/2022 09:45 Abs. Pettis 0.7 k/mm3 ()?? 12/18/2022 09:45 Abs. Eo 0.2 k/mm3 ()?? 12/18/2022 09:45 Abs. Baso 0.1 k/mm3 ()?? 12/18/2022 09:45 Neut % 55.9 % ()?? 12/18/2022 09:45 Lymph % 32.7 % ()?? 12/18/2022 09:45 Pettis % 8.2 % ()?? 12/18/2022 09:45 Eos % 2.1 % ()?? 12/18/2022 09:45 Baso % 0.7 % ()?? 12/18/2022 09:45 Platelet Comment MANY ()?? 12/18/2022 09:45 Imm Gran 0.4 % ()?? 12/18/2022 09:45 Abs. Imm Gran 0.0 k/mm3 ()?? 12/18/2022 09:45 ?? CARDIAC Nt-Probnp 461 pg/mL (High)?? 12/18/2022 09:45 ?? CHEM GENERAL Sodium 135 mmol/L ()?? 12/18/2022 09:45 Potassium 4.1 mmol/L ()?? 12/18/2022 09:45 Chloride 96 mmol/L (Low)?? 12/18/2022 09:45 Bicarbonate Level 24 mmol/L ()?? 12/18/2022 09:45 Anion Gap 15 ()?? 12/18/2022 09:45 Glucose Level 113 mg/dL (High)?? 12/18/2022 09:45 Glucose, POC 203 mg/dL (High)?? 12/18/2022 06:59 BUN 23 mg/dL (High)?? 12/18/2022 09:45 Creatinine-Blood 1.1 mg/dL (High)?? 12/18/2022 09:45 Estimated GFR Creatinine 66 ML/MIN/1.73 M2 ()?? 12/18/2022 09:45 Calcium 10.5 mg/dL ()?? 12/18/2022 09:45 Protein, Total 8.6 Gm/dL (High)?? 12/18/2022 09:45 Albumin 4.2 Gm/dL ()?? 12/18/2022 09:45 AG Ratio 1.0 ()?? 12/18/2022 09:45 Alkaline Phosphatase 142 units/L (High)?? 12/18/2022 09:45 AST (SGOT) 15 units/L ()?? 12/18/2022 09:45 ALT (SGPT) 8 units/L ()?? 12/18/2022 09:45 Bilirubin, Total 0.5 mg/dL ()?? 12/18/2022 09:45 ?? ENDOCRINE/TUMOR MARKER Serum Qual NEGATIVE mIU/mL ()?? 12/18/2022 09:45 ?? URINE OTHER Est Creatinine Clearance 65.96 mL/min ()?? 12/18/2022 12:16 ?? VIROLOGY COVID-19 by RT-PCR NEGATIVE ()?? 12/18/2022 14:18 ? 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 ?? Diagnoses Corneal abrasion ??(S05.00XA) - ophthalmology: Spoke to color drum worker allocations clerk Dr. Marshall. Recommend follow up day 1 or day 2 after discharge. Patient can call his office to schedule the appointment. Recommends continuing ciprofloxacin drops 4 times a day, Bacitracin eye ointment at night. - ciprofloxacin drop every 4 hours. - diclofenac drops prn pain ?? Pulmonary embolism ??(I26.99): in setting of??medications non-compliance - also hx TVR with septic emboli. Factor 5 Leiden mutation ??(D68.51) - Lovenox 70 BID (patient refused morning dose again) ? - discussed importance of taking anticoagulation with patient and that missing doses can be very dangerous to her health.?- on Eliquis outpatient but not always taking her medication - echocardiogram pending, patient refused this AM. Team will try again later today ?? 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 - Chest US pending, patient refused procedure this AM ?? History of opioid abuse Plan: currently on methadone ??(Z87.898): methadone dose confirmed by ED - 70 mg daily. - resume methadone dose ?? Quality Measures Code Status: full Diet: regular DVT prophylaxis: Lovenox ?? Patient seen and discussed with Dr. Sheldon De La Cruz, DO Internal Medicine PGY1 Pager?[phone] * Antonio Chung MDama: PERFORM Event Display: Progress Note Hospital Authored Date: Patient seen and examined on the date of service.?? Seen along with the resident, discussed plan ofcare and agree with the plan as outlined above.?? Chart reviewed??along with labs, imaging individually by me.?? Patient has been noncompliant to her anticoagulation regimen.?? Discussed regarding??risks??of not being on anticoagulation.?? Concern for possible pacemaker site infection.?? Awaiting chest ultrasound??at the time, as patient had initially refused to go down. ??She had refused to haveblood cultures drawn as well.?? Discussed regarding compliance with medications and the importance of being treated for infections.?? Continue??topical??antibiotics for??the corneal abrasion, needs to follow-up with ophthalmology as outpatient soon for full??evaluation. Note * Lucio Louie RN: PERFORM Event Display: Discharge/Transfer Note Hospital Authored Date: [id number] Nursing Discharge Note Entered On: 12/20/2022 18:26 EDT Performed On: 12/20/2022 18:25 EDT by Lucio Louie RN Nursing Discharge Note 2 Discharge Time : 12/20/2022 18:25 EDT Discharge Level of Care at Discharge : Left Against Medical Advice Patient Left Unit Via : Ambulatory Patient Accompanied Off Unit with : Other: none DC Instructions Provided & Signed by Pt : No Patient Understands D/C Instructions : No Verbalization of Discharge Plan Comments : pt left AMA Patient Instructions Discharge Signed : No Instructions for Discharge Comments : pt left AMA Discharge Comments : Pt left AMA. notified. IV access removed. Left unit ambulatory with steady gait. VSS. No signs of distress Did Pt have Specialty Bed or Wound Vac : No Liban DUQUE, Lucio - 12/20/2022 18:25 EDT * Shay De La Cruz DO: PERFORM Event Display: Patient Education Leaflets Authored Date: [id number] Apixaban Oral Tablet ?? [id number] Apixaban Oral Tablet Brands: Eliquis Uses This medicine is used for the following purposes: ??? blood disorder ??? prevent blood clots ??? treatment of blood clots ??? blood clot ?? Instructions This medicine may be taken with or without food. This medicine will work best if you take it at about the same time every day. Store at room temperature away from heat, light, and moisture. Do not keep in the bathroom. It is important that you keep taking [...] about all medicines taken. Include prescription and fqon-rjd-wfusley medicines, vitamins, and herbal medicines. Speak with your doctor or pharmacist before starting or stopping any medicine. Talk to your doctor before taking other medicines, including aspirins and ibuprofen containing products. Speak to your doctor about which medicines are safe to use while you are on this medicine. It is very important that you follow your doctor's instructions for all blood tests. ?? Cautions This medicine may cause serious bleeding problems in patients taking blood thinner medications. Follow your doctor's instructions carefully to monitor your blood lab tests if you are on blood thinners. Tell your doctor and pharmacist if you ever had an allergic reaction to a medicine. This medicine may cause serious bleeding from the stomach or bowels. Stop this medicine and call your doctor immediately if you see any signs of bleeding. Bleeding can cause pain in the stomach, vomiting up liquid that looks like coffee grounds, and red or dark tarry stools. There is an increased risk of bleeding while on this medicine, please tell your doctor or nurse if you notice any excessive bleeding or bruising. Do not use the medication any more than instructed. Please check with your doctor before drinking alcohol while on this medicine. Do not breastfeed while on this medicine. This medicine can hurt a new baby in the womb. If you become while on this medicine, tell your doctor immediately. Your doctor may switch you to a different medicine. Do not take Vince's wort while on this medicine. Do not share this medicine with anyone who has not been prescribed this medicine. Some patients have serious side effects from this medicine. Ask your pharmacist to show you the information from the Food and Drug Administration (FDA) and discuss it with you. Always refill this medicine before it runs out. ?? Side Effects The following is a list of some common side effects from this medicine. Please speak with your doctor about what you should do if you experience these or other side effects. ??? nosebleeds Call your doctor or get medical help right away if you notice any of these more serious side effects: ??? bleeding or bruising ??? coughing up blood or vomit that looks like coffee grounds ??? fainting??? numbness or tingling in hands and feet ??? severe or persistent headache ??? sudden leg pain, swelling, warmth or redness ??? loss of movement anywhere on the body ??? shortness of breath ??? bloody or dark, tarry stools ??? symptoms of stroke (such as one-sided weakness, slurred speech, confusion) ??? difficulty swallowing ??? unusual or unexplained tiredness or weakness ??? blood in urine ??? blurring or changes of vision A few people may have an allergic reaction to this medicine. Symptoms can include difficulty breathing, skin rash, itching, swelling, or severe dizziness. If you notice any of these symptoms, seek medical help quickly. ?? Extra Please speak with your doctor, nurse, or pharmacist if you have any questions about this medicine. ?? [email or web address] IMPORTANT NOTE: This document tells you briefly how to take your medicine, but it does not tell youall there is to know about it. Your doctor or pharmacist may give you other documents about your medicine. Please talk to them if you have any questions. Always follow their advice. There is a more complete description of this medicine available in [place]i. Scan this code on your smartphone or tablet or use the web address below. You can also ask your pharmacist for a printout. If you have any questions, please ask your pharmacist. The display and use of this drug information is subject to Terms of Use. Copyright(c) 2022 [employer]. ?? [employer]. All rights reserved. This information is not intended as a substitute for professional medical care. Always follow your healthcare professional's instructions. ?? * Shay De La Cruz DO: PERFORM Event Display: Patient Education Leaflets Authored Date: Pulmonary Embolism (PE) ?? 85990 Pulmonary Embolism (PE) A pulmonary embolus is most often due to a blood clot that develops in a deep vein of the leg (deepvein thrombosis). If that clot breaks loose and travels to the lung, it's called a pulmonary embolism (PE). This can cut off blood flow in the lungs. A blood clot in the lungs is a medical emergency and may cause .?? Healthcare providers use the term??venous thromboembolism (VTE)??to describe these 2 conditions: deep vein thrombosis and??pulmonary embolism.??They use the term VTE because the 2 conditions are veryclosely linked. And because their prevention and treatment are also closely linked.?? A pulmonary embolism occurs when a blood clot forms in a vein and travels to the lungs. How is pulmonary embolism diagnosed? Your healthcare provider examines you and asks about your??symptoms and health history. You may also have one or more of the following: ??? Blood tests??to check for blood clotting or other problems ??? Imaging tests??to??look for clots in the veins or lung ??? Electrocardiography (ECG)??to test how well the heart is working ?? How is pulmonary embolism treated? Blood-thinning medicines (anticoagulants). These medicines thin the blood. They may be given as a pill,??as an injection, or through a tube into a vein??(intravenous or??IV). Blood thinners help prevent more blood clots from forming. They also help to??preventan existing clot from getting larger. ??? Thrombolysis. Thrombolytic medicines are??used to quicklydissolve a blood clot. A long, narrow tube (catheter) is used to deliver medicine directly to the clot.??Thrombolytic medicines increase the risk of bleeding. So they are used very carefully. ??? Inferior vena cava (IVC) filter surgery. The vena cava is the body???s largest vein. It carries blood from the body to the heart. A small filter traps blood clots in the lower body and prevents them fromtraveling to the lungs. The filter is inserted into the vein through a catheter. The filter may be used if??blood thinners can't be taken or if they don't work.? Pulmonary embolectomy. This is aprocedure to remove a blood clot in the lungs. It may be done with surgery or with a catheter inserted in the body. It may be done when other treatments aren't safe or don't work. ?? What are the long-term concerns? With treatment, blood clots are often dissolved or removed. Some treatments can even help prevent future clots. But??having a PE can put you at risk for another life-threatening blood clot. So, you will likely need to take anticoagulants to help keep blood clots from forming again. You may need to take this medicine for months or years. You may also need to make lifestyle changes. This may include getting more active and eating healthier.??You may??need to wear elastic (compression) stockings and take breaks on long trips. ?? Call 911 Call 911 or get emergency help if you have: ??? Heavy or uncontrolled bleeding ??? Symptoms of a blood clot that has traveled to the lungs, including: o Chest pain o Trouble breathing o Coughing (may cough up blood) o Fainting o Fast heartbeato Sweating ?? When to call your healthcare provider Call your healthcare provider if you have swelling or pain in your leg, arm, or other area. These are symptoms of a blood clot. You may have bleeding if you take medicine to help prevent blood clots. Call your provider if you have symptoms of bleeding. This includes: ??? Blood in your pee ??? Bleeding with your poop (stool or bowel movements) ??? Bleeding from the nose, gums, vagina, or a cut ?? Last Reviewed Date: 2021 ?? [employer]. All rights reserved. This information is not intended as a substitute for professional medical care. Always follow your healthcare professional's instructions. ?? * Shay De La Cruz DO: PERFORM Event Display: Patient Education Leaflets Authored Date: [id number] Ciprofloxacin Ophthalmic Solution ?? [id number] Ciprofloxacin Ophthalmic Solution Brands: Ciloxan Uses For eye infection. ?? Instructions If you use contact lenses, do not wear them on the days when using these drops. Keep the medicine at room temperature. Avoid heat and direct light. If you forget to take a dose on time, take it as soon as you remember. If it is almost time for thenext dose, do not take the missed dose. Return to your normal schedule. Do not take 2 doses at one time. Tell your doctor and pharmacist about all your medicines. Include prescription and asyt-yug-jastkjolypvskhym, vitamins, and herbal medicines. If you are using another eye medicine, wait at least 5 minutes before using the other medicine. ?? Cautions Keep using this medicine for the full number of days that it is prescribed. Do not stop the medicine even if you start to feel better. Tell your doctor and pharmacist if you ever had an allergic reaction to a medicine. Do not use the medication any more than instructed. This medicine may cause blurry vision. Your ability to stay alert or to react quickly may be impaired by this medicine. Do not drive or operate machinery until you know how this medicine will affect you. It is unknown if this medicine passes into breast milk. Ask your doctor before . During , this medicine should be used only when clearly needed. Talk to your doctor about the risks and benefits. Do not share this medicine with anyone who has not been prescribed this medicine. ?? Side Effects The following is a list of some common side effects from this medicine. Please speak with your doctor about what you should do if you experience these or other side effects. ??? blurry vision ??? burning or stinging ??? discomfort in the eyes ??? itching, redness or dryness of eyes ??? changes in taste or unpleasant taste A few people may have an allergic reaction to this medicine. Symptoms can include difficulty breathing, skin rash, itching, swelling, or severe dizziness. If you notice any of these symptoms, seek medical help quickly. ?? Extra Please speak with your doctor, nurse, or pharmacist if you have any questions about this medicine. ?? [email or web address] IMPORTANT NOTE: This document tells you briefly how to take your medicine, but it does not tell youall there is to know about it. Your doctor or pharmacist may give you other documents about your medicine. Please talk to them if you have any questions. Always follow their advice. There is a more complete description of this medicine available in [place]i. Scan this code on your smartphone or tablet or use the web address below. You can also ask your pharmacist for a printout. If you have any questions, please ask your pharmacist. The display and use of this drug information is subject to Terms of Use. Copyright(c) 2022 [employer]. ?? [employer]. All rights reserved. This information is not intended as a substitute for professional medical care. Always follow your healthcare professional's instructions. ?? Patient Care team information Care Team Personnel Name: Rula Patel RN Position: [facility] RN Member Role: Primary Care Nurse Name: Daniella Castañeda MD Position: [facility] Outreach Member Role: PCP Address: Address: [address] [place] [id number] Name: Lori Smiley RN Position: S RN Member Role: Primary Care Nurse Name: Miri Altman RN Position: S RN Member Role: Primary Care Nurse Name: Karina Rodriguez RN Position: [facility] RN Dollyv Member Role: Primary Care Nurse Name: Roxane Jang RN Position: S RN Member Role: Primary Care Nurse Name: Jordi Garcia RN Position: S RN Member Role: Primary Care Nurse Name: Ayesha Cannon RN Position: S RN Member Role: Primary Care Nurse Name: Carlene Gastelum RN Position: S RN Member Role: Primary Care Nurse Name: Olivia Hannon RN Position: S RN Member Role: Primary Care Nurse Name: Kathia Moe RN Position: [facility] RN Member Role: Primary Care Nurse Name: Rohith Skinner RN Position: [facility] RN Member Role: Primary Care Nurse Name: Helena De La Paz RN Position: [facility] RN Member Role: Primary Care Nurse Name: Cheryl Rob RN Position: [facility] RN Member Role: Primary Care Nurse Name: Kelley Velazquez RN Position: [facility] RN Member Role: Primary Care Nurse Name: Re Mckeon RN Position: [facility] RN Member Role: Primary Care Nurse Name: Paddy Rowe RN Position: [facility] RN Member Role: Primary Care Nurse Name: Shweta Ahmadi NP Position: [facility] Associate Professional Member Role: Lifetime Consulting Provider Address: Address: [address] [place] [address] [facility] [address] Name: Reece William MD Position: [facility] Renal MD Member Role: Lifetime Consulting Physician Address: Address: [address] [place] [address] [facility] [address] Name: Courtney Clemente RN Position: [facility] RN Member Role: Primary Care Nurse Name: Tiffany Macias RN Position: [facility] RN Member Role: Primary Care Nurse Name: Hever Jones DO Position: [facility] Renal MD Member Role: Lifetime Consulting Physician Address: Address: [address] [place] [address] [facility] [address] Name: Dary Sewell RN Position: [facility] RN Member Role: Primary Care Nurse Name: Miri Do RN Position: [facility] RN Member Role: Primary Care Nurse Name: Tiffany Chen Position: [facility] RN Member Role: Primary Care Nurse Name: Brandon Johnson RN Position: [facility] RN Member Role: Primary Care Nurse Name: Shruthi Zhou RN Position: [facility] RN Member Role: Primary Care Nurse Name: Angie Sahu RN Position: [facility] RN Robert Member Role: Primary Care Nurse Name: Jessica Gonzales RN Position: [facility] RN Member Role: Primary Care Nurse Name: Jazmin Hercules RN Position: [facility] RN Member Role: Primary Care Nurse Name: Caprice Robles Position: [facility] AMB Nurse Member Role: Primary Care Nurse Name: Nadia White RN Position: [facility] RN Member Role: Primary Care Nurse Name: Lavinia [place] RN Position: [facility] RN Member Role: Primary Care Nurse Name: Minal Gonzalez RN Position: [facility] RN Member Role: Primary Care Nurse Name: Rosa Gardner RN Position: [facility] RN Member Role: Primary Care Nurse Name: Lizzy Cornejo RN Position: [facility] RN Member Role: Primary Care Nurse Name: Sangita Richardson RN Position: [facility] SN RN Member Role: Primary Care Nurse Name: Velma Thorpe RN Position: [facility] RN Member Role: Primary Care Nurse Name: Rand HAND REAMERCheryl Position: [facility] Associate Professional Member Role: Primary Care Nurse Address: Address: [address] [place] [address] [facility] [place] [address]- [place] Name: Shelbie Lopez RN Position: [facility] RN Member Role: Primary Care Nurse Name: Shanell Pierce RN Position: [facility] RN Member Role: Primary Care Nurse Name: Chayito Mcdonough LPN Position: [facility] RN Member Role: Primary Care Nurse Name: Rhona Barron RN Position: [facility] RN Member Role: Primary Care Nurse Name: Amber Garcia RN Position: [facility] RN Member Role: Primary Care Nurse Name: Jessica Aleman RN Position: [facility] RN Member Role: Primary Care Nurse Name: Romi García RN Position: [facility] Onco RN Member Role: Primary Care Nurse [facility] Attending Position: [facility] ED Attendings Patient Name: Fouzia Jackman MD Position: [facility] ED Medicine MD Member Role: ED Attending Physician Address: Address: [address] [place] [address] [place] [address]- [place] Name: Manuela Armenta Position: [facility] ED TA [facility] Member Role: Lacquer Polisher Name: Alyx Carrillo RN Position: [facility] ED RN W/OE and Tasks Member Role: Patient Care Provider Care Team Related Persons Name: DARYL FAIR Address: home [address] [place] [address] Name: CECE SOSA Address: home [address] [facility] [place] [address] [place] Name: CECE SOSA Address: [place] [address]
--- OUTSIDE RECORDS SUMMARY | 2023-02-28 10:47 | XMS_ITS | Continuity of Care Document ---
Author Name Unknown Organization [facility] Infectious Disease Address [address] [place] [address]- Care Team Providers Care Bookie Name Role Phone Daniella Castañeda MD Primary Care Physician Encounter [facility] [place] Date(s): 11/15/22 - 12/15/22 [facility] [address] [place] [id number] Attending Physician: Jocelynn Liang Admitting Physician: AdmtrJocelynn Referring Physician: Admtr, Ar8 Allergies, Adverse Reactions, Alerts No Known Allergies Medications apixaban 5 mg oral tablet = 5 mg, By Mouth, 2 times a day, # 60 tablet, 0 Refills, Maintenance, 11/02/22 9:44:00 EDT, Tablet,[id number], Partial fill upon patient request if the [...] last 30 days entered on: 07/12/18 Sex Laboratory * Event Display: Non BH Lab Results Authored Date: Patient Care team information Care Team Personnel Name: Rula Patel RN Position: [facility] RN Member Role: Primary Care Nurse Name: Daniella Castañeda MD Position: S Outreach Member Role: PCP Address: Address: [address] [place] [address]- Name: Lori Smiley RN Position: [facility] RN Member Role: Primary Care Nurse Name: Karina Rodriguez RN Position: [facility] RN Supv Member Role: Primary Care Nurse Name: Jordi Garcia RN Position: [facility] RN Member Role: Primary Care Nurse Name: Ayesah Cannon RN Position: [facility] RN Member Role: Primary Care Nurse Name: Olivia Hannon RN Position: [facility] RN Member Role: Primary Care Nurse Name: Kathia Moe RN Position: [facility] RN Member Role: Primary Care Nurse Name: Rohith Skinner RN Position: [facility] RN Member Role: Primary Care Nurse Name: Helena De La Paz RN Position: [facility] RN Member Role: Primary Care Nurse Name: Cheryl Rob RN Position: [facility] RN Member Role: Primary Care Nurse Name: Kelley Velazquez RN Position: [facility] RN Member Role: Primary Care Nurse Name: Re Mckeon RN Position: [facility] RN Member Role: Primary Care Nurse Name: Paddy Rowe RN Position: [facility] RN Member Role: Primary Care Nurse Name: Shweta Ahmadi NP Position: [facility] Associate Professional Member Role: Lifetime Consulting Provider Address: Address: [address] [place] [address] [address] [facility] [place] [address]- Name: Reece William MD Position: [facility] Renal MD Member Role: Lifetime Consulting Physician Address: Address: [address] [place] [address] [address] [facility] [place] - Name: Courtney Clemente RN Position: [facility] RN Member Role: Primary Care Nurse Name: Tiffany Macias RN Position: [facility] RN Member Role: Primary Care Nurse Name: Hever Jones DO Position: [facility] Renal MD Member Role: Lifetime Consulting Physician Address: Address: [address] [place] [address] [address] [facility] [place] [address]- Name: Leana Rivera RN Position: [facility] RN Member Role: Primary Care Nurse Name: Dary Sewell RN Position: [facility] RN Member Role: Primary Care Nurse Name: Miri Do RN Position: [facility] RN Member Role: Primary Care Nurse Name: Tiffany Chen Position: [facility] RN Member Role: Primary Care Nurse Name: Brandon Johnson RN Position: [facility] RN Member Role: Primary Care Nurse Name: Shruthi Zhou RN Position: [facility] RN Member Role: Primary Care Nurse Name: Angie Sahu RN Position: [facility] RN Supv Member Role: Primary Care Nurse Name: Jessica Gonzales RN Position: [facility] RN Member Role: Primary Care Nurse Name: Miri Gutiérrez RN Position: [facility] RN Member Role: Primary Care Nurse Name: Caprice Robles Position: [facility] AMB Nurse Member Role: Primary Care Nurse Name: Nadia White RN Position: [facility] RN Member Role: Primary Care Nurse Name: Lavinia [place] RN Position: [facility] RN Member Role: Primary Care Nurse Name: Minal Gonzalez RN Position: [facility] RN Member Role: Primary Care Nurse Name: Lizzy Cornejo RN Position: [facility] RN Member Role: Primary Care Nurse Name: Sangita Richardson RN Position: [facility] SN RN Member Role: Primary Care Nurse Name: Velma Thorpe RN Position: [facility] RN Member Role: Primary Care Nurse Name: Cheryl Gordillo NP Position: [facility] Associate Professional Member Role: Primary Care Nurse Address: Address: [address] [place] [address] [facility] [place], [place] [address] Name: Shelbie Lopez RN Position: [facility] RN Member Role: Primary Care Nurse Name: Shanell Pierce RN Position: [facility] RN Member Role: Primary Care Nurse Name: Rhona Barron RN Position: [facility] RN Member Role: Primary Care Nurse Name: Amber Garcia RN Position: [facility] RN Member Role: Primary Care Nurse Name: Jessica Aleman RN Position: [facility] RN Member Role: Primary Care Nurse Name: Romi García RN Position: [facility] Onco RN Member Role: Primary Care Nurse Care Team Related Persons Name: DARYL FAIR Address: home [address] [place] [address] Name: CECE [place]A Address: [place] [address] Name: CECE SOSA Address: home [address] [facility] [address] [place] [address]
--- OUTSIDE RECORDS SUMMARY | 2023-02-28 10:47 | XMS_ITS | Continuity of Care Document ---
Author Name Unknown Organization [facility] Address [address] [place] [address] sabas, [address] [place] [address]- Care Team Providers Care High School Social Studies Tutor Name Role Phone Maddy PERALTA, Daniella Primary Care Physician Encounter [facility] [place] Date(s): 05/16/20 - 06/15/20 [facility] Thoracic Surgery [address] [place] [address] Drive, [address] [place] [address]- Allergies, Adverse Reactions, Alerts Substance Reaction Severity [...]
--- OUTSIDE RECORDS SUMMARY | 2023-02-28 10:47 | XMS_ITS | Continuity of Care Document ---
Author Name Unknown Organization [facility] Address [address] [address]- Care Team Providers Care Kiosk Sales Representative Name Role Phone Maddy PERALTA, Daniella Primary Care Physician [place] [facility] [place]11[place] - 12/11/19 [facility] [address] [address]- [facility] Allergies, Adverse Reactions, Alerts Substance Reaction Severity [...] 11/24/19 15:28:00 EDT, Route to Pharmacy Electronically, [facility] #[id number], 165, cm, 11/16/19 9:48:00EDT, Height, 82.9, kg, 09/30/19 16:29:00 EDT, Dry W... Start Date: 11/24/19 Status: Ordered cloNIDine 0.1 mg oral tablet 0.1 mg, 1, tablet, By Mouth, Daily, # 60 tablet, Refills 0, Tot. Refills 0, Maintenance, 10/27/19 9:20:00 EDT, Route to Pharmacy Electronically, [facility] #[id number], 165, cm, 10/27/19 4:15:00EDT, Height, 82.9, kg, 09/30/19 16:29:00 EDT, Dry W... Start Date: 10/27/19 Status: Ordered furosemide 80 mg oral tablet 1, tablet, By Mouth, Daily, # 90 tablet, Refills 0, Tot. Refills 0, Maintenance, 11/11/19 16:29:00 EDT, Route to Pharmacy Electronically, [facility] #[id number], 165, cm, 11/08/19 8:55:00 EDT, Height, 82.9, [...] 10/27/19 9:24:00 EDT, Route to Pharmacy Electronically, [facility] #[id number], 165, cm, :15:00 EDT, Height, 82.9, kg, 09/30/19 16:29:00 ED... Start Date: 10/27/19 Status: Ordered SEROquel 25 mg oral tablet 25 mg, 1, tablet, By Mouth, Daily at bedtime, DO NOT TAKE TRAZODONE, # 30 tablet, Refills 0, Tot. Refills 0, Maintenance, 10/28/19 15:46:00 EDT, Route to Pharmacy Electronically, [facility]#[id number], 165, cm, 10/27/19 9:31:00 EDT, Height, 82.9... [...]
--- OUTSIDE RECORDS SUMMARY | 2023-02-28 10:47 | XMS_ITS | Continuity of Care Document ---
Author Name Unknown Organization [facility] ter Address [address] [place] [address]- Care Team Providers Care Black Puller Name Role Phone Maddy PERALTA, Daniella Primary Care Physician Encounter [facility] [place] Date(s): 03/01/20 - 03/28/[address] [address]- Discharge Disposition: A-D/C Home Attending Physician: Manuel Mcgraw MD Admitting Physician: Jonathon Schreiber MD Referring Physician: Not on Staff, Referring [...] acetaminophen 325 mg oral tablet 975 mg, Tablet, By Mouth, Every 6 hours, PRN for Temperature, Routine, 03/01/20 23:34:00 EST Start Date: 03/01/20 Stop Date: 03/31/20 Status: Ordered acetaminophen 325 mg oral tablet 975 mg, [...] Gm, IV Infusion, Every 8 hours, for 18 days, # 54 each, 0 Refills, Acute 04/15/20 14:41:00 EST,03/28/20 14:41:00 EST, Partial fill upon patient request if the prescription is for a schedule II opioid drug. Start Date: 03/28/20 Stop Date: 04/15/20 Status: Ordered gabapentin 100 mg oral capsule 100 mg, Capsule, By Mouth, 03/28/20 15:00:00 EST Start Date: 03/28/20 Stop Date: 03/28/20 Status: Completed gabapentin 100 mg oral capsule [...] hours, PRN for Pain , Severe, Routine, 03/16/20 14:25:00 EST Start Date: 03/16/20 Stop Date: 03/30/20 Status: Ordered Problem List Condition Effective Dates Status Health Status Inform ant ARF - Acute renal failure(Confirmed) Active Cholecystitis(Confirmed) Active Depression(Confirmed) Active Empyema(Confirmed) Active Factor 5 Leiden mutation(Confirmed) Active History of opioid abuse, cur rently on methadone(Confirmed) Active 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 REPORT STATUS : FINAL 03/13/2020 TEST:Blood Culture, Second Order STATUS:Auth (Verified) BODY SITE: SOURCE:Blood COLLECTED DATE/TIME:03/08/20 8:45 PM Blood Culture, Second Order SPECIMEN DESCRIPTION : BLOOD LAC SPECIAL REQUESTS : NONE CULTURE : NO GROWTH 5 DAYS. REPORT STATUS : FINAL 03/13/2020 TEST:Blood Culture, Second Order STATUS:Auth (Verified) BODY SITE: SOURCE:Blood COLLECTED DATE/TIME:03/08/20 8:30 AM Blood Culture, Second Order SPECIMEN DESCRIPTION : BLOOD LA SPECIAL REQUESTS : NONE CULTURE : NO GROWTH 5 DAYS. REPORT STATUS : FINAL 03/13/2020 TEST:Blood Culture, Second Order STATUS:Auth (Verified) BODY SITE: SOURCE:Blood COLLECTED DATE/TIME:03/06/20 2:00 PM Blood Culture, Second Order SPECIMEN DESCRIPTION : BLOOD LAC SPECIAL REQUESTS : NONE CULTURE : NO GROWTH 5 DAYS. REPORT STATUS : FINAL 03/11/2020 TEST:Blood Culture STATUS:Auth (Verified) BODY SITE: SOURCE:Blood COLLECTED DATE/TIME:03/06/20 1:45 PM Blood Culture SPECIMEN DESCRIPTION : BLOOD LAC SPECIAL REQUESTS : NONE CULTURE : NO GROWTH 5 DAYS. REPORT STATUS : FINAL 03/11/2020 TEST:Urine Culture STATUS:Auth (Verified) BODY SITE: SOURCE:URINE COLLECTED DATE/TIME:03/02/20 9:30 PM Urine Culture SPECIMEN DESCRIPTION : URINE SPECIAL REQUESTS : NONE Reflexed from [id number] CULTURE : NO GROWTH REPORT STATUS : FINAL 03/04/2020 TEST:Blood Culture, Second Order STATUS:Auth (Verified) BODY SITE: SOURCE:Blood COLLECTED DATE/TIME:03/02/20 9:03 PM Blood Culture, Second Order SPECIMEN DESCRIPTION : BLOOD LAC SPECIAL REQUESTS : CRITICAL VALUE CALLED AND VERIFIED BY READBACK FOR: GRAM POSITIVE COCCI IN BLOOD CULTURE TO [facility], [place]MP [id number], BY TECH 187 AT 1500, 03/03/20 CULTURE : STAPHYLOCOCCUS AUREUS. REPORT STATUS : FINAL 03/05/2020 ORGANISM STAPHYLOCOCCUS AUREUS. METHOD MIN. INHIB. CONC. (MCG/ML) CIPROFLOXACIN SUSCEPTIBLE CLINDAMYCIN SUSCEPTIBLE ERYTHROMYCIN RESISTANT INDUCIBLE CLINDAMYCI NEGATIVE LEVOFLOXACIN SUSCEPTIBLE OXACILLIN SUSCEPTIBLE PENICILLIN RESISTANT RIFAMPIN SUSCEPTIBLE RIFAMPIN RIFAMPIN SHOULD NOT BE USED ALONE FOR ANTIMICROBIAL RIFAMPIN THERAPY. TETRACYCLINE SUSCEPTIBLE TRIMETH/SULFAMETHOX SUSCEPTIBLE VANCOMYCIN SUSCEPTIBLE TEST:Blood Culture STATUS:Auth (Verified) BODY SITE: SOURCE:Blood COLLECTED DATE/TIME:03/02/20 4:21 PM Blood Culture SPECIMEN DESCRIPTION : BLOOD LEFT ARM SPECIAL REQUESTS : CRITICAL VALUE CALLED AND VERIFIED BY READBACK FOR: GRAM POSITIVE COCCI TO B2, [id number], 03/03/20, 18:46, 1969 CULTURE : STAPHYLOCOCCUS AUREUS. FOR SUSCEPTIBILITY RESULT REFER TO BLOOD CULTURE REPORT STATUS : FINAL 03/05/2020 Vital Signs Most recent to oldest [Reference Range]: 1 2 3 Height 165 cm (03/28/20 12:33 PM) 165 cm (03/28/20 8:11 AM) 165 cm (03/28/20 4:22 AM) Weight 78.1 kg (03/13/20 8:47 AM) 78.1 kg (03/01/20 9:48 PM) Oxygen Saturation [94-100 %] 99 % (03/28/20 12:33 PM) 98 % (03/28/20 8:11 AM) 98 % (03/28/20 4:22 AM) Pulse Rate [55-90 bpm] 114 bpm *H* (03/28/20 12:33 PM) 106 bpm *H* (03/28/20 8:11 AM) 86 bpm (03/28/20 4:22 AM) Body Mass Index [18.5-24.99] 28.69 *H* (03/01/20 9:48 PM) Blood Pressure [90-138/55-84 mm Hg] 120/85mm Hg (03/28/20 12:33 PM) 112/81mm Hg (03/28/20 8:11 AM) 113/66mm Hg (03/28/20 4:22 AM) Respiratory Rate [16-30 br/min] 18 br/min (03/28/20 4:55 PM) 18 br/min (03/28/20 3:20 PM) 18 br/min (03/28/20 3:20 PM) Temperature [96.8-100.4 DegF] 98.1 DegF (03/28/20 12:33 PM) 97.9 DegF (03/28/20 8:11 AM) 97.7 DegF (03/28/20 4:22 AM) Liters per Minute 3 L/min (03/13/20 11:20 AM) 5 L/min (03/13/20 11:16 AM) 0 L/min (03/11/20 4:49 AM) Mode of Delivery (Oxygen) Room air (03/28/20 12:33 PM) Room air (03/28/20 8:11 AM) Room air (03/27/20 11:19 PM) Blood pressure sites Arm, left (03/28/20 12:33 PM) Arm, left (03/28/20 8:11 AM) Arm, left (03/28/20 4:22 AM) Temperature Route Oral (03/28/20 12:33 PM) Oral (03/28/20 8:11 AM) Oral (03/28/20 4:22 AM) Dry Weight 78.1 kg (03/01/20 9:48 PM) Weight Obtained Via Bed scale (03/01/20 9:48 PM) Dry Weight Obtained Via Bed scale (03/01/20 9:48 PM) Social History Social History Type Response Smoking Status 10 or more cigarette s (1/2 pack or more)/day in last 30 days entered on: 07/12/18 Sex
--- OUTSIDE RECORDS SUMMARY | 2023-02-28 10:47 | XMS_ITS | Continuity of Care Document ---
Author Name Unknown Organization [facility] ter Address [address] [place] [address]- Care Team Providers Care Automotive Production Worker Name Role Phone Maddy PERALTA, Daniella Primary Care Physician Encounter [facility] [place] Date(s): 10/26/19 - 11/25/[address] [address]- [facility] Attending Physician: Not on Staff, Attending MD Admitting Physician: Not on Staff, Admitting MD Referring Physician: Not on Staff, Referring [...] 11/24/19 15:28:00 EDT, Route to Pharmacy Electronically, [facility] #[id number], 165, cm, 11/16/19 9:48:00EDT, Height, 82.9, kg, 09/30/19 16:29:00 EDT, Dry W... Start Date: 11/24/19 Status: Ordered cloNIDine 0.1 mg oral tablet 0.1 mg, 1, tablet, By Mouth, Daily, # 60 tablet, Refills 0, Tot. Refills 0, Maintenance, 10/27/19 9:20:00 EDT, Route to Pharmacy Electronically, [facility] #[id number], 165, cm, 10/27/19 4:15:00EDT, Height, 82.9, kg, 09/30/19 16:29:00 EDT, Dry W... Start Date: 10/27/19 Status: Ordered furosemide 80 mg oral tablet 1, tablet, By Mouth, Daily, # 90 tablet, Refills 0, Tot. Refills 0, Maintenance, 11/11/19 16:29:00 EDT, Route to Pharmacy Electronically, [facility] #[id number], 165, cm, 11/08/19 8:55:00 EDT, Height, 82.9, [...] 10/27/19 9:24:00 EDT, Route to Pharmacy Electronically, [facility] #[id number], 165, cm, 204:15:00 EDT, Height, 82.9, kg, 09/30/19 16:29:00 ED... Start Date: 10/27/19 Status: Ordered SEROquel 25 mg oral tablet 25 mg, 1, tablet, By Mouth, Daily at bedtime, DO NOT TAKE TRAZODONE, # 30 tablet, Refills 0, Tot. Refills 0, Maintenance, 10/28/19 15:46:00 EDT, Route to Pharmacy Electronically, [facility][id number], 165, cm, 10/27/19 9:31:00 EDT, Height, 82.9... [...]
--- OUTSIDE RECORDS SUMMARY | 2023-02-28 10:47 | XMS_ITS | Continuity of Care Document ---
Author Name Unknown Organization [facility] Thoracic [facility] Address [address] [place] [address] [address], [address] [place] [address]- Care Team Providers Care Tire Worker Name Role Phone Maddy PERALTA, Daniella Primary Care Physician [phone] Encounter [facility] [place] Date(s): 05/25/20 - 06/01/20 [facility] Thoracic Surgery [address] [place] [address] Drive, [address] [place] [address]- Attending Physician: Carlene Bueno NP Allergies, Adverse [...]
--- OUTSIDE RECORDS SUMMARY | 2023-02-28 10:47 | XMS_ITS | Continuity of Care Document ---
Author Name Unknown Organization [facility] Address [address] [address]- Care Team Providers Care Flight Control Tower Operator Name Role Phone Maddy PERALTA, Daniella Primary Care Physician [place] [facility] [place]07/20 [facility] [address] [id number] Allergies, Adverse Reactions, Alerts Substance Reaction Severity [...] Refills, Acute 05/26/2114:16:00 EST, 04/28/20 15:16:00 EST, [facility] #[id number], Partial fill upon patient requestif the prescription [...]
--- OUTSIDE RECORDS SUMMARY | 2023-02-28 10:47 | XMS_ITS | Continuity of Care Document ---
Author Name Unknown Organization [facility] Address [address] [place] [address]- Care Team Providers Care Sample Tailor Name Role Phone Maddy PERALTA, Daniella Primary Care Physician Encounter 11/01/19 - 11/29/19 [facility] [address] [place] [address]- [facility] Discharge Disposition: GOALS MET Allergies, Adverse Reactions, Alerts Substance Reaction Severity [...] 11/24/19 15:28:00 EDT, Route to Pharmacy Electronically, [facility] #[id number], 165, cm, 11/16/19 9:48:00EDT, Height, 82.9, kg, 09/30/19 16:29:00 EDT, Dry W... Start Date: 11/24/19 Status: Ordered cloNIDine 0.1 mg oral tablet 0.1 mg, 1, tablet, By Mouth, Daily, # 60 tablet, Refills 0, Tot. Refills 0, Maintenance, 10/27/19 9:20:00 EDT, Route to Pharmacy Electronically, [facility] #[id number], 165, cm, 10/27/19 4:15:00EDT, Height, 82.9, kg, 09/30/19 16:29:00 EDT, Dry W... Start Date: 10/27/19 Status: Ordered furosemide 80 mg oral tablet 1, tablet, By Mouth, Daily, # 90 tablet, Refills 0, Tot. Refills 0, Maintenance, 11/11/19 16:29:00 EDT, Route to Pharmacy Electronically, [facility] #[id number], 165, cm, 11/08/19 8:55:00 EDT, Height, 82.9, [...] 10/27/19 9:24:00 EDT, Route to Pharmacy Electronically, [facility] #[id number], 165, cm, 204:15:00 EDT, Height, 82.9, kg, 09/30/19 16:29:00 ED... Start Date: 10/27/19 Status: Ordered SEROquel 25 mg oral tablet 25 mg, 1, tablet, By Mouth, Daily at bedtime, DO NOT TAKE TRAZODONE, # 30 tablet, Refills 0, Tot. Refills 0, Maintenance, 10/28/19 15:46:00 EDT, Route to Pharmacy Electronically, [facility]#[id number], 165, cm, 10/27/19 9:31:00 EDT, Height, 82.9... [...]
--- OUTSIDE RECORDS SUMMARY | 2023-02-28 10:47 | XMS_ITS | Continuity of Care Document ---
Author Name Unknown Organization [facility] Address [address] [place] [address]- Care Team Providers Care Turner Off Name Role Phone Maddy PERALTA, Daniella [id number] - 05/28/20 [facility] [address] [address]- Attending Physician: Angela Barreto MD Referring Physician: [...]
--- OUTSIDE RECORDS SUMMARY | 2023-02-28 10:47 | XMS_ITS | Continuity of Care Document ---
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
--- OUTSIDE RECORDS SUMMARY | 2023-02-28 10:47 | XMS_ITS | Continuity of Care Document ---
Author Name Unknown Organization [facility] ter Address [address] [place] [id number] Care Team Providers Care Credit Investigator Name Role Phone Maddy PERALTA, Daniella Primary Care Physician Encounter [facility] R [id number] Date(s): 10/30/22 - 11/02/[address] [address]- Discharge Disposition: A-D/C AMA Attending Physician: Maggie Solorio MD Admitting Physician: Monica Pierre MD Referring Physician: Monica Pierre MD Allergies, Adverse Reactions, Alerts No Known Allergies Medications apixaban 5 mg oral tablet = 5 mg, By Mouth, 2 times a day, # 60 tablet, 0 Refills, Maintenance, 11/02/22 9:44:00 EDT, Tablet,[id number], Partial fill upon patient request if the prescription is for a schedule II opioid drug., 168, cm, 11/01/22 16:56:00 EDT, H... Start Date: 11/02/22 Status: Ordered Methadone Tablet 70 mg, Tablet, By Mouth, 11/02/22 9:00:00 EDT Start Date: 11/02/22 Stop Date: 11/02/22 Status: Completed Problem List Condition Confirmation Course [...] for Microbiology Reports Name Date Blood Culture 10/30/22 Microbiology Reports TEST:Blood Culture STATUS:Unauthenticated BODY SITE: SOURCE:Blood COLLECTED DATE/TIME:10/31/22 11:40 AM Blood Culture SPECIMEN DESCRIPTION : BLOOD NO SITE SPECIAL REQUESTS : NONE CULTURE : NO GROWTH AFTER 48 HOURS REPORT STATUS : PRELIMINARY REPORT Radiology Reports * Exam Date Time Procedure Performing Provider Status 11/01/22 4:18 PM US Chest Joselyn Black; Auth (Verif ied) Notes: (US Chest) Reason For Exam: tenderness around L upper chest generator pocket, evaluate abscess/fluid collection;Other: RESULT: US Chest US Chest INDICATION/CLINICAL QUESTION: Reason: Other:; tenderness around L upper chest generator pocket, evaluate abscess fluid collection; COMPARISON: 10/30/2022 chest x-ray, 09/09/2022 CT scan FINDINGS: High-resolution linear array scanning of the subcutaneous tissues of the left anterior upper chest was performed. Multiple coiled pacemaker leads identified with small amount of surrounding fluid andoverlying subcutaneous edema. No organized fluid collection or localizing hyperemia identified. IMPRESSION: Edema and mild fluid with no organized collection within superficial soft tissues of the left anterior upper chest. WSN: [id number] Ordering Physician: Maggie Solorio Dictated By: Hever Zhang MD Dictated Date/Time: 11/01/22 5:21 pm Reviewed By: Hever Zhang MD Signed By: Hever Zhang MD Signed Date/Time: 11/01/22 5:21 pm Transcribed By: DANILO Transcribed Date/Time: 11/01/22 5:19 pm * Exam Date Time Procedure Performing Provider Status 10/30/22 9:58 PM Chest Portable Phil Hernandez; Auth (Ve rified) Notes: (Chest Portable) Reason For Exam: Picc placcement;Line Placement RESULT: Chest Portable Chest Portable Reason: PICC placement COMPARISON: 09/16/2022 FINDINGS: LINES AND TUBES: Right upper extremity PICC tip is in good position at the superior cavoatrial junction. Left epicardial pacer wires are unchanged. LUNGS AND PLEURA: Markedly improved lung aeration. Minor linear markings lateral chest likely scar. No pleural effusion. No pneumothorax. HEART, MEDIASTINUM AND REJI: Normal heart size. Normal mediastinal and hilar contour. BONES AND SOFT TISSUES: No acute abnormality. IMPRESSION: Right upper extremity PICC in good position. No acute findings. WSN: [id number] Ordering Physician: Gasper Bella Dictated By: Josias Buchanan MD Dictated Date/Time: 10/30/22 11:28 p Reviewed By: Josias Buchanan MD Signed By: Josias Buchanan MD Signed Date/Time: 10/30/22 11:28 pm Transcribed By: DANILO Transcribed Date/Time: 10/30/22 11:27 pm Vital Signs Most recent to oldest [Reference Range]: 1 2 3 Height 168 cm (11/01/22 4:56 PM) 168 cm (11/01/22 11:32 AM) 168 cm (11/01/22 8:06 AM) Weight 68.8 kg (10/30/22 5:32 PM) Oxygen Saturation [94-100 %] 100 % (11/01/22 11:00 PM) 98 % (11/01/22 8:00 PM) 100 % (11/01/22 4:56 PM) Pulse Rate [55-90 bpm] 80 bpm (11/01/22 11:00 PM) 88 bpm (11/01/22 8:00 PM) 89 bpm (11/01/22 4:56 PM) Body Mass Index [18.5-24.99 kg/m2] 24.38 kg/m2 (10/30/22 5:32 PM) Blood Pressure [90-138/55-84 mm Hg] 117/75mm Hg (11/01/22 11:00 PM) 107/69mm Hg (11/01/22 8:00 PM) 122/75mm Hg (11/01/22 4:56 PM) Respiratory Rate [16-30 br/min] 18 br/min (11/02/22 10:13 AM) 18 br/min (11/02/22 9:13 AM) 18 br/min (11/01/22 11:00 PM) Temperature [96.8-100.4 DegF] 97.9 DegF (11/01/22 11:00 PM) 97.8 DegF (11/01/22 8:00 PM) 98.7 DegF (11/01/22 4:56 PM) Mode of Delivery (Oxygen) Room air (11/01/22 11:00 PM) Room air (11/01/22 8:00 PM) Room air (11/01/22 4:56 PM) Blood pressure sites Arm, left (11/01/22 11:00 PM) Arm, left (11/01/22 8:00 PM) Arm, left (11/01/22 4:56 PM) Temperature Route Oral (11/01/22 11:00 PM) Oral (11/01/22 8:00 PM) Oral (11/01/22 4:56 PM) Dry Weight 68.8 kg (10/30/22 5:32 PM) Social History Social History Type Response Smoking Status 10 or more cigarette s (1/2 pack or more)/day in last 30 days entered on: 07/12/18 Sex History and physical note * Gasper Bella MD: PERFORM Event Display: History and Physical Hospital Authored Date: [id number] Patient: ??LIZZY BARNES ? Age:??31 Years?Sex:??Female?:??1990?? Chief Complaint/Reason for Consultation chest swelling around pacemaker History of Present Illness Patient is a 31-year-old female with past medical history of IV drug use, methadone therapy, endocarditis of bioprosthetic tricuspid valve replacement in 2019, recurrent endocarditis,Biv pacemaker implantation,??factor V Leyden,??currently at[facility]??receiving IV vancomycin for endo carditis infection,??presented to [facility] for vascular access problem. ??Patient??reported left anterior??chest discomfort??over the implanted device. ?? Based on??transfer??summary??and??information obtained from patient,??in early September at [facility]??treated for tricuspid bioprosthetic valve endocarditis??and MSSA bacteremia??discharged on oxacillin, ertapenem??to a ??correction in [place].?? From the correction she was transferred to [facility] for recurrent fever??about a month ago. ??During the admission she was found to have a PE.?? She has history of factor V Leyden and had PE was thought to be related to noncompliance??she was restarted on Eliquis.?? Records of management at the correction and??[facility] not available for my review. ?? She noticed left anterior chest pain and swelling few days ago. ??She also reports losing 30 poundssince being sick.?? She initially thought that the swelling was due to her??pacemaker lead becomingmore prominent??due to weight loss.?? The area is more painful and uncomfortable to touch??now.?? No fever or chills reported.?? No chest pain or shortness of breath or abdominal pain reported.?? Shedenies any substance use for the past 2-1/2 months. ?? At[facility]bedside ultrasound done with??question of fluid collection??around the device. Team reached out to [facility]??cardiac surgery Dr. Barreto??who recommended getting a CT chest??to better assess.?? CT scan was done. At the epicardial leads in the chest wall there is a small amount of hypodensity surrounding the leads in the area of the pectoralis muscle??medially??which may represent a small amount of fluid.?? Mild enlargement of pectoralis muscle in the area.?? No evidence of subcutaneous fat stranding or cutaneous thickening.?? No peripherally enhancing collection is identified.?? No??fluid in the adjacent mediastinum.?? Differentials include seroma, inflammation, possible infection.?? She was given Eliquis, continue the vancomycin??and was transferred here for??cardiac surgery evaluation. ?? At outside hospital and to me?? she expressed wishes for??discontinuation of IV vancomycin and conversion to some oral antibiotics??as she does not want to go to [facility].?? Nurse and hospitalist team called her correction and confirmed that she needs to be on IV vancomycin through PICC line until 11/12.?? Of note patient reports that her PICC line was never changed it??to intervention??when she went there as she is not available for blood culture results.?? Also I am unable to find blood culture??results from [facility]. ?? She received Eliquis??5 mg on 10/30/2022??at 2:35 AM.?? Methadone 60 mg??today morning, vancomycin??750 mg??x 2, last dose was today morning at 821,??Tylenol? Review of Systems All other review of systems were negative with the exception of those noted above in the HPI.?? Objective Measurements?? Height: 168 cm (10/31/22) Weight: 68.8 kg (10/30/22) Dry Weight: 68.8 kg (10/30/22) Body Mass Index: 24.38 kg/m2 (10/30/22) ? Vital Signs?? Temperature: 98.2 DegF (10/31/22 05:34:00) Temperature Route: Oral (10/31/22 05:34:00) Pulse Rate: 81 bpm (10/31/22 05:34:00) Respiratory Rate: 20 br/min (10/31/22 05:34:00) Vented: No (10/30/22 17:00:00) Systolic Blood Pressure: 120 mm Hg (10/31/22 05:34:00) Diastolic Blood Pressure: 78 mm Hg (10/31/22 05:34:00) Blood pressure sites: Arm, left (10/31/22 05:34:00) Mean Arterial Pressure: 92 mm Hg (10/31/22 05:34:00) Pulse Pressure: 42 mm Hg (10/31/22 05:34:00) Oxygen Saturation: 100 % (10/31/22 05:34:00) Mode of Delivery (Oxygen): Room air (10/31/22 05:34:00) Early Warning Score: 0 (10/31/22 05:35:13) ? Intake/Output? No Data Available ? Physical Exam Constitutional: Alert, in no acute distress. Head EENT: Extraocular muscle movement intact.??Moist mucous membranes.?? Neck: Supple. No JVD. Respiratory: Clear to auscultation. No wheezing or crackles. No use of accessory muscles. Cardiovascular: Tenderness over the pacemaker site, no redness or drainage, no significant warmth. soft appearing mild swelling. Valvular sounds heard. No murmurs, rubs or gallops. Gastrointestinal: Abdomen soft, non-tender, non-distended. Normal bowel sounds. Genitourinary: No CVA tenderness. Extremities: No lower extremity pitting??edema. No cyanosis .PICC in left arm Neurologic: AAOx3, Speech normal. No focal neurological deficits. Skin: No rash. Psychiatric: Normal mood and affect Assessment/Plan Diagnoses ? Fluid collection??around??epicardial pacemaker lead Left chest wall??swelling and pain? History of Tricuspid bioprosthetic valve infective endocarditis MSSA bacteremia History of IV drug use, on methadone -No leukocytosis on labs at outside hospital,-Sodium 133, potassium 4.6,??creatinine 1.1,??CRP??46.1,??ESR 88, beta-hCG negative,Trend white cell count and temp curve, no leucocytosis or fever at OSH CT chest -There was an addendum to CT chest at 11:05 PM this morning.?? At the epicardial leads in the chestwall there is a small amount of hypodensity surrounding the leads in the area of the pectoralis muscle??medially??which may represent a small amount of fluid.?? Mild enlargement of pectoralis muscle in the area.?? No evidence of subcutaneous fat stranding or cutaneous thickening.?? No peripherally enhancing collection is identified.?? No??fluid in the adjacent mediastinum.?? Differentials includeseroma, inflammation, possible infection. -Scattered linear??opacities??throughout the lung??more in the dependent regions likely atelectasisor scar. -Labs from outside hospital with no leukocytosis,??creatinine??1.1,??afebrile -Continue cardiac telemetry monitoring,??aspirin instead of??Eliquis pending surgery evaluation -Blood cultures not available, unclear if they were drawn.?? Requested blood cultures but patient refusing lab draws. ??Wants to get it done tomorrow morning. -Chest x-ray obtained for PICC line.?Appears to be in good position. ??RN will attempt to flush PICC line and use for vancomycin infusion. -Continue vancomycin 750 mg??every 12 hours - Day team to confirm methadone dose in the morning in order.?? Not ordered for now.?? Patient states she is on 70 mg every day and being increased by 5 mg every third day. -[place] team to request records from [place]. ??Unclear why antibiotic was changed to vancomycin and if PICC line was removed. ??Patient states that the PICC line was not changed at [place]??zenon having the same PICC line??which she was discharged from??[facility] team to consult cardiac surgery??for evaluation. Her surgeon was Dr. Barreto? I was informed by RN that there was resistance with PICC line flush.?? Chest x- ray ordered and appears okay on my review.?? Patient refusing new IV line so unable to give vancomycin till PICC line working.?? Alteplase ordered for catheter clearance.?? RN to call IV team to attempt catheter clearance versus PICC line exachange. ? Recent PE Factor V getting mutation History of anemia Thrombocytopenia - Labs from 10/29/2022, white cell count 8.35, hemoglobin 10.9, platelet 127. - Vitals at outside hospital but??Tmax of 98.4??heart rate ranging from 86-98, blood pressure stable - She received Eliquis??5 mg on 10/30/2022??at 2:35 AM.?Hold Eliquis in anticipation for need for??surgical intervention??I ordered heparin drip as patient refusing??lab draws.?? We will give 1 dose of Lovenox. ?? Lovenox tonight, further??heparin to be ordered??based on surgery plan Full code, confirmed with patient ? Histories Allergies Allergies ?(Active and Proposed [...] Use: Never. ? Family History No family history??of endocarditis ? Medications Home Medications apixaban?5?Milligram?By Mouth?2 times a day Clonidine [...] mg oral capsule, extended release)?37.5?Milligram?By Mouth?Daily ? Inpatient Medications Medications (7) Active SCHEDULED: (2) NaCl 0.9% Flush 3ml (NaCL 0.9% Flush) ??3 mL, IV Push, Every 8 hours Vancomycin 750 mg/D5W 150 mL (Vancomycin IVPB) ??750 mg 150 mL, IVPB, Every 12 hours CONTINUOUS: (0) PRN: (5) Acetaminophen 325 mg Tablet (Acetaminophen Tablet) ??650 mg, By Mouth, Every 4 hours Melatonin 3 mg Tablet (Melatonin Tablet) ??3 mg, By Mouth, Daily at bedtime NaCl 0.9% Flush 3ml (NaCL 0.9% Flush) ??3 mL, IV Push, Every 8 hours Polyethylene Glycol 17 Gm Powder (MiraLax Powder) ??17 Gm 1 pack/packet, By Mouth, Daily Senna 8.6 mg / Docusate 50 mg tablet (Docusate/Senna Tablet) ??1 tablet, By Mouth, 2 times a day ? Results Recent Labs VIROLOGY COVID-19 PCR Specimen Source NASAL ()?? 10/30/2022 18:21 COVID-19 PCR Result NEGATIVE ()?? 10/30/2022 18:21 ? EKG study * Event Display: ECG 12-Lead Authored Date: Please click on pdf link to open report * Event Display: ECG 12-Lead Authored Date: Ventricular Rate: 81 BPM Atrial Rate: 81 BPM P-R Interval: 156 ms QRS Duration: 100 ms Q-T Interval: 418 ms QTC Calculation(Bazett): 485 ms P Collyer: 34 degrees R Collyer: 81 degrees T Collyer: 49 degrees Normal sinus rhythm Possible Left atrial enlargement Incomplete right bundle branch block Prolonged QT Abnormal ECG When compared with ECG of 26-AUG-2022 04:59, Vent. rate has decreased BY 56 BPM Confirmed by TOY MANCINI ([id number]) on 11/01/2022 10:06:41 AM [place]: TOY MANCINI Hospital Progress note * Lizzy Espinoza RN: PERFORM, SIGN, VERIFY Event Display: Progress Note Hospital Authored Date: [id number] Patient: LIZZY BARNES Age: 31 years Sex: Female : 1990 Associated Diagnoses: None Author: Lizzy Espinoza RN Findings Evaluation Pt very anxious and agitated this AM, demanding to leave AMA after numerous talks to her by this RNand the covering MD about the importance of staying and finishing her IV abx course at [facility]. There is no evidence of understanding or listening from the pt. PICC line was removed by IV team. AMA paper signed by pt. Methadone last dose note given to pt. Pts Mother picked her up to bring her home. Pt noncompliant with understanding the medical advice given to her. Discharge Information Case Management Discharge Plan : Case Management Discharge Plan Data 11/02/2022 9:58 EDT Discharge Level of Care at Discharge Home/Intermediate/Foster Care Discharge Nursing Homes/Rehab Facilities [facility] 11/01/2022 9:07 EDT Discharge Nursing Homes/Rehab Facilities [facility] * Daniel Sanchez RN: SIGN, MODIFY, PERFORM, SIGN, VERIFY Event Display: Progress Note Hospital Authored Date: [id number] Patient: LIZZY BARNES Age: 31 years Sex: Female : 1990 Associated Diagnoses: None Author: Daniel Sanchez RN Findings Narrative/Incidental 1x bout of nausea - zofran given w/ good effect. Pt refused Noc admin of Enoxaparin. Cont to monitor.. Discharge Information Case Management Discharge Plan : Case Management Discharge Plan Data 11/01/2022 9:07 EDT Discharge Nursing Homes/Rehab Facilities [facility] * Daniel Sanchez RN: PERFORM Event Display: Progress Note Hospital Authored Date: Pt refused morning labs and morning VS. Cont to monitor. * Maggie Solorio MD: MODIFY, PERFORM Event Display: Progress Note Hospital Authored Date: Patient: ??LIZZY BARNES ? Age:??31 Years?Sex:??Female?:??1990?? Subjective No acute events overnight. PICC able to use after [facility] labs drawn yesterday afternoon reviewed, blood culture pending, culture only obtained from PICC as patient refused phlebotomy. Patient is alert and oriented, no long showing signs of opioid withdrawal, calm and pleasant, endorse improvement in L upper chest no longer tender on palpation, case reviewed with cardiac surgery will obtain a U/S to evaluate fluid collection around that area. ?? Called [facility] microbiology and no culture was collected there before transfer. Review of Systems Constitutional:??No weight loss, fever, chills, weakness or fatigue. Cardiovascular:??no chest pain Respiratory:??No shortness of breath, cough or sputum production. Gastrointestinal:??No anorexia, nausea, vomiting or diarrhea. No abdominal pain or blood in stool. Genitourinary:??No burning micturition. No urinary frequency or incontinence. Neurologic:??No headache, dizziness, syncope, unilateral weakness, ataxia, numbness or tingling in the extremities. No change in bowel or bladder control. Objective Measurements?? Height: 168 cm (11/01/22) Weight: 68.8 kg (10/30/22) Dry Weight: 68.8 kg (10/30/22) Body Mass Index: 24.38 kg/m2 (10/30/22) ? Vital Signs?? Temperature: 98.3 DegF (11/01/22 11:32:00) Temperature Route: Oral (11/01/22 11:32:00) Pulse Rate: 86 bpm (11/01/22 11:32:00) Respiratory Rate: 18 br/min (11/01/22 11:32:00) Systolic Blood Pressure: 117 mm Hg (11/01/22 11:32:00) Diastolic Blood Pressure: 78 mm Hg (11/01/22 11:32:00) Blood pressure sites: Arm, left (11/01/22 11:32:00) Mean Arterial Pressure: 91 mm Hg (11/01/22 11:32:00) Pulse Pressure: 39 mm Hg (11/01/22 11:32:00) Oxygen Saturation: 98 % (11/01/22 11:32:00) Mode of Delivery (Oxygen): Room air (11/01/22 11:32:00) Early Warning Score: 4 (11/01/22 11:33:27) ? Pain Scores?? No qualifying data available. ? Intake/Output? 10/30 17:27 11/01 07:00 10/31 07:00 10/30 07:00 10/29 07:00 ?? 11/01 14:04 11/01 14:04 11/01 06:59 10/31 06:59 10/30 06:59 Intake ? 2902 ? 1280 ? 1622 ?0 ?0 Output ?0 ?0 ?0 ?0 ?0 Net Total ? 2902 ? 1280 ? 1622 ?0 ?0 ? Urine Count ?6 ?3 ?3 ?0 ?0 ? Precautions No Precautions documented.? Physical Exam Constitutional: Alert, in no acute distress. Head EENT: Extraocular muscle movement intact.??Moist mucous membranes.?? Respiratory: Clear to auscultation. No wheezing or crackles. No use of accessory muscles. Cardiovascular: S1S2 regular. No murmurs, rubs or gallops. Gastrointestinal: Abdomen soft, non-tender, non-distended. Normal bowel sounds. Extremities: No lower extremity pitting??edema. No cyanosis or clubbing. Neurologic: AAOx3, Speech normal. No focal neurological deficits. Skin: L upper chest no erythema, previous tenderness area no longer tender Psychiatric: Normal mood and affect _ Inpatient Medications Medications (11) Active SCHEDULED: (5) Enoxaparin 80 mg Inj (Enoxaparin Inj) ??70 mg 0.7 mL, Subcutaneous Injection, Every 12 hours Heparin Lock Flush 50 units / 5 mL (Heparin Flush 10 units/mL Inj) ??50 units 5 mL, IV Push, Daily Methadone 10 mg Tablet (Methadone Tablet) ??70 mg, By Mouth, Daily NaCl 0.9% Flush 3ml (NaCL 0.9% Flush) ??5 mL, IV Push, Daily Vancomycin 750 mg/D5W 150 mL (Vancomycin IVPB) ??750 mg 150 mL, IVPB, Every 12 hours CONTINUOUS: (0) PRN: (6) Acetaminophen 325 mg Tablet (Acetaminophen Tablet) ??650 mg, By Mouth, Every 4 hours Melatonin 3 mg Tablet (Melatonin Tablet) ??3 mg, By Mouth, Daily at bedtime NaCl 0.9% Flush 3ml (NaCL 0.9% Flush) ??5 mL, IV Push, Every hour nalOXONE ??400mcg/mL Inj (nalOXONE Inj) ??0.2 mg 0.5 mL, IV Push, Every 5 minutes Polyethylene Glycol 17 Gm Powder (MiraLax Powder) ??17 Gm 1 pack/packet, By Mouth, Daily Senna 8.6 mg / Docusate 50 mg tablet (Docusate/Senna Tablet) ??1 tablet, By Mouth, 2 times a day ? 72 Hour Antibiotic History Active Antibiotics Calendar Day Last Administered First Administered Vancomycin??750 mg, 150 mL, 150 mL/hr, IVPB, Every 12 hours ?2 10/31/2022 22:33 10/31/2022 11:28 ? Results Recent Labs BLOOD COUNT & DIFF WBC 8.7 k/mm3 ()?? 10/31/2022 11:40 RBC 3.92 m/mm3 (Low)?? 10/31/2022 11:40 Hgb 10.6 Gm/dL (Low)?? 10/31/2022 11:40 Hct 33.2 % (Low)?? 10/31/2022 11:40 MCV 84.7 femtoliters ()?? 10/31/2022 11:40 MCH 27.0 pg ()?? 10/31/2022 11:40 MCHC 31.9 g/dL (Low)?? 10/31/2022 11:40 Platelet Count 92 k/mm3 (Low)?? 10/31/2022 11:40 RDW-SD 41.5 femtoliters ()?? 10/31/2022 11:40 MPV NOT MEASURED femtoliters ()?? 10/31/2022 11:40 Nucleated RBC (Automated) 0.0 #/100 WBC'S ()?? 10/31/2022 11:40 Abs. NRBC 0.0 k/mm3 ()?? 10/31/2022 11:40 ?? CHEM GENERAL Sodium 135 mmol/L ()?? 10/31/2022 11:40 Potassium 4.0 mmol/L ()?? 10/31/2022 11:40 Chloride 98 mmol/L ()?? 10/31/2022 11:40 Bicarbonate Level 25 mmol/L ()?? 10/31/2022 11:40 Anion Gap 12 ()?? 10/31/2022 11:40 Glucose Level 173 mg/dL (High)?? 10/31/2022 11:40 BUN 15 mg/dL ()?? 10/31/2022 11:40 Creatinine-Blood 1.1 mg/dL (High)?? 10/31/2022 11:40 Estimated GFR Creatinine 69 ML/MIN/1.73 M2 ()?? 10/31/2022 11:40 Calcium 9.7 mg/dL ()?? 10/31/2022 11:40 Protein, Total 8.8 Gm/dL (High)?? 10/31/2022 11:40 Albumin 3.5 Gm/dL ()?? 10/31/2022 11:40 AG Ratio 0.7 ()?? 10/31/2022 11:40 Alkaline Phosphatase 126 units/L (High)?? 10/31/2022 11:40 AST (SGOT) 15 units/L ()?? 10/31/2022 11:40 ALT (SGPT) 10 units/L ()?? 10/31/2022 11:40 Bilirubin, Total 0.5 mg/dL ()?? 10/31/2022 11:40 ?? COAG INR 1.1 ()?? 10/31/2022 11:40 Protime (PT) 12.0 seconds (High)?? 10/31/2022 11:40 APTT 28.5 seconds ()?? 10/31/2022 11:40 ?? URINE OTHER Est Creatinine Clearance 69.75 mL/min ()?? 10/31/2022 12:55 ? Assessment/Plan Chief Complaint: chest swelling around pacemaker ?? Suspect??CIED pocket infection -no longer tender on today's exam, blood culture from yesterday negative to date, afebrile -[facility] chest at [facility] showed: At the epicardial leads in the chest wall there is a small amount of hypodensity surrounding the leads in the area of the pectoralis muscle??medially??which may represent a small amount of fluid.?? Mild enlargement of pectoralis muscle in the area.?? No evidence of subcutaneous fat stranding or cutaneous thickening.?? No peripherally enhancing collection is identified.??No??fluid in the adjacent mediastinum.?? Differentials include seroma, inflammation, possible infection. -cardiac surgery consult appreciated overall low suspicion will obtain U/S to evaluate fluid collection ?? History of TV endocarditis s/p bioprosthetic TVR 2019 History of empyema and loculated hemothorax s/p VATS with decortication 2019 Prosthetic TV endocarditis -s/p AngioVac during last admission originally planned on oxacillin with rifabutin but abx switchedto vancomycin due to CoNS resistant to oxacillin at [place], EOT 11/12, will follow repeat culture in house ?? Opioid use disorder, severe with dependence -continue methadone 70 mg daily, QTc noted ?? Subsegmental PE Factor V Leiden -last dose of Eliquis was on 10/30 AM, resume Lovenox 11/01 PM if no surgery plan will transition back to DOAC ?? Pseudothrombocytopenia -clumping noted on smear, no further workup needed, if need more accurate reading for pre-op planning may check platelet in citrate tube ?? Discussed with RN/CM/cardiac korey; Tele reviewed: NSR, PACs. ?? VTE Prophylaxis:??Lovenox ?VTE Prophylaxis Assessment:??VTE Prophylaxis Ordered ?? Code Status:??Full ?Order Code Status:??Code Status Ordered ?? Ongoing Medical Necessity:??Pacemaker infection cardiac surgery consult ?? Discharge Planning:??SNF ?Order Date/Time ??Order Action ??Order Name ??Order Detail ??11/01/2022 13:58 ??Order ??MD to RN Misc Instruction ??Please sharmaine the area of L upper chest generator pocket for soft tissue U/S, 11/01/22 13:58:00 EDT ??11/01/2022 13:57 ??Order ??US Chest ??Stat, Reason for Exam: Other:, tenderness around L upper chest generator pocket, evaluate abscess/fluid collection, C/Q: Other:, Pt Cannot Stand Alone, 11/01/22 13:57:00 EDT ??11/01/2022 13:48 ??Order ??Enoxaparin 80 mg Inj ??70 mg, 0.7 mL, Subcutaneous Injection, Every 12 hours ? Consult note * Estevan PERALTA, Angela Moralez: PERFORM Event Display: Consultation Note Authored Date: [id number] Patient: ??LIZZY BARNES ? Age:??31 Years?Sex:??Female?:??1990? Ms. Barnes is a 31 year old female who had: 1. 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 ??Biventricular epicardial lead placement ( [id number] RV, ??[id number] LV),?3. ??Evacuation of left hemothorax and extensive [...] 10, 2022, via bilateral femoral veins. Did well.?Groins today appear clean and dry, no issues. ?? She is seen and examined.?? Boyfriend at bedside. she is very alert, appears well and healthy.?? No fevers. Tells me she's been clean for several weeks. ?? Had some mild discomfort of left chest pacer leads.?? No erythema, no drainage. No Leukocytosis No fevers no additional pacer lead pain ?? She is asking to go home. ?? I am unable to review her CT scan from [facility]. ?? Based on physical exam, there does not appear to be anything active. ?? Assessment/plan Factor V Leiden Endocarditis Severe [...] nonvalvular thrombus ? pacer lead inflammation ?? Recs: ultrasound of the left chest over the incision where pacer leads are to assess for any fluid collection; unlikely given negative exam, but this may help guide further management no surgical intervention at this time. ?? Covering surgeon over the weekend is Dr. Rosales. ?? Recommendations communicated via Cortext to??John Solorio MD ?Thank you for allowing us to participate in the care of this patient. ?Please contact me with any further questions or concerns. ?Angela Barreto MD ?[facility] Cardiac Surgery?[address], [address] ?[place] [address] ?Pager: [phone] ?Office: [phone] ? Note * Kim DUQUE, Rosa: PERFORM Event Display: Discharge/Transfer Note Hospital Authored Date: [id number] Nursing Discharge Note Entered On: 11/02/2022 9:59 EDT Performed On: 11/02/2022 9:58 EDT by Rosa Alvarez RN Nursing Discharge Note 2 Discharge Time : 11/02/2022 11:00 EDT Lizzy Espinoza RN - 11/02/2022 11:35 EDT Discharge Level of Care at Discharge : Home/Intermediate/Foster Care Rosa Alvarez RN - 11/02/2022 9:58 EDT Discharge Nursing Homes/Rehab Facilities : PT refusing to return to [facility] Lizzy Espinoza RN - 11/02/2022 11:35 EDT AMA Form Signed : Yes Patient Left Unit Via : Ambulatory Patient Accompanied Off Unit with : Other: self DC Instructions Provided & Signed by Pt : No Patient Understands D/C Instructions : No Verbalization of Discharge Plan Comments : leaving AMA- no discharge paperwork/instructions Patient Instructions Discharge Signed : No Instructions for Discharge Comments : leaving AMA- no discharge paperwork/instructions Did Pt have Specialty Bed or Wound Vac : No Rosa Alvarez RN - 11/02/2022 9:58 EDT * Maggie Solorio MD: PERFORM, MODIFY, MODIFY Event Display: Discharge/Transfer Note Hospital Authored Date: [id number] Patient: ??DOVCHRISTIANOLIZZY ? Age:??31 Years?Sex:??Female?:??1990?? 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 _ Discharge Medications apixaban (apixaban 5 mg oral tablet)?5?Milligram?By Mouth?2 times a day ? Durable Medical Equipment Discharge recommendations: Rehab (09/16/22) Agency Plant Utility Person #1: Intake (09/16/22) Service Categories #1: Occupational Therapy, Oxygen Therapy, Physical Therapy, Residential, Other: Iv antibiotics (09/16/22) Service Comments #1: You are being discharged to rehab. (09/16/22) CPAP/BiPAP Mask Type: Full (09/03/22) CPAP/BiPAP Mask Size: Small (09/03/22) Ambulatory devices needed: None (11/01/22) ? Medications Started Eliquis 5 mg bid Medications Discontinued N/A Doses Changed N/A Allergies Allergies ?(Active and Proposed Allergies Only) NKA? (Severity: Unknown severity, Onset: Unknown) ? Stroke Onset Details Alteplase: 2 mg Service Categories #1: Occupational Therapy, Oxygen Therapy, Physical Therapy, Residential, Other: Iv antibiotics ?? Future Appointments Friday 8:30 AM EDT ?? With: Benito PERALTA [facility] Where: [facility] Infectious Disease [address] [place] [address]- Status: Pending Hospital Course Patient was recent hospitalized at [facility] for prosthetic TV endocarditis with MSSA bacteremia s/p AngioVAC, she was discharged to SNF on 09/17/22 to finish IV abx course, she was admitted to [facility] between 09/30 to 10/13/22??due to recurrent fever with CoNS bacteremia found but source workup was unrevealing, her abx was switched to vancomycin and discharged back to SNF, she was sent to [facility] on 10/30/22 for PICC line malfunction, there was some tenderness on L upper chest overlying pacemaker leads with query fluid collection around it raising concern of CIED infection, she was subsequently transferred to [facility] to resume cardiac surgery care. Her blood culture drawn here have been negative to date and without evidence of sepsis, the chest wall tenderness has spontaneously subsided, she was seen by cardiac surgery and a chest U/S recommended, and pending further surgical evaluation, she still has vancomycin abx to be finished till 11/12 and is a bed hold at [facility]. ?? During my evaluation today patient is alert and oriented, coherent and cooperative, she has no new complaints, while await surgical assessment she requested to leave against medical advice, and she would like to go home instead of going back to SNF even after surgical clearance, she would not provide a specific reason, I advised her on potential serious consequences of leaving hospital against medical advice including but not limited to: recurrent bacteremia, heart failure, respiratory failure,septic emboli to other vital organs causing stroke, bleeding, pacemaker infection, arrhythmia, syncope, injury or even , she acknowledged all the risks and still??insists of leaving, she has adequate insight of her medical illness and the need for ongoing inpatient/rehab level of care, her mentation is intact, she is considered with decisional capacity, PICC line was removed by staff and AMA paperwork signed, 30 days Eliquis refilled and I advised her to seek medical attention [facility] after she leaves our hospital and she agreed. Objective Assessment and Plan VTE Prophylaxis:??Lovenox ?VTE Prophylaxis Assessment:??VTE Prophylaxis Ordered ?? Code Status:??Full ?Order Code Status:??Code Status Ordered ?? Ongoing Medical Necessity:??Pacemaker infection cardiac surgery consult ?? Discharge Planning:??leave against medical advice ?? Suspect??CIED pocket infection -no longer tender on today's exam, blood culture from 10/31 negative to date, afebrile -CT chest at [facility] showed: At the epicardial leads in the chest wall there is a small amount of hypodensity surrounding the leads in the area of the pectoralis muscle??medially??which may represent a small amount of fluid.?? Mild enlargement of pectoralis muscle in the area.?? No evidence of subcutaneous fat stranding or cutaneous thickening.?? No peripherally enhancing collection is identified.??No??fluid in the adjacent mediastinum.?? Differentials include seroma, inflammation, possible infection. -chest U/S reviewed, pending surgery follow up, but patient decided to leave AMA ?? History of TV endocarditis s/p bioprosthetic TVR 2019 History of empyema and loculated hemothorax s/p VATS with decortication 2019 Prosthetic TV endocarditis -s/p AngioVac during last admission originally planned on oxacillin with rifabutin but abx switchedto vancomycin due to CoNS resistant to oxacillin at [place], EOT 11/12 ?? Opioid use disorder, severe with dependence -continue methadone 70 mg daily, QTc noted -last methadone letter provided before she leaves AMA ?? Subsegmental PE Factor V Leiden -resume Eliquis ?? Pseudothrombocytopenia -clumping noted on smear, no further workup needed, if need more accurate reading for pre-op planning may check platelet in citrate tube ?? Discussed with RN/cardiac surgery; Tele reviewed: NSR. ?? Measurements?? Height: 168 cm (11/01/22) Weight: 68.8 kg (10/30/22) Dry Weight: 68.8 kg (10/30/22) Body Mass Index: 24.38 kg/m2 (10/30/22) ? Vital Signs?? Temperature: 97.9 DegF (11/01/22 23:00:00) Temperature Route: Oral (11/01/22 23:00:00) Pulse Rate: 80 bpm (11/01/22 23:00:00) Respiratory Rate: 18 br/min (11/02/22 09:13:00) Systolic Blood Pressure: 117 mm Hg (11/01/22 23:00:00) Diastolic Blood Pressure: 75 mm Hg (11/01/22 23:00:00) Blood pressure sites: Arm, left (11/01/22 23:00:00) Mean Arterial Pressure: 91 mm Hg (11/01/22 16:56:00) Pulse Pressure: 42 mm Hg (11/01/22 23:00:00) Oxygen Saturation: 100 % (11/01/22 23:00:00) Mode of Delivery (Oxygen): Room air (11/01/22 23:00:00) Early Warning Score: 6 (11/02/22 09:14:35) ? Perfusion Assessment Capillary Refill: < 3 seconds (11/01/22 21:00:00) Cardiac Rhythm: Normal sinus rhythm (11/01/22 21:00:00) Cardiovascular: WNL except (11/01/22 21:00:00) Cardiovascular Assessment Status: Unchanged from recorder's assessment (11/02/22 03:00:00) Cardiovascular Symptoms: None (11/01/22 21:00:00) Heart Rhythm: Regular (11/01/22 21:00:00) Nail Bed Color, Fingers: [place] (11/01/22 21:00:00) Nail Bed Color, Toes: [place] (11/01/22 21:00:00) Pacemaker: Yes (11/01/22 21:00:00) Skin Temperature Lower Extremities: Warm (11/01/22 21:00:00) Skin Temperature Upper Extremities: Warm (11/01/22 21:00:00) ? Pain Scores?? No qualifying data available. ? Ventilator Settings?? No qualifying data available. ? Intake/Output? 10/30 17:27 11/02 07:00 11/01 07:00 10/31 07:00 10/30 07:00 ?? 11/02 09:34 11/02 09:34 11/02 06:59 11/01 06:59 10/31 06:59 Intake ? 4292 ?150 ? 2520 ? 1622 ?0 Output ?0 ?0 ?0 ?0 ?0 Net Total ? 4292 ?150 ? 2520 ? 1622 ?0 ? Urine Count ?8 ?0 ?5 ?3 ?0 ? Precautions No Precautions documented.? Basic ADLs Activity Assistance: Independent (11/01/22) Ambulation Distance ft: 650 (11/01/22) Ambulatory devices needed: None (11/01/22) Feeding Assistance: Independent (11/01/22) Hygiene: Self, CHG Bath/Wipes, Mouth care, Michelle care, Skin care, Tooth brushing (11/01/22) ? Mobility & Ambulation Level Mobility & Ambulation Level Activity Assistance: Independent (11/01/22) Activity Status ADL: Ambulating in savage (11/01/22) Ambulation Patient Effort: Good (11/01/22) Ambulatory devices needed: None (11/01/22) ?? Therapeutic Activity Therapeutic Activities/Mobility/Balance?? No qualifying data available. ?? . Physical Exam Constitutional: Alert, in no acute distress. Head EENT: Extraocular muscle movement intact.??Moist mucous membranes.?? Respiratory: Clear to auscultation. No wheezing or crackles. No use of accessory muscles. Cardiovascular: S1S2 regular. No murmurs, rubs or gallops. Gastrointestinal: Abdomen soft, non-tender, non-distended. Normal bowel sounds. Extremities: No lower extremity pitting??edema. No cyanosis or clubbing. No L upper chest tenderness. Neurologic: AAOx3, Speech normal. No focal neurological deficits. Psychiatric: Normal mood and affect Consultants Cardiac surgery Pending Results Add On Lab Order ordered on 10/31/2022 Basic Metabolic Panel ordered on 11/01/2022 Blood Culture ordered on 10/30/2022 CBC ordered on 10/30/2022 Vancomycin Trough ordered on 11/02/2022 Patient Education Titles Opiate Use Disorder?? Treatment for Infective Endocarditis?? Patient Instructions You are admitted due to concern of pacemaker lead infection, the workup and surgical consult are inprogress, you still have intravenous antibiotics to be finished at rehab; You have opted to leave against medical advice; ?? Please follow up with primary care provider as soon as possible; ?? Return to nearest emergency room or call 911 if you experience fever T>100.4F, chill, chest painlasts longer than 10 minutes, shortness of breathing with minimal exertion, worsening or constant abdominal pain, nausea/vomiting, food intolerance, bloody or tarry stool, extreme fatigue or dizziness, joint or back pain,??or other severe and/or persistent symptoms. Post Discharge Care Discharge ?Discharge AMA, ??11/02/22 9:34:00 EDT Results Discharge Labs BLOOD COUNT & DIFF WBC 8.7 k/mm3 ()?? 10/31/2022 11:40 RBC 3.92 m/mm3 (Low)?? 10/31/2022 11:40 Hgb 10.6 Gm/dL (Low)?? 10/31/2022 11:40 Hct 33.2 % (Low)?? 10/31/2022 11:40 MCV 84.7 femtoliters ()?? 10/31/2022 11:40 MCH 27.0 pg ()?? 10/31/2022 11:40 MCHC 31.9 g/dL (Low)?? 10/31/2022 11:40 Platelet Count 92 k/mm3 (Low)?? 10/31/2022 11:40 RDW-SD 41.5 femtoliters ()?? 10/31/2022 11:40 MPV NOT MEASURED femtoliters ()?? 10/31/2022 11:40 Nucleated RBC (Automated) 0.0 #/100 WBC'S ()?? 10/31/2022 11:40 Abs. NRBC 0.0 k/mm3 ()?? 10/31/2022 11:40 ?? CHEM GENERAL Sodium 135 mmol/L ()?? 10/31/2022 11:40 Potassium 4.0 mmol/L ()?? 10/31/2022 11:40 Chloride 98 mmol/L ()?? 10/31/2022 11:40 Bicarbonate Level 25 mmol/L ()?? 10/31/2022 11:40 Anion Gap 12 ()?? 10/31/2022 11:40 Glucose Level 173 mg/dL (High)?? 10/31/2022 11:40 BUN 15 mg/dL ()?? 10/31/2022 11:40 Creatinine-Blood 1.1 mg/dL (High)?? 10/31/2022 11:40 Estimated GFR Creatinine 69 ML/MIN/1.73 M2 ()?? 10/31/2022 11:40 Calcium 9.7 mg/dL ()?? 10/31/2022 11:40 Protein, Total 8.8 Gm/dL (High)?? 10/31/2022 11:40 Albumin 3.5 Gm/dL ()?? 10/31/2022 11:40 AG Ratio 0.7 ()?? 10/31/2022 11:40 Alkaline Phosphatase 126 units/L (High)?? 10/31/2022 11:40 AST (SGOT) 15 units/L ()?? 10/31/2022 11:40 ALT (SGPT) 10 units/L ()?? 10/31/2022 11:40 Bilirubin, Total 0.5 mg/dL ()?? 10/31/2022 11:40 ? COAG INR 1.1 ()?? 10/31/2022 11:40 Protime (PT) 12.0 seconds (High)?? 10/31/2022 11:40 APTT 28.5 seconds ()?? 10/31/2022 11:40 ? URINE OTHER Est Creatinine Clearance 69.75 mL/min ()?? 10/31/2022 12:55 ? VIROLOGY COVID-19 PCR Specimen Source NASAL ()?? 10/30/2022 18:21 COVID-19 PCR Result NEGATIVE ()?? 10/30/2022 18:21 ? 55??minutes spent on discharge * Maggie Solorio MD: PERFORM Event Display: Patient Education Leaflets Authored Date: [id number] Opiate Use Disorder ?? [id number] Opiate Use Disorder Use or abuse of heroin or prescription pain medicines may lead to addition or dependence. Examples of pain medicines are oxycodone, codeine, hydrocodone, morphine, methadone, and fentanyl. Once this occurs, you are at greater risk for any of these: ??? Craving for the drug. Being unable to stop using the drug even though you think you want to stop. This is psychological addiction. ??? Drug withdrawal symptoms if you stop taking the drug (physical dependence) ??? Loss of your job or your family ??? Arrest, conviction, and snf sentence for possession of an illegal substance. Or for driving under the influence of such a substance. ??? Accidental injuries to yourself or others while you are under the influence of the drug in a car or at home??? or serious injury from overdose Xylazine is a sedative and pain reliever approved only for animals. It's not approved or safe for people. It's known by the street name tranq. Xylazine has been found in street drugs, especially heroin and fentanyl. It has been linked to overdoses and . Severe side effects from xylazine include slow heart beat and breathing, low blood pressure, skin sores, and coma. Health problems The list of potential health problems is a long one. It can be different with different medicines. They can cause problems even if you have no history of health problems. It's also affected by other medicines you may be taking. And it's affected by chronic illnesses you may have. Besides the problems listed above,??abuse also has other effects. Some are tied directly to the drugs. Others are fromor related to addiction or dependency. ??? Anxiety ??? Seizures ??? Constipation ??? Liver infection (hepatitis) ??? Liver failure ??? Blood pressure problems ??? Depression ??? Suicidal thoughts or attempts ??? Insomnia ??? Nausea, vomiting, and stomach problems ??? Drowsiness ??? Slurred speech ??? Trouble breathing ??? Dizziness ??? Skin infections ??? Muscle pain and spasms ??? Stroke ??? Heart attack ??? Kidney failure ??? HIV infection ??? Skin infections ??? Other sexually transmitted infections ??? Severe and fatal infection of the heart valves ??? Coma and ?? Home care ??? Admit you have a drug problem. Ask for help from your family, close friends. and yourhealthcare provider. ??? Seek professional help. This could be one-on-one psychotherapy, counseling, or a drug treatment program. The drug treatment program could be outpatient or residential. ??? Join a self-help group for people who abuse drugs. ??? Stay away from friends, family, and acquaintances who abuse drugs themselves or tempt you to continue your habit. ??? Eat a balanced diet. Begin a regular exercise program. ?? Follow-up care Follow up with your healthcare provider, or??as advised. Contact one of the resources below for help: ??? National [place] on Alcoholism and Drug Dependence at ncaddms.org/ ??? Substance Abuse and Mental Health Services Administration at www.samhsa.gov/find-treatment or 493-666-VHML (682-678-5137) ?? Call 911 Call 911 if any of these occur:? Seizure ??? Trouble breathing or slow, irregular breathing ??? Chest pain ??? Sudden weakness on one side of your body or sudden trouble speaking ??? Very drowsyor trouble awakening ??? Fainting or loss of consciousness ??? Rapid heart rate ??? Very slow heartrate ?? When to seek medical advice Call your healthcare provider right away if any of these occur: ??? Symptoms of withdrawal. These include agitation, anxiety, trembling, sweats, diarrhea, unable to sleep. ??? Fever of 100.4??F (38.0??C) or higher, or as directed by your healthcare provider ??? Too much drowsiness or you can't be awakened ??? Redness, swelling, or tenderness at an injection site ?? Last Reviewed Date: 2021 ?? 1405-8276 [employer]. All rights reserved. This information is not intended as a substitute for professional medical care. Always follow your healthcare professional's instructions. ?? * Maggie Solorio MD: PERFORM Event Display: Patient Education Leaflets Authored Date: [id number] Treatment for Infective Endocarditis ?? 14668 Treatment for Infective Endocarditis Infective endocarditis is [...] specialist, such as: ??? A heart doctor (fusing machine tender) ??? A heart surgeon (cardiovascular or thoracic [...] speaking ?? Last Reviewed Date: 2021 ?? 8780-9059 [employer]. All rights reserved. This information is not intended as a substitute for professional medical care. Always follow your healthcare professional's instructions. ?? Patient Care team information Care Team Personnel Name: Rula Patel RN Position: [facility] RN Member Role: Primary Care Nurse Name: Daniella Castañeda MD Position: S Outreach Member Role: PCP Address: Address: [address] [place] [id number]- Name: Lori Smiley RN Position: S RN Member Role: Primary Care Nurse Name: Karina Rodriguez RN Position: [facility] RN Supv Member Role: Primary Care Nurse Name: Jordi Garcia RN Position: [facility] RN Member Role: Primary Care Nurse Name: Ayesha Cannon RN Position: [facility] RN Member Role: Primary Care Nurse Name: Olivia Hannon RN Position: [facility] RN Member Role: Primary Care Nurse Name: Kathia Moe RN Position: [facility] RN Member Role: Primary Care Nurse Name: Rohith Skinner RN Position: [facility] RN Member Role: Primary Care Nurse Name: Helena De La Paz RN Position: [facility] RN Member Role: Primary Care Nurse Name: Cheryl Rob RN Position: [facility] RN Member Role: Primary Care Nurse Name: Kelley Velazquez RN Position: [facility] RN Member Role: Primary Care Nurse Name: Re Mckeon RN Position: S RN Member Role: Primary Care Nurse Name: Paddy Rowe RN Position: [facility] RN Member Role: Primary Care Nurse Name: Shweta Ahmadi NP Position: [facility] Associate Professional Member Role: [employer] Provider Address: Address: [address] [place] [address] [address] [facility] [place] [place] [address]- Name: Reece William MD Position: [facility] Renal MD Member Role: [employer] Physician Address: Address: [address] [place] [address] [address] [facility] [place], [place] - Name: Courtney Clemente RN Position: [facility] RN Member Role: Primary Care Nurse Name: Tiffany Macias RN Position: [facility] RN Member Role: Primary Care Nurse Name: Gino Eisenberg RN Position: [facility] RN Member Role: Primary Care Nurse Name: Hever Jones DO Position: [facility] Renal MD Member Role: [employer] Physician Address: Address: [address] [place], [place] [address] [place] [address]- Name: Leana Rivera RN Position: [facility] RN Member Role: Primary Care Nurse Name: Dary Sewell RN Position: [facility] RN Member Role: Primary Care Nurse Name: Miri Do RN Position: [facility] RN Member Role: Primary Care Nurse Name: Tiffany Chen Position: [facility] RN Member Role: Primary Care Nurse Name: Brandon Johnson RN Position: [facility] RN Member Role: Primary Care Nurse Name: Shruthi Zhou RN Position: [facility] RN Member Role: Primary Care Nurse Name: Angie Sahu RN Position: [facility] RN Supv Member Role: Primary Care Nurse Name: Jessica Gonzales RN Position: [facility] RN Member Role: Primary Care Nurse Name: Miri Gutiérrez RN Position: [facility] RN Member Role: Primary Care Nurse Name: Caprice Robles Position: [facility] AMB Nurse Member Role: Primary Care Nurse Name: Nadia White RN Position: [facility] RN Member Role: Primary Care Nurse Name: Lavinia Anderson RN Position: [facility] RN Member Role: Primary Care Nurse Name: Minal Gonzalez RN Position: [facility] RN Member Role: Primary Care Nurse Name: Lizzy Cornejo RN Position: [facility] RN Member Role: Primary Care Nurse Name: Sangita Richardson RN Position: [facility] SN RN Member Role: Primary Care Nurse Name: Cheryl Gordillo NP Position: [facility] Associate Professional Member Role: Primary Care Nurse Address: Address: [address] [place] [address] [place] [address]- [place] Name: Shelbie Lopez RN Position: [facility] RN Member Role: Primary Care Nurse Name: Shanell Pierce RN Position: [facility] RN Member Role: Primary Care Nurse Name: Rhona Barron RN Position: [facility] RN Member Role: Primary Care Nurse Name: Amber Garcia RN Position: S RN Member Role: Primary Care Nurse Name: Jessica Aleman RN Position: S RN Member Role: Primary Care Nurse Name: Romi García RN Position: [facility] Onco RN Member Role: Primary Care Nurse Care Team Related Persons Name: DARYL FAIR Address: home [address] [place] [address] Name: CECE BARNES Address: [place] [address] Name: CECE BARNES Address: home [address] [place] [address] [address] [place] [address]
--- OUTSIDE RECORDS SUMMARY | 2023-02-28 10:48 | XMS_ITS | Continuity of Care Document ---
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 Name Role Phone DANIELLA MCMANUS MD Primary Care Physician Encounter [facility] Date(s): 09/27/22 - 10/10/[address] [id number]- Encounter Diagnosis Acute bacterial endocarditis(Discharge Diagnosis) - 10/10/22 Sepsis, unspecified organism(Final) - Acute and subacute infective endocarditis(Final) - Anemia, unspecified(Final) - Thrombocytopenia, unspecified(Final) - Hypo-osmolality and hyponatremia(Final) - Pain in left knee(Final) - Discharge Disposition: SNF - Elsewhere Attending Physician: OPAL MONTALVO MD Admitting Physician: OPAL MONTALVO MD Referring Physician: DANIELLA MCMANUS MD Allergies, Adverse Reactions, Alerts No Known Allergies Assessment and Plan Extracted from: Title:Discharge Note Author:LILIAM MEJIA MD Date :10/10/22 Bacterial endocarditis??(I33.0) Fever of unknown origin??(R50.9) stable Snf Facility 10/10/2022 Diagnostic Tests Pending * Fentanyl, Urine. 10/06/22 Functional Status 10/09/22 Gait Normal 10/09/22 Ambulation Device Utilized None 09/29/22 Patient Diet Information Regular Medications cloNIDine 0.1 mg oral tablet 0.1 mg = 1 tab, Oral, QID, # 120 tab, 0 Refill(s) Start Date: 09/27/22 Status: Ordered diphenhydrAMINE 50 mg oral tablet 50 mg = 1 tab, Oral, Q4hr, PRN PRN for motion sickness, # 30 tab, 0 Refill(s) Start Date: 09/27/22 Status: Ordered Eliquis 5 mg oral tablet 5 mg = 1 tab, Oral, BID, # 60 tab, 0 Refill(s) Start Date: 10/05/22 Status: Ordered melatonin 3 mg, Oral, Q Bedtime, 0 Refill(s) Start Date: 09/27/22 Status: Ordered methadone 10 mg oral tablet 60 mg = 6 tab, Oral, Daily, 0 Refill(s) Start Date: 10/10/22 Status: Ordered multivitamin 1 tab, Oral, Daily, 0 Refill(s), Partial fill upon patient request if the prescription is for a schedule II opioid drug. Start Date: 09/27/22 Status: Ordered Narcan 4 mg/0.1 mL nasal spray 4 mg, Nasal, Once Scheduled, PRN PRN Other (specify in comments), For suspected opioid overdose, # 2 each, 0 Refill(s), Pharmacy: [facility]/pharmacy #[id number], 165, cm, 09/27/2022 15:50:00 EDT, Height, 63.2, kg, 09/27/2022 15:50:00 EDT, Dosing Weight Start Date: 10/10/22 Status: Ordered vancomycin 1.25 g/150 mL-NaCl 0.9% intravenous solution See Instructions, dose vancomycin to maintain trough levels between 15- 20.Continue for 6 weeks from10/01/2022- last dose on 11/12/2022., # 1 kit, 0 Refill(s), Pharmacy: [facility]/pharmacy #[id number], dose vancomycin to maintain trough levels between 15-20.Cont... 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 Opioid use Confirmed Active Pulmonary embolism Confirmed Active Results Laboratory List Name Date Basic Metabolic Panel (BMP) 10/10/22 CBC 10/10/22 Magnesium Level 10/10/22 Phosphate Level 10/10/22 Vancomycin Level Trough 10/09/22 Platelet Count 10/09/22 Smear Review 10/09/22 Basic Metabolic Panel (BMP) 10/09/22 CBC 10/09/22 Magnesium Level 10/09/22 Phosphate Level 10/09/22 Smear Review 10/09/22 Vancomycin Level Trough 10/08/22 Basic Metabolic Panel (BMP) 10/08/22 CBC 10/08/22 Magnesium Level 10/08/22 Phosphate Level 10/08/22 Smear Review 10/08/22 Drug Screen Urine (Urine Drug Screen) Opiate Screen Urine (Urine Opiate Screen ) 10/06/22 Vancomycin Level Trough 10/06/22 ABORh Type 10/05/22 Antibody Screen 10/05/22 Computer Crossmatch 10/05/22 D Dimer 10/05/22 ABORh Type 10/05/22 Antibody Screen 10/05/22 Computer Crossmatch 10/05/22 Fibrinogen 10/05/22 Haptoglobin. 10/05/22 Hepatic Function Panel 10/05/22 LDH 10/05/22 Partial Thromboplastin Time 10/05/22 Prothrombin Time 10/05/22 Retic Count Auto 10/05/22 Smear Review 10/05/22 Red Blood Cell Product 10/05/22 C Reactive Protein Quant (CRP Quant) 09/15 05/09 Sedimentation Rate (Erythrocyte Sediment ation Rate) 10/05/22 Urinalysis Microscopic Exam 09/30/22 Urinalysis with Culture if Indicated 09/14 10/06 C Reactive Protein Quant (CRP Quant) 09/14 10/06 C Reactive Protein Quant (CRP Quant) 09/14 10/06 Hepatic Function Panel 09/30/22 Sedimentation Rate 09/30/22 Smear Review 09/30/22 Troponin T 09/30/22 ABORh Type 09/29/22 Antibody Screen 09/29/22 Partial Thromboplastin Time 09/29/22 Pro-BNP 09/29/22 Prothrombin Time 09/29/22 Troponin T 09/29/22 Red Blood Cell Product 09/29/22 Complete Blood Count With Auto Different ial (CBC w/auto Diff) 09/29/22 Complete Blood Count With Auto Different ial 09/28/22 Comprehensive Metabolic Panel 09/28/22 Partial Thromboplastin Time 09/27/22 Prothrombin Time 09/27/22 Urinalysis Microscopic Exam 09/27/22 Urinalysis with Microscopic Examination if Indicated 09/27/22 Complete Blood Count With Auto Different ial 09/27/22 Comprehensive Metabolic Panel 09/27/22 HCG Qual (HCG) 09/27/22 Lactic Acid Level Venous 09/27/22 Smear Review 09/27/22 Troponin T 09/27/22 Most recent to oldest [Reference Range]: 1 2 3 4 eGFR CKD-EPI [>=90 mL/min/1.73m2] >90 mL/min/1.73m2 (10/10/22 4:10 AM) >90 mL/min/1.73m2 (10/09/22 6:20 AM) >90 mL/min/1.73m2 (10/08/22 4:38 AM) Imm Gran Abs 0 10^3/uL *NA* (09/29/22 6:29 AM) 0 10^3/uL *NA* (09/28/22 4:17 AM) 0 10^3/uL *NA* (09/27/22 4:01 AM) CRP Quant [0.00-4.90 mg/L] 166.71 mg/L 1 *HI* (10/05/22 5:27 AM) 96.54 mg/L *HI* (09/30/22 9:56 AM) 100.18 mg/L *HI* (09/30/22 2:20 AM) Oxycodone U Scrn [Negative] Negative (10/06/22 4:41 PM) NRBC Auto Rel 0 % *NA* (09/29/22 6:29 AM) 0 % *NA* (09/28/22 4:17 AM) 0 % *NA* (09/27/22 4:01 AM) Platelet Clumping Present *NA* (09/30/22 2:20 AM) PRESENT *NA* (09/27/22 4:01 AM) Imm Gran Rel 0 % *NA* (09/29/22 6:29 AM) 0 % *NA* (09/28/22 4:17 AM) 0 % *NA* (09/27/22 4:01 AM) RDW-SD 47 *NA* (10/10/22 4:10 AM) 46 *NA* (10/09/22 6:20 AM) 46 *NA* (10/08/22 4:38 AM) RDW-CV [12-14 %] 14 % (10/10/22 4:10 AM) 15 % *HI* (10/09/22 6:20 AM) 15 % *HI* (10/08/22 4:38 AM) NRBC Auto Abs 0.00 x10(3)/mcL *NA* (09/29/22 6:29 AM) 0.00 x10(3)/mcL *NA* (09/28/22 4:17 AM) 0.00 x10(3)/mcL *NA* (09/27/22 4:01 AM) Smear Review Smear Review (10/09/22 10:41 AM) RBC Morph [Normal] Normal (10/09/22 10:41 AM) Normal (10/09/22 6:20 AM) Normal (10/08/22 4:38 AM) UA Appear [Clear] Clear (09/30/22 12:14 PM) Clear (09/27/22 4:12 AM) UA Bacteria [None Seen /hpf] None Seen /hpf (09/30/22 12:14 PM) None Seen /hpf (09/27/22 4:12 AM) UA Bili Negative (09/30/22 12:14 PM) Negative (09/27/22 4:12 AM) UA Blood [Negative] Moderate *ABN* (09/30/22 12:14 PM) Moderate *ABN* (09/27/22 4:12 AM) UA Color Light-Yellow *NA* (09/30/22 12:14 PM) Light-[place] *NA* (09/27/22 4:12 AM) UA Glucose [Negative mg/dL] Negative mg/dL (09/30/22 12:14 PM) Negative mg/dL (09/27/22 4:12 AM) UA Ketones [Negative mg/dL] Negative mg/dL (09/30/22 12:14 PM) Negative mg/dL (09/27/22 4:12 AM) UA Leuk Est [Negative] Large *ABN* (09/30/22 12:14 PM) Moderate *ABN* (09/27/22 4:12 AM) UA Nitrite [Negative] Negative (09/30/22 12:14 PM) Negative (09/27/22 4:12 AM) Polychromasia [None Seen] Rare *ABN* (10/05/22 9:17 AM) 1+ *ABN* (09/30/22 2:20 AM) UA Protein [Negative mg/dL] 30 mg/dL *ABN* (09/30/22 12:14 PM) 30 mg/dL *ABN* (09/27/22 4:12 AM) UA RBC [0-2 /hpf] 21-30 /hpf *ABN* (09/30/22 12:14 PM) 21-30 /hpf *ABN* (09/27/22 4:12 AM) UA Squam Epith [None Seen /hpf] Few /hpf *ABN* (09/30/22 12:14 PM) Rare /hpf *ABN* (09/27/22 4:12 AM) UA Urobilinogen [Normal mg/dL] Normal mg/dL (09/30/22 12:14 PM) Normal mg/dL (09/27/22 4:12 AM) UA WBC [0-10 /hpf] 81-90 /hpf *ABN* (09/30/22 12:14 PM) 11-20 /hpf *ABN* (09/27/22 4:12 AM) Anisocytosis [None Seen] Rare *ABN* (10/05/22 9:17 AM) 1+ *ABN* (09/30/22 2:20 AM) Platelet Morph [Normal] Normal (10/09/22 10:41 AM) Normal (10/09/22 6:20 AM) Normal (10/08/22 4:38 AM) Plt Estimate [Appears Normal] Appear Decrease *ABN* (10/09/22 10:41 AM) Appear Decrease *ABN* (10/09/22 6:20 AM) Appear Decrease *ABN* (10/08/22 4:38 AM) HCG Qual Negative (09/27/22 4:01 AM) AGAP [8.0-15.0] 9.0 (10/10/22 4:10 AM) 7.0 *LOW* (10/09/22 6:20 AM) 8.0 (10/08/22 4:38 AM) BUN/Creat [8-27] 19 (10/10/22 4:10 AM) 19 (10/09/22 6:20 AM) 17 (10/08/22 4:38 AM) Globulin [1.5-4.5 g/dL] 6.5 g/dL *HI* (10/05/22 9:17 AM) 6.7 g/dL *HI* (09/30/22 2:20 AM) 6.7 g/dL *HI* (09/28/22 4:17 AM) A/G Ratio [1.1-2.5] 0.4 *LOW* (10/05/22 9:17 AM) 0.4 *LOW* (09/30/22 2:20 AM) 0.3 *LOW* (09/28/22 4:17 AM) Schistocytes [None Seen] Rare *ABN* (09/30/22 2:20 AM) PT [9.1-12.0 sec] 12.9 sec *HI* (10/05/22 9:17 AM) 12.5 sec *HI* (09/29/22 2:11 PM) 13.1 sec *HI* (09/27/22 5:07 AM) PTT [25-35 sec] 34 sec (10/05/22 9:17 AM) 29 sec (09/29/22 2:11 PM) 24 sec *LOW* (09/27/22 5:07 AM) Retic Relative [0.4-5.3 %] 0.7 % (10/05/22 9:17 AM) Sed Rate [2-15 mm/hr] 112 mm/hr *HI* (10/05/22 5:27 AM) 108 mm/hr *HI* (09/30/22 2:20 AM) Sodium Lvl [134-144 mEq/L] 137 mEq/L (10/10/22 4:10 AM) 136 mEq/L (10/09/22 6:20 AM) 138 mEq/L (10/08/22 4:38 AM) Total Protein [6.0-8.5 g/dL] 9.0 g/dL *HI* (10/05/22 9:17 AM) 9.2 g/dL *HI* (09/30/22 2:20 AM) 9.0 g/dL *HI* (09/28/22 4:17 AM) UA pH [5.0-9.0] 6.0 (09/30/22 12:14 PM) 5.5 (09/27/22 4:12 AM) Albumin Lvl [3.5-5.5 g/dL] 2.5 g/dL *LOW* (10/05/22 9:17 AM) 2.5 g/dL *LOW* (09/30/22 2:20 AM) 2.3 g/dL *LOW* (09/28/22 4:17 AM) Alk Phos [25-150 U/L] 161 U/L *HI* (10/05/22 9:17 AM) 114 U/L (09/30/22 2:20 AM) 103 U/L (09/28/22 4:17 AM) ALT [0-32 U/L] 5 U/L (10/05/22 9:17 AM) <5 U/L 2 (09/30/22 2:20 AM) 5 U/L (09/28/22 4:17 AM) AST [0-40 U/L] 16 U/L (10/05/22 9:17 AM) 8 U/L (09/30/22 2:20 AM) 10 U/L (09/28/22 4:17 AM) Bili Direct [0.0-0.4 mg/dL] <0.2 mg/dL (10/05/22 9:17 AM) <0.2 mg/dL (09/30/22 2:20 AM) Bili Total [0.1-1.2 mg/dL] 0.4 mg/dL (10/05/22 9:17 AM) 0.4 mg/dL (09/30/22 2:20 AM) 0.4 mg/dL (09/28/22 4:17 AM) CO2 [20-32 mEq/L] 23 mEq/L (10/10/22 4:10 AM) 24 mEq/L (10/09/22 6:20 AM) 25 mEq/L (10/08/22 4:38 AM) Fibrinogen [193-423 mg/dL] 400 mg/dL (10/05/22 9:17 AM) Glucose Level [65-99 mg/dL] 116 mg/dL *HI* (10/10/22 4:10 AM) 116 mg/dL *HI* (10/09/22 6:20 AM) 117 mg/dL *HI* (10/08/22 4:38 AM) INR [2.0-3.5] 1.3 *LOW* (10/05/22 9:17 AM) 1.2 *LOW* (09/29/22 2:11 PM) 1.3 *LOW* (09/27/22 5:07 AM) LDH [0-215 U/L] 307 U/L *HI* (10/05/22 9:17 AM) Magnesium Lvl [1.6-2.6 mg/dL] 1.5 mg/dL *LOW* (10/10/22 4:10 AM) 1.5 mg/dL *LOW* (10/09/22 6:20 AM) 1.3 mg/dL *LOW* (10/08/22 4:38 AM) Potassium Lvl [3.6-5.6 mEq/L] 4.1 mEq/L (10/10/22 4:10 AM) 4.3 mEq/L (10/09/22 6:20 AM) 4.2 mEq/L (10/08/22 4:38 AM) UA Spec Grav [1.003-1.030] 1.018 (09/30/22 12:14 PM) 1.020 (09/27/22 4:12 AM) Vanco Trough [10.0-20.0 mcg/mL] 20.3 mcg/mL *HI* (10/09/22 8:46 PM) Vanco Trough [10.00-20.00 mcg/mL] 19.70 mcg/mL (10/08/22 10:04 AM) 14.10 mcg/mL (10/06/22 9:32 AM) BUN [5-26 mg/dL] 14 mg/dL (10/10/22 4:10 AM) 15 mg/dL (10/09/22 6:20 AM) 12 mg/dL (10/08/22 4:38 AM) Calcium Lvl [8.3-10.0 mg/dL] 8.9 mg/dL (10/10/22 4:10 AM) 8.9 mg/dL (10/09/22 6:20 AM) 9.1 mg/dL (10/08/22 4:38 AM) Bili Indirect [0.0-0.8 mg/dL] >0.2 mg/dL (10/05/22 9:17 AM) >0.2 mg/dL (09/30/22 2:20 AM) Troponin-T [0.000-0.029 ng/mL] <0.030 ng/mL (09/30/22 2:20 AM) <0.030 ng/mL (09/29/22 2:11 PM) <0.030 ng/mL (09/27/22 4:01 AM) Retic Absolute [16.0-124.0] 0.0 *LOW* (10/05/22 9:17 AM) Antibody Screen Negative ABSC (10/05/22 2:00 PM) Negative ABSC (10/05/22 9:17 AM) Negative ABSC (09/29/22 2:11 PM) Red Cells Acknowledged (10/05/22 7:23 AM) Complete (09/29/22 10:08 AM) BB ID Number [id number] *Unknown* (10/05/22 2:00 PM) [id number] *Unknown* (10/05/22 2:00 PM) [id number] *Unknown* (10/05/22 9:17 AM) [id number] *Unknown* (10/05/22 9:17 AM) # Units 2 *NA* (10/05/22 7:23 AM) 1 *NA* (09/29/22 10:08 AM) ABORh Bld Gr/Tp O POS *Unknown* (10/05/22 2:00 PM) O POS *Unknown* (10/05/22 9:17 AM) O POS *Unknown* (09/29/22 2:11 PM) Creatinine Lvl [0.50-1.50 mg/dL] 0.74 mg/dL (10/10/22 4:10 AM) 0.78 mg/dL (10/09/22 6:20 AM) 0.71 mg/dL (10/08/22 4:38 AM) D Dimer [<=0.49 mg/L FEU] 4.82 mg/L FEU 3 *CRIT* (10/05/22 12:44 PM) UA Mucus [None Seen /hpf] Few /hpf *ABN* (09/30/22 12:14 PM) Few /hpf *ABN* (09/27/22 4:12 AM) Chloride Lvl [96-109 mEq/L] 105 mEq/L (10/10/22 4:10 AM) 105 mEq/L (10/09/22 6:20 AM) 105 mEq/L (10/08/22 4:38 AM) Lactic Acid [0.5-1.9 mmol/L] 1.0 mmol/L (09/27/22 4:01 AM) Phosphate [2.5-4.5 mg/dL] 5.5 mg/dL *HI* (10/10/22 4:10 AM) 5.6 mg/dL *HI* (10/09/22 6:20 AM) 5.6 mg/dL *HI* (10/08/22 4:38 AM) Opiate U Scrn Rslt [Negative] Negative (10/06/22 4:41 PM) Osmolality Calc [275-305 mmol/kg] 285 mmol/kg (10/10/22 4:10 AM) 284 mmol/kg (10/09/22 6:20 AM) 287 mmol/kg (10/08/22 4:38 AM) UA Trnsitnl Epi [None Seen /hpf] Few /hpf *ABN* (09/30/22 12:14 PM) Haptoglobin.LC [33-278 mg/dL] 25 mg/dL 4 *LOW* (10/05/22 9:17 AM) Pro-BNP [0-124 pg/mL] 917 pg/mL *HI* (09/29/22 2:11 PM) WBC [3.9-11.0 x10(3)/mcL] 7.7 x10(3)/mcL (10/10/22 4:10 AM) 6.2 x10(3)/mcL (10/09/22 6:20 AM) 7.0 x10(3)/mcL (10/08/22 4:38 AM) RBC [3.70-5.10 million/mcL] 3.17 million/mcL *LOW* (10/10/22 4:10 AM) 3.11 million/mcL *LOW* (10/09/22 6:20 AM) 3.26 million/mcL *LOW* (10/08/22 4:38 AM) Hgb [11.5-12.5 g/dL] 8.7 g/dL *LOW* (10/10/22 4:10 AM) 8.5 g/dL *LOW* (10/09/22 6:20 AM) 9.0 g/dL *LOW* (10/08/22 4:38 AM) Hct [34.0-44.0 %] 27.9 % *LOW* (10/10/22 4:10 AM) 26.7 % *LOW* (10/09/22 6:20 AM) 28.0 % *LOW* (10/08/22 4:38 AM) MCV [80-100 fL] 88 fL (10/10/22 4:10 AM) 86 fL (10/09/22 6:20 AM) 86 fL (10/08/22 4:38 AM) MPV [7.0-11.0 fL] 11.9 fL *HI* (10/10/22 4:10 AM) Platelet clumps fL *NA* (10/09/22 6:20 AM) ---- fL *NA* (10/08/22 4:38 AM) MCH [27-33 pg] 27 pg (10/10/22 4:10 AM) 27 pg (10/09/22 6:20 AM) 28 pg (10/08/22 4:38 AM) MCHC [31-36 g/dL] 31 g/dL (10/10/22 4:10 AM) 32 g/dL (10/09/22 6:20 AM) 32 g/dL (10/08/22 4:38 AM) RDW [11.4-14.4 %] 46.9 % *HI* (10/10/22 4:10 AM) 46.0 % *HI* (10/09/22 6:20 AM) 46.1 % *HI* (10/08/22 4:38 AM) Platelet Count [150-450 x10(3)/mcL] 124 x10(3)/mcL *LOW* (10/10/22 4:10 AM) 182 x10(3)/mcL *NA* (10/09/22 10:41 AM) Platelet clumps x10(3)/mcL *NA* (10/09/22 6:20 AM) Neutrophil Rel [42-76 %] 79 % *HI* (09/29/22 6:29 AM) 77 % *HI* (09/28/22 4:17 AM) 81 % *HI* (09/27/22 4:01 AM) Lymphocyte Rel [27-47 %] 12 % *LOW* (09/29/22 6:29 AM) 13 % *LOW* (09/28/22 4:17 AM) 10 % *LOW* (09/27/22 4:01 AM) Lymphocyte Abs [1.1-5.9 x10(3)/mcL] 1.3 x10(3)/mcL (09/29/22 6:29 AM) 1.4 x10(3)/mcL (09/28/22 4:17 AM) 1.4 x10(3)/mcL (09/27/22 4:01 AM) Neutrophil Abs [1.8-7.0 x10(3)/mcL] 8.4 x10(3)/mcL *HI* (09/29/22 6:29 AM) 8.2 x10(3)/mcL *HI* (09/28/22 4:17 AM) 11.0 x10(3)/mcL *HI* (09/27/22 4:01 AM) Monocyte Rel [4-13 %] 7 % (09/29/22 6:29 AM) 8 % (09/28/22 4:17 AM) 8 % (09/27/22 4:01 AM) Monocyte Abs [0.1-0.8 x10(3)/mcL] 0.8 x10(3)/mcL (09/29/22 6:29 AM) 0.9 x10(3)/mcL *HI* (09/28/22 4:17 AM) 1.1 x10(3)/mcL *HI* (09/27/22 4:01 AM) Eosinophil Rel [0-7 %] 1 % (09/29/22 6:29 AM) 1 % (09/28/22 4:17 AM) 1 % (09/27/22 4:01 AM) Eosinophil Abs [0.00-0.40 x10(3)/mcL] 0.13 x10(3)/mcL (09/29/22 6:29 AM) 0.13 x10(3)/mcL (09/28/22 4:17 AM) 0.17 x10(3)/mcL (09/27/22 4:01 AM) Basophil Rel [0-3 %] 0 % (09/29/22 6:29 AM) 0 % (09/28/22 4:17 AM) 0 % (09/27/22 4:01 AM) Basophil Abs [0.00-0.20 x10(3)/mcL] 0.03 x10(3)/mcL (09/29/22 6:29 AM) 0.01 x10(3)/mcL (09/28/22 4:17 AM) 0.02 x10(3)/mcL (09/27/22 4:01 AM) Amph U Scrn [Negative] Negative (10/06/22 4:41 PM) Anna U Scrn [Negative] Negative (10/06/22 4:41 PM) Benzo U Scrn [Negative] Negative (10/06/22 4:41 PM) Cannab U Scrn [Negative] Negative (10/06/22 4:41 PM) Cocaine U Scrn [Negative] Negative (10/06/22 4:41 PM) Opiate U Scrn [Negative] Negative (10/06/22 4:41 PM) Calcium Corrctd 10 mg/dL *NA* (09/28/22 4:17 AM) 10 mg/dL *NA* (09/27/22 4:01 AM) 1Result Comment: result by dilution 2Result Comment: VERIFIED SAMPLE BY REANALYSIS OF THE SAME SAMPLE 3Result Comment: critical called to Holli Donovan by Day at 113pm 4Result Comment: Performed at: RN - [facility] [address] [id number] Knowledge Management Advisor: Margie Otero MD, Phone: [phone] Orders for Microbiology Reports Name Date Blood Culture 10/01/22 Blood Culture 10/01/22 Urine Culture 09/30/22 Blood Culture 09/27/22 Blood Culture 09/27/22 Microbiology Reports TEST:Blood Culture1 STATUS:Auth (Verified) BODY SITE: SOURCE:PICC Line-only suspected inf source COLLECTED DATE/TIME:10/01/22 3:14 PM FINAL REPORT No growth at 5 days. TEST:Blood Culture2 STATUS:Auth (Verified) BODY SITE: SOURCE:PICC Line-only suspected inf source COLLECTED DATE/TIME:10/01/22 3:14 PM FINAL REPORT No growth at 5 days. TEST:Urine Culture STATUS:Auth (Verified) BODY SITE: SOURCE:Urine COLLECTED DATE/TIME:09/30/22 1:20 PM FINAL REPORT No growth at 2 days. TEST:Blood Culture3 STATUS:Auth (Verified) BODY SITE: SOURCE:Peripheral Draw COLLECTED DATE/TIME:09/27/22 3:30 AM FINAL REPORT Staphylococcus haemolyticus in both aerobic and anaerobic bottles STAIN REPORT Gram positive cocci in clusters in both aerobic and anaerobic bottles Critical value was called to Gracia Agee and read back with on 09/28/2022 08:05 by NNEKA ORGANISM:Staphylococcus haemolyticus TEST:Blood Culture4 STATUS:Auth (Verified) BODY SITE: SOURCE:Peripheral Draw COLLECTED DATE/TIME:09/27/22 3:15 AM FINAL REPORT Staphylococcus haemolyticus in aerobic bottle only Refer to previous culture for susceptibility. STAIN REPORT Gram positive cocci in clusters in aerobic bottle only Critical value was called to Gracia Agee and read back with on 09/28/2022 08:05 by NNEKA INTERPRETIVE DATA 1 2 3 4 Radiology Reports * Exam Date Time Procedure Performing Provider Status 09/28/22 4:[address] Lower Extremity w/ Contrast Left Do Carla Milian; Modified Notes: (CT Lower Extremity w/ Contrast Left) Reason For Exam: concern for abcess;Other - Populate Reason For Exam (Freetext) REPORT Procedures: CT Lower Extremity W/ Contrast Left Indication:Patient is a Female , 31 years of age, with the following information provided: : concern for abcess. Comparison: None TECHNIQUE: Routine protocol with 80 cc Isovue-370. Findings: There is a large effusion with synovial enhancement. There is a Lemus's cyst component in the popliteal space. Image 122 series 1 for example. Lateral to this is a separate small locule. The bone exam is unremarkable. No other significant findings. No soft tissue gas. No circumferential fascial necrotizing findings. IMPRESSION: 1.Findings suggest inflammatory process in the synovial space with extension to the popliteal spacemost likely infectious. There is abundant fluid for tapping. Final Report Dictated: 09/29/2022 10:14 am Dictated By: DEVEN SOUSA MD Electronic Signature: 09/29/2022 10:23 am Signed By: DEVEN SOUSA MD * Exam Date Time Procedure Performing Provider Status 09/28/22 4:[address] Spine Lumbar w/ Contrast Fer FUENTES, Carla; Modified Notes: (CT Spine Lumbar w/ Contrast) Reason For Exam: Low Back Pain REPORT CT Spine Lumbar W/ Contrast EXAM: CTLUMBAR SPINE WITHOUT AND WITH 80 CC ISOVUE-370 CONTRAST Comparison: (Attending review by Dr. Deven Sousa M.D. I have personally reviewed the study and agree with the reported findings.) History:Patient is a Female , 31 years of age, with the following information provided: : Low Back Pain. Technique: Routine lumbar spine CT protocol multiplanar reconstruction. FINDINGS: Extraspinal space: Negative. Paraspinal space: Negative. Prevertebral space: Negative. Spine: No evidence of listhesis. There is no fracture destructive lesion or aggressive process. ... Spinal canal and contents: Symmetric nerve roots. No masses. No spinal stenosis or lateral recess stenosis. Pertinent extradural/epidural findings by level: ... IMPRESSION: Final Report Dictated: 09/29/2022 10:37 am Dictated By: DEVEN SOUSA MD Electronic Signature: 09/29/2022 10:39 am Signed By: DEVEN SOUSA MD * Exam Date Time Procedure Performing Provider Status 09/28/22 4:46 PM CTA Chest w/ Contrast Fer FUENTES, Deuce nda; Modified Notes: (CTA Chest w/ Contrast) Reason For Exam: Pulmonary Embolism REPORT CT CHEST WITH INTRAVENOUS CONTRAST, PULMONARY ARTERY EMBOLISM DETECTION PROTOCOL TECHNIQUE: CT scan of the chest was performed WITH intravenous contrast utilizing the pulmonary artery embolism detection protocol. 100 cc of Isovue 370 was rapidly administered. Coronal and sagittal reformatted images were generated, together with axial maximum intensity projection images of the lungs. Adaptive Iterative Dose Reduction (AIDR) and NEMA XR 25 DOSE Check software, were used to reduce radiation dose to the patient. COMPARISON: Chest radiograph from same day. INDICATION: Pulmonary embolism FINDINGS: Pulmonary Arteries: This is a relatively moderate quality study for evaluation of pulmonary embolism given the extensive streak artifact from the contrast in the right brachiocephalic trunk and SVC. No focal filling defect is seen within the pulmonary arteries up to the segmental branches to suggest acute pulmonary embolism. There is a subsegmental filling defect identified in left lower lobe subsegmental pulmonary artery (5:194 and 7:132), concerning for subsegmental pulmonary embolism. Lungs and Large Airways: Median sternotomy. . Patent central airways. Dependent subsegmental atelectasis. Multifocal patchy opacities, predominantly in the left apical, and bilateral lower lobes, concerning for airspace disease. Surgical clips noted in the left lower lobe. Pleura: No pleural effusion. No pneumothorax. Mediastinum and Angela: Scattered subcentimeter mediastinal and hilar lymph nodes, without lymphadenopathy by size criteria. Esophagus is within normal limits for CT appearance. Homogeneous thyroid, without discrete nodule. Heart and Vessels: Prosthetic cardiac valve, pacer wires and right PICC line terminating in the right atrium. No pericardial effusion. Classic 3 vessel aortic arch anatomy. Nonaneurysmal thoracic aorta. Dilated main pulmonary artery trunk measuring 3 cm, concerning for pulmonary arterial hypertension. RV:LV is 0.9. Upper Abdomen: Partially visualized hepatomegaly with the liver measuring 27 cm in transverse dimension. Bones and Soft Tissues: No acute soft tissue abnormality. Median sternotomy as above. IMPRESSION: 1.Relatively moderate quality study for evaluation of pulmonary embolism. Subsegmental left lower lobe pulmonary embolism. No CT evidence of right heart strain. 2.Multifocal patchy opacities, concerning for airspace disease, predominantly involving the lower lobes bilaterally. 3.Median sternotomy, prosthetic aortic valve, cardiac pacing wires and right PICC line is unchanged. Results were discussed by Career Services Coordinator Viv Marie MD with [employer] [facility], on 09/28/2022 at6 PM via [email or web address] Messenger. Attending review by Baron Mazariegos M.D. I have personally reviewed the study and agree with the reported findings. Final Report Dictated: 09/28/2022 5:06 pm Dictated By: Viv Marie Electronic Signature: 09/29/2022 8:03 am Signed By: BARON MAZARIEGOS MD * Exam Date Time Procedure Performing Provider Status 09/28/22 9:48 AM XR Chest 1 View Portable Berry RT, Nieves; Modified Notes: (XR Chest 1 View Portable) Reason For Exam: Respiratory Failure Acute REPORT CHEST RADIOGRAPH, SINGLE VIEW REASON FOR EXAM: : Respiratory Failure Acute TECHNIQUE: AP upright portable COMPARISON: September 27, 2022 at 0532 hours FINDINGS: A previous median sternotomy. Prosthetic valve, pacer wires, and PICC line remain unchanged in good position. Mild alveolar and interstitial edema. Rogelio B lines are noted. Upper abdomen is unremarkable. Surgical clips over the left chest are unchanged. IMPRESSION: Mild cardiomegaly and interstitial and alveolar edema Final Report Dictated: 09/28/2022 10:14 am Dictated By: BARON MAZARIEGOS MD Electronic Signature: 09/28/2022 10:16 am Signed By: BARON MAZARIEGOS MD * Exam Date Time Procedure Performing Provider Status 09/27/22 5:49 AM XR Chest 2 Views Deso RT, Yanci; Mo dified Notes: (XR Chest 2 Views) Reason For Exam: Sepsis, suspect endocarditis;Other - Populate Reason For Exam (Freetext) REPORT STUDY: Chest radiograph, AP upright and lateral. INDICATION: Sepsis, suspected endocarditis. COMPARISON: None. FINDINGS: Right PICC terminating in the right atrium, appropriate position. Median sternotomy wires and sternal fixation hardware, unremarkable. Abundant leads the chest. Prosthetic aortic valve. The lungs are well-inflated. No focal consolidation identified. The right basilar atelectasis. The heart is of normal size. Pulmonary vascularity is within normal limits. No acute osseous abnormality. Overall decreased bone mineralization. Overlying soft tissues are unremarkable. IMPRESSION: 1.No acute cardiopulmonary process. 2.Appropriate position of the right PICC. 3.Diffuse osteopenia is more than expected for patient age. Recommend outpatient DEXA study for further evaluation. Attending review by Dr. Flores, 09/27/2022 7:57 AM. THIS FINAL REPORT DIFFERS FROM THE PRELIMINARY RESIDENT REPORT ABOVE IN REGARD TO THE FOLLOWING: Apparent diffuse osteopenia seen on lateral radiograph likely due to over penetration versus true osteopenia. I have reviewed the case and otherwise agree with the reported findings. #[id number]# Final Report Dictated: 09/27/2022 5:54 am Dictated By: Helen Yan Electronic Signature: 09/27/2022 7:57 am Signed By: Odalis Flores MD Vital Signs Most recent to oldest [Reference Range]: 1 2 3 BMI 23 kg/m2 (09/27/22 3:50 PM) BSA 1.7 (09/27/22 3:50 PM) Blood Pressure [90-140/60-90 mmHg] 109/74mmHg (10/10/22 3:00 PM) 106/71mmHg (10/10/22 11:49 AM) 107/72mmHg (10/10/22 7:00 AM) Blood Pressure Location Left (10/10/22 11:49 AM) Left, Upper, Arm (10/06/22 4:00 AM) Left (10/06/22 12:48 AM) Blood Pressure Method Automatic (10/10/22 11:49 AM) Automatic (10/08/22 4:38 AM) Automatic (10/06/22 4:00 AM) Current Weight 63.2 kg (09/27/22 3:50 PM) Current Weight kg 63.2 kg (09/27/22 3:50 PM) Dosing BMI 23 (09/27/22 3:50 PM) 24 (09/27/22 3:01 PM) 24 (09/27/22 2:45 AM) Dosing BSA-Mosteller 1.7 m2 (09/27/22 3:50 PM) 1.73 m2 (09/27/22 3:01 PM) 1.73 m2 (09/27/22 2:45 AM) Dosing Weight 63.2 kg (09/27/22 3:50 PM) 65 kg (09/27/22 3:01 PM) 65 kg (09/27/22 2:45 AM) Heart Rate [60-100 bpm] 75 bpm (10/10/22 3:00 PM) 80 bpm (10/10/22 11:49 AM) 60 bpm (10/10/22 7:00 AM) Height 165 cm (09/27/22 3:50 PM) 165 cm (09/27/22 3:50 PM) 165 cm (09/27/22 3:01 PM) Mean Arterial Pressure 86 mmHg (10/10/22 3:00 PM) 83 mmHg (10/10/22 11:49 AM) 84 mmHg (10/10/22 7:00 AM) Pulse/HR Location Apical (09/27/22 7:27 AM) Pulse/HR Method Monitor (10/06/22 4:00 AM) Monitor (10/06/22 12:48 AM) Monitor (10/06/22 12:03 AM) Respiratory Rate [14-20 breaths/min] 18 breaths/min (10/10/22 3:00 PM) 16 breaths/min (10/10/22 11:49 AM) 16 breaths/min (10/10/22 7:00 AM) SpO2/Pulse Oximetry [85-100 %] 95 % (10/10/22 11:49 AM) 98 % (10/10/22 7:00 AM) 96 % (10/06/22 4:00 AM) Temperature Axillary [35.2-38 degC] 36.5 degC (10/10/22 11:49 AM) 37.5 degC (09/29/22 5:11 PM) Temperature Oral [35.8-37.3 degC] 36.7 degC (10/10/22 3:00 PM) 37.1 degC (10/09/22 3:18 PM) 36.7 degC (10/09/22 9:49 AM) Social History Social History Type Response Smoking/Tobacco Use Smoking tobacco use: Current status unknown. Sex Female Hospital Discharge Instructions Follow Up Care 09/27/2022 02:42:17 With:YONATHAN PERALTA, DANIELLA Bauer, Internal Medicine Address: [address] [place] [phone] When:5 to 7 days With:Morgan Hassan Address: [address] [place] [phone] When: only if needed Comments:For knee pain and swelling. EKG study * Event Display: Electrocardiogram-EKG Authored Date: Note * Event Display: Report Authored Date: Study ID: [id number] [address] [id number] Non- Invasive Cardiology Laboratory Transesophageal Echocardiogram Final Report Name: LIZZY BARNES Study Date: 10/03/2022 12:07 PMBP: 100/59 mmHg Patient Location: : 1990 Height: 65 in Age: 31 yrs Gender: Female Weight: 139 lb Reason For Study: Aortic/ Valvular disease BSA: 1.7 m2 History: endocarditis Ordering Physician: LILIAM MEJIA Referring Physician: Daniella Mcmanus Performed By: MD Massiel Ramsay Fellow: MD Massiel Ramsay Interpretation Summary The study was technically difficult. -Left ventricular systolic function is normal. -The right ventricular systolic function is normal. -There is mild mitral regurgitation. -Trace aortic regurgitation. -Mild pulmonic valvular regurgitation. -There is a bioprosthetic valve in the tricuspid position. Per report this was implanted in 2019. The leaflets are thickened with a small \R\0.5cm or less vegetation on the posterior/septal leaflet. Mean gradient is 4.5mmHg. The valve gradients are normal, mild intravalvular leak. Overall function and opening fo the claudio appears normal. RADHA Procedure Notes A 2D and 3D transesophageal echocardiogram with Spectral and color flow Doppler was performed. The patient was prepped in the standard fashion. Intravenous access was obtained and the patient received continuous oxygen with oximetric monitoring. The patient???s blood pressure, heart rate, and cardiac rhythm were continuously monitored. Once informed consent for the RADHA and for conscious sedation was obtained by the attending, the posterior oropharynx was anesthetized. The Anaesthesia Department was consulted. Sedation was then provided by the anesthesiologist using IV Propofol. The RADHA probe was then inserted into the mouth, guided to the posterior oropharynx, and, with manipulation, the esophagus was intubated. A standard RADHA was then performed using the Omniplane probe through transesophageal and transgastric windows. Spectral Doppler, color-flow Doppler, 2- dimensional and 3-dimensional echocardiographic images were obtained of all important cardiac structures in multiple planes and were saved on videotape and in digital files. The probe was withdrawn from the esophagus and the posterior pharynx. The patient was observed until satisfactory recovery was achieved. There were no complications. Total Propofol dose: 300 mg. Sedation started at 1227 hrs. RADHA probe #[id number] was introduced at 1231 hrs, and withdrawn at 1248 hrs. Patient was monitored 30 min after the end of procedure. See nursing notes for details. Left Ventricle The left ventricle is normal in size. There is normal left ventricular wall thickness. Left ventricular systolic function is normal. Ejection Fraction = 55-60%. No regional wall motion abnormalities noted. Right Ventricle The right ventricle is normal size. The right ventricular systolic function is normal. Atria The interatrial septum is intact with no evidence for an atrial septal defect. The left atrial size is normal. No thrombus is detected in the left atrial appendage. No left atrial mass or thrombus visualized. 4 out of 4 pulmonary veins visualized draining into the left atrium. Right atrial size is normal. Mitral Valve The mitral valve leaflets appear normal. There is no evidence of stenosis, fluttering, or prolapse. There is no vegetation seen on the mitral valve. There is no mitral valve stenosis. There is mild mitral regurgitation. Tricuspid Valve There is a bioprosthetic valve in the tricuspid position. Per report this was implanted in 2019. The leaflets are thickened with a small \R\0.5cm or less vegetation on the posterior/septal leaflet. Mean gradient is 4.5mmHg. The valve gradients are normal, mild intravalvular leak. Overall function and opening fo the claudio appears normal. Aortic Valve The aortic valve is trileaflet. The aortic valve opens well. There is no aortic valvular vegetation. There is no aortic stenosis. Trace aortic regurgitation. Pulmonic Valve The pulmonic valve leaflets are thin and pliable; valve motion is normal. There is no vegetation on the pulmonic valve. Mild pulmonic valvular regurgitation. Vessels The aortic root is normal size. The ascending aorta is normal in size. Pericardium There is no pericardial effusion. Doppler Measurements \T\ Calculations TR max aramis: 163.0 cm/sec TR max P.6 mmHg Electronically Signed By: Sid Cadet 10/04/2022 10:23 AM * Event Display: Report Authored Date: * Event Display: Report Authored Date: [id number] Study ID: [id number] [address] [id number] Non- Invasive Cardiology Laboratory Transthoracic Echocardiogram Final Report Name: LIZZY BARNES Study Date: 10/01/2022 07:29 AM Patient Location: : 1990 Height: 65 in Age: 31 yrs Gender: Female Weight: 143 lb Reason For Study: Endocarditis BSA: 1.7 m2 Ordering Physician: INGRID CRAWFORD Referring Physician: Daniella Mcmanus Performed By: Mauricio Tellez RDCS Interpretation Summary A complete two-dimensional transthoracic echocardiogram was performed (2D, M-mode, Doppler and color flow Doppler). The study was technically difficult. There is no comparison study available. Left ventricular systolic function is normal. Ejection Fraction = 55-60%. No regional wall motion abnormalities noted. Transmitral E velocity and Doppler E/e' ratio is suggestive of elevated left ventricle filling pressure. There is mild to moderate mitral regurgitation. Although not well visualized, there appears to be a 1.12 cm mobile mass on the tip of the tricuspid valve that is suggestive of possible vegetation; there is a significant 6 mmHg mean transtricuspid valve gradient; recommend RADHA if clinically indicated. Left Ventricle The left ventricle is normal in size. There is normal left ventricular wall thickness. Left ventricular systolic function is normal. Ejection Fraction = 55-60%. Transmitral E velocity and Doppler E/e' ratio is suggestive of elevated left ventricle filling pressure. No regional wall motion abnormalities noted. Right Ventricle The right ventricle is enlarged. Atria The left atrium is mildly dilated. The right atrium is enlarged. There is no Doppler evidence for an atrial septal defect. Mitral Valve The mitral valve leaflets appear thickened, but open well. There is mild to moderate mitral regurgitation. Tricuspid Valve Although not well visualized, there appears to be a 1.12 cm mobile mass on the tip of the tricuspid valve that is suggestive of possible vegetation; there is a significant 6 mmHg mean transtricuspid valve gradient; recommend RADHA if clinically indicated. There is mild tricuspid regurgitation. Pulmonary Artery Systolic Pressure could not be estimated because of incomplete tricuspid regurgitation Doppler jet envelope. Aortic Valve The aortic valve is trileaflet. The aortic valve opens well. Mild aortic regurgitation. Pulmonic Valve The pulmonic valve is not well seen, but is grossly normal. There is no pulmonic valvular stenosis. Mild to moderate pulmonic valvular regurgitation. Great Vessels The aortic root is normal size. The ascending aorta is normal in size. The pulmonary artery is not well visualized. The IVC is dilated iwth normal respiratory variation in size suggesting a RAP of 8 mm of HG. Pericardium/Pleural There is no pericardial effusion. MMode/2D Measurements \T\ Calculations IVSd: 0.81 cm LVIDd: 5.3 cm LVIDs: 3.4 cm LVPWd: 1.0 cm FS: 36.0 % Ao root diam: 3.0 cm EDV(Teich): 136.3 ml Ao root area: 7.2 cm2 ESV(Teich): 47.5 ml LA dimension: 4.4 cm asc Aorta Diam: 2.9 cm LVOT diam: 2.0 cm LVOT area: 3.2 cm2 IVC Diam_phl: 2.3 cm RA A4Cs_phl: 28.9 cm2 RV Base_phl: 5.3 cm LA Area AP2C: 23.3 cm2 LA Area AP4C: 23.5 cm2 LA Length: 6.4 cm LA Vol: 72.6 ml LA Vol Index: 42.3 ml/m2 Doppler Measurements \T\ Calculations MV E max aramis: 121.0 cm/sec MV dec slope: 745.7 cm/sec2 MV A max aramis: 84.4 cm/sec MV dec time: 0.16 sec MV E/A: 1.4 Ao V2 max: 158.8 cm/sec LV V1 max P.5 mmHg Ao max P.1 mmHg LV V1 mean P.9 mmHg Ao V2 mean: 106.8 cm/sec LV V1 max: 136.7 cm/sec Ao mean P.1 mmHg LV V1 mean: 93.0 cm/sec Ao V2 VTI: 35.3 cm LV V1 VTI: 30.8 cm NEHA(I,D): 2.8 cm2 NEHA(V,D): 2.7 cm2 SV(LVOT): 98.1 ml PA V2 max: 116.7 cm/sec PA max P.5 mmHg TR max aramis: 145.2 cm/sec AV VR_phl: 0.86 TR max P.5 mmHg NEHA(VTI)/BSA_phl: 1.6 MV P1/2t-pr_phl: 47.4 msec E/Lat E': 12.5 E/Med E': 23.7 Electronically Signed By: Choco Mak MD 10/01/2022 03:58 PM * Event Display: Report Authored Date: [id number] Cardiology * Priscilla Roxanne WHIPPLE: PERFORM Event Display: Non-Invasive Vascular Report Authored Date: [id number] Vascular Laboratory Report: Venous LE SVH ?? History: ?? Note: ??ED Indications: ??Pain swelling left leg Venous Duplex Scan Report (Lower Extremity)? Right? Thrombus? Left? Thrombus ?Patency?Imaged ?Patency?Imaged ? External Iliac Com Fem.? PATENT? NO? PATENT? NO Prof Fem.? PATENT? NO Prox Fem? PATENT? NO Dist Fem? PATENT? NO Popliteal? PATENT? NO Ant Tibial Post Tibial? PATENT? NO Peroneal? PATENT? NO Prox GSV? PATENT? NO Mid GSV? PATENT? NO Dist GSV? PATENT? NO SSV? PATENT? NO ? Impressions: ??Duplex ultrasonographic imaging of the left lower extremity demonstrated no evidenceof deep vein thrombosis. A bakers cyst is evident with a measurement of 4.1cm AP. Final Comments:?? 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 She??got discharged on 09/11/2022 with??oxacillin??until??10/18/2022, ertapenem? ?for 2 weeks??for synergistic therapy??and rifampin??because of prosthetic valve.?She was admitted to [facility] on 09/27/2022 with ongoing fevers, knee pain and swelling??and low back soreness.??Vancomycin was started??and oral rifampicin was??continued.??Her blood cultures dated 09/27/2022??came back p ositive for Staphylococcus??hemolyticus, resistant to oxacillin. Currently, the patient is only on??IV vancomycin as she refused oral rifampicin because it precipitated withdrawal symptoms due to interaction with methadone. Her PICC line culture (10/01/2022)??shows no growth at the end of 5 days. The patient is feeling better but??she has been having??low grade fevers with the highest recorded temperature of 38.6degreeC. Not accompanied by chills, nausea, vomiting, headache or lightheadedness. The patient also mentions decreased knee pain and swelling and no lower back pain.?? TTE??done??10/01 showed??1.12 cm mobile mass on the tip of the tricuspid valve that is suggestive ofpossible vegetation??and significant 6 mmHg mean transtricuspid valve gradient. RADHA done 10/03??showed a 0.5cm small vegetation on bioprosthetic tricuspid valve which is significantly smaller than initial at 5cm. Cardiac surgery advised to continue medical therapy in the setting??of??recurrent IV drug use??and medication noncompliance??as in these cases??reoperation??for valve replacement??is considered futile and contraindicated and the patient appears to be responding well to abx therapy. CT of the??chest (09/28/22)??showed??subsegmental pulmonary embolism.??According to the previous notes, this is likely due to the??patient's history of factor V Leiden mutation??and Eliquis non-compliance.??CT lumbar spine (09/28/22)- unremarkable for septic emboli. 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 (10/07 08:26) 36.5?? (10/07 04:47) 37.1?? (10/07 08:26) Heart Rate 69?? (10/07 08:26) 61?? (10/07 04:47) 99?? (10/06 17:08) Respiratory Rate 16?? (10/07 08:26) 16?? (10/07 04:47) 19?? (10/06 19:42) Systolic BP 136?? (10/07 08:26) 102?? (10/07 04:47) 136?? (10/07 08:26) Diastolic BP 94 (H) (10/07 08:26) 66?? (10/07 04:47) 94 (H) (10/07 08:26) Oxygen Flow 3?? (10/06 19:42) 3?? (10/06 19:42) 3?? (10/06 19:42) Oxygen Percent 99?? (10/07 08:26) 95?? (10/06 11:02) 99?? (10/07 08:26) General: Awake, alert, oriented x3, cooperative, no acute distress HEENT: Abisai, EOMI, sclera anicteric, mucous membranes moist Cardiovascular: Normal S1-S2, no murmur/rubs/gallops Respiratory: Bilateral clear vesicular breath sounds, Abdomen: Soft, nontender, nondistended Extremities: No peripheral edema bilaterally Neurologic: Moves all extremities, cranial nerves grossly intact, speech not slurred Has PICC line in??the right??antecubital fossa,??no surrounding skin??changes. MEDICAL DECISION MAKING: Assessment and Plan 31 years old female patient with PMH of IV drug use and IE of bioprosthetic tricuspid valves, presented with recurrent??fever. New fever secondary to new Staphylococcus hemolyticus bacteremia,??most likely source is skin. ?? PLAN -Continue IV vancomycin for 6 weeks from 10/01/22 (first??negative PICC line blood culture) - till 11/12/2022 with a trough of 15-20. ?? Plan discussed with Dr. Kathleen and conveyed to the primary team. PROBLEM LIST/PAST MEDICAL HISTORY: Ongoing ? Depression (Medical)? Factor 5 Leiden mutation, heterozygous (Medical)? Infective endocarditis of tricuspid valve (Medical)? Opioid use (Medical)? Pulmonary embolism (Medical)?? Historical ? No qualifying data? SOCIAL HISTORY: Home/Environment Human Trafficking Red Flags None., 09/27/2022 Smoking/Tobacco Use Smoking tobacco use: Current status unknown., 09/27/2022 Substance Abuse Use: Denies use., 09/27/2022 MEDICATIONS: Medications (17) Active Scheduled: (10) apixaban (Eliquis) ??5 mg = 1 tab, Oral, BID cloNIDine ??0.1 mg = 1 tab, Oral, QID ethanol topical ??1 application, Each Nostril, BID hydrocortisone topical (hydrocortisone topical 1% cream) ??1 application, Topical, BID melatonin ??3 mg = 1 tab, Oral, Q Bedtime methadone ??50 mg = 5 tab, Oral, Daily multivitamin ??1 tab, Oral, Daily pantoprazole ??40 mg = 1 tab, Oral, BID vancomycin ??1,250 mg = 250 mL, IV Piggyback, Q12hr venlafaxine ??37.5 mg = 1 cap, Oral, Daily ?? Continuous: (1) Sodium Chloride 0.9% 250 mL ??250 mL, IV ?? PRN: (6) acetaminophen (Tylenol) ??650 mg = 2 tab, Oral, Q6hr diphenhydrAMINE ??50 mg = 1 cap, Oral, Q4hr methadone ??5 mg = 5 mL, Oral, Q4hr nalOXone ??0.4 mg = 1 mL, IV Push, Q15 Min-int nalOXone ??0.4 mg = 1 mL, IV Push, Q15 Min-int sodium chloride (Saline flush) ??10 mL, IV, As Directed ? ALLERGIES: Allergies (1) Active Reaction NKA None Documented LAB RESULTS: Hematology Basic - Last 36 hours (12) Result Date/Time WBC 7.0?10/07 04:20 RBC 2.92 (L) ??10/07 04:20 Hgb 8.1 (L) ??10/07 04:20 Hct 25.6 (L) ??10/07 04:20 MCV 88?10/07 04:20 MCH 28?10/07 04:20 MCHC 32?10/07 04:20 RDW 46.8 (H) ??10/07 04:20 RDW-SD 47?10/07 04:20 RDW-CV 14?10/07 04:20 Platelet Count 124 (L) ??10/07 04:20 MPV 11.5 (H) ??10/07 04:20 ? Chemistry Comprehensive - Last 36 hours (23) Result Date/time Sodium Lvl 135?10/07 04:20 Potassium Lvl 3.9?10/07 04:20 Chloride Lvl 105?10/07 04:20 CO2 23?10/07 04:20 Glucose Level 133 (H) ??10/07 04:20 BUN 14?10/07 04:20 Creatinine Lvl 0.73?10/07 04:20 AGAP 7.0 (L) ??10/07 04:20 BUN/Creat 19?10/07 04:20 Total Protein 9.0 (H) ??10/05 09:17 Albumin Lvl 2.5 (L) ??10/05 09:17 Calcium Lvl 8.8?10/07 04:20 Alk Phos 161 (H) ??10/05 09:17 AST 16?10/05 09:17 ALT 5?10/05 09:17 Globulin 6.5 (H) ??10/05 09:17 Osmolality Calc 282?10/07 04:20 A/G Ratio 0.4 (L) ??10/05 09:17 Magnesium Lvl 1.7?10/07 04:20 Phosphate 5.9 (H) ??10/07 04:20 Bili Total 0.4?10/05 09:17 Bili Direct <0.2?10/05 09:17 Bili Indirect >0.2?10/05 09:17 ? RADIOLOGY/DIAGNOSTIC RESULTS: Radiology - Last 36 hours (0) No results in past 36 hours ? Diagnostics - Non-Radiology - Last 36 hours (0) No results in past 36 hours ? Electronically Signed On 10/07/22 16:56 EDT ROSE PERALTA, BARB LEYVA Electronically Signed On 10/09/22 17:09 EDT HEVER PERALTA, SOCO Mcneil MD, Venkat: MODIFY, PERFORM Event Display: Consult Note EMR No Cosign Authored Date: [id number] DATE/TIME NOTE CREATED: 10/05/2022 23:29:14 REASON FOR CONSULTATION: Anemia HISTORY OF PRESENT ILLNESS: 31 years old female patient with PMH of IV drug use and IE of bioprosthetic tricuspid valves ??withcomplaints of fatigue and fever. Currently she is being managed for sepsis likely due to infective endocarditis??. We are consulted today due to worsening of her Hb with a question if this is from GIbleed. The patient is having regular brown colored stools. No history of black tarry stools or other formsof amadou GI blood loss such as hematochezia or hematemesis. No prior history of GI bleed. Patient has not had any endoscopic procedures in the past. No family history of GI malignancies. REVIEW OF SYSTEMS: All other systems reviewed and were negative. PHYSICAL EXAM: VITAL SIGNS: Vital Signs: Last Charted: 24 Hr Minimum: 24 Hr Maximum: Temperature Oral 36.9?? (10/05 21:05) 36.9?? (10/05 21:05) 38.6 (H) (10/05 17:04) Heart Rate 72?? (10/05 21:05) 72?? (10/05 21:05) 87?? (10/05 15:00) Cardiac Rhythm Normal sin?? (10/05 18:20) ? Pulse/HR Method Monitor?? (10/05 18:20) ? Respiratory Rate 18?? (10/05 21:05) 16?? (10/05 04:36) 20?? (10/05 11:27) Systolic BP 98?? (10/05 21:05) 70 (L) (10/05 17:23) 124?? (10/05 18:20) Diastolic BP 60?? (10/05 21:05) 60?? (10/05 21:05) 73?? (10/05 17:04) Mean Arterial Pressure 73?? (10/05 21:05) 73?? (10/05 04:36) 89?? (10/05 17:04) Blood Pressure Location Left?? (10/05 21:05) ? Blood Pressure Method Automatic?? (10/05 21:05) ? Activity Supine Clin Doc Bedrest?? (10/05 21:05) ? SpO2/Pulse Oximetry 98?? (10/05 21:05) 96?? (10/05 15:00) 98?? (10/05 17:04) Oxygen Percent 95?? (10/05 11:27) 95?? (10/05 11:27) 98?? (10/05 04:36) Alert, awake and oriented X 3. No gross focal neurological deficits. Mild pallor. No icterus. Abdomen is soft and non tender. No obvious organomegaly. ASSESSMENT/PLAN: Multifactorial Anemia from sepsis,??infective endocarditis, possible underlying hemolysis. There isno evidence of overt GI bleed and any endoscopic work up at this time is not needed, unless the patient has amadou overt GI bleed. ?? Please resume Eliquis given h/o recurrent PE and Factor V Leiden mutation. ?? If the patient has overt GI bleed, please let the GI team know for reassessment re endoscopic work up. ?? Otherwise, out patient work up with Upper Endoscopy and Colonoscopy to be arranged by patient's PCPwith a local area Industrial Nurse (the patient lives in [facility]) after discharge is appropriate. ?? Thank you for involving us in the care of this patient. ?? PROBLEM LIST/PAST MEDICAL HISTORY: Ongoing ? Depression (Medical)? Factor 5 Leiden mutation, heterozygous (Medical)? Infective endocarditis of tricuspid valve (Medical)? Opioid use (Medical)? Pulmonary embolism (Medical)?? Historical ? No qualifying data? SOCIAL HISTORY: Home/Environment Human Trafficking Red Flags None., 09/27/2022 Smoking/Tobacco Use Smoking tobacco use: Current status unknown., 09/27/2022 Substance Abuse Use: Denies use., 09/27/2022 MEDICATIONS: Medications (16) Active Scheduled: (9) cloNIDine ??0.1 mg = 1 tab, Oral, QID ethanol topical ??1 application, Each Nostril, BID hydrocortisone topical (hydrocortisone topical 1% cream) ??1 application, Topical, BID melatonin ??3 mg = 1 tab, Oral, Q Bedtime methadone ??50 mg = 5 tab, Oral, Daily multivitamin ??1 tab, Oral, Daily pantoprazole ??40 mg = 1 tab, Oral, BID vancomycin ??1,000 mg = 200 mL, IV Piggyback, Q12hr venlafaxine ??37.5 mg = 1 cap, Oral, Daily ?? Continuous: (1) Sodium Chloride 0.9% 250 mL ??250 mL, IV ?? PRN: (6) acetaminophen (Tylenol) ??650 mg = 2 tab, Oral, Q6hr diphenhydrAMINE ??50 mg = 1 cap, Oral, Q4hr methadone ??5 mg = 5 mL, Oral, Q4hr nalOXone ??0.4 mg = 1 mL, IV Push, Q15 Min-int nalOXone ??0.4 mg = 1 mL, IV Push, Q15 Min-int sodium chloride (Saline flush) ??10 mL, IV, As Directed ? ALLERGIES: Allergies (1) Active Reaction NKA None Documented LAB RESULTS: Hematology Basic - Last 36 hours (12) Result Date/Time WBC 7.5?10/05 05:27 RBC 2.27 (L) ??10/05 05:27 Hgb 6.3 (L) ??10/05 05:27 Hct 19.3 (!) ??10/05 05:27 MCV 85?10/05 05:27 MCH 28?10/05 05:27 MCHC 33?10/05 05:27 RDW 45.1 (H) ??10/05 05:27 RDW-SD 45?10/05 05:27 RDW-CV 14?10/05 05:27 Platelet Count 93 (L) ??10/05 05:27 MPV 11.4 (H) ??10/05 05:27 ? Chemistry Comprehensive - Last 36 hours (23) Result Date/time Sodium Lvl 134?10/05 05:27 Potassium Lvl 4.2?10/05 05:27 Chloride Lvl 103?10/05 05:27 CO2 24?10/05 05:27 Glucose Level 124 (H) ??10/05 05:27 BUN 18?10/05 05:27 Creatinine Lvl 0.75?10/05 05:27 AGAP 7.0 (L) ??10/05 05:27 BUN/Creat 24?10/05 05:27 Total Protein 9.0 (H) ??10/05 09:17 Albumin Lvl 2.5 (L) ??10/05 09:17 Calcium Lvl 9.3?10/05 05:27 Alk Phos 161 (H) ??10/05 09:17 AST 16?10/05 09:17 ALT 5?10/05 09:17 Globulin 6.5 (H) ??10/05 09:17 Osmolality Calc 281?10/05 05:27 A/G Ratio 0.4 (L) ??10/05 09:17 Magnesium Lvl 1.8?10/05 05:27 Phosphate 4.6 (H) ??10/05 05:27 Bili Total 0.4?10/05 09:17 Bili Direct <0.2?10/05 09:17 Bili Indirect >0.2?10/05 09:17 ? RADIOLOGY/DIAGNOSTIC RESULTS: Radiology - Last 36 hours (0) No results in past 36 hours ? Diagnostics - Non-Radiology - Last 36 hours (0) No results in past 36 hours ? Electronically Signed On 10/06/22 10:08 EDT Tarun PERALTA, Venkat * PATRICK ARENAS, GRANT N: MODIFY, PERFORM RIANNA PERALTA, JAMES Yusuf: MODIFY Event Display: Consult Note EMR Authored Date: [id number] DATE/TIME NOTE CREATED: 10/04/2022 17:14:41 CHIEF COMPLAINT: FEVERS REASON FOR CONSULTATION: Endocarditis HISTORY OF PRESENT ILLNESS: The patient is a 31-year-old female with Factor V Leiden with recurrent history of pulmonary embolisms, on Eliquis, although reports not taking prior to initial hospitalization and active IV drug use,??recently diagnosed MSSA bacteremia and??bioprosthetic tricuspid valve infective endocarditis. Thepatient underwent a bioprosthetic tricuspid valve replacement in 2019 due to endocarditis from IV drug use at the time. According to the patient, she relapsed a few months later and was diagnosed with endocarditis and treated with IV antibiotics at the time. Since, she??reports that she was doing well??but began dating an active IV drug user, which caused her to relapse??again about a month ago. ?? The patient was??admitted to [facility] on 09/04/2022 for??infective endocarditis of??bioprosthetic tricuspid valve??and MSSA bacteremia. RADHA on 09/05/2022 showed large vegetation on theprosthetic tricuspid valve, leaflet malcoaptation and severe tricuspid regurgitation, 5 cm large com plex vegetation in the right ventricle??attached to the subvalvular apparatus,??s/p??angio vac procedure on 09/10. At [facility], the last date of negative blood culture was on 09/07/2022.??At that time,she was??discharged on??09/17/2022 to rehab??on??Rifabutin 300 mg daily and IV oxacillin 2 g every 4 hours with the last dose scheduled for??10/18/22, with IV ertapenem 1 g every 24 hours with the??last dose scheduled for 09/20/2022,??for dual antibiotic??synergistic therapy. ? The patient was then discharged to a rehab center for IV antibiotics with a PICC line. Per the patient, she was doing well but developed chills on day 3-4. At that time, she was afebrile. Roughly a week later, her chills worsened and was later found to have a fever??of 104.??The patient was then brought to [facility] on??09/27/2022 with ongoing fever and started on Vancomycin and oral rifampicin was??continued.??Blood cultures at the time were??positive for Staphylococcus??hemolyticus??most likely from the PICC line??skin source.??CT of the??chest was also performed and showed??subsegmental pulmonary embolism.? RADHA was performed on 10/03/2022 and showed a thickened tricuspid valve leaflets with a small, roughly 0.5cm or less vegetation on the posterior/septal leaflet. Most recent blood cultures, which were drawn on 10/01/2022 are currently negative but pending. Due to the patients cardiac surgery and endocarditis history, Cardiac Surgery was consulted. REVIEW OF SYSTEMS: EYES: No recent vision problems ENT: No congestion, ear pain, and/or sore throat C/V: No chest pain, palpitations, or edema RESP:??No cough, congestion, wheezing and/or shortness of breath GI: No abdominal pain, nausea, vomiting, constipation and/or diarrhea SKIN: No rash NEURO: No headache, focal numbness or weakness and/or dizziness HEME: No abnormal bruising or bleeding PHYSICAL EXAM: VITAL SIGNS: Vital Signs: Last Charted: 24 Hr Minimum: 24 Hr Maximum: Temperature Oral 37.6 (H) (10/04 16:02) 37.0?? (10/04 11:36) 37.8 (H) (10/03 19:06) Heart Rate 105 (H) (10/04 16:02) 84?? (10/04 04:50) 105 (H) (10/04 16:02) Respiratory Rate 18?? (10/04 16:02) 16?? (10/04 02:05) 18?? (10/03 19:06) Systolic BP 100?? (10/04 16:02) 94?? (10/04 04:50) 111?? (10/04 11:36) Diastolic BP 57 (L) (10/04 16:02) 57 (L) (10/04 16:02) 73?? (10/04 11:36) Mean Arterial Pressure 71?? (10/04 16:02) 70?? (10/04 04:50) 71?? (10/04 16:02) Blood Pressure Location Left, Uppe?? (10/04 04:50) ? SpO2/Pulse Oximetry 96?? (10/03 19:06) 96?? (10/03 19:06) 96?? (10/03 19:06) Oxygen Percent 94?? (10/04 16:02) 94?? (10/04 16:02) 99?? (10/04 11:36) ?? Physical Exam: GENERAL: No acute distress, non-toxic appearing EYES: PERRLA, EOMI, conjunctiva normal, no discharge LUNGS: Clear breath sounds bilaterally.??No wheezes, rales, or rhonchi HEART: Regular rate and rhythm. No murmurs, rub, or gallops noted VASC: No edema noted bilaterally ABD: Bowel sounds normal, soft, nontender, no masses, no organomegaly EXT: Normal range of motion, no clubbing, no cyanosis SKIN: No rashes or lesions NEURO: Alert and oriented x 3. Normal affect. Cranial nerves intact. No focal sensory or strength deficits ASSESSMENT/PLAN: Bacterial endocarditis??(I33.0) The patient is a 31-year-old female with Factor V Leiden with recurrent history of pulmonary embolisms, on Eliquis, although reports not taking prior to initial hospitalization and active IV drug use,??recently diagnosed MSSA bacteremia and??bioprosthetic tricuspid valve infective endocarditis. ?? The patient seems to be responding well to antibiotics and most recent blood cultures are negative, although pending. Vegetation on recent RADHA is measuring at 0.5cm, which is significantly smallerthan initial at 5cm.? Please refer to Dr. Vick's attestation for more information Fever of unknown origin??(R50.9) ATTESTATION: Cardiac Surgery Attending Note ?? Referring physician:?? Data sources: review of the chart notes, interview with the pt., review of labs/imaging, discussionwith referring physician ?? This is a 31-year-old??woman??with a history of IV drug abuse,??factor V Leiden deficiency, recurrent pulmonary embolisms??(noncompliant??with Eliquis)??and prior??tricuspid valve endocarditis statuspost??bioprosthetic tricuspid??valve replacement??in 2019.?? At the time of her operation, she was i nformed??that??she would be??given a shot??at??tricuspid valve replacement??but should she returned??with prosthetic??or [place] valve??endocarditis in the??setting of recurrent IV drug use??that surgery would not be offered??as it would be considered futile.?? Several months after her operation??she began using IV drugs again??and developed prosthetic valve endocarditis.?? She was treated with antibiotics. ??According to the patient she did well??for period of time. ??Approximately a month ago she??began??dating??an active IV drug user??and she relapsed again.?? She was admitted to [facility]??on September 04??with MSSA bacteremia??and bioprosthetic??valve infection.?? A transesophageal echo??demonstrated leaflet mall coaptation??with??severe TR and??a 5 cm??complex vegetation??attached??to the subvalvular??apparatus in the right ventricle. ??She underwent an angiovac procedure??and she was ultimately discharged??with negative blood cultures??on September 17, 2022. ??She went??to a rehab facility??on September 17, 2022??for IV antibiotics via a PICC line.?? Her last dose of antibiotics??was scheduled for??10/18/2022.?? After approximately 4 days??she developed chills and a week later??became febrile??to 104.?? She was brought to [facility]??where she was found to have WBC 13.6 and??blood cultures positive for staph hemolyticus??thought to be from the PICC line. TTE??done??10/01 showed??1.12 cm mobile mass on the tip of the tricuspid valve that is suggestive of possible vegetation??and significant 6 mmHg mean transtricuspid valve gradient.?? CXR was negative and CT chest showed LLL subsegmental PE. ??She refused??Coumadin??and Eliquis??but agreed to heparin while she was in the hospital. ??A subsequent RADHA showed??normal biventricular function, trace aortic insufficiency, mild mitral regurgitation??and a??less than 0.5 cm??vegetation??on the posterior leaflet??of the biop rosthetic??tricuspid valve. ??The overall valve function was normal.?I personally reviewed the studies.? I discussed with the patient the findings??of??labs and imaging studies??in the context??of??herpresentation.?? Typically, bioprosthetic valve infection??eventually requires??surgery??and I discussed the details of??reoperation??with her as well as the risks involved. ??However,??in the setting??of??recurrent IV drug use??and medication noncompliance,??reoperation??for valve replacement??is considered futile and contraindicated.?? At this point, her only option??is medical therapy.?? Eva bellamy, imaging indicates that she appears to be responding well to abx therapy. ?? MDM level:??high (81137) ? PROBLEM LIST/PAST MEDICAL HISTORY: Ongoing ? Depression (Medical)? Factor 5 Leiden mutation, heterozygous (Medical)? Infective endocarditis of tricuspid valve (Medical)? Opioid use (Medical)? Pulmonary embolism (Medical)?? Historical ? No qualifying data? SOCIAL HISTORY: Home/Environment Human Trafficking Red Flags None., 09/27/2022 Smoking/Tobacco Use Smoking tobacco use: Current status unknown., 09/27/2022 Substance Abuse Use: Denies use., 09/27/2022 MEDICATIONS: Medications (16) Active Scheduled: (9) apixaban ??5 mg = 1 tab, Oral, BID cloNIDine ??0.1 mg = 1 tab, Oral, QID ethanol topical ??1 application, Each Nostril, BID hydrocortisone topical (hydrocortisone topical 1% cream) ??1 application, Topical, BID melatonin ??3 mg = 1 tab, Oral, Q Bedtime methadone ??40 mg = 4 tab, Oral, Daily multivitamin ??1 tab, Oral, Daily vancomycin ??1,000 mg = 200 mL, IV Piggyback, Q12hr venlafaxine ??37.5 mg = 1 cap, Oral, Daily ?? Continuous: (1) Sodium Chloride 0.9% 250 mL ??250 mL, IV ?? PRN: (6) acetaminophen (Tylenol) ??650 mg = 2 tab, Oral, Q6hr diphenhydrAMINE ??50 mg = 1 cap, Oral, Q4hr methadone ??5 mg = 5 mL, Oral, Q4hr nalOXone ??0.4 mg = 1 mL, IV Push, Q15 Min-int nalOXone ??0.4 mg = 1 mL, IV Push, Q15 Min-int sodium chloride (Saline flush) ??10 mL, IV, As Directed ? ALLERGIES: Allergies (1) Active Reaction NKA None Documented LAB RESULTS: Hematology Basic - Last 36 hours (12) Result Date/Time WBC 8.6?10/04 02:55 RBC 2.57 (L) ??10/04 02:55 Hgb 7.2 (L) ??10/04 02:55 Hct 22.4 (L) ??10/04 02:55 MCV 87?10/04 02:55 MCH 28?10/04 02:55 MCHC 32?10/04 02:55 RDW 46.4 (H) ??10/04 02:55 RDW-SD 46?10/04 02:55 RDW-CV 14?10/04 02:55 Platelet Count 116 (L) ??10/04 02:55 MPV 11.7 (H) ??10/04 02:55 ? Chemistry Comprehensive - Last 36 hours (13) Result Date/time Sodium Lvl 132 (L) ??10/04 02:55 Potassium Lvl 4.1?10/04 02:55 Chloride Lvl 100?10/04 02:55 CO2 23?10/04 02:55 Glucose Level 153 (H) ??10/04 02:55 BUN 18?10/04 02:55 Creatinine Lvl 0.82?10/04 02:55 AGAP 9.0?10/04 02:55 BUN/Creat 22?10/04 02:55 Calcium Lvl 8.7?10/04 02:55 Osmolality Calc 279?10/04 02:55 Magnesium Lvl 1.3 (L) ??10/04 02:55 Phosphate 4.4?10/04 02:55 ? RADIOLOGY/DIAGNOSTIC RESULTS: Radiology - Last 36 hours (0) No results in past 36 hours ? Diagnostics - Non-Radiology - Last 36 hours (0) No results in past 36 hours ? Electronically Signed On 10/04/22 17:54 EDT GRANT GUERIN Electronically Signed On 10/06/22 14:20 EDT RIANNA PERALTA, JAMES Yusuf * HEVER PERALTA, SOCO Rodas: PERFORM Event Display: Consult Note EMR No Cosign Authored Date: [id number] DATE/TIME NOTE CREATED: 10/01/2022 16:09:53 DATE/TIME PATIENT SEEN: 10/01/22 CHIEF COMPLAINT: FEVERS REASON FOR CONSULTATION: bacteremia HISTORY OF PRESENT ILLNESS: 31-year-old woman with history of IV drug use,??recent admission to[facility]??with??MSSA bacteremia??resulting in tricuspid valve endocarditis, status post??tricuspid valve??replacement,??who got discharged with??oxacillin??until??10/18/2022??with ertapenem??for 2 weeks??for synergistic therapy??and rifampin??because of prosthetic valve. ??Admitted??in our hospital 09/27/2022 with ongoing fever.?? Vancomycin was started??oral rifampicin was??continued.?? Blood cultures came back positive for Staphylococcus??hemolyticus??most likely from skin source.?? The skin around the PICC line??looks irritated.?? CT of the??chest showed??subsegmental pulmonary embolism.?? The patient had history of factor V Leiden mutation??and did not take her Eliquis??adequately.?? 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 (10/01 15:00) 36.6?? (10/01 15:00) 36.8?? (09/30 19:36) Heart Rate 86?? (10/01 15:00) 64?? (09/30 23:35) 86?? (10/01 15:00) Respiratory Rate 18?? (10/01 15:00) 14?? (10/01 05:42) 18?? (09/30 19:36) Systolic BP 102?? (10/01 15:00) 91?? (09/30 23:35) 106?? (10/01 05:42) Diastolic BP 68?? (10/01 15:00) 54 (L) (09/30 23:35) 68?? (10/01 15:00) Mean Arterial Pressure 79?? (10/01 15:00) 79?? (10/01 05:42) 79?? (10/01 05:42) SpO2/Pulse Oximetry 96?? (10/01 15:00) 96?? (10/01 15:00) 98?? (09/30 19:36) Oxygen Percent 95?? (10/01 11:06) 95?? (10/01 11:06) 97?? (10/01 05:42) General awake alert oriented x3 stable vitals, fever at admission HEENT normal cephalic neck is supple Lungs clear to auscultation Heart regular heart rate Left knee tender at palpation MEDICAL DECISION MAKIN-year-old woman with history of IV drug use,??recent admission to[facility]??with??MSSA bacteremia??resulting in tricuspid valve endocarditis, status post??tricuspid valve??replacement,??who got discharged with??oxacillin??until??10/18/2022??with ertapenem??for 2 weeks??for synergistic therapy??and rifampin??because of prosthetic valve. ??Admitted??in our hospital 09/27/2022 with ongoing fever.?? Vancomycin was started??oral rifampicin was??continued.?? Blood cultures came back positive for Staphylococcus??hemolyticus??most likely from skin source.?? The skin around the PICC line??looks irritated.?? CT of the??chest showed??subsegmental pulmonary embolism.?? The patient had history of factor V Leiden mutation??and did not take her Eliquis??adequately.?? 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 ??Ertapenem was added for synergistic??action and wasdiscontinued after 2 weeks ?? New fever secondary to new Staphylococcus hemolyticus bacteremia??most likely source is skin ?? New??pulmonary embolism??history of factor V Leiden ?? PLAN -Continue vancomycin with a trough of 15-20 -Continue rifampin -Repeat blood cultures -TTE -Duration of the treatment will be 6 weeks from the first negative blood cultures -Oxacillin can be discontinued altogether -No need to treat the urine??she is asymptomatic PROBLEM LIST/PAST MEDICAL HISTORY: Ongoing ? Depression (Medical)? Factor 5 Leiden mutation, heterozygous (Medical)? Infective endocarditis of tricuspid valve (Medical)? Opioid use (Medical)? Pulmonary embolism (Medical)?? Historical ? No qualifying data? SOCIAL HISTORY: Home/Environment Human Trafficking Red Flags None., 09/27/2022 Smoking/Tobacco Use Smoking tobacco use: Current status unknown., 09/27/2022 Substance Abuse Use: Denies use., 09/27/2022 MEDICATIONS: Medications (16) Active Scheduled: (11) apixaban ??5 mg = 1 tab, Oral, BID ceFAZolin ??2 g, IV Piggyback, Q8hr cloNIDine ??0.1 mg = 1 tab, Oral, QID ethanol topical ??1 application, Each Nostril, BID heparin flush (heparin flush 10 units/mL) ??50 Unit(s) = 5 mL, Injection, As Directed hydrocortisone topical (hydrocortisone topical 1% cream) ??1 application, Topical, BID melatonin ??3 mg = 1 tab, Oral, Q Bedtime methadone ??30 mg = 3 tab, Oral, Daily multivitamin ??1 tab, Oral, Daily vancomycin ??1,000 mg = 200 mL, IV Piggyback, Q12hr venlafaxine ??37.5 mg = 1 cap, Oral, Daily ?? Continuous: (1) Sodium Chloride 0.9% 250 mL ??250 mL, IV ?? PRN: (4) acetaminophen (Tylenol) ??650 mg = 2 tab, Oral, Q6hr diphenhydrAMINE ??50 mg = 1 cap, Oral, Q4hr nalOXone ??0.4 mg = 1 mL, IV Push, Q15 Min-int sodium chloride (Saline flush) ??10 mL, IV, As Directed ? ALLERGIES: Allergies (1) Active Reaction NKA None Documented LAB RESULTS: Hematology Basic - Last 36 hours (13) Result Date/Time WBC 6.1?10/01 03:23 RBC 2.63 (L) ??10/01 03:23 Hgb 7.3 (L) ??10/01 03:23 Hct 23.1 (L) ??10/01 03:23 MCV 88?10/01 03:23 MCH 28?10/01 03:23 MCHC 32?10/01 03:23 RDW 47.3 (H) ??10/01 03:23 RDW-SD 47?10/01 03:23 RDW-CV 15 (H) ??10/01 03:23 Platelet Count 133 (L) ??10/01 03:23 MPV 11.6 (H) ??10/01 03:23 Plt Estimate Appears Normal?09/30 02:20 ? Chemistry Comprehensive - Last 36 hours (23) Result Date/time Sodium Lvl 135?10/01 03:23 Potassium Lvl 4.1?10/01 03:23 Chloride Lvl 104?10/01 03:23 CO2 22?10/01 03:23 Glucose Level 144 (H) ??10/01 03:23 BUN 20?10/01 03:23 Creatinine Lvl 0.84?10/01 03:23 AGAP 9.0?10/01 03:23 BUN/Creat 24?10/01 03:23 Total Protein 9.2 (H) ??09/30 02:20 Albumin Lvl 2.5 (L) ??09/30 02:20 Calcium Lvl 8.9?10/01 03:23 Alk Phos 114?09/30 02:20 AST 8?09/30 02:20 ALT <5?09/30 02:20 Globulin 6.7 (H) ??09/30 02:20 Osmolality Calc 285?10/01 03:23 A/G Ratio 0.4 (L) ??09/30 02:20 Magnesium Lvl 1.5 (L) ??10/01 03:23 Phosphate 4.7 (H) ??10/01 03:23 Bili Total 0.4?09/30 02:20 Bili Direct <0.2?09/30 02:20 Bili Indirect >0.2?09/30 02:20 ? RADIOLOGY/DIAGNOSTIC RESULTS: Radiology - Last 36 hours (0) No results in past 36 hours ? Diagnostics - Non-Radiology - Last 36 hours (0) No results in past 36 hours ? Electronically Signed On 10/01/22 16:16 EDT HEVER PERALTA, SOCO PIERCE MD, CAROLYNE: PERFORM, MODIFY Event Display: Consult Note EMR No Cosign Authored Date: [id number] DATE/TIME NOTE CREATED: 09/29/2022 20:13:43 CHIEF COMPLAINT: FEVERS HISTORY OF PRESENT ILLNESS: 31-year-old female with past medical history of IV drug use is seen in consultation for pulmonary embolism.?? Patient has a history of factor V Leiden mutation.?? She had a history of pulmonary embolism 8 years ago.?? She was on Eliquis.?? She underwent a CT scan on 09/28/2022.?? This showed subsegmental filling defect in the left lower lobe concerning for subsegmental pulmonary embolism.?? Patient has not been noncompliant with her Eliquis.?? Her shortness of breath is better.?? She was startedon heparin drip.?? She did not want any Lovenox injections.?? She does not want to be on Coumadin. ?? Review of systems: Positive for shortness of breath.?? All other systems were reviewed and were negative PHYSICAL EXAM: VITAL SIGNS: Vital Signs: Last Charted: 24 Hr Minimum: 24 Hr Maximum: Temperature Axillary 37.5?? (09/29 17:11) 37.5?? (09/29 17:11) 37.5?? (09/29 17:11) Temperature Oral 37.0?? (09/29 19:14) 36.7?? (09/29 17:31) 37.0?? (09/29 19:14) Heart Rate 77?? (09/29 19:14) 75?? (09/29 17:31) 93?? (09/29 17:11) Respiratory Rate 18?? (09/29 19:14) 18?? (09/29 17:31) 20?? (09/29 15:35) Systolic BP 104?? (09/29 19:14) 97?? (09/29 15:48) 109?? (09/29 17:11) Diastolic BP 70?? (09/29 19:14) 62?? (09/29 15:48) 73?? (09/29 17:11) Mean Arterial Pressure 85?? (09/29 17:11) 74?? (09/29 15:48) 85?? (09/29 17:11) Blood Pressure Location Left, Uppe?? (09/29 17:11) ? Blood Pressure Method Automatic?? (09/29 17:11) ? SpO2/Pulse Oximetry 100?? (09/29 19:14) 96?? (09/29 15:35) 100?? (09/29 19:14) ??General: Alert, Oriented x 3, no acute distress Psychiatric: Normal affect Neurological: Cranial nerves 2-12 grossly normal, no gross sensory motor deficits Skin: Normal turgor,??right-sided PICC line in place??with no signs of infection HEENT: PERRL, mucous membranes soft Lungs: CTAB, Chest wall nontender, could not appreciate crackles Cardiovascular: Regular rhythm, Normal s1, S2, soft holosystolic murmur heard along the right sternal border Abdomen:Soft, Nontender, Nondistended, Normal bowel sounds Extremities: Normal pulses, no cyanosis, no clubbing, No edema?LAB RESULTS: MEDICAL DECISION MAKIN-year-old female seen in consultation for pulmonary embolism.?? She has recurrent PEs and needs to be on lifelong anticoagulation. ?? 1.?? Eliquis failure is rare.?? Patient endorses not being compliant on Eliquis ?? 2.?? I think her subsegmental pulm embolism probably due to noncompliance and is not a result of Eliquis failure ?? 3.?? Patient does not want to do Coumadin or Lovenox.? 4.?? I think it is reasonable for the patient to continue on Eliquis and she can be restarted on it. ?? 5.?? I counseled the patient on compliance.?? I counseled even missing 1 day of Eliquis could lead to pulmonary embolism and could be a threat to her life. ?? I spent 70 minutes in the care of the patient most of this time was spent on counseling and coordination of care PROBLEM LIST/PAST MEDICAL HISTORY: Ongoing ? Depression (Medical)? Factor 5 Leiden mutation, heterozygous (Medical)? Infective endocarditis of tricuspid valve (Medical)? Opioid use (Medical)? Pulmonary embolism (Medical)?? Historical ? No qualifying data? SOCIAL HISTORY: Home/Environment Human Trafficking Red Flags None., 09/27/2022 Smoking/Tobacco Use Smoking tobacco use: Current status unknown., 09/27/2022 Substance Abuse Use: Denies use., 09/27/2022 MEDICATIONS: Medications (13) Active Scheduled: (8) ceFAZolin ??2 g, IV Piggyback, Q8hr cloNIDine ??0.1 mg = 1 tab, Oral, QID enoxaparin (Lovenox) ??60 mg = 0.6 mL, Subcut, [id number] ethanol topical ??1 application, Each Nostril, BID melatonin ??3 mg = 1 tab, Oral, Q Bedtime multivitamin ??1 tab, Oral, Daily vancomycin ??1,000 mg = 200 mL, IV Piggyback, Q12hr venlafaxine ??37.5 mg = 1 cap, Oral, Daily ?? Continuous: (1) Sodium Chloride 0.9% 250 mL ??250 mL, IV ?? PRN: (4) acetaminophen (Tylenol) ??650 mg = 2 tab, Oral, Q6hr diphenhydrAMINE ??50 mg = 1 cap, Oral, Q4hr methadone ??5 mg = 5 mL, Oral, Q4hr nalOXone ??0.4 mg = 1 mL, IV Push, Q15 Min-int ? ALLERGIES: Allergies (1) Active Reaction NKA None Documented LAB RESULTS: Hematology Basic - Last 36 hours (26) Result Date/Time WBC 10.6?09/29 06:29 RBC 2.66 (L) ??09/29 06:29 Hgb 7.1 (L) ??09/29 06:29 Hct 23.1 (L) ??09/29 06:29 MCV 87?09/29 06:29 MCH 27?09/29 06:29 MCHC 31?09/29 06:29 RDW 47.2 (H) ??09/29 06:29 RDW-SD 47?09/29 06:29 RDW-CV 15 (H) ??09/29 06:29 Platelet Count 125 (L) ??09/29 06:29 MPV 12.5 (H) ??09/29 06:29 NRBC Auto Abs 0.00?09/29 06:29 NRBC Auto Rel 0?09/29 06:29 Neutrophil Rel 79 (H) ??09/29 06:29 Lymphocyte Rel 12 (L) ??09/29 06:29 Monocyte Rel 7?09/29 06:29 Eosinophil Rel 1?09/29 06:29 Basophil Rel 0?09/29 06:29 Imm Gran Rel 0?09/29 06:29 Neutrophil Abs 8.4 (H) ??09/29 06:29 Lymphocyte Abs 1.3?09/29 06:29 Monocyte Abs 0.8?09/29 06:29 Eosinophil Abs 0.13?09/29 06:29 Basophil Abs 0.03?09/29 06:29 Imm Gran Abs 0?09/29 06:29 ? Chemistry Comprehensive - Last 36 hours (22) Result Date/time Sodium Lvl 133 (L) ??09/29 06:29 Potassium Lvl 4.1?09/29 06:29 Chloride Lvl 106?09/29 06:29 CO2 20?09/29 06:29 Glucose Level 113 (H) ??09/29 06:29 BUN 14?09/29 06:29 Creatinine Lvl 0.95?09/29 06:29 AGAP 7.0 (L) ??09/29 06:29 BUN/Creat 15?09/29 06:29 Total Protein 9.0 (H) ??09/28 04:17 Albumin Lvl 2.3 (L) ??09/28 04:17 Calcium Lvl 8.8?09/29 06:29 Alk Phos 103?09/28 04:17 AST 10?09/28 04:17 ALT 5?09/28 04:17 Globulin 6.7 (H) ??09/28 04:17 Osmolality Calc 277?09/29 06:29 A/G Ratio 0.3 (L) ??09/28 04:17 Calcium Corrctd 10?09/28 04:17 Magnesium Lvl 1.9?09/29 06:29 Phosphate 4.9 (H) ??09/28 04:17 Bili Total 0.4?09/28 04:17 ? RADIOLOGY/DIAGNOSTIC RESULTS: Radiology - Last 36 hours (4) CT Lower Extremity W/ Contrast Left??(09/28 16:28) Findings: There is a large effusion with synovial enhancement. There is a Lemus's cyst component in the popliteal space. Image 122 series 1 for example. Lateral to this is a separate small locule. The bone exam is unremarkable. No other significant findings. No soft tissue gas. No circumferential fascial necrotizing findings. ?? IMPRESSION: 1.Findings suggest inflammatory process in the synovial space with extension to the popliteal spacemost likely infectious. There is abundant fluid for tapping. ?? CT Spine Lumbar W/ Contrast??(09/28 16:28) FINDINGS: Extraspinal space: Negative. ?? Paraspinal space: Negative. ? Prevertebral space: Negative. ?? Spine: No evidence of listhesis. ??There is no fracture destructive lesion or aggressive process. ??... ?? Spinal canal and contents: Symmetric nerve roots. ??No masses. ?No spinal stenosis or lateral recess stenosis. ?? Pertinent extradural/epidural findings by level: ... ?? IMPRESSION: ?? CTA Chest W/ Contrast??(09/28 16:28) FINDINGS: Pulmonary Arteries: This is a relatively moderate quality study for evaluation of pulmonary embolism given the extensive streak artifact from the contrast in the right brachiocephalic trunk and SVC. No focal filling defect is seen within the pulmonary arteries up to the segmental branches to suggest acute pulmonary embolism. ??There is a subsegmental filling defect identified in left lower lobe subsegmental pulmonary artery (5:194 and 7:132), concerning for subsegmental pulmonary embolism. ?? Lungs and Large Airways: Median sternotomy. . Patent central airways. Dependent subsegmental atelectasis. Multifocal patchy opacities, predominantly in the left apical, and bilateral lower lobes, concerning for airspace disease. Surgical clips noted in the left lower lobe. ?? Pleura: No pleural effusion. No pneumothorax. ?? Mediastinum and Angela: Scattered subcentimeter mediastinal and hilar lymph nodes, without lymphadenopathy by size criteria. Esophagus is within normal limits for CT appearance. Homogeneous thyroid, without discrete nodule. ?? Heart and Vessels: Prosthetic cardiac valve, pacer wires and right PICC line terminating in the right atrium. No pericardial effusion. Classic 3 vessel aortic arch anatomy. Nonaneurysmal thoracic aorta. Dilated main pulmonary artery trunk measuring 3 cm, concerning for pulmonary arterial hypertension. RV:LV is 0.9. ?? Upper Abdomen: Partially visualized hepatomegaly with the liver measuring 27 cm in transverse dimension. ?? Bones and Soft Tissues: No acute soft tissue abnormality. Median sternotomy as above. ?? IMPRESSION: 1.Relatively moderate quality study for evaluation of pulmonary embolism. Subsegmental left lower lobe pulmonary embolism. No CT evidence of right heart strain. 2.Multifocal patchy opacities, concerning for airspace disease, predominantly involving the lower lobes bilaterally. 3.Median sternotomy, prosthetic aortic valve, cardiac pacing wires and right PICC line is unchanged. ?? Results were discussed by Career Services Coordinator Viv Marie MD with wolf MURRAY 09/28/2022 at6 PM via [email or web address] Messenger. ?? Attending review by Baron Mazariegos M.D. I have personally reviewed the study and agree with the reported findings. ?? XR Chest 1 View Portable??(09/28 09:10) FINDINGS: ??A previous median sternotomy. Prosthetic valve, pacer wires, and PICC line remain unchanged in good position. Mild alveolar and interstitial edema. Rogelio B lines are noted.?? Upper abdomen is unremarkable. Surgical clips over the left chest are unchanged. ? IMPRESSION:?? Mild cardiomegaly and interstitial and alveolar edema ?? Diagnostics - Non-Radiology - Last 36 hours (0) No results in past 36 hours ? Electronically Signed On 09/29/22 22:56 EDT KARI PERALTA, CAROLYNE * TRUDI PERALTA, [facility]: PERFORM Event Display: Consult Note EMR Authored Date: [id number] Date of service:??09/27/2022 ?? This is an infectious disease consultation to ??[facility]?? 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 ?? History of presenting illness: 31-year-old female with active IV drug use,??recently diagnosed MSSA bacteremia and??bioprosthetic tricuspid valve infective endocarditis presented from rehab center??with complaints of fever??to 104,??chills, fatigue??for 1 week, left knee pain, 4 out of 10, aggravated with movement, denies trauma??or??leg edema??or immobility, has been compliant with??Eliquis??and antibiotics. ??She also has some low back soreness.?? She has increased urinary frequency but attributes it to??the fluids she hasbeen getting with the antibiotics.?? She has missed her??menses for??a month and a half, she is??usually??regular, denies any sexual intercourse. ??She reports feeling completely fine other than above symptoms. ??She denies any sick contacts,??recent travel or??insect bites. ?? Outpatient records reviewed: She was admitted 2 weeks ago at [facility]??for??infective endocarditis of??bioprosthetic tricuspid valve??and MSSA bacteremia 09/04/2022.?RADHA on 09/05 showed large vegetation on the prosthetic tricuspid valve, leaflet malcoaptation and severe tricuspid regurgitation, 5 cm large complex vegetation in the right ventricle??attached to the subvalvular apparatus,??s/p??angio vac procedure on 09/10. ??Last date of negative blood culture 09/07/2022.?She was discharged on??09/17/2022 torehab??on?rifabutin 300 mg daily and IV oxacillin 2 g every 4 hours last date 10/18/22, with IV ert apenem 1 g every 24 hours??last date 09/20/2022,??for dual antibiotic??synergistic therapy, per records.? According to records,??she has epicardial??leads that are not MRI compatible, hence MRI of the spine was deferred.?? Patient is not aware of??MRI incompatibility. ?? 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 Allergies: No known drug allergies ?? Present medications: IV vancomycin 1.25 g??every 12 hours, Eliquis, clonidine,??methadone,??venlafaxine ?? Review of systems: Has fever, chills, rigors No nausea, vomiting, headache,??photophobia, neck stiffness No??facial pain, nasal congestion,??postnasal drip No sore throat, cough, shortness of breath No chest pain, palpitations, orthopnea, pedal edema No rashes or??injuries??or itching No diarrhea or blood in stool??or abdominal pain No abnormal vaginal discharge, but reports??amenorrhea for a month and a half,??no recent sexual intercourse ? Vital Signs: Last Charted: Temperature Oral 36.7 degC?? (09/27 06:00) Heart Rate 80 bpm?? (09/27 12:48) Pulse/HR Location Apical ?? (09/27 07:27) Pulse/HR Method Monitor ?? (09/27 07:27) Respiratory Rate 15 breaths/min?? (09/27 12:48) Systolic BP 114 mmHg?? (09/27 12:48) Diastolic BP 73 mmHg?? (09/27 12:48) Mean Arterial Pressure 87 mmHg?? (09/27 12:48) Blood Pressure Location Left, Uppe ?? (09/27 12:48) Blood Pressure Method Automatic ?? (09/27 12:48) SpO2/Pulse Oximetry 100 %?? (09/27 12:48) Dosing BMI 24 ?? (09/27 02:45) ?? On examination: Patient appeared comfortable and was mobile. ??Her mother was at bedside. Vitals:??1 episode of fever to 99.8 Oral cavity:??Normal teeth with??dental fillings, no thrush or caries FREELANCE PATTERNMAKER: alert, oriented, strength and sensation grossly normal in all 4 extremities, no facial asymmetry or tongue deviation CVS: S1-S2 normal, no murmurs RS: Clear to auscultation bilaterally Abdomen: Soft, nontender, nondistended, normal bowel sounds, no hepatosplenomegaly Extremities: No pedal edema or??rashes??or bruises. ??Has PICC line in??the right??antecubital fossa,??no surrounding skin??changes. ??Left knee:??No asymmetrical swelling or erythema or warmth??noted. ??Further examination limited by severe tenderness on??superficial palpation. Back:??Has??lumbar spinal tenderness??around L1-L3, no overlying??skin changes ? Labs: ??Hematology Basic - Last 36 hours (27) ??Result ??Date/Time ??WBC ??13.6 (H) ?09/27 04:01 ??RBC ??2.80 (L) ?09/27 04:01 ??Hgb ??7.7 (L) ?09/27 04:01 ??Hct ??24.7 (L) ?09/27 04:01 ??MCV ??88?09/27 04:01 ??MCH ??28?09/27 04:01 ??MCHC ??31?09/27 04:01 ??RDW ??47.7 (H) ?09/27 04:01 ??RDW-SD ??48?09/27 04:01 ??RDW-CV ??15 (H) ?09/27 04:01 ??Platelet Count ??80 (L) ?09/27 04:01 ??MPV ??----?09/27 04:01 ??NRBC Auto Abs ??0.00?09/27 04:01 ??NRBC Auto Rel ??0?09/27 04:01 ??Neutrophil Rel ??81 (H) ?09/27 04:01 ??Lymphocyte Rel ??10 (L) ?09/27 04:01 ??Monocyte Rel ??8?09/27 04:01 ??Eosinophil Rel ??1?09/27 04:01 ??Basophil Rel ??0?09/27 04:01 ??Imm Gran Rel ??0?09/27 04:01 ??Neutrophil Abs ??11.0 (H) ?09/27 04:01 ??Lymphocyte Abs ??1.4?09/27 04:01 ??Monocyte Abs ??1.1 (H) ?09/27 04:01 ??Eosinophil Abs ??0.17?09/27 04:01 ??Basophil Abs ??0.02?09/27 04:01 ??Imm Gran Abs ??0?09/27 04:01 ??Plt Estimate ??Appear Decrease (A) ?09/27 04:01 ?Chemistry Comprehensive - Last 36 hours (21) ??Result ??Date/time ??Sodium Lvl ??131 (L) ?09/27 04:01 ??Potassium Lvl ??4.9?09/27 04:01 ??Chloride Lvl ??101?09/27 04:01 ??CO2 ??20?09/27 04:01 ??Glucose Level ??118 (H) ?09/27 04:01 ??BUN ??20?09/27 04:01 ??Creatinine Lvl ??1.22?09/27 04:01 ??AGAP ??10.0?09/27 04:01 ??BUN/Creat ??16?09/27 04:01 ??Total Protein ??9.5 (H) ?09/27 04:01 ??Albumin Lvl ??2.4 (L) ?09/27 04:01 ??Calcium Lvl ??8.9?09/27 04:01 ??Alk Phos ??123?09/27 04:01 ??AST ??14?09/27 04:01 ??ALT ??5?09/27 04:01 ??Globulin ??7.1 (H) ?09/27 04:01 ??Osmolality Calc ??276?09/27 04:01 ??A/G Ratio ??0.3 (L) ?09/27 04:01 ??Calcium Corrctd ??10?09/27 04:01 ??Lactic Acid ??1.0?09/27 04:01 ??Bili Total ??0.5?09/27 04:01 ? Blood culture 09/27/2022???pending ?? Imaging: Chest x-ray??09/27/2022???no focal consolidation.?? Osteopenia and??basilar atelectasis. ?? Venous duplex bilateral lower extremities???pending TTE???pending ?? Impression and recommendations: 1. 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 Patient reported??that ultrasound showed??ruptured Lemus's cyst. - Possible urinary tract infection??with UA showing moderate leukocyte esterase??trace??and patientcomplaining of??increased urinary frequency. - Infection with??MRSA??due to recent hospitalization and surgery. - Worsening endocarditis. ?? Please: ?Obtain MRI of lumbar spine and left knee??with contrast.?? Please confirm if??patient??can getan MRI.?? If not, please obtain CT of??lumbar spine and left lower extremity with contrast. ??? Obtain urine culture. ??Follow blood culture reports??and TTE. ?Continue vancomycin??for MSSA and MRSA coverage.?? Maintain??trough levels less than 20??and monitor creatinine. ?Start cefazolin??which would cover MSSA and??gram-negative organisms??from a possible UTI ?? Plan was discussed with Dr. Kathleen and her recommendations are as above. ?? Recommendations conveyed to primary team. ? Electronically Signed On 09/27/22 16:58 EDT PRAFUL BRUSH MD Electronically Signed On 09/30/22 16:48 EDT SOCO KATHLEEN MD Discharge summary * MARIBETH PERALTA, OPAL Turner: MODIFY MARIBETH PERALTA, OPAL F: MODIFY, MODIFY, PERFORM, MODIFY, MODIFY Event Display: Discharge Summary EMR Authored Date: [id number] DATE/TIME NOTE CREATED: 10/10/2022 10:47:25 ADMISSION INFORMATION: DATE OF ADMISSION: 09/27/2022 ADMITTING PHYSICIAN: Dr. Maximo Segovia [facility]: 31-year-old with past medical history of IV drug use and??recently diagnosed infective endocarditisof bioprosthetic??tricuspid valve??presents from [facility]??with complaints of fatigue and fever. ??She states that??she has been experiencing rigors and chills with temperature recorded??104F.?She also had??left knee dull pain,??4/10 in intensity, aggravated with movement??and relieved with rest. On this admission,??the patient came with??temperature spike,??ID was consulted and??she??was started on??IV vancomycin and cefazolin. ??The patient desaturated overnight and required 2 L nasal cannula.?? CT PE was done which showed subsegmental left lower lobe pulmonary embolism with no CT evidence of right heart strain; Multifocal patchy opacities, concerning for airspace disease, predominantlyinvolving the lower lobes bilaterally (likely old since present on [facility] imaging). CT of the??left??knee??showed findings suggest inflammatory process in the synovial space with extension to the popliteal space most likely infectious with??abundant fluid for tapping.?Ortho department was consulted for??arthrocentesis. Patient was on Eliquis at home but still developed pulmonary embolism,??hence was started on Lovenox??but the patient refused??for injections??therefore??was started on??heparin drip. Heme Onc consult was placed since she has factor V Leiden mutation and was already on eliquis and despite that found to have PE, hence concern for eliquis failure.??Heme-onc advised eliquis failure is rare and it is??likely??noncompliance.??She was continued on Eliquis [address] lumbar spine was unremarkable for any septic emboli.??ID advised to discontinue Cefazolin and??start rifampin(which the patient refused). She was continued on IV vancomycin.??TTE was obtained which showed EF of 55-60% with mild-moderate MR and 1.12cm mobile mass possibly vegetation. RADHA obtained on 10/03 showed small??0.5 cm or less vegetation on the posterior/septal leaflet. Cardiac surgery was consulted and they advisedthat surgery in presence of endocarditis will be futile. Cardiology recommended??to continue??on IVantibiotics. ??PICC line blood cultures??obtained on??10/01/22 were negative.??IV Vancomycin planned ??to be continued??for 6 weeks??from??10/01/22??as per ID??recommendations. ??On 05 October??patient'shemoglobin??dropped to 6.3. She was transfused??2 unit PRBC??and GI was consulted??to rule out a possible GI bleed. ??GI??advised??that GI bleed is unlikely.??We are discharging the patient on IV vancomycin 1250mg q12H??for 6 weeks from 10/01/22(first??negative PICC line blood culture) - till 11/12/2022. CONSULTING SERVICES: Cardiology - Dr. Ana Reis PHYSICAL EXAM: VITAL SIGNS: Vital Signs: Last Charted: 24 Hr Minimum: 24 Hr Maximum: Temperature Oral 37.1?? (10/09 15:18) 37.1?? (10/09 15:18) 37.1?? (10/09 15:18) Heart Rate 60?? (10/10 07:00) 60?? (10/10 07:00) 61?? (10/09 15:18) Respiratory Rate 16?? (10/10 07:00) 16?? (10/10 07:00) 18?? (10/09 15:18) Systolic BP 107?? (10/10 07:00) 96?? (10/09 15:18) 107?? (10/10 07:00) Diastolic BP 72?? (10/10 07:00) 62?? (10/09 15:18) 72?? (10/10 07:00) Mean Arterial Pressure 84?? (10/10 07:00) 73?? (10/09 15:18) 84?? (10/10 07:00) SpO2/Pulse Oximetry 98?? (10/10 07:00) 98?? (10/10 07:00) 98?? (10/10 07:00) Oxygen Percent 99?? (10/09 15:18) 99?? (10/09 15:18) 99?? (10/09 15:18) General: Awake, alert, oriented x3, cooperative, no acute distress HEENT: Abisai, EOMI, sclera anicteric, mucous membranes moist Cardiovascular: Normal S1-S2, no murmur/rubs/gallops Respiratory: Bilateral clear vesicular breath sounds, Abdomen: Soft, nontender, nondistended Extremities: No peripheral edema bilaterally Neurologic: Moves all extremities, cranial nerves grossly intact, speech not slurred DISCHARGE DIAGNOSES AND PLAN: Bacterial endocarditis??(I33.0) Fever of unknown origin??(R50.9) PATIENT DISCHARGE CONDITION: stable Discharge Disposition: Snf Facility DATE OF DISCHARGE: 10/10/2022 DISCHARGE MEDICATIONS: ?? Discharge Medications (13) Order Details Status New / Continued Meds: (9) ? cloNIDine 0.1 mg oral tablet 0.1 mg = 1 tab, Oral, QID Continue diphenhydrAMINE 50 mg oral tablet 50 mg = 1 tab, Oral, Q4hr, PRN: for Continue ?? motion sickness ?? melatonin 3 mg, Oral, Q Bedtime Continue multivitamin 1 tab, Oral, Daily Continue venlafaxine 37.5 mg oral tablet, 37.5 mg = 1 tab, Oral, Daily Continue extended release ? apixaban 5 mg oral tablet 5 mg = 1 tab, Oral, BID Continue with Changes methadone 10 mg oral tablet 60 mg = 6 tab, Oral, Daily Continue with Changes nalOXone 4 mg/0.1 mL nasal spray 4 mg, Nasal, Once Scheduled, For New ?? suspected opioid overdose, PRN: Other ? (specify in comments) ?? vancomycin 1.25 g/150 mL-NaCl 0.9% ??, dose vancomycin to maintain trough New intravenous solution levels between 15-20.Continue for 6 ? weeks from 10/01/2022- last dose ??on ? 11/12/2022. ?? Stopped Meds: (4) ? oxacillin 2 g injection 2 g, IV, Q4hr Stop potassium chloride 40 mEq, Oral Stop rifabutin 150 mg oral capsule 300 mg = 2 cap, Oral, Daily Stop thiamine 100 mg oral tablet 100 mg = 1 tab, Oral, Daily Stop ? INSTRUCTIONS: You came with complaints of??fever??and left knee pain.?? CT scan of your chestwas done and you were found to have a clot in one of her??artery??of the lungs??and we continued you on Eliquis 5 mg twice daily. For your knee, orthopedics??saw you,??they discussed with you and decided against aspiration as per your preference.??Your blood cultures were growing a bug and??you were??started on IV antibiotics. We got an ultrasound of your heart which showed a small mass(vegetation) because of which we will continue your antibiotics- IV Vancomycin 1250mg till 11/12/22 to finish a 6 week course. - Please be compliant to your medications. -Please follow up with your PCP -Please follow up with your boat carpenter outpatient. FOLLOW UP: With When Contact Information YONATHAN PERALTA, DANIELLA Bauer, Internal Medicine Within 5 to 7 days [address] [place] [address]- [phone] Additional Instructions: Morgan Hassan Only if needed [address] [phone] Additional Instructions: For knee pain and swelling. IMAGES: ? REPORT STUDY: Chest radiograph, AP upright and lateral. ?? INDICATION: Sepsis, suspected endocarditis. ?? COMPARISON: None. ?? FINDINGS: Right PICC terminating in the right atrium, appropriate position. Median sternotomy wires and sternal fixation hardware, unremarkable. Abundant leads the chest. Prosthetic aortic valve. ?? The lungs are well-inflated. No focal consolidation identified. The right basilar atelectasis. The heart is of normal size. Pulmonary vascularity is within normal limits. No acute osseous abnormality. Overall decreased bone mineralization. Overlying soft tissues are unremarkable. ?? IMPRESSION: 1.No acute cardiopulmonary process. 2.Appropriate position of the right PICC. 3.Diffuse osteopenia is more than expected for patient age. Recommend outpatient DEXA study for further evaluation. ? Attending review by Dr. Flores, 09/27/2022 7:57 AM. THIS FINAL REPORT DIFFERS FROM THE PRELIMINARY RESIDENT REPORT ABOVE IN REGARD TO THE FOLLOWING: Apparent diffuse osteopenia seen on lateral radiograph likely due to over penetration versus true osteopenia.?? I have reviewed the case and otherwise agree with the reported findings. #R2I# ?? REPORT CHEST RADIOGRAPH, SINGLE VIEW ?? REASON FOR EXAM: ?? : Respiratory Failure Acute ?? TECHNIQUE: AP upright portable ?? COMPARISON: September 27, 2022 at 0532 hours ?? FINDINGS: ??A previous median sternotomy. Prosthetic valve, pacer wires, and PICC line remain unchanged in good position. Mild alveolar and interstitial edema. Rogelio B lines are noted.?? Upper abdomen is unremarkable. Surgical clips over the left chest are unchanged. ? IMPRESSION:?? Mild cardiomegaly and interstitial and alveolar edema ?? REPORT CT CHEST WITH INTRAVENOUS CONTRAST, PULMONARY ARTERY EMBOLISM DETECTION PROTOCOL ?? TECHNIQUE: CT scan of the chest was performed WITH intravenous contrast utilizing the pulmonary artery embolism detection protocol. 100 cc of Isovue 370 was rapidly administered. ??Coronal and sagittal reformatted images were generated, together with axial maximum intensity projection images of the lungs. Adaptive Iterative Dose Reduction (AIDR) and NEMA XR 25 DOSE Check software, were used to reduce radiation dose to the patient. ?? COMPARISON: Chest radiograph from same day. INDICATION: Pulmonary embolism ?? FINDINGS: Pulmonary Arteries: This is a relatively moderate quality study for evaluation of pulmonary embolism given the extensive streak artifact from the contrast in the right brachiocephalic trunk and SVC. No focal filling defect is seen within the pulmonary arteries up to the segmental branches to suggest acute pulmonary embolism. ??There is a subsegmental filling defect identified in left lower lobe subsegmental pulmonary artery (5:194 and 7:132), concerning for subsegmental pulmonary embolism. ?? Lungs and Large Airways: Median sternotomy. . Patent central airways. Dependent subsegmental atelectasis. Multifocal patchy opacities, predominantly in the left apical, and bilateral lower lobes, concerning for airspace disease. Surgical clips noted in the left lower lobe. ?? Pleura: No pleural effusion. No pneumothorax. ?? Mediastinum and Angela: Scattered subcentimeter mediastinal and hilar lymph nodes, without lymphadenopathy by size criteria. Esophagus is within normal limits for CT appearance. Homogeneous thyroid, without discrete nodule. ?? Heart and Vessels: Prosthetic cardiac valve, pacer wires and right PICC line terminating in the right atrium. No pericardial effusion. Classic 3 vessel aortic arch anatomy. Nonaneurysmal thoracic aorta. Dilated main pulmonary artery trunk measuring 3 cm, concerning for pulmonary arterial hypertension. RV:LV is 0.9. ?? Upper Abdomen: Partially visualized hepatomegaly with the liver measuring 27 cm in transverse dimension. ?? Bones and Soft Tissues: No acute soft tissue abnormality. Median sternotomy as above. ?? IMPRESSION: 1.Relatively moderate quality study for evaluation of pulmonary embolism. Subsegmental left lower lobe pulmonary embolism. No CT evidence of right heart strain. 2.Multifocal patchy opacities, concerning for airspace disease, predominantly involving the lower lobes bilaterally. 3.Median sternotomy, prosthetic aortic valve, cardiac pacing wires and right PICC line is unchanged. ?? Results were discussed by Career Services Coordinator Viv Marie MD with INGRID CRAWFORD, on 09/28/2022 at6 PM via [email or web address]. ?? Attending review by Baron Mazariegos M.D. I have personally reviewed the study and agree with the reported findings. ?? REPORT Procedures: CT Lower Extremity W/ Contrast Left ?? Indication:Patient is a Female ??, 31 years of age, with the following information provided:?: concern for abcess. ?? Comparison: None ?? TECHNIQUE: Routine protocol with 80 cc Isovue-370. ?? Findings: There is a large effusion with synovial enhancement. There is a Lemus's cyst component in the popliteal space. Image 122 series 1 for example. Lateral to this is a separate small locule. The bone exam is unremarkable. No other significant findings. No soft tissue gas. No circumferential fascial necrotizing findings. ?? IMPRESSION: 1.Findings suggest inflammatory process in the synovial space with extension to the popliteal spacemost likely infectious. There is abundant fluid for tapping. ? ATTESTATION: I was NOT present with the resident during the entire interview and examination of the patient on day of discharge. I personally saw the patient on day of discharge and repeated the exam. I reviewed/revised the exam and discussed with the resident?? in regards to discharge summary and discharge plan as documented above. See resident's section for details and agree with the above documented note. ?? I spent 35 minutes of total time with the patient and more than 50% of the time was spent in counseling and coordination of care, both [id number] encounter and time spent on the floor reviewing data, obtaining relevant patient information, and discussing with case resource manager and ensuring transition (and/ discharge) of care?? of the patient. Electronically Signed On 10/10/22 11:11 EDT LILIAM MEJIA MD Electronically Signed On 10/10/22 12:36 EDT OPAL MONTALVO MD LILIAM MEJIA MD Admission history and physical note * TY PEARLTA, INGRID: PERFORM, MODIFY, MODIFY, MODIFY, MODIFY, MODIFY, MODIFY INGRID CRAWFORD MD: MODIFY OPAL MONTALVO MD: MODIFY Event Display: Admission H&P EMR Authored Date: [id number] DATE/TIME NOTE CREATED: 09/27/2022 08:01:47 CHIEF COMPLAINT: Pt arrives via EMS. Hx endocarditis. Per EMS pt febrile 104 F, 100F after tylenol. 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 ??She states that??she has been experiencing rigors and chills since the last 1 week??but recordedher temperature only today to find??it to be 104F.?? She denies any shortness of breath or cough, abdominal pain, diarrhea,??rash,??asymmetric swelling??in bilateral lower extremity. ??She does endorse??left knee pain since the last 2 days, the pain is dull,??4/10 in intensity, aggravated with movement??and relieved with rest. ?? Of note she was admitted 2 weeks ago??at [facility] for infective endocarditis??of tricuspid valve. ??She has a history of bioprosthetic tricuspid valve replacement in 2019??and was admitted for recurrent endocarditis with blood cultures being positive for MSSA. ??RADHA on 09/05 showed large vegetation on the prosthetic tricuspid valve, leaflet malcoaptation and severe tricuspid regurgitation, 5 cm large complex vegetation in the right ventricle??attached to the subvalvular apparatus.?s/p??angio vac procedure on 09/10. ??Last date of negative blood culture 09/07/2022. ??Previous blood culture grew MSSA. ??She was discharged on??09/11/2022 on??IV ertapenem 1 g every 24 hours??lastdate 09/20/2022,??IV oxacillin 2 g every 4 hours last date 10/18/22 and??rifabutin 300 mg daily. ?? ED course: -Vitals 37.7 C, HR 92 bpm, sinus, BP 104/67 mmHg, saturating at 95% on room air -Labs significant for WBC 13.6, H/H 7.7/24.7, platelets 80 K, sodium 131, bicarb 20, anion gap 10, creatinine 1.22, lactate 1, UA moderate blood and leukocyte esterase positive -EKG HR 93 bpm, normal sinus rhythm, QTc 458, no ST-T wave changes -X-ray showed no acute cardiopulmonary process, appropriate position of right PICC, diffuse osteopenia more than expected for patient age -Received IV vancomycin, IV normal saline 1 L x2 REVIEW OF SYSTEMS: Const:??Yes fever, Yes??fatigue, or No weight changes. HEENT: No recent vision problems. No congestion, ear pain, or sore throat. C/V:?? No chest pain, palpitations, or edema. Resp: No cough, congestion, wheezing or shortness of breath. GI: No abdominal pain, nausea, vomiting, constipation, or diarrhea.?? : No incontinence or dysuria. M/S:??Yes joint pain or No swelling. Skin: No rash. Neuro: No headache, focal numbness or weakness, dizziness, or seizures. Psych: No depression or anxiety. PHYSICAL EXAM: VITAL SIGNS: Vital Signs: Last Charted: 24 Hr Minimum: 24 Hr Maximum: Temperature Oral 36.7?? (09/27 06:00) 36.7?? (09/27 06:00) 37.7 (H) (09/27 02:57) Heart Rate 85?? (09/27 07:27) 83?? (09/27 06:00) 92?? (09/27 02:57) Pulse/HR Location Apical?? (09/27 07:27) ? Pulse/HR Method Monitor?? (09/27 07:27) ? Respiratory Rate 15?? (09/27 07:27) 15?? (09/27 07:27) 18?? (09/27 02:57) Systolic BP 97?? (09/27 07:27) 96?? (09/27 06:00) 104?? (09/27 02:57) Diastolic BP 57 (L) (09/27 07:27) 57 (L) (09/27 07:27) 67?? (09/27 02:57) Mean Arterial Pressure 70?? (09/27 07:27) 70?? (09/27 07:27) 79?? (09/27 02:57) Blood Pressure Location Left, Uppe?? (09/27 07:27) ? Blood Pressure Method Automatic?? (09/27 07:27) ? SpO2/Pulse Oximetry 100?? (09/27 07:27) 95?? (09/27 02:57) 100?? (09/27 07:27) Dosing BMI 24?? (09/27 02:45) 24?? (09/27 02:45) 24?? (09/27 02:45) General: Alert, Oriented x 3, no acute distress Psychiatric: Normal affect Neurological: Cranial nerves 2-12 grossly normal Skin: Normal turgor,??right-sided PICC line in place??with no signs of infection HEENT: PERRL, mucous membranes soft Lungs: CTAB, Chest wall nontender, could not appreciate crackles Cardiovascular: Regular rhythm, Normal s1, S2, soft holosystolic murmur heard along the right sternal border Abdomen:Soft, Nontender, Nondistended, Normal bowel sounds Extremities: Normal pulses, no cyanosis, no clubbing, No edema?? 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 #Sepsis??(SIRS 2/4, fever and leukocytosis) -Differentials include prosthetic tricuspid??valve infective endocarditis, DVT -Patient presented with complaints of??fever,??Tmax 104F -Chest x-ray does not show any acute cardiopulmonary process. ??Denies abdominal pain, diarrhea. 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 rifabutin;??prosthetic aortic valve seen on chest x-ray?? -blood cultures sent??from ED ?? Plan: -Follow-up blood cultures, urine cultures, lactate -We will??start IV vancomycin??for concerns of MRSA -Repeat echocardiogram -Left??lower extremity venous duplex -Infectious disease consult ?? #Anemia -History of iron deficiency anemia??with iron stores??as per previous labs on 09/06/2022 iron 25, TIBC 155, TSAT 16 -No??active signs or symptoms of bleeding -Monitor CBC and hold off on??iron supplementation given concern for sepsis ?? #Thrombocytopenia -Likely chronic??given??platelet count on 09/17/2022 was 105 -History of??hepatitis C antibody positive??but unknown if she has a history of cirrhosis -Monitor platelet count ?? #Hyponatremia -Likely hypovolemic hyponatremia -Presented with sodium of 131 -In the ED received 2 L of normal saline ?? Plan: -We will hold off on sending any??urine lytes??given??administration of NS in the ED -Monitor BMP ?? Chronic comorbidities: History of factor V Leyden mutation-continue Eliquis 5 mg twice daily Depression-continue??venlafaxine 37.5 mg daily History of opioid use-continue??methadone??10 mg / 5 ml, 10 mL p.o. BID, clonidine 0.1 mg??4 times a day? DVT prophylaxis-Eliquis (continue if plt>50k) GI prophylaxis-regular diet ?? Next of kin-mother Angelika who can be reached at [phone](not in service) CODE STATUS-full code ?? This document was dictated using voice recognition software. ??Unintentional spelling and grammatical errors could be present. ?? The above assessment and plan was discussed with the attending on record Dr. Montalvo, who is in agreement. ATTESTATION: Date of service:09/27/2022 09:06:08 ?? I was NOT present with the resident during the entire interview and examination of the patient. I personally interviewed the patient and repeated the exam. I reviewed/revised the exam and discussed with the resident in regards to assessment and plan as documented. See resident's section for details and agree with the above documented note. I spent 35 minutes assessing the patient and reviewed old records ?? 1. Sepsis secondary to infective endocarditis: Start on [facility], ID consult, ECHO, pending medical records from [facility] as patient was in [facility] 2 weeks ago for IE and was dc to rehab on iv antibiotics to complete the course. 2. Hx of factor V leiden mutation-on eliquis. Secondary hypercoaguable state with thrombophilia dueto the above 3. 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 ACP: I confirmed that the patient's Advance Care Plan is present, or code status is documented, or surrogate decision maker is listed in the patient's medical record. ?? Med Rec: I have utilized all available immediate resources to obtain, update or review the patient's current medication PROBLEM LIST/PAST MEDICAL HISTORY: Ongoing ? No qualifying data?? Historical ? No qualifying data? SOCIAL HISTORY: Home/Environment Human Trafficking Red Flags None., 09/27/2022 Smoking/Tobacco Use Smoking tobacco use: Current status unknown., 09/27/2022 Substance Abuse Use: Denies use., 09/27/2022 MEDICATIONS: Home Medications (0) Medication by Hx Documentation is pending. ?? Medications (1) Active Scheduled: (1) vancomycin ??1,250 mg = 250 mL, IV Piggyback, Q12hr ?? Continuous: (0) ?? PRN: (0) ? ALLERGIES: Allergies (1) Active Reaction NKA None Documented LAB RESULTS: Hematology Basic - Last 36 hours (27) Result Date/Time WBC 13.6 (H) ??09/27 04:01 RBC 2.80 (L) ??09/27 04:01 Hgb 7.7 (L) ??09/27 04:01 Hct 24.7 (L) ??09/27 04:01 MCV 88?09/27 04:01 MCH 28?09/27 04:01 MCHC 31?09/27 04:01 RDW 47.7 (H) ??09/27 04:01 RDW-SD 48?09/27 04:01 RDW-CV 15 (H) ??09/27 04:01 Platelet Count 80 (L) ??09/27 04:01 MPV ----?09/27 04:01 NRBC Auto Abs 0.00?09/27 04:01 NRBC Auto Rel 0?09/27 04:01 Neutrophil Rel 81 (H) ??09/27 04:01 Lymphocyte Rel 10 (L) ??09/27 04:01 Monocyte Rel 8?09/27 04:01 Eosinophil Rel 1?09/27 04:01 Basophil Rel 0?09/27 04:01 Imm Gran Rel 0?09/27 04:01 Neutrophil Abs 11.0 (H) ??09/27 04:01 Lymphocyte Abs 1.4?09/27 04:01 Monocyte Abs 1.1 (H) ??09/27 04:01 Eosinophil Abs 0.17?09/27 04:01 Basophil Abs 0.02?09/27 04:01 Imm Gran Abs 0?09/27 04:01 Plt Estimate Appear Decrease (A) ??09/27 04:01 ? Chemistry Comprehensive - Last 36 hours (21) Result Date/time Sodium Lvl 131 (L) ??09/27 04:01 Potassium Lvl 4.9?09/27 04:01 Chloride Lvl 101?09/27 04:01 CO2 20?09/27 04:01 Glucose Level 118 (H) ??09/27 04:01 BUN 20?09/27 04:01 Creatinine Lvl 1.22?09/27 04:01 AGAP 10.0?09/27 04:01 BUN/Creat 16?09/27 04:01 Total Protein 9.5 (H) ??09/27 04:01 Albumin Lvl 2.4 (L) ??09/27 04:01 Calcium Lvl 8.9?09/27 04:01 Alk Phos 123?09/27 04:01 AST 14?09/27 04:01 ALT 5?09/27 04:01 Globulin 7.1 (H) ??09/27 04:01 Osmolality Calc 276?09/27 04:01 A/G Ratio 0.3 (L) ??09/27 04:01 Calcium Corrctd 10?09/27 04:01 Lactic Acid 1.0?09/27 04:01 Bili Total 0.5?09/27 04:01 ? RADIOLOGY/DIAGNOSTIC RESULTS: Radiology - Last 36 hours (1) XR Chest 2 Views??(09/27 05:35) FINDINGS: Right PICC terminating in the right atrium, appropriate position. Median sternotomy wires and sternal fixation hardware, unremarkable. Abundant leads the chest. Prosthetic aortic valve. ?? The lungs are well-inflated. No focal consolidation identified. The right basilar atelectasis. The heart is of normal size. Pulmonary vascularity is within normal limits. No acute osseous abnormality. Overall decreased bone mineralization. Overlying soft tissues are unremarkable. ?? IMPRESSION: 1.No acute cardiopulmonary process. 2.Appropriate position of the right PICC. 3.Diffuse osteopenia is more than expected for patient age. Recommend outpatient DEXA study for further evaluation. ? Attending review by Dr. Flores, 09/27/2022 7:57 AM. THIS FINAL REPORT DIFFERS FROM THE PRELIMINARY RESIDENT REPORT ABOVE IN REGARD TO THE FOLLOWING: Apparent diffuse osteopenia seen on lateral radiograph likely due to over penetration versus true osteopenia.?? I have reviewed the case and otherwise agree with the reported findings. #R2I# ?? Diagnostics - Non-Radiology - Last 36 hours (0) No results in past 36 hours ? Electronically Signed On 09/27/22 14:54 EDT INGRID CRAWFORD MD Electronically Signed On 09/28/22 09:10 EDT OPAL MONTALVO MD Procedure note * GRACE KU: PERFORM Event Display: Procedure Note EMR No Cosign Authored Date: [id number] Procedure Note Date/Time Note Created: 10/07/2022 09:22 Procedure Note Procedure: PICC??Dressing Change Note Type of Device and Site: Right?BARD SOLO Clamped??Power??PICC??5 Fr??double lumen Line Insertion Date: unknown Location of Placement: Outside Facility Assessment/Plan Site evaluation: The existing dressing and stat lock were removed. The site was cleaned with chlorhexidine. A new stat lock was applied to secure the line in place. A sterile CHG was applied.?The cap on each lumen was changed. There was blood return.Line flushed with sterile saline and heparin. The site is WNL. Dressing should be changed every seven days to evaluate site and prevent infection. Date of Next Dressing Change: 10/14/22 Electronically Signed On 10/07/22 09:23 EDT GRACE KU Progress note * CHOCO MAK MD: PERFORM Event Display: Progress Note EMR No Chani CARPIO Authored Date: [id number] DATE/TIME NOTE CREATED: 10/10/2022 08:34:52 SUBJECTIVE: She continues to deny CP, SOB, palpitations, LH/LOC. OBJECTIVE: VITAL SIGNS: Vital Signs: Last Charted: 24 Hr Minimum: 24 Hr Maximum: Temperature Oral 37.1?? (10/09 15:18) 36.7?? (10/09 09:49) 37.1?? (10/09 15:18) Heart Rate 61?? (10/09 15:18) 61?? (10/09 15:18) 63?? (10/09 09:49) Respiratory Rate 18?? (10/09 15:18) 16?? (10/09 09:49) 18?? (10/09 15:18) Systolic BP 96?? (10/09 15:18) 96?? (10/09 15:18) 116?? (10/09 09:49) Diastolic BP 62?? (10/09 15:18) 62?? (10/09 15:18) 80?? (10/09 09:49) Mean Arterial Pressure 73?? (10/09 15:18) 73?? (10/09 15:18) 73?? (10/09 15:18) Oxygen Percent 99?? (10/09 15:18) 97?? (10/09 09:49) 99?? (10/09 15:18) PHYSICAL EXAM: GENERAL: ??[No acute distress, non-toxic appearing.]_ HEAD: ??[Normal with no signs of head trauma.]_ EYES: ??[PERRLA, EOMI, conjunctiva normal, no discharge.]_ ENT: ??[Hearing grossly intact, normal oropharynx.]_ NECK: ??[Supple, no tenderness, no lymphadenopathy, no masses, no thyromegaly, no bruits, no JVD.]_ LUNGS: ??[Clear breath sounds bilaterally. ??No wheezes, rales, or rhonchi.]_ HEART: ??[Regular rate and rhythm. ??Normal S1 and S2.?? Grade 1/6 SM @ LLSB.?? No??rub, or gallop.]_ VASC: ??[No edema. Peripheral pulses normal and equal in all extremities.]_ ABD: ??[Bowel sounds normal, soft, nontender, no masses, no organomegaly.]_ : ??[Normal.]_ LYMPH: ??[No lymphadenopathy noted.]_ EXT: ??[Normal range of motion, no joint swelling, no clubbing, no cyanosis.]_ SKIN: ??[No rashes or lesions.]_ TUBES/LINES/DRAINS: [None.]_ NEURO: ??[Alert and oriented x 3. Normal affect. ??Cranial nerves intact. ??No focal sensory or strength deficits. ??Reflexes symmetric.]_ LAB RESULTS: Hematology Basic - Last 36 hours (13) Result Date/Time WBC 7.7?10/10 04:10 RBC 3.17 (L) ??10/10 04:10 Hgb 8.7 (L) ??10/10 04:10 Hct 27.9 (L) ??10/10 04:10 MCV 88?10/10 04:10 MCH 27?10/10 04:10 MCHC 31?10/10 04:10 RDW 46.9 (H) ??10/10 04:10 RDW-SD 47?10/10 04:10 RDW-CV 14?10/10 04:10 Platelet Count 124 (L) ??10/10 04:10 MPV 11.9 (H) ??10/10 04:10 Plt Estimate Appear Decrease (A) ??10/09 10:41 ? Chemistry Comprehensive - Last 36 hours (13) Result Date/time Sodium Lvl 137?10/10 04:10 Potassium Lvl 4.1?10/10 04:10 Chloride Lvl 105?10/10 04:10 CO2 23?10/10 04:10 Glucose Level 116 (H) ??10/10 04:10 BUN 14?10/10 04:10 Creatinine Lvl 0.74?10/10 04:10 AGAP 9.0?10/10 04:10 BUN/Creat 19?10/10 04:10 Calcium Lvl 8.9?10/10 04:10 Osmolality Calc 285?10/10 04:10 Magnesium Lvl 1.5 (L) ??10/10 04:10 Phosphate 5.5 (H) ??10/10 04:10 ? RADIOLOGY/DIAGNOSTIC RESULTS: Radiology - Last 36 hours (0) No results in past 36 hours ? Diagnostics - Non-Radiology - Last 36 hours (0) No results in past 36 hours ? MEDICAL DECISION MAKING: ?? Medications (19) Active Scheduled: (11) apixaban (Eliquis) ??5 mg = 1 tab, Oral, BID cloNIDine ??0.1 mg = 1 tab, Oral, QID ethanol topical ??1 application, Each Nostril, BID hydrocortisone topical (hydrocortisone topical 1% cream) ??1 application, Topical, BID magnesium sulfate ??4 g = 100 mL, IV Piggyback, Once Scheduled melatonin ??3 mg = 1 tab, Oral, Q Bedtime methadone ??50 mg = 5 tab, Oral, Daily multivitamin ??1 tab, Oral, Daily pantoprazole ??40 mg = 1 tab, Oral, BID vancomycin ??1,250 mg = 250 mL, IV Piggyback, Q12hr venlafaxine ??37.5 mg = 1 cap, Oral, Daily ?? Continuous: (1) Sodium Chloride 0.9% 250 mL ??250 mL, IV ?? PRN: (7) acetaminophen (Tylenol) ??650 mg = 2 tab, Oral, Q6hr diphenhydrAMINE ??50 mg = 1 cap, Oral, Q4hr heparin flush (heparin flush 10 units/mL preservative-free) ??100 Unit(s) = 10 mL, IV, As Directed methadone ??5 mg = 5 mL, Oral, Q4hr nalOXone ??0.4 mg = 1 mL, IV Push, Q15 Min-int nalOXone ??0.4 mg = 1 mL, IV Push, Q15 Min-int sodium chloride (Saline flush) ??10 mL, IV, As Directed ? ASSESSMENT/PLAN: 1. Bacterial endocarditis??(I33.0) ??On 10/01/22, TTE revealed normal LV systolic wall motion with LVEF 55-60%; elevated LV filling pressure; mild to moderate MR; although not well visualized, there appears to be a 1.12 cm mobile shanna the tip of the tricuspid valve that is suggestive of possible vegetation; there is a significant6 mmHg mean transtricuspid??gradient; mild TR; recommend RADHA. On 10/03/22, RADHA reported there is a bioprosthetic tricuspid valve implanted in 2019; the leaflets are thickened with a small 0.5 cm or less vegetation on the posterior/septal leaflet; mean gradient is 4.5 mm of mercury; the valve gradients are normal; mild intra-valvular leak; overall function and opening of the valve appears normal. Given MSSA endocarditis reported as resistant to oxacillin but previously treated with the same.?I agree with placement in order to provide long-term IV antibiotics via ICC line, as dictated by ID recommendations. I appreciate??CT surgery following in case of decompensation. ?? 2. Tobacco/illicit drug use She has been strongly educated on the lethality of continuing IV drug abuse, as well as the potential morbidity and mortality of continuing??tobacco use. ?? 3. Factor V Leiden deficiency She should remain on Eliquis 5 mg twice daily as directed, especially given prior pulmonary embolism. [1]??Cardiology/Ana Progress/SOAP Note; CHOCO MAK MD 10/09/2022 08:48 EDT Electronically Signed On 10/10/22 08:38 EDT CHOCO MAK MD * OPAL MONTALVO MD: MODIFY OPAL MONTALVO MD: MODIFY, MODIFY Event Display: Progress Note EMR Authored Date: [id number] DATE/TIME NOTE CREATED: 10/09/2022 18:06:55 SUBJECTIVE: 31 years old female patient with PMH of IV drug use and IE of bioprosthetic tricuspid valves ??withcomplaints of fatigue and fever. Currently she is being managed for sepsis likely due to infective endocarditis??. ?? Patient states that she feels much better REVIEW OF SYSTEMS: CONST: No fever, fatigue, or weight changes HEENT: No recent vision problems , congestion, ear pain, or sore throat C/V:?? No chest pain, palpitations, or edema RESP: No cough, congestion, wheezing or shortness of breath GI: No abdominal pain, nausea, vomiting, constipation, or diarrhea : No incontinence or dysuria NEURO: No headache, focal numbness or weakness, dizziness, or seizures OBJECTIVE: VITAL SIGNS: Vital Signs: Last Charted: 24 Hr Minimum: 24 Hr Maximum: Temperature Oral 37.1?? (10/09 15:18) 36.7?? (10/09 09:49) 37.1?? (10/09 15:18) Heart Rate 61?? (10/09 15:18) 61?? (10/09 15:18) 78?? (10/08 19:27) Respiratory Rate 18?? (10/09 15:18) 16?? (10/09 09:49) 18?? (10/08 19:27) Systolic BP 96?? (10/09 15:18) 96?? (10/09 15:18) 116?? (10/08 19:27) Diastolic BP 62?? (10/09 15:18) 62?? (10/09 15:18) 80?? (10/08 19:27) Mean Arterial Pressure 73?? (10/09 15:18) 73?? (10/09 15:18) 92?? (10/08 19:27) Oxygen Percent 99?? (10/09 15:18) 95?? (10/08 19:27) 99?? (10/09 15:18) PHYSICAL EXAM: General: Awake, alert, oriented x3, cooperative, no acute distress HEENT: Abisai, EOMI, sclera anicteric, mucous membranes moist Cardiovascular: Normal S1-S2, no murmur/rubs/gallops Respiratory: Bilateral clear vesicular breath sounds, Abdomen: Soft, nontender, nondistended Extremities: No peripheral edema bilaterally Neurologic: Moves all extremities, cranial nerves grossly intact, speech not slurred LAB RESULTS: Hematology Basic - Last 36 hours (13) Result Date/Time WBC 6.2?10/09 06:20 RBC 3.11 (L) ??10/09 06:20 Hgb 8.5 (L) ??10/09 06:20 Hct 26.7 (L) ??10/09 06:20 MCV 86?10/09 06:20 MCH 27?10/09 06:20 MCHC 32?10/09 06:20 RDW 46.0 (H) ??10/09 06:20 RDW-SD 46?10/09 06:20 RDW-CV 15 (H) ??10/09 06:20 Platelet Count 182?10/09 10:41 MPV Platelet clumps?10/09 06:20 Plt Estimate Appear Decrease (A) ??10/09 10:41 ? Chemistry Comprehensive - Last 36 hours (13) Result Date/time Sodium Lvl 136?10/09 06:20 Potassium Lvl 4.3?10/09 06:20 Chloride Lvl 105?10/09 06:20 CO2 24?10/09 06:20 Glucose Level 116 (H) ??10/09 06:20 BUN 15?10/09 06:20 Creatinine Lvl 0.78?10/09 06:20 AGAP 7.0 (L) ??10/09 06:20 BUN/Creat 19?10/09 06:20 Calcium Lvl 8.9?10/09 06:20 Osmolality Calc 284?10/09 06:20 Magnesium Lvl 1.5 (L) ??10/09 06:20 Phosphate 5.6 (H) ??10/09 06:20 ? RADIOLOGY/DIAGNOSTIC RESULTS: Radiology - Last 36 hours (0) No results in past 36 hours ? Diagnostics - Non-Radiology - Last 36 hours (0) No results in past 36 hours ? ASSESSMENT/PLAN: 31 years old female patient with PMH of IV drug use and IE of bioprosthetic tricuspid valves with complaints of fatigue and fever. She is currently being managed on floors as following: ?? #Sepsis??(SIRS 2/4, fever and leukocytosis) -Differentials include prosthetic tricuspid??valve infective endocarditis, DVT, septic emboli -Chest x-ray does not show any acute cardiopulmonary process.?? 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 rifabutin -Blood culture 09/27/2022 grew 3/4??GPC's in clusters. -CT lumbar spine- unremarkable for septic emboli - PICC culture- no growth??preliminary results -urine culture showed no growth -ID onboard- following their recommendations - ID recommendation is to add Rifampin which the patient refused. ?? Plan: -Continue IV vancomycin for 6 weeks from 10/01/22(first??negative PICC line blood culture) - till 11/12/2022 ?? 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 Also large complex vegetation??noted within the right ventricle??attached to valvular apparatus. -s/p??angio Vac procedure done??on 09/10. unable to obtain MRI C-spine as she has epicardial leads??from a tricuspid replacement surgery in 2019??which are not MRI compatible.?? - RADHA done 10/03??shows a 0.5cm small vegetation on bioprosthetic tricuspid valve - Cardiology onboard ; advises no other procedure for the vegetation and to continue on mcc IV antibiotics as per ID recommendations. - CT surgery consulted; awaiting final recommendations ?? #Subsegmental Pulmonary Embolism -Patient has been on Eliquis??for??factor V Leiden mutation and still developed??pulmonary embolism. Heme-Onc consulted and advised it is likely due to Eliquis non-compliance. - proBNP- 917; likely right heart strain. Trops negative - TTE??done??10/01 showed??1.12 cm mobile mass on the tip of the tricuspid valve that is suggestive of possible vegetation??and significant 6 mmHg mean transtricuspid valve gradient -She was on Eliquis 5 mg twice daily we will discontinue it in view of dropping??hemoglobin and hematocrit levels. -Patient is currently??not been??requiring oxygen in the last few days??/short of breath. Plan: -- To continue on Eliquis 5 mg twice daily ? #Left knee pain-resolving. -Likely in the setting of ruptured Lemus's cyst. -CT shows findings suggest inflammatory process in the synovial space with extension to the popliteal space most likely infectious. There is abundant fluid for tapping. - Ortho consulted and they advised that if??she does not develop any new/worsening symptoms concerning for septic joint she can be followed outpatient by Dr. Hassan -?? Rest, ice, elevation as tolerated -??Analgesia as needed -??will continue to Follow-up??ESR and CRP labs -Patient says it is feeling much better. ? #History of opioid use -Patient was on 130mg methadone at [facility]. This was switched to methadone 40 mg during her admission at [facility]. -We are continuing with methadone 40mg/day with?methadone??5mg q4h as needed and??clonidine 0.1 mg??4 times a day??. Plan: Increase methadone to 50 mg/day with methadone 5 mg every 4 hours as needed??and clonidine 0.1 mg 4times a day ?? #Anemia??with decreasing??hemoglobin and hematocrit -History of iron deficiency anemia??with iron stores??as per previous labs on 09/06/2022 iron 25, TIBC 155, TSAT 16 -No??active signs or symptoms of bleeding -But patient has decreasing hemoglobin and hematocrit and requires 2 units of PRBC transfusion today. -Hemoglobin??- 8.1??today -Patient is not short of breath or requiring??oxygen - 2 units PRBC transfused on 10/05 - GI consulted - advised to restart Eliquis as there is no GI bleed most likely Plan: -Monitor CBC and hold off on??iron supplementation given concern for sepsis ? #Thrombocytopenia -Likely chronic??given??platelet count on 09/17/2022 was 105 -History of??hepatitis C antibody positive??but unknown if she has a history of cirrhosis -Platelet count today is 124,000 Plan -Continue to??monitor platelet count ?? #Hypomagnesemia : Mg 1.5 today Plan - Given IV 4g magnesium sulphate ? Chronic comorbidities: History of factor V Leiden mutation-started??again on??Eliquis 5 mg twice daily??but is currently??being held due to possible??bleeding Depression-continue??venlafaxine 37.5 mg daily ?? DVT prophylaxis- Eliquis 5 mg twice daily GI prophylaxis-regular diet ?? Next of kin-mother Angelika who can be reached at [phone](not in service) CODE STATUS-full code ATTESTATION: Date of service:10/09/2022 13:08:24 ?? I was NOT present with the resident during the entire interview and examination of the patient. I personally interviewed the patient and repeated the exam. I reviewed/revised the exam and discussed with the resident in regards to assessment and plan as documented. See resident's section for details and agree with the above documented note. I spent??>55 minutes assessing the patient and reviewed old records ?? ACP: I confirmed that the patient's Advance Care Plan is present, or code status is documented, or surrogate decision maker is listed in the patient's medical record. ?? Med Rec: I have utilized all available immediate resources to obtain, update or review the patient's current medication Electronically Signed On 10/09/22 18:11 EDT LILIAM MEJIA MD Electronically Signed On 10/10/22 13:08 EDT MARIBETH PERALTA, OPAL MAK MD, CHOCO: PERFORM Event Display: Progress Note EMR No Cosign SOAP Authored Date: [id number] DATE/TIME NOTE CREATED: 10/09/2022 08:48:42 SUBJECTIVE: She has no cardiac complaints, including CP, SOB, palpitations, or LH/LOC. OBJECTIVE: VITAL SIGNS: Vital Signs: Last Charted: 24 Hr Minimum: 24 Hr Maximum: Temperature Oral 36.8?? (10/08 18:) 36.8?? (10/08 18:) 36.6?? (10/08 11:10) Heart Rate 78?? (10/08 18:27) 58 (L) (10/08 11:10) 83?? (10/08 15:30) Respiratory Rate 18?? (10/08 18:) 16?? (10/08 09:49) 18?? (10/08 14:30) Systolic BP 116?? (10/08 18:) 102?? (10/08 15:30) 116?? (10/08 08:49) Diastolic BP 80?? (10/08 18:) 68?? (10/08 14:30) 87?? (10/08 11:10) Mean Arterial Pressure 92?? (10/08 18:) 79?? (10/08 14:30) 92?? (10/08 18:) Oxygen Percent 95?? (10/08 18:) 95?? (10/08 15:30) 99?? (10/08 09:49) PHYSICAL EXAM: GENERAL: ??[No acute distress, non-toxic appearing.]_ HEAD: ??[Normal with no signs of head trauma.]_ EYES: ??[PERRLA, EOMI, conjunctiva normal, no discharge.]_ ENT: ??[Hearing grossly intact, normal oropharynx.]_ NECK: ??[Supple, no tenderness, no lymphadenopathy, no masses, no thyromegaly, no bruits, no JVD.]_ LUNGS: ??[Clear breath sounds bilaterally. ??No wheezes, rales, or rhonchi.]_ HEART: ??[Regular rate and rhythm. ??Normal S1 and S2.?? Grade 1/6 SM @ [facility].?? No??rub, or gallop.]_ VASC: ??[No edema. Peripheral pulses normal and equal in all extremities.]_ ABD: ??[Bowel sounds normal, soft, nontender, no masses, no organomegaly.]_ : ??[Normal.]_ LYMPH: ??[No lymphadenopathy noted.]_ EXT: ??[Normal range of motion, no joint swelling, no clubbing, no cyanosis.]_ SKIN: ??[No rashes or lesions.]_ TUBES/LINES/DRAINS: [None.]_ NEURO: ??[Alert and oriented x 3. Normal affect. ??Cranial nerves intact. ??No focal sensory or strength deficits. ??Reflexes symmetric.]_ LAB RESULTS: Hematology Basic - Last 36 hours (13) Result Date/Time WBC 6.2?10/09 06:20 RBC 3.11 (L) ??10/09 06:20 Hgb 8.5 (L) ??10/09 06:20 Hct 26.7 (L) ??10/09 06:20 MCV 86?10/09 06:20 MCH 27?10/09 06:20 MCHC 32?10/09 06:20 RDW 46.0 (H) ??10/09 06:20 RDW-SD 46?10/09 06:20 RDW-CV 15 (H) ??10/09 06:20 Platelet Count Platelet clumps?10/09 06:20 MPV Platelet clumps?10/09 06:20 Plt Estimate Appear Decrease (A) ??10/09 06:20 ? Chemistry Comprehensive - Last 36 hours (13) Result Date/time Sodium Lvl 136?10/09 06:20 Potassium Lvl 4.3?10/09 06:20 Chloride Lvl 105?10/09 06:20 CO2 24?10/09 06:20 Glucose Level 116 (H) ??10/09 06:20 BUN 15?10/09 06:20 Creatinine Lvl 0.78?10/09 06:20 AGAP 7.0 (L) ??10/09 06:20 BUN/Creat 19?10/09 06:20 Calcium Lvl 8.9?10/09 06:20 Osmolality Calc 284?10/09 06:20 Magnesium Lvl 1.5 (L) ??10/09 06:20 Phosphate 5.6 (H) ??10/09 06:20 ? RADIOLOGY/DIAGNOSTIC RESULTS: Radiology - Last 36 hours (0) No results in past 36 hours ? Diagnostics - Non-Radiology - Last 36 hours (0) No results in past 36 hours ? MEDICAL DECISION MAKING: ?? Medications (18) Active Scheduled: (10) apixaban (Eliquis) ??5 mg = 1 tab, Oral, BID cloNIDine ??0.1 mg = 1 tab, Oral, QID ethanol topical ??1 application, Each Nostril, BID hydrocortisone topical (hydrocortisone topical 1% cream) ??1 application, Topical, BID melatonin ??3 mg = 1 tab, Oral, Q Bedtime methadone ??50 mg = 5 tab, Oral, Daily multivitamin ??1 tab, Oral, Daily pantoprazole ??40 mg = 1 tab, Oral, BID vancomycin ??1,250 mg = 250 mL, IV Piggyback, Q12hr venlafaxine ??37.5 mg = 1 cap, Oral, Daily ?? Continuous: (1) Sodium Chloride 0.9% 250 mL ??250 mL, IV ?? PRN: (7) acetaminophen (Tylenol) ??650 mg = 2 tab, Oral, Q6hr diphenhydrAMINE ??50 mg = 1 cap, Oral, Q4hr heparin flush (heparin flush 10 units/mL preservative-free) ??100 Unit(s) = 10 mL, IV, As Directed methadone ??5 mg = 5 mL, Oral, Q4hr nalOXone ??0.4 mg = 1 mL, IV Push, Q15 Min-int nalOXone ??0.4 mg = 1 mL, IV Push, Q15 Min-int sodium chloride (Saline flush) ??10 mL, IV, As Directed ? ASSESSMENT/PLAN: 1. Bacterial endocarditis??(I33.0) ??On 10/01/22, TTE revealed normal LV systolic wall motion with LVEF 55-60%; elevated LV filling pressure; mild to moderate MR; although not well visualized, there appears to be a 1.12 cm mobile shanna the tip of the tricuspid valve that is suggestive of possible vegetation; there is a significant6 mmHg mean transtricuspid??gradient; mild TR; recommend RADHA. On 10/03/22, RADHA reported there is a bioprosthetic tricuspid valve implanted in 2019; the leaflets are thickened with a small 0.5 cm or less vegetation on the posterior/septal leaflet; mean gradient is 4.5 mm of mercury; the valve gradients are normal; mild intra-valvular leak; overall function and opening of the valve appears normal. Given MSSA endocarditis reported as resistant to oxacillin but previously treated with the same, we recommend adhering to ID recommendations for long-term IV antibiotic therapy via PICC line. Awaitingplacement for the same. I appreciate??CT surgery following in case of decompensation. ? 2. Tobacco/illicit drug use She has been strongly educated on the lethality of continuing IV drug abuse, as well as the potential morbidity and mortality of continuing??tobacco use. ?? 3. Factor V Leiden deficiency She should remain on Eliquis 5 mg twice daily as directed, especially given prior pulmonary embolism. [1]??Cardiology/Ana Progress/SOAP Note; CHOCO MAK MD 10/08/2022 09:51 EDT Electronically Signed On 10/09/22 08:54 EDT CHOCO MAK MD * MARIBETH PERALTA, OPAL F: MODIFY JACKIE PERALTA, LILIAM: MODIFY, PERFORM LILIAM MEJIA MD: PERFORM Event Display: Progress Note EMR Authored Date: [id number] DATE/TIME NOTE CREATED: 10/08/2022 15:08:17 SUBJECTIVE: 31 years old female patient with PMH of IV drug use and IE of bioprosthetic tricuspid valves ??withcomplaints of fatigue and fever. Currently she is being managed for sepsis likely due to infective endocarditis??. ?? Patient states that she feels much better today. REVIEW OF SYSTEMS: CONST: No fever, fatigue, or weight changes HEENT: No recent vision problems , congestion, ear pain, or sore throat C/V:?? No chest pain, palpitations, or edema RESP: No cough, congestion, wheezing or shortness of breath GI: No abdominal pain, nausea, vomiting, constipation, or diarrhea : No incontinence or dysuria NEURO: No headache, focal numbness or weakness, dizziness, or seizures OBJECTIVE: VITAL SIGNS: Vital Signs: Last Charted: 24 Hr Minimum: 24 Hr Maximum: Temperature Oral 36.6?? (10/08 11:10) 36.6?? (10/08 11:10) 36.6?? (10/07 15:37) Heart Rate 58 (L) (10/08 11:10) 58 (L) (10/08 11:10) 87?? (10/07 23:24) Respiratory Rate 16?? (10/08 11:10) 16?? (10/07 15:37) 18?? (10/07 19:24) Systolic BP 116?? (10/08 11:10) 100?? (10/07 23:24) 116?? (10/08 09:49) Diastolic BP 87?? (10/08 11:10) 63?? (10/07 23:24) 87?? (10/08 11:10) Mean Arterial Pressure 86?? (10/08 04:38) 75?? (10/07 23:24) 86?? (10/08 04:38) Blood Pressure Method Automatic?? (10/08 04:38) ? Oxygen Percent 99?? (10/08 11:10) 94?? (10/07 23:24) 99?? (10/08 09:49) PHYSICAL EXAM: General: Awake, alert, oriented x3, cooperative, no acute distress HEENT: Abisai, EOMI, sclera anicteric, mucous membranes moist Cardiovascular: Normal S1-S2, no murmur/rubs/gallops Respiratory: Bilateral clear vesicular breath sounds, Abdomen: Soft, nontender, nondistended Extremities: No peripheral edema bilaterally Neurologic: Moves all extremities, cranial nerves grossly intact, speech not slurred LAB RESULTS: Hematology Basic - Last 36 hours (13) Result Date/Time WBC 7.0?10/08 04:38 RBC 3.26 (L) ??10/08 04:38 Hgb 9.0 (L) ??10/08 04:38 Hct 28.0 (L) ??10/08 04:38 MCV 86?10/08 04:38 MCH 28?10/08 04:38 MCHC 32?10/08 04:38 RDW 46.1 (H) ??10/08 04:38 RDW-SD 46?10/08 04:38 RDW-CV 15 (H) ??10/08 04:38 Platelet Count platelet clumps?10/08 04:38 MPV ----?10/08 04:38 Plt Estimate Appear Decrease (A) ??10/08 04:38 ? Chemistry Comprehensive - Last 36 hours (13) Result Date/time Sodium Lvl 138?10/08 04:38 Potassium Lvl 4.2?10/08 04:38 Chloride Lvl 105?10/08 04:38 CO2 25?10/08 04:38 Glucose Level 117 (H) ??10/08 04:38 BUN 12?10/08 04:38 Creatinine Lvl 0.71?10/08 04:38 AGAP 8.0?10/08 04:38 BUN/Creat 17?10/08 04:38 Calcium Lvl 9.1?10/08 04:38 Osmolality Calc 287?10/08 04:38 Magnesium Lvl 1.3 (L) ??10/08 04:38 Phosphate 5.6 (H) ??10/08 04:38 ? RADIOLOGY/DIAGNOSTIC RESULTS: Radiology - Last 36 hours (0) No results in past 36 hours ? Diagnostics - Non-Radiology - Last 36 hours (0) No results in past 36 hours ? ASSESSMENT/PLAN: 31 years old female patient with PMH of IV drug use and IE of bioprosthetic tricuspid valves with complaints of fatigue and fever. She is currently being managed on floors as following: ?? #Sepsis??(SIRS 2/4, fever and leukocytosis) -Differentials include prosthetic tricuspid??valve infective endocarditis, DVT, septic emboli -Chest x-ray does not show any acute cardiopulmonary process.?? 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 rifabutin -Blood culture 09/27/2022 grew 3/4??GPC's in clusters. -CT lumbar spine- unremarkable for septic emboli - PICC culture- no growth??preliminary results -urine culture showed no growth -ID onboard- following their recommendations - ID recommendation is to add Rifampin which the patient refused. ?? Plan: -Continue IV vancomycin for 6 weeks from 10/01/22(first??negative PICC line blood culture) - till 11/12/2022 ?? 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 Also large complex vegetation??noted within the right ventricle??attached to valvular apparatus. -s/p??angio Vac procedure done??on 09/10. unable to obtain MRI C-spine as she has epicardial leads??from a tricuspid replacement surgery in 2019??which are not MRI compatible.?? - RADHA done 10/03??shows a 0.5cm small vegetation on bioprosthetic tricuspid valve - Cardiology onboard ; advises no other procedure for the vegetation and to continue on mcc IV antibiotics as per ID recommendations. - CT surgery consulted; awaiting final recommendations ?? #Subsegmental Pulmonary Embolism -Patient has been on Eliquis??for??factor V Leiden mutation and still developed??pulmonary embolism. Heme-Onc consulted and advised it is likely due to Eliquis non-compliance. - proBNP- 917; likely right heart strain. Trops negative - TTE??done??10/01 showed??1.12 cm mobile mass on the tip of the tricuspid valve that is suggestive of possible vegetation??and significant 6 mmHg mean transtricuspid valve gradient -She was on Eliquis 5 mg twice daily we will discontinue it in view of dropping??hemoglobin and hematocrit levels. -Patient is currently??not been??requiring oxygen in the last few days??/short of breath. Plan: -- To continue on Eliquis 5 mg twice daily ? #Left knee pain-resolving. -Likely in the setting of ruptured Lemus's cyst. -CT shows findings suggest inflammatory process in the synovial space with extension to the popliteal space most likely infectious. There is abundant fluid for tapping. - Ortho consulted and they advised that if??she does not develop any new/worsening symptoms concerning for septic joint she can be followed outpatient by Dr. Hassan -?? Rest, ice, elevation as tolerated -??Analgesia as needed -??will continue to Follow-up??ESR and CRP labs -Patient says it is feeling much better. ? #History of opioid use -Patient was on 130mg methadone at [facility]. This was switched to methadone 40 mg during her admission at [facility]. -We are continuing with methadone 40mg/day with?methadone??5mg q4h as needed and??clonidine 0.1 mg??4 times a day??. Plan: Increase methadone to 50 mg/day with methadone 5 mg every 4 hours as needed??and clonidine 0.1 mg 4times a day ?? #Anemia??with decreasing??hemoglobin and hematocrit -History of iron deficiency anemia??with iron stores??as per previous labs on 09/06/2022 iron 25, TIBC 155, TSAT 16 -No??active signs or symptoms of bleeding -But patient has decreasing hemoglobin and hematocrit and requires 2 units of PRBC transfusion today. -Hemoglobin??- 8.1??today -Patient is not short of breath or requiring??oxygen - 2 units PRBC transfused on 10/05 - GI consulted - advised to restart Eliquis as there is no GI bleed most likely Plan: -Monitor CBC and hold off on??iron supplementation given concern for sepsis ? #Thrombocytopenia -Likely chronic??given??platelet count on 09/17/2022 was 105 -History of??hepatitis C antibody positive??but unknown if she has a history of cirrhosis -Platelet count today is 124,000 Plan -Continue to??monitor platelet count ?? #Hypomagnesemia : Mg 1.3 today Plan - Given IV 4g magnesium sulphate ? Chronic comorbidities: History of factor V Leiden mutation-started??again on??Eliquis 5 mg twice daily??but is currently??being held due to possible??bleeding Depression-continue??venlafaxine 37.5 mg daily ?? DVT prophylaxis- Eliquis 5 mg twice daily GI prophylaxis-regular diet ?? Next of kin-mother Angelika who can be reached at [phone](not in service) CODE STATUS-full code ATTESTATION: Date of service:10/08/2022 08:31:17 ?? I was NOT present with the resident during the entire interview and examination of the patient. I personally interviewed the patient and repeated the exam. I reviewed/revised the exam and discussed with the resident in regards to assessment and plan as documented. See resident's section for details and agree with the above documented note. I spent??>55 minutes assessing the patient and reviewed old records ?? ACP: I confirmed that the patient's Advance Care Plan is present, or code status is documented, or surrogate decision maker is listed in the patient's medical record. ?? Med Rec: I have utilized all available immediate resources to obtain, update or review the patient's current medication Electronically Signed On 10/08/22 15:21 EDT LILIAM MEJIA MD Electronically Signed On 10/09/22 08:31 EDT MARIBETH PERALTA, OPAL MAK MD, CHOCO: PERFORM Event Display: Progress Note EMR No Cosign SOAP Authored Date: [id number] DATE/TIME NOTE CREATED: 10/08/2022 09:51:51 SUBJECTIVE: She continues to deny cardiac complaints to me at rest, including CP, SOB, LH, LOC, palpitations. OBJECTIVE: VITAL SIGNS: Vital Signs: Last Charted: 24 Hr Minimum: 24 Hr Maximum: Temperature Oral 36.3?? (10/08 04:38) 36.3?? (10/08 04:38) 36.6?? (10/07 11:33) Heart Rate 66?? (10/08 09:49) 59 (L) (10/08 04:38) 95?? (10/07 11:33) Respiratory Rate 16?? (10/08 09:49) 16?? (10/07 11:33) 18?? (10/07 19:24) Systolic BP 116?? (10/08 09:49) 100?? (10/07 23:24) 116?? (10/08 09:49) Diastolic BP 77?? (10/08 09:49) 63?? (10/07 23:24) 77?? (10/08 09:49) Mean Arterial Pressure 86?? (10/08 04:38) 75?? (10/07 23:24) 86?? (10/08 04:38) Blood Pressure Method Automatic?? (10/08 04:38) ? Oxygen Percent 99?? (10/08 09:49) 94?? (10/07 23:24) 99?? (10/08 09:49) PHYSICAL EXAM: GENERAL: ??[No acute distress, non-toxic appearing.]_ HEAD: ??[Normal with no signs of head trauma.]_ EYES: ??[PERRLA, EOMI, conjunctiva normal, no discharge.]_ ENT: ??[Hearing grossly intact, normal oropharynx.]_ NECK: ??[Supple, no tenderness, no lymphadenopathy, no masses, no thyromegaly, no bruits, no JVD.]_ LUNGS: ??[Clear breath sounds bilaterally. ??No wheezes, rales, or rhonchi.]_ HEART: ??[Regular rate and rhythm. ??Normal S1 and S2.?? Grade 1/6 SM @ [facility]LS[facility].?? No??rub, or gallop.]_ VASC: ??[No edema. Peripheral pulses normal and equal in all extremities.]_ ABD: ??[Bowel sounds normal, soft, nontender, no masses, no organomegaly.]_ : ??[Normal.]_ LYMPH: ??[No lymphadenopathy noted.]_ EXT: ??[Normal range of motion, no joint swelling, no clubbing, no cyanosis.]_ SKIN: ??[No rashes or lesions.]_ TUBES/LINES/DRAINS: [None.]_ NEURO: ??[Alert and follows commands. Normal affect. ??Cranial nerves intact. ??No focal sensory orstrength deficits. ??Reflexes symmetric.]_ LAB RESULTS: Hematology Basic - Last 36 hours (13) Result Date/Time WBC 7.0?10/08 04:38 RBC 3.26 (L) ??10/08 04:38 Hgb 9.0 (L) ??10/08 04:38 Hct 28.0 (L) ??10/08 04:38 MCV 86?10/08 04:38 MCH 28?10/08 04:38 MCHC 32?10/08 04:38 RDW 46.1 (H) ??10/08 04:38 RDW-SD 46?10/08 04:38 RDW-CV 15 (H) ??10/08 04:38 Platelet Count platelet clumps?10/08 04:38 MPV ----?10/08 04:38 Plt Estimate Appear Decrease (A) ??10/08 04:38 ? Chemistry Comprehensive - Last 36 hours (13) Result Date/time Sodium Lvl 138?10/08 04:38 Potassium Lvl 4.2?10/08 04:38 Chloride Lvl 105?10/08 04:38 CO2 25?10/08 04:38 Glucose Level 117 (H) ??10/08 04:38 BUN 12?10/08 04:38 Creatinine Lvl 0.71?10/08 04:38 AGAP 8.0?10/08 04:38 BUN/Creat 17?10/08 04:38 Calcium Lvl 9.1?10/08 04:38 Osmolality Calc 287?10/08 04:38 Magnesium Lvl 1.3 (L) ??10/08 04:38 Phosphate 5.6 (H) ??10/08 04:38 ? RADIOLOGY/DIAGNOSTIC RESULTS: Radiology - Last 36 hours (0) No results in past 36 hours ? Diagnostics - Non-Radiology - Last 36 hours (0) No results in past 36 hours ? MEDICAL DECISION MAKING: ?? Medications (18) Active Scheduled: (11) apixaban (Eliquis) ??5 mg = 1 tab, Oral, BID cloNIDine ??0.1 mg = 1 tab, Oral, QID ethanol topical ??1 application, Each Nostril, BID hydrocortisone topical (hydrocortisone topical 1% cream) ??1 application, Topical, BID magnesium sulfate ??4 g = 100 mL, IV Piggyback, Once Scheduled melatonin ??3 mg = 1 tab, Oral, Q Bedtime methadone ??50 mg = 5 tab, Oral, Daily multivitamin ??1 tab, Oral, Daily pantoprazole ??40 mg = 1 tab, Oral, BID vancomycin ??1,250 mg = 250 mL, IV Piggyback, Q12hr venlafaxine ??37.5 mg = 1 cap, Oral, Daily ?? Continuous: (1) Sodium Chloride 0.9% 250 mL ??250 mL, IV ?? PRN: (6) acetaminophen (Tylenol) ??650 mg = 2 tab, Oral, Q6hr diphenhydrAMINE ??50 mg = 1 cap, Oral, Q4hr methadone ??5 mg = 5 mL, Oral, Q4hr nalOXone ??0.4 mg = 1 mL, IV Push, Q15 Min-int nalOXone ??0.4 mg = 1 mL, IV Push, Q15 Min-int sodium chloride (Saline flush) ??10 mL, IV, As Directed ? ASSESSMENT/PLAN: 1. Bacterial endocarditis??(I33.0) ??On 10/01/22, TTE revealed normal LV systolic wall motion with LVEF 55-60%; elevated LV filling pressure; mild to moderate MR; although not well visualized, there appears to be a 1.12 cm mobile shanna the tip of the tricuspid valve that is suggestive of possible vegetation; there is a significant6 mmHg mean transtricuspid valve gradient; recommend RADHA; mild TR. On 10/03/22, RADHA reported there is a bioprosthetic tricuspid valve implanted in 2019; the leaflets are thickened with a small 0.5 cmor less vegetation on the posterior/septal leaflet; mean gradient is 4.5 mm of mercury; the valve gradients are normal; mild intra- valvular leak; overall function and opening of the valve appears normal. Given MSSA endocarditis reported as resistant to oxacillin but previously treated with the same, we recommend adhering to ID recommendations for long-term IV antibiotic therapy. Awaiting placement for the same. I appreciate??CT surgery following in case of decompensation. ? 2. Tobacco/illicit drug use She has been strongly educated on the lethality of continuing IV drug abuse, as well as the potential morbidity and mortality of continuing??tobacco use. ?? 3. Factor V Leiden deficiency She should remain on Eliquis 5 mg twice daily as directed, especially given prior pulmonary embolism. [1]??Cardiology/Ana Progress/SOAP Note; CHOCO MAK MD 10/07/2022 09:11 EDT Electronically Signed On 10/08/22 09:54 EDT CHOCO MAK MD * RUPINDER TYLER MD: MODIFY RUPINDER TYLER MD: MODIFY, MODIFY Event Display: Progress Note EMR Authored Date: [id number] DATE/TIME NOTE CREATED: 10/06/2022 16:35:14 SUBJECTIVE: 31 years old female patient with PMH of IV drug use and IE of bioprosthetic tricuspid valves ??withcomplaints of fatigue and fever. Currently she is being managed for sepsis likely due to infective endocarditis??. ?? Patient states that she feels much better today. REVIEW OF SYSTEMS: CONST: No fever, fatigue, or weight changes HEENT: No recent vision problems , congestion, ear pain, or sore throat C/V:?? No chest pain, palpitations, or edema RESP: No cough, congestion, wheezing or shortness of breath GI: No abdominal pain, nausea, vomiting, constipation, or diarrhea : No incontinence or dysuria NEURO: No headache, focal numbness or weakness, dizziness, or seizures OBJECTIVE: VITAL SIGNS: Vital Signs: Last Charted: 24 Hr Minimum: 24 Hr Maximum: Temperature Oral 36.3?? (10/06 11:02) 36.3?? (10/06 11:02) 38.6 (H) (10/05 17:04) Heart Rate 89?? (10/06 11:02) 65?? (10/06 00:03) 96?? (10/06 04:00) Cardiac Rhythm Normal sin?? (10/06 04:00) ? Pulse/HR Method Monitor?? (10/06 04:00) ? Respiratory Rate 18?? (10/06 11:02) 16?? (10/05 23:46) 20?? (10/05 17:04) Systolic BP 112?? (10/06 11:02) 70 (L) (10/05 16:23) 124?? (10/05 18:20) Diastolic BP 73?? (10/06 11:02) 60?? (10/05 21:05) 77?? (10/05 23:58) Mean Arterial Pressure 85?? (10/06 04:18) 72?? (10/06 00:48) 89?? (10/05 17:04) Blood Pressure Location Left, Uppe?? (10/06 04:00) ? Blood Pressure Method Automatic?? (10/06 04:00) ? Activity Supine Clin Doc Bedrest?? (10/05 21:05) ? SpO2/Pulse Oximetry 96?? (10/06 04:00) 95?? (10/05 23:46) 100?? (10/06 00:03) Oxygen Percent 95?? (10/06 11:02) 95?? (10/06 07:28) 96?? (10/06 04:18) PHYSICAL EXAM: General: Awake, alert, oriented x3, cooperative, no acute distress HEENT: Abisai, EOMI, sclera anicteric, mucous membranes moist Cardiovascular: Normal S1-S2, no murmur/rubs/gallops Respiratory: Bilateral clear vesicular breath sounds, Abdomen: Soft, nontender, nondistended Extremities: No peripheral edema bilaterally Neurologic: Moves all extremities, cranial nerves grossly intact, speech not slurred LAB RESULTS: Hematology Basic - Last 36 hours (12) Result Date/Time WBC 8.5?10/06 04:52 RBC 3.09 (L) ??10/06 04:52 Hgb 8.5 (L) ??10/06 04:52 Hct 27.0 (L) ??10/06 04:52 MCV 87?10/06 04:52 MCH 28?10/06 04:52 MCHC 32?10/06 04:52 RDW 45.9 (H) ??10/06 04:52 RDW-SD 46?10/06 04:52 RDW-CV 14?10/06 04:52 Platelet Count 89 (L) ??10/06 04:52 MPV 11.3 (H) ??10/06 04:52 ? Chemistry Comprehensive - Last 36 hours () Result Date/time Sodium Lvl 135?10/06 04:52 Potassium Lvl 4.1?10/06 04:52 Chloride Lvl 104?10/06 04:52 CO2 23?10/06 04:52 Glucose Level 113 (H) ??10/06 04:52 BUN 13?10/06 04:52 Creatinine Lvl 0.72?10/06 04:52 AGAP 8.0?10/06 04:52 BUN/Creat 18?10/06 04:52 Total Protein 9.0 (H) ??10/05 09:17 Albumin Lvl 2.5 (L) ??10/05 09:17 Calcium Lvl 8.6?10/06 04:52 Alk Phos 161 (H) ??10/05 09:17 AST 16?10/05 09:17 ALT 5?10/05 09:17 Globulin 6.5 (H) ??10/05 09:17 Osmolality Calc 281?10/06 04:52 A/G Ratio 0.4 (L) ??10/05 09:17 Magnesium Lvl 1.3 (L) ??10/06 04:52 Phosphate 4.7 (H) ??10/06 04:52 Bili Total 0.4?10/05 09:17 Bili Direct <0.2?10/05 09:17 Bili Indirect >0.2?10/05 09:17 ? RADIOLOGY/DIAGNOSTIC RESULTS: Radiology - Last 36 hours (0) No results in past 36 hours ? Diagnostics - Non-Radiology - Last 36 hours (0) No results in past 36 hours ? ASSESSMENT/PLAN: 31 years old female patient with PMH of IV drug use and IE of bioprosthetic tricuspid valves with complaints of fatigue and fever. She is currently being managed on floors as following: ?? #Sepsis??(SIRS 2/4, fever and leukocytosis) -Differentials include prosthetic tricuspid??valve infective endocarditis, DVT, septic emboli -Chest x-ray does not show any acute cardiopulmonary process.?? 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 rifabutin -Blood culture 09/27/2022 grew 3/4??GPC's in clusters. -CT lumbar spine- unremarkable for septic emboli - PICC culture- no growth??preliminary results -urine culture showed no growth -ID onboard- following their recommendations - ID recommendation is to add Rifampin which the patient refused. ?? Plan: -Continue IV vancomycin for 6 weeks from 10/01/22(first??negative PICC line blood culture) - till 11/12/2022 ?? 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 Also large complex vegetation??noted within the right ventricle??attached to valvular apparatus. -s/p??angio Vac procedure done??on 09/10. unable to obtain MRI C-spine as she has epicardial leads??from a tricuspid replacement surgery in 2019??which are not MRI compatible.?? - RADHA done 10/03??shows a 0.5cm small vegetation on bioprosthetic tricuspid valve - Cardiology onboard ; advises no other procedure for the vegetation. - CT surgery consulted; awaiting final recommendations ?? #Subsegmental Pulmonary Embolism -Patient has been on Eliquis??for??factor V Leiden mutation and still developed??pulmonary embolism. Heme-Onc consulted and advised it is likely due to Eliquis non-compliance. - proBNP- 917; likely right heart strain. Trops negative - TTE??done??10/01 showed??1.12 cm mobile mass on the tip of the tricuspid valve that is suggestive of possible vegetation??and significant 6 mmHg mean transtricuspid valve gradient -She was on Eliquis 5 mg twice daily we will discontinue it in view of dropping??hemoglobin and hematocrit levels. -Patient is currently??not been??requiring oxygen in the last few days??/short of breath. Plan: -Patint's Hb improved following blood transfusion - restarted eliquis 5mg bid ? #Left knee pain-resolving. -Likely in the setting of ruptured Lemus's cyst. -CT shows findings suggest inflammatory process in the synovial space with extension to the popliteal space most likely infectious. There is abundant fluid for tapping. - Ortho consulted and they advised that if??she does not develop any new/worsening symptoms concerning for septic joint she can be followed outpatient by Dr. Hassan -?? Rest, ice, elevation as tolerated -??Analgesia as needed -??will continue to Follow-up??ESR and CRP labs -Patient says it is feeling much better. ? #History of opioid use -Patient was on 130mg methadone at [facility]. This was switched to methadone 40 mg during her admission at [facility]. -We are continuing with methadone 40mg/day with?methadone??5mg q4h as needed and??clonidine 0.1 mg??4 times a day??. Plan: Increase methadone to 50 mg/day with methadone 5 mg every 4 hours as needed??and clonidine 0.1 mg 4times a day ?? #Anemia??with decreasing??hemoglobin and hematocrit -History of iron deficiency anemia??with iron stores??as per previous labs on 09/06/2022 iron 25, TIBC 155, TSAT 16 -No??active signs or symptoms of bleeding -But patient has decreasing hemoglobin and hematocrit and requires 2 units of PRBC transfusion today. -Hemoglobin was 6.3 yesterday -Patient is not short of breath or requiring??oxygen - 2 units PRBC transfused yesterday - GI consulted - advised to restart Eiquis as there is no GI bleed most likely Plan: -Monitor CBC and hold off on??iron supplementation given concern for sepsis -Send hemolysis labs like??fibrinogen level, fibrin??split products, D- dimer,??LDH, reticulocyte count,??haptoglobin levels ?? #Thrombocytopenia -Likely chronic??given??platelet count on 09/17/2022 was 105 -History of??hepatitis C antibody positive??but unknown if she has a history of cirrhosis -Platelet count today is 89,000 Plan -Continue to??monitor platelet count ?? #Hyponatremia-??resolved -Likely hypovolemic hyponatremia -Presented with sodium of 131 - Sodium- 135 today Plan: -Monitor BMP ? Chronic comorbidities: History of factor V Leiden mutation-started??again on??Eliquis 5 mg twice daily??but is currently??being held due to possible??bleeding Depression-continue??venlafaxine 37.5 mg daily ?? DVT prophylaxis- Eliquis 5 mg twice daily GI prophylaxis-regular diet ?? Next of kin-mother Angelika who can be reached at [phone](not in service) CODE STATUS-full code ATTESTATION: HH stable , can resume eliquis Electronically Signed On 10/06/22 20:53 EDT LILIAM MEJIA MD Electronically Signed On 10/07/22 15:03 EDT RUPINDER TYLER MD * RUPINDER TYLER MD: MODIFY RUPINDER TYLER MD: MODIFY, MODIFY YAZMIN PERALTA, SHEREE: MODIFY Event Display: Progress Note EMR SOAP Authored Date: [id number] DATE/TIME NOTE CREATED: 10/05/2022 07:34:17 SUBJECTIVE: 31 years old female patient with PMH of IV drug use and IE of bioprosthetic tricuspid valves ??withcomplaints of fatigue and fever. Currently she is being managed for sepsis likely due to infective endocarditis??. ?? Patient states that she feels much better today. REVIEW OF SYSTEMS: CONST: No fever, fatigue, or weight changes HEENT: No recent vision problems , congestion, ear pain, or sore throat C/V:?? No chest pain, palpitations, or edema RESP: No cough, congestion, wheezing or shortness of breath GI: No abdominal pain, nausea, vomiting, constipation, or diarrhea : No incontinence or dysuria NEURO: No headache, focal numbness or weakness, dizziness, or seizures OBJECTIVE: VITAL SIGNS: Vital Signs: Last Charted: 24 Hr Minimum: 24 Hr Maximum: Temperature Oral 36.9?? (10/05 07:30) 36.9?? (10/05 07:30) 37.0?? (10/04 11:36) Heart Rate 74?? (10/05 07:30) 74?? (10/05 07:30) 106 (H) (10/04 21:07) Respiratory Rate 18?? (10/05 07:30) 16?? (10/04 11:36) 18?? (10/04 16:02) Systolic BP 106?? (10/05 07:30) 96?? (10/05 04:36) 111?? (10/04 11:36) Diastolic BP 72?? (10/05 07:30) 57 (L) (10/04 16:02) 73?? (10/04 11:36) Mean Arterial Pressure 83?? (10/05 07:30) 71?? (10/04 16:02) 83?? (10/05 07:30) Oxygen Percent 97?? (10/05 07:30) 94?? (10/04 16:02) 99?? (10/04 11:36) PHYSICAL EXAM: General: Awake, alert, oriented x3, cooperative, no acute distress HEENT: Abisai, EOMI, sclera anicteric, mucous membranes moist Cardiovascular: Normal S1-S2, no murmur/rubs/gallops Respiratory: Bilateral clear vesicular breath sounds, Abdomen: Soft, nontender, nondistended Extremities: No peripheral edema bilaterally Neurologic: Moves all extremities, cranial nerves grossly intact, speech not slurred LAB RESULTS: Hematology Basic - Last 36 hours (12) Result Date/Time WBC 7.5?10/05 05:27 RBC 2.27 (L) ??10/05 05:27 Hgb 6.3 (L) ??10/05 05:27 Hct 19.3 (!) ??10/05 05:27 MCV 85?10/05 05:27 MCH 28?10/05 05:27 MCHC 33?10/05 05:27 RDW 45.1 (H) ??10/05 05:27 RDW-SD 45?10/05 05:27 RDW-CV 14?10/05 05:27 Platelet Count 93 (L) ??10/05 05:27 MPV 11.4 (H) ??10/05 05:27 ? Chemistry Comprehensive - Last 36 hours (13) Result Date/time Sodium Lvl 134?10/05 05:27 Potassium Lvl 4.2?10/05 05:27 Chloride Lvl 103?10/05 05:27 CO2 24?10/05 05:27 Glucose Level 124 (H) ??10/05 05:27 BUN 18?10/05 05:27 Creatinine Lvl 0.75?10/05 05:27 AGAP 7.0 (L) ??10/05 05:27 BUN/Creat 24?10/05 05:27 Calcium Lvl 9.3?10/05 05:27 Osmolality Calc 281?10/05 05:27 Magnesium Lvl 1.8?10/05 05:27 Phosphate 4.6 (H) ??10/05 05:27 ? RADIOLOGY/DIAGNOSTIC RESULTS: Radiology - Last 36 hours (0) No results in past 36 hours ? Diagnostics - Non-Radiology - Last 36 hours (0) No results in past 36 hours ? ASSESSMENT/PLAN: 31 years old female patient with PMH of IV drug use and IE of bioprosthetic tricuspid valves with complaints of fatigue and fever. She is currently being managed on floors as following: ?? #Sepsis??(SIRS 2/4, fever and leukocytosis) -Differentials include prosthetic tricuspid??valve infective endocarditis, DVT, septic emboli -Chest x-ray does not show any acute cardiopulmonary process.?? 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 rifabutin -Blood culture 09/27/2022 grew 05/18??GPC's in clusters. -CT lumbar spine- unremarkable for septic emboli - PICC culture- no growth??preliminary results -urine culture showed no growth -ID onboard- following their recommendations - ID recommendation is to add Rifampin which the patient refused. ?? Plan: -Continue IV vancomycin for 6 weeks from 10/01/22(first??negative PICC line blood culture) - till 11/12/2022 ?? 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 Also large complex vegetation??noted within the right ventricle??attached to valvular apparatus. -s/p??angio Vac procedure done??on 09/10. unable to obtain MRI C-spine as she has epicardial leads??from a tricuspid replacement surgery in 2019??which are not MRI compatible.?? - RADHA done 10/03??shows a 0.5cm small vegetation on bioprosthetic tricuspid valve - Cardiology onboard ; advises no other procedure for the vegetation. - CT surgery consulted; awaiting final recommendations ?? #Subsegmental Pulmonary Embolism -Patient has been on Eliquis??for??factor V Leiden mutation and still developed??pulmonary embolism. Heme-Onc consulted and advised it is likely due to Eliquis non-compliance. - proBNP- 917; likely right heart strain. Trops negative - TTE??done??10/01 showed??1.12 cm mobile mass on the tip of the tricuspid valve that is suggestive of possible vegetation??and significant 6 mmHg mean transtricuspid valve gradient -She was on Eliquis 5 mg twice daily we will discontinue it in view of dropping??hemoglobin and hematocrit levels. -Patient is currently??not been??requiring oxygen in the last few days??/short of breath. Plan: -Discontinue??Eliquis 5 mg twice daily??in view of possible??GI bleed with a drop in hemoglobin andhematocrit levels. -Plan to restart Eliquis??once patient is more stable ? #Left knee pain-resolving. -Likely in the setting of ruptured Lemus's cyst. -CT shows findings suggest inflammatory process in the synovial space with extension to the popliteal space most likely infectious. There is abundant fluid for tapping. - Ortho consulted and they advised that if??she does not develop any new/worsening symptoms concerning for septic joint she can be followed outpatient by Dr. Hassan -?? Rest, ice, elevation as tolerated -??Analgesia as needed -??will continue to Follow-up??ESR and CRP labs -Patient says it is feeling much better. ? #History of opioid use -Patient was on 130mg methadone at [facility]. This was switched to methadone 40 mg during her admission at [facility]. -We are continuing with methadone 40mg/day with?methadone??5mg q4h as needed and??clonidine 0.1 mg??4 times a day??. Plan: Increase methadone to 50 mg/day with methadone 5 mg every 4 hours as needed??and clonidine 0.1 mg 4times a day ?? #Anemia??with decreasing??hemoglobin and hematocrit -History of iron deficiency anemia??with iron stores??as per previous labs on 09/06/2022 iron 25, TIBC 155, TSAT 16 -No??active signs or symptoms of bleeding -But patient has decreasing hemoglobin and hematocrit and requires 2 units of PRBC transfusion today. -Hemoglobin was 6.3 today. -Patient is not short of breath??or requiring??oxygen Plan: -Monitor CBC and hold off on??iron supplementation given concern for sepsis -2 units PRBC to be transfused today -GI consult for possible??occult??GI bleed??as patient does not have any amadou??bleeding. -Send hemolysis labs like??fibrinogen level, fibrin??split products, D- dimer,??LDH, reticulocyte count,??haptoglobin levels ?? #Thrombocytopenia -Likely chronic??given??platelet count on 09/17/2022 was 105 -History of??hepatitis C antibody positive??but unknown if she has a history of cirrhosis -Platelet count today is 95,000 Plan -Continue to??monitor platelet count ?? #Hyponatremia-??resolved -Likely hypovolemic hyponatremia -Presented with sodium of 131 - Sodium- 134??today Plan: -Monitor BMP ? Chronic comorbidities: History of factor V Leiden mutation-started??again on??Eliquis 5 mg twice daily??but is currently??being held due to possible??bleeding Depression-continue??venlafaxine 37.5 mg daily ?? DVT prophylaxis- Eliquis 5 mg twice daily GI prophylaxis-regular diet ?? Next of kin-mother Angelika who can be reached at [phone](not in service) CODE STATUS-full code ATTESTATION: discussed with GI , no need for endoscopy , will hold Eliquis , transfuse on unit and resume Eliquis when HH is stable will continue PPI BID Electronically Signed On 10/05/22 13:39 EDT SHEREE ARCE MD Electronically Signed On 10/05/22 15:39 EDT RUPINDER TYLER MD * Lena LOPEZ, Mickey Dyer: PERFORM Event Display: Progress Note EMR No Cosign Authored Date: [id number] PICC??Dressing Change Note ?? Type of device and site: ??Right Upper Extremity?5 Fr??x??[Unknown] Power??Double Lumen PICC? Line Insertion Date:??Unknown ?? Placed at??Outside Facility??([facility] per patient)? Assessment/Plan ?? Site evaluation: The existing dressing and stat lock were removed. There is??skin breakdown and irritation from the previous dressing.??The site was cleaned with chlorhexidine. A new stat lock was applied to secure the line in place. ??A sterile CHG was applied. ??The cap on each lumen was changed.There was blood return and the line was flushed with normal saline. The site is WNL. Dressing should be changed every seven days to evaluate site and prevent infection.? Next sterile dressing change is due: 10-07-2022 ?? Additional comments:??RN notified to flush lumens with heparin as this PICC line has clamps. I alsoasked her to notify the primary team about the skin breakdown/wound. Electronically Signed On 09/30/22 09:33 EDT Mickey Paredes CNP, MD, OPAL Turner: MODIFY MARIBETH PERALTA, OPAL Turner: MODIFY, MODIFY, MODIFY, MODIFY, MODIFY, MODIFY, MODIFY, MODIFY, MODIFY, MODIFY, PERFORM, MODIFY, MODIFY, MODIFY Event Display: Progress Note EMR SOAP Authored Date: [id number] DATE/TIME NOTE CREATED: 09/30/2022 11:39:52 SUBJECTIVE: 31 years old female patient with PMH of IV drug use and IE of bioprosthetic tricuspid valves ??withcomplaints of fatigue and fever. Patient was seen at bedside today , she says she doesn't feel welloverall but denies any specific??complaints. REVIEW OF SYSTEMS: CONST: ??[No fever, fatigue, or weight changes.]_ EYES: ??[No recent vision problems.]_ ENT: ??[No congestion, ear pain, or sore throat.]_ C/V: ??[No chest pain, palpitations, or edema.]_ RESP: ??[No cough, congestion, wheezing, or shortness of breath.]_ GI: ??[No abdominal pain, nausea, vomiting, constipation, or diarrhea.]_ : [No incontinence or dysuria.]_ M/S: ??[No joint pain or swelling.]_ SKIN: ??[No rash.]_ NEURO: ??[No headache, focal numbness or weakness, dizziness, or seizures.]_ PSYCH: ??[No depression or anxiety.]_ ENDO: ??[No thyroid problems. No polyuria or polydipsia.]_ HEME: ??[No abnormal bruising or bleeding.]_ LYMPH: ??[No swollen glands.]_ IMMUN: ??[No itching or hives.]_ OBJECTIVE: VITAL SIGNS: Vital Signs: Last Charted: 24 Hr Minimum: 24 Hr Maximum: Temperature Axillary 37.5?? (09/29 17:11) 37.5?? (09/29 17:11) 37.5?? (09/29 17:11) Temperature Oral 36.6?? (09/30 11:00) 36.6?? (09/30 11:00) 38.2 (H) (09/29 20:30) Heart Rate 80?? (09/30 11:00) 59 (L) (09/30 07:16) 93?? (09/29 17:11) Respiratory Rate 18?? (09/30 11:00) 18?? (09/29 17:31) 20?? (09/29 15:35) Systolic BP 104?? (09/30 11:00) 97?? (09/29 15:48) 109?? (09/29 17:11) Diastolic BP 68?? (09/30 11:00) 58 (L) (09/30 06:00) 73?? (09/29 17:11) Mean Arterial Pressure 80?? (09/30 11:00) 74?? (09/29 15:48) 85?? (09/29 17:11) Blood Pressure Location Left, Uppe?? (09/30 11:00) ? Blood Pressure Method Automatic?? (09/30 11:00) ? SpO2/Pulse Oximetry 95?? (09/30 11:00) 95?? (09/30 11:00) 100?? (09/29 19:14) PHYSICAL EXAM: GENERAL: ??[No acute distress, non-toxic appearing.]_ HEAD: ??[Normal with no signs of head trauma.]_ EYES: ??[PERRLA, EOMI, conjunctiva normal, no discharge.]_ ENT: ??[Hearing grossly intact, normal oropharynx.]_ NECK: ??[Supple, no tenderness, no lymphadenopathy, no masses, no thyromegaly, no bruits, no JVD.]_ LUNGS: ??[Clear breath sounds bilaterally. ??No wheezes, rales, or rhonchi.]_ HEART: ??[Regular rate and rhythm. ??Normal S1 and S2, without murmurs, rub, or gallop.]_ VASC: ??[No edema. Peripheral pulses normal and equal in all extremities.]_ ABD: ??[Bowel sounds normal, soft, nontender, no masses, no organomegaly.]_ : ??[Normal.]_ LYMPH: ??[No lymphadenopathy noted.]_ EXT: ??[Normal range of motion, no joint swelling, no clubbing, no cyanosis.]_ SKIN: ??[No rashes or lesions, right-sided PICC line in place??with no signs of infection]_ NEURO: ??[Alert and oriented x 3. Normal affect. ??Cranial nerves intact. ??No focal sensory or strength deficits. ??Reflexes symmetric.]_ LAB RESULTS: Hematology Basic - Last 36 hours (27) Result Date/Time WBC 8.1?09/30 02:20 RBC 2.91 (L) ??09/30 02:20 Hgb 8.0 (L) ??09/30 02:20 Hct 25.3 (L) ??09/30 02:20 MCV 87?09/30 02:20 MCH 28?09/30 02:20 MCHC 32?09/30 02:20 RDW 47.0 (H) ??09/30 02:20 RDW-SD 47?09/30 02:20 RDW-CV 15 (H) ??09/30 02:20 Platelet Count Platelets clump?09/30 02:20 MPV ----?09/30 02:20 NRBC Auto Abs 0.00?09/29 06:29 NRBC Auto Rel 0?09/29 06:29 Neutrophil Rel 79 (H) ??09/29 06:29 Lymphocyte Rel 12 (L) ??09/29 06:29 Monocyte Rel 7?09/29 06:29 Eosinophil Rel 1?09/29 06:29 Basophil Rel 0?09/29 06:29 Imm Gran Rel 0?09/29 06:29 Neutrophil Abs 8.4 (H) ??09/29 06:29 Lymphocyte Abs 1.3?09/29 06:29 Monocyte Abs 0.8?09/29 06:29 Eosinophil Abs 0.13?09/29 06:29 Basophil Abs 0.03?09/29 06:29 Imm Gran Abs 0?09/29 06:29 Plt Estimate Appears Normal?09/30 02:20 ? Chemistry Comprehensive - Last 36 hours (23) Result Date/time Sodium Lvl 131 (L) ??09/30 02:20 Potassium Lvl 4.2?09/30 02:20 Chloride Lvl 102?09/30 02:20 CO2 21?09/30 02:20 Glucose Level 119 (H) ??09/30 02:20 BUN 16?09/30 02:20 Creatinine Lvl 0.86?09/30 02:20 AGAP 8.0?09/30 02:20 BUN/Creat 19?09/30 02:20 Total Protein 9.2 (H) ??09/30 02:20 Albumin Lvl 2.5 (L) ??09/30 02:20 Calcium Lvl 8.8?09/30 02:20 Alk Phos 114?09/30 02:20 AST 8?09/30 02:20 ALT <5?09/30 02:20 Globulin 6.7 (H) ??09/30 02:20 Osmolality Calc 274 (L) ??09/30 02:20 A/G Ratio 0.4 (L) ??09/30 02:20 Magnesium Lvl 1.6?09/30 02:20 Phosphate 4.7 (H) ??09/30 02:20 Bili Total 0.4?09/30 02:20 Bili Direct <0.2?09/30 02:20 Bili Indirect >0.2?09/30 02:20 ? RADIOLOGY/DIAGNOSTIC RESULTS: Radiology - Last 36 hours (3) CT Lower Extremity W/ Contrast Left??(09/28 16:28) Findings: There is a large effusion with synovial enhancement. There is a Lemus's cyst component in the popliteal space. Image 122 series 1 for example. Lateral to this is a separate small locule. The bone exam is unremarkable. No other significant findings. No soft tissue gas. No circumferential fascial necrotizing findings. ?? IMPRESSION: 1.Findings suggest inflammatory process in the synovial space with extension to the popliteal spacemost likely infectious. There is abundant fluid for tapping. ?? CT Spine Lumbar W/ Contrast??(09/28 16:28) FINDINGS: Extraspinal space: Negative. ?? Paraspinal space: Negative. ? Prevertebral space: Negative. ?? Spine: No evidence of listhesis. ??There is no fracture destructive lesion or aggressive process. ??... ?? Spinal canal and contents: Symmetric nerve roots. ??No masses. ?No spinal stenosis or lateral recess stenosis. ?? Pertinent extradural/epidural findings by level: ... ?? IMPRESSION: ?? CTA Chest W/ Contrast??(09/28 16:28) FINDINGS: Pulmonary Arteries: This is a relatively moderate quality study for evaluation of pulmonary embolism given the extensive streak artifact from the contrast in the right brachiocephalic trunk and SVC. No focal filling defect is seen within the pulmonary arteries up to the segmental branches to suggest acute pulmonary embolism. ??There is a subsegmental filling defect identified in left lower lobe subsegmental pulmonary artery (5:194 and 7:132), concerning for subsegmental pulmonary embolism. ?? Lungs and Large Airways: Median sternotomy. . Patent central airways. Dependent subsegmental atelectasis. Multifocal patchy opacities, predominantly in the left apical, and bilateral lower lobes, concerning for airspace disease. Surgical clips noted in the left lower lobe. ?? Pleura: No pleural effusion. No pneumothorax. ?? Mediastinum and Angela: Scattered subcentimeter mediastinal and hilar lymph nodes, without lymphadenopathy by size criteria. Esophagus is within normal limits for CT appearance. Homogeneous thyroid, without discrete nodule. ?? Heart and Vessels: Prosthetic cardiac valve, pacer wires and right PICC line terminating in the right atrium. No pericardial effusion. Classic 3 vessel aortic arch anatomy. Nonaneurysmal thoracic aorta. Dilated main pulmonary artery trunk measuring 3 cm, concerning for pulmonary arterial hypertension. RV:LV is 0.9. ?? Upper Abdomen: Partially visualized hepatomegaly with the liver measuring 27 cm in transverse dimension. ?? Bones and Soft Tissues: No acute soft tissue abnormality. Median sternotomy as above. ?? IMPRESSION: 1.Relatively moderate quality study for evaluation of pulmonary embolism. Subsegmental left lower lobe pulmonary embolism. No CT evidence of right heart strain. 2.Multifocal patchy opacities, concerning for airspace disease, predominantly involving the lower lobes bilaterally. 3.Median sternotomy, prosthetic aortic valve, cardiac pacing wires and right PICC line is unchanged. ?? Results were discussed by Career Services Coordinator Viv Marie MD with [employer] [facility], on 09/28/2022 at6 PM via [email or web address]. ?? Attending review by Baron Mazariegos M.D. I have personally reviewed the study and agree with the reported findings. ?? Diagnostics - Non-Radiology - Last 36 hours (0) No results in past 36 hours ? 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 #Sepsis??(SIRS 2/4, fever and leukocytosis) -Differentials include prosthetic tricuspid??valve infective endocarditis, DVT, septic emboli -Patient presented with complaints of??fever,??Tmax 104F -Chest x-ray does not show any acute cardiopulmonary process. ??Denies abdominal pain, diarrhea. 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 rifabutin -Blood culture 09/27/2022 grew 05/18??GPC's in clusters. --CT lumbar spine- unremarkable for septic emboli - Patient denied repeat blood cultures. Plan: -Follow-up final blood cultures, urine analysis with culture(ordered today) -Continue IV vancomycin??day 4 -Continue IV cefazolin day??4??for gram-negative coverage for UTI ? #Subsegmental Pulmonary Embolism -Patient has been on Eliquis??for??factor V Leiden mutation and still developed??pulmonary embolism. Heme-Onc consulted and advised it is likely due to Eliquis non-compliance. - Patient was started on Lovenox yesterday night. - proBNP- 917; likely right heart strain. Trops negative Plan: - Switched to Eliquis 5mg twice daily??as she can take p.o. - Awaiting Transthoracic ECHO. ?? #Left knee pain -Likely in the setting of ruptured Lemus's cyst -CT shows findings suggest inflammatory process in the synovial space with extension to the popliteal space most likely infectious. There is abundant fluid for tapping. - Ortho consulted and they advised that arthrocentesis?? is not recommended at this time due to herbacteremia??as there is a high risk of seeding infection into the joint space. -will reconsider joint aspiration??when blood cultures are negative -?? Rest, ice, elevation as tolerated -??Analgesia as needed -??will continue to Follow-up??ESR and CRP labs ?? #History of opioid use -Methadone 40mg today -On??methadone??5mg q4h as needed, clonidine 0.1 mg??4 times a day??. -Patient states that she takes 130 mg of methadone at??home??but the paperwork from [facility] and [place] suggests that she is on??methadone 20 mg twice daily. -Unable to??reach[facility] to confirm the dose. Will continue to reach out to them tomorrow. Plan: -currently placed the patient on COWS protocol with??methadone??5mg q4h in place. ?? #Anemia -History of iron deficiency anemia??with iron stores??as per previous labs on 09/06/2022 iron 25, TIBC 155, TSAT 16 -No??active signs or symptoms of bleeding Plan: -Monitor CBC and hold off on??iron supplementation given concern for sepsis ?? #Thrombocytopenia -Likely chronic??given??platelet count on 09/17/2022 was 105 -History of??hepatitis C antibody positive??but unknown if she has a history of cirrhosis -Monitor platelet count ?? #Hyponatremia -Likely hypovolemic hyponatremia -Presented with sodium of 131 - Sodium- 131(09/30) Plan: -Monitor BMP ? Chronic comorbidities: History of factor V Leiden mutation-started??again on??Eliquis 5 mg twice daily Depression-continue??venlafaxine 37.5 mg daily ?? DVT prophylaxis- Eliquis 5 mg twice daily GI prophylaxis-regular diet ?? Next of kin-mother Angelika who can be reached at [phone](not in service) CODE STATUS-full code ATTESTATION: Date of service:09/30/2022 09:15:11 ?? I was NOT present with the resident during the entire interview and examination of the patient. I personally interviewed the patient and repeated the exam. I reviewed/revised the exam and discussed with the resident in regards to assessment and plan as documented. See resident's section for details and agree with the above documented note. I spent??>55 minutes assessing the patient and reviewed old records ?? ACP: I confirmed that the patient's Advance Care Plan is present, or code status is documented, or surrogate decision maker is listed in the patient's medical record. ?? Med Rec: I have utilized all available immediate resources to obtain, update or review the patient's current medication Electronically Signed On 09/30/22 18:10 EDT LILIAM MEJIA MD Electronically Signed On 10/08/22 09:15 EDT MARIBETH PERALTA, OPAL [place] * TY PERALTA, INGRID: PERFORM, MODIFY MARIBETH PERALTA, OPAL Turner: MODIFY Event Display: Progress Note EMR SOAP Authored Date: [id number] DATE/TIME NOTE CREATED: 09/28/2022 13:22:04 SUBJECTIVE: Patient is lying in bed,??she??appears to be in distress??soaked in her sweat and shivering.?? She states her methadone dose??from 130 mg daily but she was discharged on 20 mg 2 times a day.?? She complains of left knee pain She denies any back pain ?? Overnight events: -ID recommended??starting vancomycin, cefazolin -Overnight patient required up to 2 L of oxygen. ??She states that she has been using oxygen intermittently at night at [facility] since the last 2 weeks REVIEW OF SYSTEMS: Const: No fever, Yes fatigue, or weight changes. HEENT: No recent vision problems. No congestion, ear pain, or sore throat. C/V:?? No chest pain, palpitations, or edema. Resp: No cough, congestion, wheezing or shortness of breath. GI: No abdominal pain, nausea, vomiting, constipation, or diarrhea.?? : No incontinence or dysuria. M/S:??Yes joint pain or swelling. Skin: No rash. Neuro: No headache, focal numbness or weakness, dizziness, or seizures. Psych: No depression or anxiety. OBJECTIVE: VITAL SIGNS: Vital Signs: Last Charted: 24 Hr Minimum: 24 Hr Maximum: Temperature Oral 36.5?? (09/28 10:50) 36.5?? (09/28 10:50) 37.3?? (09/27 19:00) Heart Rate 77?? (09/28 10:50) 65?? (09/28 00:00) 89?? (09/27 19:00) Respiratory Rate 18?? (09/28 10:50) 18?? (09/28 00:00) 20?? (09/27 15:00) Systolic BP 102?? (09/28 10:50) 81 (L) (09/28 05:30) 109?? (09/27 15:00) Diastolic BP 65?? (09/28 10:50) 51 (L) (09/28 05:30) 70?? (09/27 15:00) Mean Arterial Pressure 83?? (09/27 15:00) 83?? (09/27 15:00) 83?? (09/27 15:00) Blood Pressure Location Left, Arm?? (09/28 10:50) ? Blood Pressure Method Automatic?? (09/28 10:50) ? SpO2/Pulse Oximetry 96?? (09/28 10:50) 94?? (09/27 19:00) 100?? (09/28 05:30) Oxygen Flow 2?? (09/28 10:50) 2?? (09/28 05:30) 2?? (09/28 05:30) Dosing BMI 23?? (09/27 15:50) 23?? (09/27 15:50) 24?? (09/27 15:01) BMI 23?? (09/27 15:50) 23?? (09/27 15:50) 23?? (09/27 15:50) PHYSICAL EXAM: General: Alert, Oriented x 3, no acute distress Psychiatric: Normal affect Neurological: Cranial nerves 2-12 grossly normal, no gross sensory motor deficits Skin: Normal turgor,??right-sided PICC line in place??with no signs of infection HEENT: PERRL, mucous membranes soft Lungs: CTAB, Chest wall nontender, could not appreciate crackles Cardiovascular: Regular rhythm, Normal s1, S2, soft holosystolic murmur heard along the right sternal border Abdomen:Soft, Nontender, Nondistended, Normal bowel sounds Extremities: Normal pulses, no cyanosis, no clubbing, No edema?? LAB RESULTS: Hematology Basic - Last 36 hours (27) Result Date/Time WBC 10.6?09/28 04:17 RBC 2.57 (L) ??09/28 04:17 Hgb 7.0 (L) ??09/28 04:17 Hct 22.5 (L) ??09/28 04:17 MCV 88?09/28 04:17 MCH 27?09/28 04:17 MCHC 31?09/28 04:17 RDW 47.8 (H) ??09/28 04:17 RDW-SD 48?09/28 04:17 RDW-CV 15 (H) ??09/28 04:17 Platelet Count 153?09/28 04:17 MPV 10.9?09/28 04:17 NRBC Auto Abs 0.00?09/28 04:17 NRBC Auto Rel 0?09/28 04:17 Neutrophil Rel 77 (H) ??09/28 04:17 Lymphocyte Rel 13 (L) ??09/28 04:17 Monocyte Rel 8?09/28 04:17 Eosinophil Rel 1?09/28 04:17 Basophil Rel 0?09/28 04:17 Imm Gran Rel 0?09/28 04:17 Neutrophil Abs 8.2 (H) ??09/28 04:17 Lymphocyte Abs 1.4?09/28 04:17 Monocyte Abs 0.9 (H) ??09/28 04:17 Eosinophil Abs 0.13?09/28 04:17 Basophil Abs 0.01?09/28 04:17 Imm Gran Abs 0?09/28 04:17 Plt Estimate Appear Decrease (A) ??09/27 04:01 ? Chemistry Comprehensive - Last 36 hours (23) Result Date/time Sodium Lvl 132 (L) ??09/28 04:17 Potassium Lvl 4.1?09/28 04:17 Chloride Lvl 103?09/28 04:17 CO2 20?09/28 04:17 Glucose Level 129 (H) ??09/28 04:17 BUN 16?09/28 04:17 Creatinine Lvl 1.02?09/28 04:17 AGAP 9.0?09/28 04:17 BUN/Creat 16?09/28 04:17 Total Protein 9.0 (H) ??09/28 04:17 Albumin Lvl 2.3 (L) ??09/28 04:17 Calcium Lvl 8.9?09/28 04:17 Alk Phos 103?09/28 04:17 AST 10?09/28 04:17 ALT 5?09/28 04:17 Globulin 6.7 (H) ??09/28 04:17 Osmolality Calc 277?09/28 04:17 A/G Ratio 0.3 (L) ??09/28 04:17 Calcium Corrctd 10?09/28 04:17 Lactic Acid 1.0?09/27 04:01 Magnesium Lvl 1.5 (L) ??09/28 04:17 Phosphate 4.9 (H) ??09/28 04:17 Bili Total 0.4?09/28 04:17 ? RADIOLOGY/DIAGNOSTIC RESULTS: Radiology - Last 36 hours (2) XR Chest 1 View Portable??(09/28 09:10) FINDINGS: ??A previous median sternotomy. Prosthetic valve, pacer wires, and PICC line remain unchanged in good position. Mild alveolar and interstitial edema. Rogelio B lines are noted.?? Upper abdomen is unremarkable. Surgical clips over the left chest are unchanged. ? IMPRESSION:?? Mild cardiomegaly and interstitial and alveolar edema ?? XR Chest 2 Views??(09/27 05:35) FINDINGS: Right PICC terminating in the right atrium, appropriate position. Median sternotomy wires and sternal fixation hardware, unremarkable. Abundant leads the chest. Prosthetic aortic valve. ?? The lungs are well-inflated. No focal consolidation identified. The right basilar atelectasis. The heart is of normal size. Pulmonary vascularity is within normal limits. No acute osseous abnormality. Overall decreased bone mineralization. Overlying soft tissues are unremarkable. ?? IMPRESSION: 1.No acute cardiopulmonary process. 2.Appropriate position of the right PICC. 3.Diffuse osteopenia is more than expected for patient age. Recommend outpatient DEXA study for further evaluation. ? Attending review by Dr. Flores, 09/27/2022 7:57 AM. THIS FINAL REPORT DIFFERS FROM THE PRELIMINARY RESIDENT REPORT ABOVE IN REGARD TO THE FOLLOWING: Apparent diffuse osteopenia seen on lateral radiograph likely due to over penetration versus true osteopenia.?? I have reviewed the case and otherwise agree with the reported findings. #R2I# ?? Diagnostics - Non-Radiology - Last 36 hours (0) No results in past 36 hours ? 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 #Sepsis??(SIRS 2/4, fever and leukocytosis) -Differentials include prosthetic tricuspid??valve infective endocarditis, DVT, septic emboli -Patient presented with complaints of??fever,??Tmax 104F -Chest x-ray does not show any acute cardiopulmonary process. ??Denies abdominal pain, diarrhea. 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 rifabutin -Blood culture 09/27/2022 grew 04/20??GPC's in clusters ?? Plan: -Follow-up final??blood cultures, urine culture -Continue IV vancomycin??day 2 -Continue IV cefazolin day 2??for gram-negative coverage??and follow-up final urine cultures -Transthoracic echo pending -CT lumbar spine??and left knee with contrast??to rule out any additional source of infection??since patient is high risk of??septic emboli -Infectious disease recommendations ?? #Acute hypoxic respiratory failure -Differentials include septic emboli,??CHF due to valve rupture, atelectasis -Patient desaturated to the 80s overnight and required up to 2 L of oxygen per minute -She states that she has been using oxygen intermittently at night.?These episodes of hypoxia??usually follow??rigors. -Patient was noted to have multifocal pneumonia during her??admission at [facility]??and was likely discharged on oxygen to be used intermittently at night??and ?? Plan: -We will get CT chest??with contrast??to rule out PE and septic emboli ?? #Left knee pain -Likely in the setting of ruptured Lemus's cyst ?? Plan: -Pain management -CT??left lower extremity??for further evaluation ?? #History of opioid use -On??methadone??10 mg / 5 ml, 10 mL p.o. BID, clonidine 0.1 mg??4 times a day??. -Patient states that she takes 130 mg of methadone at??home??but the paperwork from [facility] and [place] suggests that she is on??methadone 20 mg twice daily. -Unable to??reach[facility] and methadone clinic at [place] to confirm the dose ?? Plan: -currently placed the patient on COWS protocol methadone??and additional dose of 10 mg at bedtime for withdrawal ?? #Anemia -History of iron deficiency anemia??with iron stores??as per previous labs on 09/06/2022 iron 25, TIBC 155, TSAT 16 -No??active signs or symptoms of bleeding -Monitor CBC and hold off on??iron supplementation given concern for sepsis ?? #Thrombocytopenia -Likely chronic??given??platelet count on 09/17/2022 was 105 -History of??hepatitis C antibody positive??but unknown if she has a history of cirrhosis -Monitor platelet count ?? #Hyponatremia -Likely hypovolemic hyponatremia -Presented with sodium of 131 ?? Plan: -Monitor BMP ?? #Hypomagnesemia -Repleted ?? Chronic comorbidities: History of factor V Leyden mutation-continue Eliquis 5 mg twice daily Depression-continue??venlafaxine 37.5 mg daily ?? DVT prophylaxis-Eliquis (continue if plt>50k) GI prophylaxis-regular diet ?? Next of kin-mother Angelika who can be reached at [phone](not in service) CODE STATUS-full code ?? This document was dictated using voice recognition software. ??Unintentional spelling and grammatical errors could be present. ?? The above assessment and plan was discussed with the attending on record Dr. Montalvo, who is in agreement. ATTESTATION: Date of service:09/29/2022 14:45:40 ?? I was NOT present with the resident during the entire interview and examination of the patient. I personally interviewed the patient and repeated the exam. I reviewed/revised the exam and discussed with the resident in regards to assessment and plan as documented. See resident's section for details and agree with the above documented note. I spent 35 minutes assessing the patient and reviewed old records ?? ACP: I confirmed that the patient's Advance Care Plan is present, or code status is documented, or surrogate decision maker is listed in the patient's medical record. ?? Med Rec: I have utilized all available immediate resources to obtain, update or review the patient's current medication Electronically Signed On 09/28/22 13:35 EDT INGRID CRAWFORD MD Electronically Signed On 09/29/22 16:56 EDT INGRID CRAWFORD MD Electronically Signed On 09/30/22 14:45 EDT MARIBETH PERALTA, OPAL [place] CT Lower extremity - left W contrast IV * Contributor_system, SV_POWERSCRIBE: PERFORM Contributor_system, SV_POWERSCRIBE: PERFORM, VERIFY Event Display: Report Authored Date: [id number] Procedures: CT Lower Extremity W/ Contrast Left Indication:Patient is a Female , 31 years of age, with the following information provided: : concern for abcess. Comparison: None TECHNIQUE: Routine protocol with 80 cc Isovue-370. Findings: There is a large effusion with synovial enhancement. There is a Lemus's cyst component in the popliteal space. Image 122 series 1 for example. Lateral to this is a separate small locule. The bone exam is unremarkable. No other significant findings. No soft tissue gas. No circumferential fascial necrotizing findings. IMPRESSION: 1.Findings suggest inflammatory process in the synovial space with extension to the popliteal spacemost likely infectious. There is abundant fluid for tapping. Final Report Dictated: 09/29/2022 10:14 am Dictated By: DEVEN SOUSA MD Electronic Signature: 09/29/2022 10:23 am Signed By: DEVEN SOUSA MD CT Lumbar spine W contrast IV * Contributor_system, SV_POWERSCRIBE: PERFORM Contributor_system, [facility]_POWERSCRIBE: PERFORM, VERIFY DEVEN SOUSA MD: VERIFY Event Display: Report Authored Date: [id number] CT Spine Lumbar W/ Contrast EXAM: CTLUMBAR SPINE WITHOUT AND WITH 80 CC ISOVUE-370 CONTRAST Comparison: (Attending review by Dr. Deven Sousa M.D. I have personally reviewed the study and agree with the reported findings.) History:Patient is a Female , 31 years of age, with the following information provided: : Low Back Pain. Technique: Routine lumbar spine CT protocol multiplanar reconstruction. FINDINGS: Extraspinal space: Negative. Paraspinal space: Negative. Prevertebral space: Negative. Spine: No evidence of listhesis. There is no fracture destructive lesion or aggressive process. ... Spinal canal and contents: Symmetric nerve roots. No masses. No spinal stenosis or lateral recess stenosis. Pertinent extradural/epidural findings by level: ... IMPRESSION: Final Report Dictated: 09/29/2022 10:37 am Dictated By: DEVEN SOUSA MD Electronic Signature: 09/29/2022 10:39 am Signed By: DEVEN SOUSA MD Portable XR Chest AP single view * Contributor_system, SV_POWERSCRIBE: PERFORM Contributor_system, [facility]_POWERSCRIBE: PERFORM, VERIFY Event Display: Report Authored Date: [id number] CHEST RADIOGRAPH, SINGLE VIEW REASON FOR EXAM: : Respiratory Failure Acute TECHNIQUE: AP upright portable COMPARISON: September 27, 2022 at 0532 hours FINDINGS: A previous median sternotomy. Prosthetic valve, pacer wires, and PICC line remain unchanged in good position. Mild alveolar and interstitial edema. Rogelio B lines are noted. Upper abdomen is unremarkable. Surgical clips over the left chest are unchanged. IMPRESSION: Mild cardiomegaly and interstitial and alveolar edema Final Report Dictated: 09/28/2022 10:14 am Dictated By: BARON MAZARIEGOS MD Electronic Signature: 09/28/2022 10:16 am Signed By: BARON MAZARIEGOS MD XR Chest 2 Views * Contributor_system, SVH_POWERSCRIBE: PERFORM Contributor_system, [facility]_POWERSCRIBE: PERFORM, VERIFY Helen Yan: SIGN Event Display: Report Authored Date: [id number] STUDY: Chest radiograph, AP upright and lateral. INDICATION: Sepsis, suspected endocarditis. COMPARISON: None. FINDINGS: Right PICC terminating in the right atrium, appropriate position. Median sternotomy wires and sternal fixation hardware, unremarkable. Abundant leads the chest. Prosthetic aortic valve. The lungs are well-inflated. No focal consolidation identified. The right basilar atelectasis. The heart is of normal size. Pulmonary vascularity is within normal limits. No acute osseous abnormality. Overall decreased bone mineralization. Overlying soft tissues are unremarkable. IMPRESSION: 1.No acute cardiopulmonary process. 2.Appropriate position of the right PICC. 3.Diffuse osteopenia is more than expected for patient age. Recommend outpatient DEXA study for further evaluation. Attending review by Dr. Flores, 09/27/2022 7:57 AM. THIS FINAL REPORT DIFFERS FROM THE PRELIMINARY RESIDENT REPORT ABOVE IN REGARD TO THE FOLLOWING: Apparent diffuse osteopenia seen on lateral radiograph likely due to over penetration versus true osteopenia. I have reviewed the case and otherwise agree with the reported findings. #R2I# Final Report Dictated: 09/27/2022 5:54 am Dictated By: Helen Yan Electronic Signature: 09/27/2022 7:57 am Signed By: Odalis Flores MD CTA Chest vessels W contrast IV * Contributor_system, SV_POWERSCRIBE: PERFORM Contributor_system, SV_POWERSCRIBE: PERFORM Viv Marie: SIGN, VERIFY Event Display: Report Authored Date: [id number] CT CHEST WITH INTRAVENOUS CONTRAST, PULMONARY ARTERY EMBOLISM DETECTION PROTOCOL TECHNIQUE: CT scan of the chest was performed WITH intravenous contrast utilizing the pulmonary artery embolism detection protocol. 100 cc of Isovue 370 was rapidly administered. Coronal and sagittal reformatted images were generated, together with axial maximum intensity projection images of the lungs. Adaptive Iterative Dose Reduction (AIDR) and NEMA XR 25 DOSE Check software, were used to reduce radiation dose to the patient. COMPARISON: Chest radiograph from same day. INDICATION: Pulmonary embolism FINDINGS: Pulmonary Arteries: This is a relatively moderate quality study for evaluation of pulmonary embolism given the extensive streak artifact from the contrast in the right brachiocephalic trunk and SVC. No focal filling defect is seen within the pulmonary arteries up to the segmental branches to suggest acute pulmonary embolism. There is a subsegmental filling defect identified in left lower lobe subsegmental pulmonary artery (5:194 and 7:132), concerning for subsegmental pulmonary embolism. Lungs and Large Airways: Median sternotomy. . Patent central airways. Dependent subsegmental atelectasis. Multifocal patchy opacities, predominantly in the left apical, and bilateral lower lobes, concerning for airspace disease. Surgical clips noted in the left lower lobe. Pleura: No pleural effusion. No pneumothorax. Mediastinum and Angela: Scattered subcentimeter mediastinal and hilar lymph nodes, without lymphadenopathy by size criteria. Esophagus is within normal limits for CT appearance. Homogeneous thyroid, without discrete nodule. Heart and Vessels: Prosthetic cardiac valve, pacer wires and right PICC line terminating in the right atrium. No pericardial effusion. Classic 3 vessel aortic arch anatomy. Nonaneurysmal thoracic aorta. Dilated main pulmonary artery trunk measuring 3 cm, concerning for pulmonary arterial hypertension. RV:LV is 0.9. Upper Abdomen: Partially visualized hepatomegaly with the liver measuring 27 cm in transverse dimension. Bones and Soft Tissues: No acute soft tissue abnormality. Median sternotomy as above. IMPRESSION: 1.Relatively moderate quality study for evaluation of pulmonary embolism. Subsegmental left lower lobe pulmonary embolism. No CT evidence of right heart strain. 2.Multifocal patchy opacities, concerning for airspace disease, predominantly involving the lower lobes bilaterally. 3.Median sternotomy, prosthetic aortic valve, cardiac pacing wires and right PICC line is unchanged. Results were discussed by Career Services Coordinator Viv Marie MD with INGRID CRAWFORD, on 09/28/2022 at6 PM via [email or web address] Messenger. Attending review by Baron Mazariegos M.D. I have personally reviewed the study and agree with the reported findings. Final Report Dictated: 09/28/2022 5:06 pm Dictated By: Viv Marie Electronic Signature: 09/29/2022 8:03 am Signed By: BARON MAZARIEGOS MD Patient Care team information Care Team Personnel Name: YONATHAN PERALTA, DANIELLA Bauer Position: RO Provider External Member Role: Primary Care Physician Address: Address: [address] [place] [id number]- Name: Jordyn Kelly RN Position: ED RN SPC R3 Member Role: ED Nurse Name: Christiane Aguilera Position: ED Registration/Bed Control CPOE Member Role: Mid Teacher Name: AUSTIN WOMACK MD Position: ED Physician R3 Member Role: ED Physician Address: Address: [address] [place] [id number]- Name: Keven Wakefield Position: ED Patient Hydrogen Plant Operations Manager SPC R3 Member Role: ED Patient Egg Setter Name: Rick Gonzalez RN Position: ED RN SPC R3 Member Role: ED Nurse
--- NOTE | 2023-02-28 11:10 | PC.NURSE ---
pt refusing lab work at this time. Dorie ARENAS made aware.
== END 2023-02-28 11:12 | disposition home or self-care (01) ==
PROVIDERS: Emergency Provider Emergency Medicine Emergency Medical Services; PCP Internal Medicine
DX: T40.1X1A Poisoning by heroin, accidental (unintentional), initial encounter (principal); F11.10 Opioid abuse, uncomplicated; Y92.9 Unspecified place or not applicable; Z79.899 Other long term (current) drug therapy; Z71.51 Drug abuse counseling and surveillance of drug abuser
CPT/HCPCS: 87070; 87077; 87186; 87205; 99282; 99283

== ENCOUNTER → 2024-08-25 20:30 | Outpatient (REF) | payer MEDICARE, MEDICAID, SELFPAY | LOC: HO.SL 20:30 | PROVIDERS: PCP Internal Medicine; Visit Provider Internal Medicine | DX: Z13.89 Encounter for screening for other disorder (principal) ==

== ENCOUNTER 2024-10-21 13:56 | Outpatient (REF) | payer MEDICARE, MEDICAID, SELFPAY ==
--- NOTE | 2024-10-21 14:01 | PFT_ITS ---
Flows: FEV1: 70 % of predicted at 2.26 L FVC: 68 % of predicted at 2.64 L FEV1/FVC: 86 % Bronchodilator response: Present Volumes: Total lung capacity: 69 % of predicted at 3.73 L Residual volume: 92 % of predicted at 1.16 L Slow vital capacity: 62 % of predicted at 2.57 L Expiratory reserve volume: 31 % of predicted at 0.42 L Diffusion capacity: Mildly decreased, corrects to normal after adjustment for alveolar ventilation. Impression: Moderate restrictive ventilatory defect with positive bronchodilator response. Decreased expiratory reserve volume suggests extrathoracic restriction likely secondary to abdominal obesity. Combination of restrictive ventilatory defect with decreased diffusion capacity suggests underlying pulmonary parenchymal disease. Clinical correlation is advised. MTDD
--- OUTSIDE RECORDS SUMMARY | 2024-10-21 14:06 | XMS_ITS | Clinical Summary ---
Author Organization [facility] Address [address] [place] [address] Care Team Providers Care Archival Studies Professor Name Role Phone Unavailable Primary Care Provider Unavailabl e Immunizations Immunization Administration Dates Next Due COVID-19, mRNA (Moderna Pre Fall 2022) Monovalent, 100 mcg/0.5 ml or 50 mcg/0.25 ml dose 08/08/2020,07/09/2020 HPV - 01/31/2017 HPV4 (Gardasil 4) 02/15/2016, 7,10/01/2006,03/03 Hep A (adult) 09/22/2012,03/24/2012 Hep B (pedi) 01/31/2017, 7,01/06/1996,12/03 Hep B - 02/15/2016 Hib (HbOC) 03/20/1992, 2,04/14/1991,01/29 MMR 01/31/2017, 6,12/04/1995,06/28 Meningococcal ACWY (Menactra) 03/03/2006 OPV, Trivalent (Admin Before 06/16/2015) 1 ,06/28/1992,04/14/1991,01/29 Tdap 03/03/2006 Social History Tobacco Use Types Packs/Day Years Used Date Smoking Tobacco: Never Assessed Intimate Partner Violence Answer Date R ecorded Fear of Current or Ex-Partner Not on file Emotionally Abused Not on file 11/02/2022 Physically Abused Not on file 11/02/2022 Sexually Abused Not on file 11/02/2022 Feel Safe at Home Not on file 11/02/2022 Comments Unknown Sex and Gender Information Value Date Recorded Sex Assigned at Not on file Legal Sex Female 8:34 AM EDT Gender Identity Not on file Sexual Orientation Not on file Plan of Treatment Health Maintenance Due Date Last Done Comments Hepatitis C Screening 1990 Pap Smear 2006 DTaP/Tdap/Td (2 - Td or Tdap) 03/03/2016 03/03/2006 COVID-19 Vaccine (3 - season) 2023 08/08/2020, 07/09/2020 Influenza (#1) 2024 Zoster (Shingrix) (1 of 2) 2040 Hib Completed 03/20/1992, 05/16, 04/14/1991, Additional history exists Meningococcal ACWY Aged Out 03/03/2006 No longer eligible based on patient's age to complete this topic Hep A Aged Out 09/22/2012, 03/24/2012 No lo nger eligible based on patient's age to complete this topic HPV Vaccine Completed 01/31/2017, 03/2015, 02/03/2007, Additional history exists Hep B Completed 01/31/2017, 03/2015, 06/08/1996, Additional history exists Pneumococcal Aged Out No longer eligi ble based on patient's age to complete this topic [place] [id number] MEDICAID
--- OUTSIDE RECORDS SUMMARY | 2024-10-21 14:06 | XMS_ITS | Clinical Summary ---
Author Organization [facility], Address [address] [place] [address] [place] [address] Phone Care Team Providers Care Business Support Manager Name Role Phone Daniella Castañeda MD Primary Care Provider +1- [phone] Allergies No known active allergies Medications cloNIDine (CATAPRES) 0.1 MG tablet Take 0.1 mg by mouth 2 (two) times a day Active Ventolin HFA 108 (90 Base) MCG/ACT inhaler INHALE 2 PUFFS BY MOUTH EVERY 4 TO 6 HOURS NEEDED FOR ASTHMA 04/18/2020 Active amphetamine-dex troamphetamine (ADDERALL) 15 MG tablet Take 1 tablet by mouth 2 (two) times a day 05/30/2020 Active Eliquis 5 MG tablet Take 5 mg by mouth 2 (two) times a day 06/06/2020 Active cloNIDine (CATAPRES) 0.2 MG tablet TAKE 1 TABLET BY MOUTH DAILY NEEDED FOR ACUTE ANXIETY 05/23/2020 Active traZODone (DESYREL) 100 MG tablet Take 100 mg by mouth at night if needed 03/29/2021 Active busPIRone (BUSPAR) 15 MG tablet Take 15 mg by mouth 1 (one) time each day 03/29/2021 Active citalopram (CeleXA) 20 MG tablet Take 20 mg by mouth 1 (one) time each day 07/23/2021 Active Active Problems Problem Noted Date Diagnosed Date Bipolar disorder 01/18/2020 Factor V Leiden mutation 01/18/2020 Acute kidney injury due to trauma 01/18/2020 Social History Tobacco Use Types Packs/Day Years Used Date Smoking Tobacco: Unknown Smokeless Tobacco: Never Comments Unknown Sex and Gender Information Value Date Recorded Sex Assigned at Not on file Legal Sex Female 9:25 AM EDT Gender Identity Not on file Sexual Orientation Not on file Plan of Treatment Health Maintenance Due Date Last Done Comments Hepatitis B Vaccine (1 of 3 - 19+ 3-dose series) 2009 Influenza Vaccine (#1) 2024 Pneumococcal Vaccine: Peds ( 0 to 5 Years) and At-Risk Patients (6 to 49 Years) Aged Out No longer eligible b ased on patient's age to complete this topic Insurance Medicaid [place] Medicare Care Teams Business Support Manager Relationship Specialty Start Date End Date Daniella Castañeda MD [address] [place] [address] [phone] PCP - General Internal Medicine 03/29/21
--- OUTSIDE RECORDS SUMMARY | 2024-10-21 14:07 | XMS_ITS | Encounter Summary ---
Author Organization [employer] [facility] Address [address] [facility] 7t [place] [address] Care Team Providers Care Second Rigger Name Role Phone Daniella Castañeda MD Primary Care Provider [phone] Reason for Referral * Consultation (Routine) - Authorized Specialty Diagnoses / Procedures Referred By Contfrank t Referred To Contact Obstetrics and Gynecology Diagnoses H/O abnormal cervical Papanicolaou smear Daniella Castañeda MD [address] [place] [address] Phone: tel: fax: [facility] [address] 5[address] (Main Hospital Entrance) [place], [place] Phone: tel: fax: Referral ID Status Reason Start Date Expiration Date Visits Requested Visits Authorized [id number] Authorized Specialty Services Required 09/16/2024 09/16/2025 1 1 Encounter Details Date Type Department Care Team ([facility] st Contact Info) Description 09/16/2024 Orders Only [facility] PEDS [address] [place] [address] Daniella Castañeda MD [address] [place] [address] H/O abnormal cervical Papanicolaou smear (Primary Dx) Social History Tobacco Use Types Packs/Day Years Used Date Smoking Tobacco: Every Day Cigarettes Smokeless Tobacco: Never Comments:Currently smokes 5 cigarettes a day. Used to smoke 1 pack of cigarettes a day in the past. Alcohol Use Standard Drinks/Week Comments Not Currently 0 (1 standard drink = 0.6 oz pur e alcohol) Comments Unknown Sex and Gender Information Value Date Recorded Sex Assigned at Female 01/14/2022 10:20 AM EDT Legal Sex Female 10:20 AM EDT Gender Identity Female 01/14/2022 10:20 AM EDT Sexual Orientation Straight 01/14/2022 10 :20 AM EDT documented as of this encounter Plan of Treatment Upcoming Encounters Date Type Department Care Team (Late st Contact Info) Description 11/08/2024 3:15 PM EDT Office Visit [facility] MED & PEDS [address] [place] [address] Daniella Castañeda MD [address] [place] [address] Scheduled Referrals Name Type Priority Associated Diagnoses Orde r Schedule Referral to Obstetrics / Gynecology Outpatient Referral Routine H/O abnormal cervical Papanicolaou smear Expected: 09/16/2024 (Approximate), Expires: 09/16/2025 documented as of this encounter Visit Diagnoses Diagnosis H/O abnormal cervical Papanicolaou smear- Primary documented in this encounter Care Teams Second Rigger Relationship Specialty Start Date End Date Daniella Castañeda MD [address] [place] [address] PCP - General Internal Medicine 12/10/11 documented as of this encounter
[2024-10-21 14:33] VITALS: PULSE 70; O2SAT 96
== END 2024-10-21 13:57 | disposition home or self-care (01) ==
LOC: HO.RESP 13:56
PROVIDERS: PCP Internal Medicine; Visit Provider Internal Medicine
DX: R06.02 Shortness of breath (principal); R06.83 Snoring; R53.83 Other fatigue
CPT/HCPCS: 94010; 94640; 94727; 94729

== ENCOUNTER → 2024-10-21 14:01 | Outpatient (BNV) | payer MEDICARE, MEDICAID, SELFPAY | PROVIDERS: PCP Internal Medicine; Visit Provider Internal Medicine Pulmonary Disease | DX: R06.00 Dyspnea, unspecified (principal) | CPT/HCPCS: 94060; 94727; 94729 ==

== ENCOUNTER 2024-12-03 14:22 | Outpatient (AMB) | payer MEDICARE, MEDICAID, SELFPAY ==
--- OUTSIDE RECORDS SUMMARY | 2024-12-03 14:26 | XMS_ITS | Encounter Summary ---
Author Organization [employer] [facility] Address [address] [place] [address] Care Team Providers Care Bonded Structures Repairer Name Role Phone Daniella Castañeda MD Primary Care Provider Encounter Details Date Type Department Care Team (Late Contact Info) Description 04/18/2023 [facility] [address] [place], [place] [phone] Daniella Castañeda MD [address] [place], [place] [phone] Social History Tobacco Use Types Packs/Day Years Used Date Smoking Tobacco: Never Assessed Comments Unknown Sex and Gender Information Value Date Recorded Sex Assigned at Female 01/14/2022 10:20 AM EDT Legal Sex Female 10:20 AM EDT Gender Identity Female 01/14/2022 10:20 AM EDT Sexual Orientation Straight 01/14/2022 10 :20 AM EDT documented as of this encounter Plan of Treatment Upcoming Encounters Date Type Department Care Team (Late Contact Info) Description 12/27/2024 2:30 PM EDT Office Visit [facility] PEDS [address] [place], [place] [phone] Daniella Castañeda MD [address] [place], [place] [phone] documented as of this encounter Visit Diagnoses Not on filedocumented in this encounter Care Teams Bonded Structures Repairer Relationship Specialty Start Date End Date Daniella Castañeda MD [address] [place] [address] PCP - General Internal Medicine 12/10/11 documented as of this encounter
--- OUTSIDE RECORDS SUMMARY | 2024-12-03 14:26 | XMS_ITS | Encounter Summary ---
Author Organization [employer] Address [address] [facility] 7t [place] [address] Care Team Providers Care Registered Medical Transcriptionist Name Role Phone Daniella Castañeda MD Primary Care Provider [phone]- [phone] Reason for Visit * Reason Onset Date Comments Nurse Triage 07/21/2024 Encounter Details Date Type Department Care Team (Late st Contact Info) Description 07/21/2024 Telephone [facility] MEDICINE [address] [place] [address] Daniella Castañeda MD [address] [place], [place] [phone] Nurse Triage Social History Tobacco Use Types Packs/Day Years Used Date Smoking Tobacco: Never Assessed Comments Unknown Sex and Gender Information Value Date Recorded Sex Assigned at Female 01/14/2022 10:20 AM EDT Legal Sex Female 10:20 AM EDT Gender Identity Female 01/14/2022 10:20 AM EDT Sexual Orientation Straight 01/14/2022 10 :20 AM EDT documented as of this encounter Miscellaneous Notes * Telephone Encounter - Jennifer Hernandez RN - 07/21/2024 3:58 PM EDT Triage call Pt reports several areas of concern but, mainly the difficulty with breathing. SOB withexertion, using albuterol inhaler which doesn't seem to be effective. Pt questions whether sleep apnea is present and would like to have this checked. Pt reports sleeping for 10 hours and waking up exhausted. Pt denies fever or ALEXA sx. Pt is also requesting referral to adobe maker. Pt agrees withdisposition. ASK apt with Dr. Castañeda 07/27/24 @ 345pm. Insurance is verified as active prior to booking. Protocol Used: Breathing Difficulty (Adult) Protocol-Based Disposition: See in Office or Video Visit within 2 Weeks Video visit not offered Positive Triage Question: * Mild longstanding difficulty breathing (e.g., minimal/no SOB at rest, SOB with walking, pulse < 100) and same as normal * All higher-acuity triage questions were negative Care Advice Discussed: * Reasons To Call Back - Severe difficulty breathing occurs - Fever more than 100.4 F (38.0 C) - You become worse * Telephone Encounter - Migdalia Gibson - 07/21/2024 3:29 PM EDT Symptom: Breathing Trouble Outcome: Schedule an urgent appointment (within 1 hour) or talk to a nurse or provider soon Reason: Caller denied all higher acuity questions The caller accepted this outcome. documented in this encounter Plan of Treatment Upcoming Encounters Date Type Department Care Team (Late st Contact Info) Description 12/27/2024 2:30 PM EDT Office Visit [facility] MED & PEDS [address] [place] [address] Daniella Castañeda MD [address] [place] [address] documented as of this encounter Visit Diagnoses Not on filedocumented in this encounter Care Teams Registered Medical Transcriptionist Relationship Specialty Start Date End Date Daniella Castañeda MD [address] [place] [address] PCP - General Internal Medicine 12/10/11 documented as of this encounter
--- OUTSIDE RECORDS SUMMARY | 2024-12-03 14:26 | XMS_ITS | Encounter Summary ---
Author Organization [facility] Address [address] [place] [address] Phone Care Team Providers Care Optical Instrument Assembly Supervisor Name Role Phone Daniella Castañeda MD Primary Care Provider [phone]- [phone] Encounter Details Date Type Department Care Team (Late st Contact Info) Description 05/30/2021 Documentation Only [facility] [address] [place] [address] Randy Rodriguez MD [address] [place] [address] [place] [address] Social History Tobacco Use Types Packs/Day Years Used Date Smoking Tobacco: Unknown Smokeless Tobacco: Never Comments Unknown Sex and Gender Information Value Date Recorded Sex Assigned at Not on file Legal Sex Female 9:25 AM EDT Gender Identity Not on file Sexual Orientation Not on file documented as of this encounter Plan of Treatment Not on file documented as of this encounter Visit Diagnoses Not on filedocumented in this encounter Care Teams Optical Instrument Assembly Supervisor Relationship Specialty Start Date End Date Daniella Castañeda MD [address] [place] [address] PCP - General Internal Medicine 03/29/21 documented as of this encounter
--- OUTSIDE RECORDS SUMMARY | 2024-12-03 14:26 | XMS_ITS | Clinical Summary ---
Author Organization [facility], Address [address] [place] [address] [place] [address] Phone Care Team Providers Care Key Ringer Name Role Phone Daniella Castañeda MD Primary Care Provider +1- [phone] Allergies No known active allergies Medications cloNIDine [...] topic Insurance Medicaid [place] Medicare Care Teams Key Ringer Relationship Specialty Start Date End Date Daniella Castañeda MD [address] [place] [address] [phone] PCP - General Internal Medicine 03/29/21
--- OUTSIDE RECORDS SUMMARY | 2024-12-03 14:26 | XMS_ITS | Encounter Summary ---
Author Organization [facility] Address [address] [place] [address] Phone Care Team Providers Care Home Care And Home Health Aides Teacher Name Role Phone Daniella Castañeda MD Primary Care Provider +1- [phone] Encounter Details Date Type Department Care Team (Late st Contact Info) Description 08/03/2021 Documentation Only [facility] [address] [place] [address] Randy Rodriguez MD [address] [place] [address] [place] [address] Social History Tobacco Use Types [...] on filedocumented in this encounter Care Teams Home Care And Home Health Aides Teacher Relationship Specialty Start Date End Date Daniella Castañeda MD [address] [place] [address] PCP - General Internal Medicine 03/29/21 documented as of this encounter
--- OUTSIDE RECORDS SUMMARY | 2024-12-03 14:26 | XMS_ITS | Encounter Summary ---
Author Organization [facility] Address [address] [place] [address] Phone Care Team Providers Care Hand Upper And Bottom Lacer Name Role Phone Daniella Castañeda MD Primary Care Provider +1- [phone] Encounter Details Date Type Department Care Team (Late st Contact Info) Description 05/30/2021 Documentation Only [facility] [address] [place] [address] Randy Rodriguez MD [address] [place] [address] [place] [address] Social History Tobacco Use Types [...] on filedocumented in this encounter Care Teams Hand Upper And Bottom Lacer Relationship Specialty Start Date End Date Daniella Castañeda MD [address] [place] [address] PCP - General Internal Medicine 03/29/21 documented as of this encounter
--- OUTSIDE RECORDS SUMMARY | 2024-12-03 14:26 | XMS_ITS | Clinical Summary ---
Author Organization [facility] Address [address] [place] [address] Care Team Providers Care Broadcast Designer Name Role Phone Unavailable Primary Care Provider [...] 03/03/2016 03/03/2006 COVID-19 Vaccine (3 - season) 2024 08/08/2020, 07/09/2020 Influenza (#1) 2024 Zoster (Shingrix) [...] this topic [place] [id number] MEDICAID
--- OUTSIDE RECORDS SUMMARY | 2024-12-03 14:26 | XMS_ITS | Clinical Summary ---
Author Organization [facility] Address [address] [facility] 7[address] [place] [address] Care Team Providers Care Pick Up Attendant Name Role Phone Daniella Castañeda MD Primary Care Provider [phone] Allergies No known active allergies Medications albuterol (Ventolin HFA) 108 (90 Base) MCG/ACT inhaler INHALE 2 PUFFS BY MOUTH EVERY 4 TO 6 HOURS NEEDED FOR ASTHMA 1 Active amphetamine-dex troamphetamine (Adderall) 15 MG tablet Take 1 tablet by mouth every 12 (twelve) hours. 1 Active apixaban (Eliquis) 5 MG tablet Take 1 tablet by mouth every 12 (twelve) hours. 2 Active aspirin 81 MG chewable tablet Chew 1 tablet at bed time. Active busPIRone (Buspar) 15 MG tablet Take 15 mg by mouth. 2 Active citalopram (CeleXA) 40 MG tablet Take 40 mg by mouth in the morning. 3 Active cloNIDine (Catapres) 0.1 MG tablet Take 0.1 mg by mouth. 3 Active cyclobenzaprine (Flexeril) 5 MG tablet Take 1 tablet by mouth every 8 (eight) hours. 1 Active diphenhydrAMINE (Sominex) 25 MG tablet Take 50 mg by mouth. 3 Active fluticasone (Flonase) 50 MCG/ACT nasal spray spray 1 spray by intranasal route every day in each nostril 1 Active Flovent HFA 220 MCG/ACT inhaler INHALE 1 PUFF BY INHALATION ROUTE TWICE DAILY EVERY DAY 2 Active gabapentin (Neurontin) 100 MG capsule Take 1 capsule by mouth every 8 (eight) hours. 1 Active guaiFENesin (Mucinex) 600 MG 12 hr tablet Take 1 tablet by mouth every 12 (twelve) hours. 2 Active hydroquinone 4 % cream Apply topically at bed time. 2 Active lamoTRIgine (LaMICtal) 25 MG tablet TAKE 1 TABLET BY MOUTH DAILY FOR 2 WEEKS. INCREASE TO 2 TABLETS BY MOUTH DAILY 3 Active lidocaine-prilo jackie (Emla) 2.5-2.5 % cream APPLY 1 APPLICATION ON THE SKIN DIRECTED 2 Active melatonin 3 MG tablet Take 3 mg by mouth. 3 Active methadone (Dolophine) 5 MG/5ML solution 65 mg once a day Active Multiple Vitamin (Multi-Vitamin) tablet Take 1 tablet by mouth. Active sodium polystyrene sulfonate (Kayexalate) powder Take 20 mL by mouth at bed time. 1 Active thiamine (Vitamin B-1) 100 MG tablet Take 100 mg by mouth. 3 Active traZODone (Desyrel) 100 MG tablet Take 100 mg by mouth if needed at bedtime. 2 Active venlafaxine XR (Effexor XR) 37.5 MG 24 hr capsule Take 37.5 mg by mouth. 3 Active amoxicillin (Amoxil) 500 MG tablet TAKE 2 TABLETS BY MOUTH THREE TIMES A DAY FOR 6 WEEKS 3 Active erythromycin (Romycin) 5 MG/GM ophthalmic ointment APPLY 1/2 INCH RIBBON TO LEFT EVERY 4 HOURS 3 Active ofloxacin (Ocuflox) 0.3 % ophthalmic solution INSTILL 1 DROP INTO LEFT EYE EVERY HOUR WHILE AWAKE FOR 1 WEEK. PLEASE FOLLOW UP WITH OPHTHALMOLOGY 3 Active Mometasone Furoate (Asmanex HFA) 200 MCG/ACT aerosolIndicati ons:SOB (shortness of breath) Inhale 1 Act (200 mcg) Once per day. 13 g 3 5 Active nicotine (Nicoderm CQ) 14 MG/24HR patchIndication s:Cigarette nicotine dependence in remission Place 1 patch on the skin 1 (one) time each day at the same time. 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 Factor V Leiden mutation 02/23/2016 023 Deep venous thrombosis of upper extremity 201503/11/2023 Opioid dependence 10/27/2012 03/11/2023 Asthma 09/20/2007 03/11/2023 Encounters Date Type Department Care Team Description 11/08/2024 Telephone [facility] MED & PEDS [address] [place] [address] Daniella Castañeda MD No Show 10/25/2024 Telephone [facility] [address] [place] [address] Daniella Castañeda MD Results 09/24/2024 Telephone [facility] MEDICINE [address] [place] [address] Daniella Castañeda MD Durable Medical Equipment 09/16/2024 Orders Only [facility] [address] [place] [address] Daniella Castañeda MD H/O abnormal cervical Papanicolaou smear (Primary Dx) 09/08/2024 Telephone [facility] [address] [place] [address] Daniella Castañeda MD Referral 09/07/2024 Telephone [facility] [address] [place] [address] Daniella Randall MD 09/06/2024 [facility] MEDICINE [address] [place] [address] Daniella Castañeda MD Referral from Last 3 Months Family History Medical History Relation Name Comments Leukemia Mother Relation Name Status Comments Mother Social History Tobacco Use Types Packs/Day Years Used Date Smoking Tobacco: Every Day Cigarettes Smokeless Tobacco: Never Tobacco Cessation:Ready to Q uit: Yes; Counseling Given: Yes Comments:Currently smokes 5 cigarettes a day. Used [...] Orientation Straight 01/14/2022 10 :20 AM EDT Last Filed Vital Signs Vital Sign Reading Time Taken Comments Blood Pressure 123/81 07/27/2024 4:04 PM EDT Pulse 70 07/27/2024 4:04 PM EDT Temperature 36.6 C (97.9 F) 07/27/2024 4:04 PM EDT Respiratory Rate 20 07/27/2024 4:04 PM EDT Oxygen Saturation 97% 07/27/2024 4:04 PM EDT Inhaled Oxygen Concentration - - Weight 82.1 kg (181 lb) 07/27/2024 4:04 PM EDT Height 165.1 cm (5' 5 ) 07/27/2024 4:04 PM EDT Body Mass Index 30.12 07/27/2024 4:04 PM EDT Plan of Treatment Upcoming Encounters Date Type Department Care Team (Late st Contact Info) Description 12/27/2024 2:30 PM EDT Office Visit [facility] MED & PEDS [address] [place] [address] Daniella Castañeda MD [address] [place] [address] Health Maintenance Due Date Last Done Comments Depression Screening 1990 Lipid Panel 1990 SDOH Screening 1990 Disability Screening 1990 Alcohol/Substance Use Screening 2002 Family Planning (PISQ) 2005 Hepatitis C Screening 2008 Pneumococcal Vaccine: Pediatrics (0 to 5 Years) and At-Risk Patients (6 to 49) Years (1 of 2 - PCV) 2009 DTaP/Tdap/Td Vaccines (7 - Td or Tdap) 03/03/2016 03/03/2006, 06/29/2001, 12/24/1994, Additional history exists COVID-19 Vaccine (3 - season) 2024 08/08/2020, 07/09/2020 Influenza Vaccine (#1) 2024 Tobacco Screening 07/28/2025 07/28/2024 Cervical Cancer Screening 01/18/2026 Pap Smear 01/18/2026 01/18/2021 HPV/Cotest 12/14/2027 12/13/2022, 06/2020, 01/18/2021, Additional history exists Zoster Vaccines (1 of 2) 2040 RSV Patients and Patients Aged 60 years or older (1 - 1-dose 75+ series) 2065 HIB Vaccines Completed 03/20/1992, 05/16, 04/14/1991, Additional history exists IPV Vaccines Completed 12/24/1994, 06/15, 04/14/1991, Additional history exists Meningococcal Vaccine Aged Out 03/03/2006 No óscar [email or web address] eligible based on patient's age to complete this topic Hepatitis A Vaccines Aged Out 09/22/2012, 03/24/19 13 No longer eligible based on patient's age to complete this topic HPV Vaccines Completed 01/31/2017, 03/2015, 02/03/2007, Additional history exists Hepatitis B Vaccines Completed 01/31/2017, 02/15/2016, 06/08/1996, Additional history exists HIV Screening Completed 09/21/2020 Meningococcal B Vaccine Aged Out No l onger eligible based on patient's age to complete this topic RSV under 20 months Aged Out No longe r eligible based on patient's age to complete this topic Rotavirus Vaccines Aged Out No longer eligible based on patient's age to complete this topic Procedures Procedure Name Priority Date/Time Associated Diagnosis Comments HM PAP/HPV Routine 01/18/2021 ZZZ HISTORICAL HIV AB/AG Routine 09/21/2020 1:24 PM EDT from Last 3 Months or Most Recently Relevant to Health Maintenance Results * Hm Pap Smear (01/18/2021) Pap Negative for intraephithelial lesion or malignancy Negative for intraephithelial lesion or malignancy, Other HPV Undetected Historical Provider HEALTH MAINTENANCE Final Result * HIV AB/AG (09/21/2020 1:24 PM EDT) HIV AB/AG Nonreactive Nonreactive [facility] Comment: HIV-1 p24 Ag and/or HIV-1/HIV-2 Ab not detected. A test result that is nonreactive does not exclude the possibility of exposure to or infection with HIV-1 and/or HIV-2. Nonreactive results in this assay for individuals with prior exposure to HIV-1 and/or HIV-2 may be due to antigen and antibody levels that are below the limit of detection of this assay. The [facility] HIV Ag/Ab Combo assay result and supplemental assay results should be interpreted in conjunction with the patient's clinical presentation, history and other laboratory results. If the results are inconsistent with clinical evidence, additional testing is suggested to confirm the result. 09/21/2020 1:24 PM EDT Historical Provider HISTORICAL/NON ORDERABLE LABS Final Result [facility] [address] from Last 3 Months or Most Recently Relevant to Health Maintenance Insurance * Guarantor: Jaky Barnes Account Type Relation to Patient Date of Phone Billing Address Personal/Family Self 1990 [address] [facility] [address] [place] [address] MEDICARE [facility] [employer] [address] [address] [address] [address] [address] [address] Care Teams Pick Up Attendant Relationship Specialty Start Date End Date Daniella Castañeda MD [address] [place] [address] PCP - General Internal Medicine 12/10/11
--- OUTSIDE RECORDS SUMMARY | 2024-12-03 14:26 | XMS_ITS | Encounter Summary ---
Author Organization [facility] Address [address] [place] [address] Phone Care Team Providers Care Microbiology Director Name Role Phone Daniella Castañeda MD Primary Care Provider [phone] Encounter Details Date Type Department Care Team (Late st Contact Info) Description 05/30/2021 Documentation Only [facility] [address] [place] [address] Randy Rodriguez MD [address] [place] [address] [place] [address] Social History Tobacco Use Types [...] on filedocumented in this encounter Care Teams Microbiology Director Relationship Specialty Start Date End Date Daniella Castañeda MD [address] [place] [address] PCP - General Internal Medicine 03/29/21 documented as of this encounter
--- OUTSIDE RECORDS SUMMARY | 2024-12-03 14:26 | XMS_ITS | Encounter Summary ---
Author Organization [facility] Address [address] [place] [address] Phone Care Team Providers Care Medical Language Specialist Name Role Phone Daniella Castañeda MD Primary Care Provider [phone]- [phone] Encounter Details Date Type Department Care Team (Late st Contact Info) Description 09/19/2021 Documentation Only [facility] [address] [place] [place] [address] Randy Rodriguez MD [address] [place] [address] [place] [address] Social History Tobacco Use Types [...] on filedocumented in this encounter Care Teams Medical Language Specialist Relationship Specialty Start Date End Date Daniella Castañeda MD [address] [place] [address] PCP - General Internal Medicine 03/29/21 documented as of this encounter
--- OUTSIDE RECORDS SUMMARY | 2024-12-03 14:26 | XMS_ITS | Encounter Summary ---
Author Organization [facility] Address [address] [facility] [address] [place] [address] Care Team Providers Care Economics Teacher Name Role Phone Daniella Castañeda MD Primary Care Provider Encounter Details Date Type Department Care Team ([facility] Contact Info) Description 12/13/2022 Abstract [facility] MEDICINE [address] [place] [address] Daniella Castañeda MD [address] [place], [place] [phone] Social History Tobacco Use Types Packs/Day Years [...] Description 12/27/2024 2:30 PM EDT Office Visit [facility] MED & PEDS [address] [place] [address] Daniella Castañeda MD [address] [place], [place] [phone] documented as of this encounter Procedures Procedure Name Priority Date/Time Associated Diagnosis Comments PAP/HPV Routine 01/18/2021 documented in this encounter Results * Hm Pap Smear (01/18/2021) Pap Negative for intraephithelial lesion or malignancy Negative for intraephithelial lesion or malignancy, Other HPV Undetected us Historical Provider HEALTH MAINTENANCE Final Result documented in this encounter Visit Diagnoses Not on filedocumented in this encounter Care Teams Economics Teacher Relationship Specialty Start Date End Date Daniella Castañeda MD [address] [place] [address] PCP - General Internal Medicine 12/10/11 documented as of this encounter
--- OUTSIDE RECORDS SUMMARY | 2024-12-03 14:26 | XMS_ITS | Encounter Summary ---
Author Organization [facility] Address [address] [facility] 7t [place] [address] Care Team Providers Care Agency Service Coordinator Name Role Phone Daniella Castañeda MD Primary Care Provider [phone]- [phone] Reason for Referral * Consultation (Routine) - Authorized Specialty Diagnoses / Procedures Referred By Contfrank t Referred To Contact Obstetrics and Gynecology Diagnoses H/O abnormal cervical Papanicolaou smear Daniella Castañeda MD [address] [place] [address] Phone: tel: fax: [facility] [address] 5[address] (Main Hospital Entrance) [place], [place] Phone: tel: fax: Referral ID Status Reason Start Date Expiration Date Visits Requested Visits Authorized [id number] Authorized Specialty Services Required 09/16/2024 09/16/2025 1 1 Encounter Details Date Type Department Care Team ([facility] Contact Info) Description 09/16/2024 Orders Only [facility] MED & PEDS [address] [place] [address] Daniella Castañeda MD [address] [place] [address] H/O abnormal cervical Papanicolaou smear (Primary Dx) [...] Description 12/27/2024 2:30 PM EDT Office Visit [facility] MED & PEDS [address] [place] [address] Daniella Castañeda MD [address] [place] [address] Scheduled Referrals Name Type Priority Associated Diagnoses Orde r Schedule Referral to Obstetrics / Gynecology Outpatient Referral Routine H/O abnormal cervical Papanicolaou smear Expected: 09/16/2024 (Approximate), Expires: 09/16/2025 documented as of this encounter Visit Diagnoses Diagnosis H/O abnormal cervical Papanicolaou smear- Primary documented in this encounter Care Teams Agency Service Coordinator Relationship Specialty Start Date End Date Daniella Castañeda MD [address] [place] [address] PCP - General Internal Medicine 12/10/11 documented as of this encounter
--- OUTSIDE RECORDS SUMMARY | 2024-12-03 14:26 | XMS_ITS | Encounter Summary ---
Author Organization [facility] Address [address] [place] [address] [address] [address] Care Team Providers Care Prospect Manager Name Role Phone Daniella Castañeda MD Primary Care Provider Encounter Details Date Type Department Care Team ([facility] Contact Info) Description 08/01/2022 Abstract [facility] MED & PEDS [address] [place] [address] Daniella Castañeda MD [address] [place] [address] Social History Tobacco Use Types Packs/Day Years [...] Description 12/27/2024 2:30 PM EDT Office Visit [facility] MED & PEDS [address] [place] [address] Daniella Castañeda MD [address] [place] [address] documented as of this encounter Visit Diagnoses Not on filedocumented in this encounter Care Teams Prospect Manager Relationship Specialty Start Date End Date Daniella Castañeda MD [address] [place] [address] PCP - General Internal Medicine 12/10/11 documented as of this encounter
--- OUTSIDE RECORDS SUMMARY | 2024-12-03 14:26 | XMS_ITS | Encounter Summary ---
Author Organization [facility] Address [address] [place] [address] 7 [place] [address] Care Team Providers Care Refining Engineer Name Role Phone Daniella Castañeda MD Primary Care Provider [phone] Reason for Referral * Hospital - Outpatient (Routine) - Closed Specialty Diagnoses / Procedures Referred By Belinda amezcua Referred To Contact Diagnoses Excessive daytime sleepiness Snoring Other fatigue Obesity (BMI 30-39.9) Procedures Polysomnography Daniella Castañeda MD [address] [place] [address] Phone: tel: fax: [address] Phone: tel: fax: Referral ID Status Reason Start Date Expiration Date Visits Re quested Visits Authorized [id number] Closed 07/29/2024 07/29/2025 1 1 Encounter Details Date Type Department Care Team ([facility] Contact Info) Description 07/29/2024 Orders Only [facility] MED & PEDS [address] [place], [place] [phone] Daniella Castañeda MD [address] [place], [place] [phone] Excessive daytime sleepiness (Primary Dx); Snoring; Other fatigue; Obesity (BMI 30-39.9) Social History Tobacco Use Types Packs/Day Years [...] Upcoming Encounters Date Type Department Care Team ([facility] st Contact Info) Description 12/27/2024 2:30 PM EDT Office Visit [facility] MED & PEDS [address] [place] [address] Daniella Castañeda MD [address] [place] [address] Scheduled Orders Name Type Priority Associated Diagnoses Orde r Schedule Polysomnography [facility] Routine Excessive daytime sleepiness Snoring Other fatigue Obesity (BMI 30-39.9) Expected: 07/29/2024 (Approximate), Expires: 07/29/2025 documented as of this encounter Visit Diagnoses Diagnosis Excessive daytime sleepiness- Primary Snoring Other dyspnea and respiratory abnormality Other fatigue Obesity (BMI 30-39.9) documented in this encounter Care Teams Refining Engineer Relationship Specialty Start Date End Date Daniella Castañeda MD [address] [place] [address] PCP - General Internal Medicine 12/10/11 documented as of this encounter
--- OUTSIDE RECORDS SUMMARY | 2024-12-03 14:26 | XMS_ITS | Encounter Summary ---
Author Organization [facility] Address [address] [place] [address] Phone Care Team Providers Care Pipe Washer Name Role Phone Daniella Castañeda MD Primary Care Provider [phone]- [phone] Encounter Details Date Type Department Care Team (Late st Contact Info) Description 03/30/2021 Documentation Only [facility] [address] [place] [address] Randy Rodriguez MD [address] [place] [address] [place] [address] Social History Tobacco Use Types [...] on filedocumented in this encounter Care Teams Pipe Washer Relationship Specialty Start Date End Date Daniella Castañeda MD [address] [place] [address] PCP - General Internal Medicine 03/29/21 documented as of this encounter
--- OUTSIDE RECORDS SUMMARY | 2024-12-03 14:26 | XMS_ITS | Encounter Summary ---
Author Organization [facility] Address [address] [place] [address] Phone Care Team Providers Care Historical Guide Name Role Phone Daniella Castañeda MD Primary Care Provider [phone] Encounter Details Date Type Department Care Team (Late st Contact Info) Description 03/30/2021 Documentation Only [facility] [address] [place] [address] Randy Rodriguez MD [address] [place] [address] [place] [address] Social History Tobacco Use Types [...] on filedocumented in this encounter Care Teams Historical Guide Relationship Specialty Start Date End Date Daniella Castañeda MD [address] [place] [address] PCP - General Internal Medicine 03/29/21 documented as of this encounter
--- NOTE | 2024-12-03 14:27 | A.OFFVIS_ITS ---
Vital Signs 12/03/24 14:28 Height 5 ft 5 in Weight 187 lb 8 oz BMI 31.2 BP 112/62 Blood Pressure Location Rt brachial Position Sitting Pulse 70 Pulse Source Pulse Oximeter Pulse Oximetry (%) 95 Oxygen Delivery Method Room Air Intake Visit Reasons: Shortness of breath Allergies No Known Allergies Allergy (Verified 12/03/24 14:31) HPI HPI Shortness of breath: Details: Beba is a 34-year-old female, current 10+ pack year smoker, with underlying h/o IVDU on methadone, factor V Leiden and h/o DVT/PE on Eliquis, prior bouts of bacteremia and tricuspid valve endocarditis requiring replacement in 2019 and angio vac in 2022 as well as empyema requiring decortication. She was referred by PCP for pulmonary evaluation presenting with shortness of breath and asthma symptoms. She reports experiencing shortness of breath for approximately one year, with associated wheezing and chest tightness. She denies prior history of asthma. She reports mother with history of asthma. She endorses seasonal allergies, controlled with antihistamine PRN, not interested in allergy testing at this time. The patient underwent pulmonary function testing, which indicated asthma, as evidenced by a significant improvement in lung function following albuterol administration. There was also note of restrictive defect and decreased DLCO, patient noting prior decortication surgery for empyema. She also had bilateral pleural effusions in 2023 noted on previous imaging with no recent follow up imaging. The patient has a history of pulmonary embolism, attributed to Factor V Leiden and is currently managed on Eliquis,prescribed by her prosthetic dentist, Dr. Marcano. She reports having moderate sleep apnea, recently diagnosed via a sleep study, and is using a CPAP machine. The sleep study indicated mild nocturnal hypoxemia <88% for 8 minutes, necessitating further monitoring which she will discuss with PCP. [facility] Medical History IV drug abuse Factor V Leiden History of pulmonary embolism History of ADHD Surgical History History of loop electrical excision procedure (LEEP) Hx of heart surgery Hx of cholecystectomy Hx of tonsillectomy Family History Mother Skin cancer Social History (Updated 12/03/24 @ 14:30 by Citlalli Garcia CMA) Alcohol intake: never Patient Tobacco Use Status: Current everyday Tobacco user Cigarette Packs Per Day: 0.5 Cigarettes Per Day: 10 Years Smoked: 10 Sexual orientation: Straight/Heterosexual Gender identity: Female Female Reproductive History Menstrual Age of Menarche: 13 Review of Systems Const Denies chills, Denies excessive sweating, Denies fever(s), Denies headache(s) and Denies night sweats Eyes Denies dry eyes, Denies irritation and Denies itchy eyes ENT Reports Normal hearing present, Denies headache(s), Denies nasal discharge and Denies sore throat Card Denies chest pain, Denies chest pain at rest, Denies chest pain with activity, Denies claudication, Denies leg edema, Denies dyspnea, Denies orthopnea and Denies paroxysmal nocturnal dyspnea Resp Denies chest congestion, Denies cough, Denies excessive phlegm production, Denies pain on inspiration, Denies pain with cough, Denies dyspnea and Denies stridor Musc Denies myalgias Neuro Reports Normal hearing present and Denies headache(s) Endo Denies excessive sweating Brad/Lymph Denies lymphadenopathy Aller/Immun Denies itchy eyes and Denies seasonal rhinorrhea Physical Exam Vital Signs: Last Vital Signs Pulse 70 12/03/24 14:28 BP 112/62 12/03/24 14:28 Pulse Ox 95 12/03/24 14:28 Oxygen Delivery Method Room Air 12/03/24 14:28 BMI result Body Mass Index 31.2 Const General: cooperative, healthy appearing, comfortable, no acute distress, well developed and alert Orientation/consciousness: patient oriented x3 Limitations: no limitations HEENT Head: Yes normal to inspection, Yes normocephalic and Yes atraumatic Ears: hearing grossly normal bilaterally and external ears normal Eyes General: appearance normal, both eyes and all related structures Eyelids: Yes eyelids normal Sclerae: sclerae normal EOM: EOMs intact bilaterally Neck Neck: Yes normal visual inspection and Yes no lymphadenopathy Lymphatic: no lymphadenopathy noted Chest Chest palpation & inspection: normal inspection of the chest Resp Effort & Inspection: normal respiratory effort, able to speak in complete sentences, no audible wheezes, no cough, no stridor, not tachypneic, no tripod positioning and no use of accessory muscles Auscultation: clear to auscultation bilaterally Cardio Jugular venous distension: no JVD Rate: regular rate Rhythm: regular rhythm Skin Other: warm, dry General skin exam: no rashes or lesions noted Neuro General: patient oriented x3 Cranial nerves: Yes Normal hearing present Cognition (Neuro): normal cognition Gait exam (Neuro): Normal gait present Extrem General: Yes normal to inspection, Yes capillary refill normal, Yes no clubbing, cyanosis or edema and Yes no pedal edema Psych Appearance: grossly normal and well kempt Speech and movement: Normal speech and movement present and Clear speech present Affect: normal affect Attitude: cooperative Thought process: Normal thought process present Thought content: Normal thought content present Insight: Good insight present (Psych) Judgement: Good judgement present (Psych) Results Reviewed Results Reviewed: RESULT: CT Chest W/O Contrast CT Chest W/O Contrast INDICATION: Reason: Other:; Pleural effusion; Clinical Question(s): Other:; pericardial effusion; Order Comment: TECHNIQUE: Helical CT scan of the chest without IV contrast, formatted in 3 planes. Weight-based protocol was performed using automatic exposure control. CTDIvol Body: 6.00 mGy, DLP Body: 221 mGy*cm. COMPARISON: 06/14/2023 FINDINGS: Research Center Director view findings, lines and tubes: Right-sided vascular access catheter tip is in the area of the low SVC Monitoring and percutaneous pacing electrodes seen in the pericardial space. Trachea and airways: Proximal tracheobronchial tree has expiratory appearance and is patent Small volume of dependent secretions in the upper to mid trachea. Lungs and pleura: Bilateral pleural effusions, small on the right and trace to small the left, increased from the prior exam. There is basilar atelectasis. Persistent peripheral upper lung multifocal opacities with segmental atelectasis in the anterior left upper lobe, new and increased from the previous exam. There is no pneumothorax. Mediastinum and loulou: Postsurgical changes in the mediastinum. Please see pericardial findings below. Increased in number of mediastinal lymph nodes, for example AP window lymph nodes at series 201 image 31. No mediastinal or hilar lymphadenopathy. No esophageal abnormality. Partially imaged thyroid is unremarkable. Heart: Heart size is within mild enlargement. Low attenuation of the blood pool, indicating anemia. There is tricuspid valve replacement. There is biatrial enlargement. Moderate volume pericardial effusion, increased, and at upper limit of normal fluid attenuation to slightly above simple fluid attenuation. Heterogeneous high attenuation seen for example at the left hemithorax on series 201 image 34 is likely atelectatic lung adjacent to the mediastinal pleura. Monitoring electrodes seen in the pericardial space. Aorta: Mild vascular calcification but no aneurysm. Pulmonary arteries: Main pulmonary artery is enlarged up to 34 mm Chest wall soft tissues: Mild edema of the chest wall. Similar asymmetric edema or thickening seen at the chest wall at the level of the left upper chest with asymmetric edema of the pectoralis muscle at series 201 image 29 which could represent evolution of hematoma, in the area of previous pacing leads. No subcutaneous fluid collection. Diaphragm: Intact. Upper abdomen: Mild hepatic steatosis. Contrast within a gastric diverticulum posteriorly. Bones: There are postsurgical changes of sternotomy with sternal wires as well as plate and screw sternal hardware. No diastases with incomplete healing. IMPRESSION: Multifocal airspace opacities in the lungs, which can represent active pulmonary infection. Small volume of secretions in the trachea, consider aspiration etiology. There is also subsegmental atelectasis and mild edema with bilateral trace to small pleural effusions. Increased pericardial fluid, small in volume with upper limit of simple fluid attenuation to slightly above simple fluid attenuation. Enlarged main pulmonary artery which could be seen with underlying pulmonary hypertension. WSN: [id number] Ordering Physician: Citlalli Longo Reason For Exam Pleural effusion;Other: Signature Line Dictated By: Gisela Moya MD Dictated Date/Time: 06/24/23 9:26 am Reviewed By: Gisela Moya MD Signed By: Gisela Moya MD Signed Date/Time: 06/24/23 9:26 am Transcribed By: DANILO Transcribed Date/Time: 06/24/23 9:09 am Assessment & Plan Assessment & Plan (1) Asthma: Code(s): J45.909 - Unspecified asthma, uncomplicated Category: Medical (2) Nicotine dependence, cigarettes, uncomplicated: Code(s): F17.210 - Nicotine dependence, cigarettes, uncomplicated Category: Medical (3) Restrictive ventilatory defect: Code(s): R94.2 - Abnormal results of pulmonary function studies Category: Medical Plan Beba presents for pulmonary evaluation for ongoing dyspnea. Recent PFT revealed moderate restrictive ventilatory defect with positive bronchodilator response. Decreased expiratory reserve volume suggests extrathoracic restriction likely secondary to abdominal obesity. Combination of restrictive ventilatory defect with decreased diffusion capacity suggests underlying pulmonary parenchymal disease. The patient will be started on Arnuity to manage asthma symptoms. Albuterol will be prescribed for use as needed for acute symptoms such as wheezing and chest tightness. The patient is advised to rinse her mouth after using the inhaler to prevent thrush. Will send for chest ct given restrictive defect and decreased DLCO on PFT. Smoking cessation reviewed. The patient is advised to use her CPAP machine regularly to manage moderate sleep apnea. An overnight oxygen test is recommended to monitor oxygen levels during sleep, she will further discuss with PCP if this will be ordered through their office. Currently PCP managing CPAP. All questions were answered and patient is in agreement of plan. Will follow up in 6-8 weeks or sooner if needed. Orders: Orders CT chest wo IV con Today R94.2 - Abnormal results of pulmonary function studies Medications: New albuterol sulfate 90 mcg/actuation 2 puffs inhalation Q4-6H PRN 1 ea 2RF shortness of breath or wheezing fluticasone furoate 100 mcg/actuation (Arnuity Ellipta) 1 inh inhalation DAILY 30 ea 3RF Coding Level of Care Code New Pt Level 4 (51352) Diagnoses Asthma J45.909 Nicotine dependence, cigarettes, uncomplicated F17.210 Restrictive ventilatory defect R94.2
--- OUTSIDE RECORDS SUMMARY | 2024-12-03 14:27 | XMS_ITS | Encounter Summary ---
Author Organization [facility] Address [address] [place] [address] Phone Care Team Providers Care Superintendent [employer] Name Role Phone Daniella Castañeda MD Primary Care Provider [phone] Encounter Details Date Type Department Care Team (Late st Contact Info) Description 09/19/2021 Documentation Only [facility] [address] [place] [address] Randy Rodriguez MD [address] [place] [address] [place] [address] Social History Tobacco Use Types [...] on filedocumented in this encounter Care Teams Superintendent [employer] Relationship Specialty Start Date End Date Daniella Castañeda MD [address] [place] [address] PCP - General Internal Medicine 03/29/21 documented as of this encounter
--- OUTSIDE RECORDS SUMMARY | 2024-12-03 14:27 | XMS_ITS | Encounter Summary ---
Author Organization [facility] Address [address] [place] [address] Phone Care Team Providers Care Code Clerk Name Role Phone Daniella Castañeda MD Primary Care Provider [phone]- [phone] Encounter Details Date Type Department Care Team (Late st Contact Info) Description 08/03/2021 Documentation Only [facility] [address] [place] [address] Randy Rodriguez MD [address] [place] [address] [place] [address] Social History Tobacco Use Types [...] on filedocumented in this encounter Care Teams Code Clerk Relationship Specialty Start Date End Date Daniella Castañeda MD [address] [place] [address] PCP - General Internal Medicine 03/29/21 documented as of this encounter
[2024-12-03 14:28] VITALS: BP 112/62; PULSE 70; O2SAT 95; BMI 31.2
== END 2024-12-03 15:21 | disposition home or self-care (01) ==
LOC: HO.HPSW 14:23
PROVIDERS: PCP Internal Medicine; Referring Provider Internal Medicine; Visit Provider Nurse Practitioner Family
DX: J45.909 Unspecified asthma, uncomplicated (principal); F17.210 Nicotine dependence, cigarettes, uncomplicated; R94.2 Abnormal results of pulmonary function studies
CPT/HCPCS: 99204

== ENCOUNTER → 2024-12-03 14:22 | Outpatient (BNVA) | payer MEDICARE, MEDICAID, SELFPAY | PROVIDERS: PCP Internal Medicine; Referring Provider Internal Medicine; Visit Provider Nurse Practitioner Family | DX: J45.909 Unspecified asthma, uncomplicated (principal); F17.210 Nicotine dependence, cigarettes, uncomplicated; R94.2 Abnormal results of pulmonary function studies | CPT/HCPCS: 99202 ==